=== PATIENT | male | born 1950 | race Caucasian/White ===

== ENCOUNTER 2016-09-09 12:40 | Emergency (ER) | payer MEDICARE, BC ==
[2016-09-09 13:31] VITALS: BP 118/81
[2016-09-09] MEDS ORDERED: Ampicillin/Sulbactam Na 1.5 GM in Sodium Chloride 0.9% 50 ML IV ONE (14:10)
--- NOTE | 2016-09-09 14:44 | EDM.PDOC ---
[id number]: RASH ON RIGHT FOOT KEVIN PATIENT Time Seen by Provider: 09/09/16 13:45 Source of Information: Reports: Patient History Limitations: Reports: No Limitations - History of Present Illness INITIAL COMMENTS - FREE TEXT/NARRATIVE: 65-year-old diabetic that had a recent procedure for a foot ulcer by podiatry, is in a walking boot but has developed a warm erythematous rash which is tender over the anterior and lateral aspects of the lower leg on the right side. He had some mild chills but no measured fever. No nausea or vomiting. Onset: Gradual (Over the last 12-24 hours) Location: Reports: Lower Extremity, Right Severity: Mild Associated Symptoms: Denies: Nausea/Vomiting, Shortness of Breath Left Leg Pain Score (Numeric/FACES): 3 - Related Data Allergies Allergy/AdvReac Type Severity Reaction Status Date / Time metformin HCl Allergy Other Verified 11/24/15 07:45 [From Glucophage] niacin Allergy Other Verified 11/24/15 07:45 atorvastatin calcium AdvReac Muscle Verified 11/24/15 07:45 [From Lipitor] Aches Home Meds: Home Meds Allopurinol [Zyloprim] 300 mg PO BEDTIME 03/17/14 [History] Aspirin [Sarah Chewable Aspirin] 81 mg PO Q48H 03/17/14 [History] Citalopram Hydrobromide [Celexa] 40 mg PO BEDTIME 03/17/14 [History] Cyanocobalamin (Vitamin B12) [Vitamin B12] 100 mcg PO DAILY 03/17/14 [History] Ferrous Sulfate [Iron] 325 mg PO DAILY 03/17/14 [History] Glimepiride [Amaryl] 2 mg PO BID 03/17/14 [History] Losartan [Cozaar] 25 mg PO DAILY 03/17/14 [History] Magnesium Oxide [Magnesium] 400 mg PO DAILY 03/17/14 [History] Metoprolol Succinate [Toprol XL] 100 mg PO DAILY 03/17/14 [History] Multivitamin [Multi-Vitamin Daily] 1 tab PO DAILY 03/17/14 [History] Nitroglycerin [Nitrostat] 0.4 mg SL ASDIRECTED 03/17/14 [History] Vitamin B Complex [B Complex] 1 tab PO DAILY 03/17/14 [History] Insulin Detemir [Levemir] 24 units SQ DAILY 06/24/14 [History] Insulin Detemir [Levemir] 26 units SQ DAILY 06/24/14 [History] Spironolactone [Aldactone] 25 mg PO DAILY 06/24/14 [History] Torsemide [Demadex] 25 mg PO DAILY 06/24/14 [History] Clindamycin HCl 300 mg PO Q6H #40 capsule 02/08/15 [Rx] Past Medical History HEENT History: Reports: Allergic Rhinitis, Impaired Vision Cardiovascular History: Reports: CAD, Heart Failure, High Cholesterol, Hypertension, [place], Pacemaker Respiratory History: Reports: Sleep Apnea Gastrointestinal History: Reports: Colon Polyp, Hiatal Hernia Musculoskeletal History: Reports: Amputation, Fracture, Gout, Other (See Below) Other Musculoskeletal History: back pain/injury gout Neurological History: Reports: Neuropathy, Diabetic Psychiatric History: Reports: Anxiety Endocrine/Metabolic History: Reports: Diabetes, Type II, Obesity/BMI 30+ Hematologic History: Reports: B12 Deficiency Dermatologic History: Reports: Other (See Below) Other Dermatologic History: rash on left leg, since resolved - Infectious Disease History Infectious Disease History: Reports: Chicken Pox - Past Surgical History Head Surgeries/Procedures: Reports: None Cardiovascular Surgical History: Reports: Coronary Artery Bypass, Pacer GI Surgical History: Reports: Bariatric Procedure, Colonoscopy, Hernia Repair/ Other, Polypectomy Neurological Surgical History: Reports: Spinal Fusion Musculoskeletal Surgical History: Reports: Amputation, Arthroscopic Procedure, Shoulder Surgery Dermatological Surgical History: Reports: None Social & Family History - Family History Family Medical History: Noncontributory HEENT: Reports: None Cardiac: Reports: Hypertension, [place] Respiratory: Reports: None GI: Reports: None : Reports: None OBGYN: Reports: None Musculoskeletal: Reports: None Neurological: Reports: CVA Psychiatric: Reports: None Endocrine/Metabolic: Reports: None Hematologic: Reports: None Immunologic: Reports: None Dermatologic: Reports: None Oncologic: Reports: None - Tobacco Use Smoking Status *Q: Never Smoker Years of Tobacco use: 0 Used Tobacco, but Quit: No Second Hand Smoke Exposure: No - Caffeine Use Caffeine Use: Reports: Soda - Alcohol Use Days Per Week of Alcohol Use: 0 - Recreational Drug Use Recreational Drug Use: No ED ROS GENERAL - Review of Systems Review Of Systems: See Below Constitutional: Reports: Chills (Brief, temporary) Respiratory: Denies: Shortness of Breath, Hemoptysis GI/Abdominal: Denies: Abdominal Pain, Nausea, Vomiting Psychiatric: Reports: No Symptoms Hematologic/Lymphatic: Reports: Other (Glucose levels are slightly elevated over the past few days) ED EXAM, SKIN/RASH Exam: See Below Exam Limited By: No Limitations General Appearance: Alert, No Apparent Distress Respiratory/Chest: No Respiratory Distress, Lungs Clear Cardiovascular: Regular Rate, Rhythm Extremities: Other (Patient has a well demarcated erythematous macular rash which is warm to the touch and tender over the anterior aspect of the lower leg extending laterally and medially but not circumferential. It is not contiguous with the foot and there is no pedal edema) Course - Vital Signs Last Recorded V/S: Last Vital Signs Temp 97.8 F 09/09/16 13:49 Pulse 96 09/09/16 13:49 Resp 16 09/09/16 13:49 BP 118/81 09/09/16 13:49 Pulse Ox 96 09/09/16 13:49 - Orders/Labs/Meds Meds: Medications Discontinued Medications Generic Name Dose Route Start Last Admin Trade Name Terrence PRN Reason Stop Dose Admin Ampicillin Sodium/Sulbactam 50 mls @ 100 mls/hr 09/09/16 14:10 09/09/16 14:31 Sodium 1.5 gm/ Sodium Chloride IV 09/09/16 14:39 100 mls/hr ONETIME ONE Administration - Re-Assessments/Exams Free Text/Narrative Re-Assessment/Exam: 09/09/16 14:42 Patient will be given 1.5 g of IV Unasyn, and will be placed on Augmentin twice daily for the next 7 days. He does have a recheck appointment with podiatry in 3 days, he can return sooner if worsening or concerns. Departure - Departure Time of Disposition: 15:17 Disposition: Home, Self-Care 01 Condition: Good Clinical Impression: Cellulitis of leg Qualifiers: Laterality: right Qualified Code(s): L03.115 - Cellulitis of right lower limb - Discharge Information Instructions: Cellulitis, Adult, [id number] Referrals: Neftali Evans MD [Primary Care Provider] - Forms: ED Department Discharge Care Plan Goals: Take antibiotic twice daily with food for at least 7 days starting this evening. Recheck Saturday as scheduled, or return sooner if you feel you are worsening despite treatment.
== END 2016-09-09 15:18 | disposition home or self-care (01) ==
LOC: JP.ED 12:40
DX: L03.115 Cellulitis of right lower limb (principal); I25.10 Atherosclerotic heart disease of native coronary artery without angina pectoris; I11.0 Hypertensive heart disease with heart failure; I50.9 Heart failure, unspecified; E78.00 Pure hypercholesterolemia, unspecified; I25.2 Old myocardial infarction; E11.40 Type 2 diabetes mellitus with diabetic neuropathy, unspecified; E66.9 Obesity, unspecified; Z98.890 Other specified postprocedural states; Z88.8 Allergy status to other drugs, medicaments and biological substances; Z79.899 Other long term (current) drug therapy; Z79.4 Long term (current) use of insulin; Z95.1 Presence of aortocoronary bypass graft; Z68.39 Body mass index [BMI] 39.0-39.9, adult
CPT/HCPCS: 96365; 99283; J0287; J7050

== ENCOUNTER 2016-12-05 06:41 | Day surgery (SDC) | payer MEDICARE, BC ==
[2016-12-05] MEDS ORDERED: Lactated Ringers 1,000 ML IV SCH (07:30)
[2016-12-05] MEDS ORDERED: Propofol 200 MG/20 ML SDV ONE (07:53)
[2016-12-05] MEDS ORDERED: fentaNYL 100 MCG/2 ML SDV ONE (07:53)
[2016-12-05] MEDS ORDERED: Midazolam 1 MG/ML 2 ML SDV ONE (07:54)
--- NOTE | 2016-12-05 10:11 | OR ---
DATE OF PROCEDURE: 12/05/2016 PREOPERATIVE DIAGNOSIS: History of precancerous polyps. POSTOPERATIVE DIAGNOSES: 1. Small colon polyp 30 cm from the anal verge. 2. History of precancerous polyps. PROCEDURE PERFORMED: Colonoscopy to the cecum with biopsy resection of small colon polyp 30 cm from the anal verge. SURGEON: Jimmy Lugo MD. ANESTHESIA: IV anesthesia with monitored anesthesia care. INDICATION: This 65-year-old white male is referred for a colonoscopy because of a history of precancerous colon polyps. He says his last colonoscopic exam was done about three years ago. I counseled him for the procedure including risks and alternatives, and he gave his informed consent to proceed. DESCRIPTION OF PROCEDURE: The patient was placed in the left lateral decubitus position. IV anesthesia was administered by the Anesthesia Service. Time-out was held. A rectal exam was performed, which was unremarkable. The flexible video Olympus colonoscope was introduced through his anus, up his rectum, and out his colon all the way to the cecum. En route, at 30 cm from anal verge, we saw a small polyp which was removed with a few bites of a biopsy forceps. Once the cecum was reached, the scope was slowly withdrawn, examining the mucosa throughout. No additional mucosal abnormalities were noted. The scope was retroflexed in the rectum with the distal rectum appearing unremarkable. The scope was straightened and removed. He tolerated the procedure well. Jimmy Lugo MD /[id number] MTDD
[2016-12-05 11:20] VITALS: BP 119/67
== END 2016-12-05 11:48 | disposition home or self-care (01) ==
LOC: JP.SDS 06:41
PROVIDERS: ATTEND Surgery
DX: Z12.11 Encounter for screening for malignant neoplasm of colon (principal); K63.5 Polyp of colon; I25.10 Atherosclerotic heart disease of native coronary artery without angina pectoris; F32.9 Major depressive disorder, single episode, unspecified; E11.9 Type 2 diabetes mellitus without complications; G47.33 Obstructive sleep apnea (adult) (pediatric); I10 Essential (primary) hypertension; Z86.010 Personal history of colon polyps; Z88.8 Allergy status to other drugs, medicaments and biological substances; Z95.810 Presence of automatic (implantable) cardiac defibrillator
CPT/HCPCS: 45380; 82962; 88305; J1642; J2250; J2704; J3010; J7120

== ENCOUNTER 2016-12-15 00:55 | Inpatient (IN) | payer MEDICARE, BC ==
[2016-12-15] MEDS ORDERED: Aspirin 81 MG Tab.Chew PO ONE (01:13)
[2016-12-15] MEDS ORDERED: Sodium Chloride 0.9% 10 ML Syringe FLUSH PRN ×2 (01:13→07:24)
[2016-12-15] MEDS ORDERED: Lactated Ringers 1,000 ML IV SCH (01:15)
--- NOTE | 2016-12-15 01:20 | EDM.PDOC ---
ED HPI GENERAL MEDICAL PROBLEM - General Chief Complaint: Chest Pain Stated Complaint: CHEST PAIN Time Seen by Provider: 12/15/16 01:10 Source of Information: Reports: Patient, RN Notes Reviewed History Limitations: Reports: No Limitations - History of Present Illness INITIAL COMMENTS - FREE TEXT/NARRATIVE: 66-year-old gentleman presents emergency department today complaint of abdominal pain that radiates up into his chest and abdominal in the right side he has no nausea or vomiting diaphoresis he does complain of shortness of breath extensive history of coronary artery disease right side Pain Score (Numeric/FACES): 3 - Related Data Allergies Allergy/AdvReac Type Severity Reaction Status Date / Time metformin HCl Allergy Other Verified 12/15/16 01:46 [From Glucophage] niacin Allergy Other Verified 12/15/16 01:46 atorvastatin calcium AdvReac Muscle Verified 12/15/16 01:46 [From Lipitor] Aches Home Meds: Home Meds Aspirin [Sarah Chewable Aspirin] 81 mg PO Q48H 03/17/14 [History] Citalopram Hydrobromide [Celexa] 40 mg PO BEDTIME 03/17/14 [History] Cyanocobalamin (Vitamin B12) [Vitamin B12] 100 mcg PO DAILY 03/17/14 [History] Ferrous Sulfate [Iron] 325 mg PO DAILY 03/17/14 [History] Glimepiride [Amaryl] 2 mg PO BID 03/17/14 [History] Magnesium Oxide [Magnesium] 400 mg PO DAILY 03/17/14 [History] Metoprolol Succinate [Toprol XL] 100 mg PO DAILY 03/17/14 [History] Multivitamin [Multi-Vitamin Daily] 1 tab PO DAILY 03/17/14 [History] Nitroglycerin [Nitrostat] 0.4 mg SL ASDIRECTED 03/17/14 [History] Vitamin B Complex [B Complex] 1 tab PO DAILY 03/17/14 [History] Insulin Detemir [Levemir] 26 units SQ DAILY 06/24/14 [History] Insulin Detemir [Levemir] 28 units SQ BEDTIME 06/24/14 [History] Torsemide [Demadex] 25 mg PO DAILY 06/24/14 [History] Past Medical History HEENT History: Reports: Allergic Rhinitis, Impaired Vision Cardiovascular History: Reports: Automatic Implantable Cardioverter Defibrillators, CAD, Heart Failure, High Cholesterol, Hypertension, [place], Pacemaker Respiratory History: Reports: Sleep Apnea Gastrointestinal History: Reports: Colon Polyp, Hiatal Hernia Musculoskeletal History: Reports: Amputation, Fracture, Gout, Other (See Below) Other Musculoskeletal History: back pain/injury gout Neurological History: Reports: Neuropathy, Diabetic Psychiatric History: Reports: Anxiety Endocrine/Metabolic History: Reports: Diabetes, Type II, Obesity/BMI 30+ Hematologic History: Reports: B12 Deficiency Dermatologic History: Reports: Other (See Below) Other Dermatologic History: rash on left leg, since resolved - Infectious Disease History Infectious Disease History: Reports: Measles, Mumps - Past Surgical History HEENT Surgical History: Reports: None Cardiovascular Surgical History: Reports: Coronary Artery Bypass, Pacer Respiratory Surgical History: Reports: None GI Surgical History: Reports: Bariatric Procedure, Colonoscopy, Hernia Repair/ Other, Polypectomy Neurological Surgical History: Reports: Spinal Fusion Musculoskeletal Surgical History: Reports: Amputation, Arthroscopic Procedure, Shoulder Surgery Dermatological Surgical History: Reports: None Social & Family History - Family History Family Medical History: Noncontributory HEENT: Reports: None Cardiac: Reports: Hypertension, [place] Respiratory: Reports: None GI: Reports: None : Reports: None OBGYN: Reports: None Musculoskeletal: Reports: None Neurological: Reports: CVA Psychiatric: Reports: None Endocrine/Metabolic: Reports: None Hematologic: Reports: None Immunologic: Reports: None Dermatologic: Reports: None Oncologic: Reports: None - Tobacco Use Smoking Status *Q: Never Smoker Years of Tobacco use: 0 Used Tobacco, but Quit: No Second Hand Smoke Exposure: No - Caffeine Use Caffeine Use: Reports: Soda - Alcohol Use Days Per Week of Alcohol Use: 0 - Recreational Drug Use Recreational Drug Use: No ED ROS GENERAL - Review of Systems Review Of Systems: See Below Constitutional: Reports: No Symptoms HEENT: Reports: No Symptoms Respiratory: Reports: Shortness of Breath. Denies: Wheezing, Cough, Sputum Cardiovascular: Reports: Chest Pain, Dyspnea on Exertion GI/Abdominal: Reports: No Symptoms : Reports: No Symptoms Musculoskeletal: Reports: No Symptoms Skin: Reports: No Symptoms Neurological: Reports: No Symptoms Psychiatric: Reports: No Symptoms ED EXAM, GENERAL - Physical Exam Exam: See Below Free Text/Narrative:: General: Male, not in any distress, alert and oriented x3 HEENT: head is atraumatic normocephalic, eyes pupils equal round reactive to light, sclera clear no conjunctivitis appreciated. Ears tympanic membranes clear and cerda landmarks and light reflex are present bilaterally canals are clear. Nose no septal deviation, nares are clear, no blood present. Mouth mucosa is moist and pink no erythema or exudate noted in soft palate, tongue is midline uvula is midline, dentition is intact. Neck: Supple no thyromegaly no tracheal deviation. Nodes: Cervical nodes subclavicular nodes nontender no palpable lymphadenopathy noted. Lungs: clear to auscultation bilaterally with symmetrical respirations, no adventitious noise appreciated. Difficult for him to take a deep breath CV: Regular rate and rhythm S1 and S2 appreciated no murmurs rubs or gallops noted. Abdomen: Soft, nontender, no palpable masses or organomegaly appreciated, no distention no guarding bowel sounds are present, . Neuro: Cranial nerves II through XII grossly intact Skin: Warm and dry, intact Extremities: No lower extremity edema appreciated, Course - Vital Signs Last Recorded V/S: Last Vital Signs Temp 99.3 F 12/15/16 03:00 Pulse 67 12/15/16 04:00 Resp 22 H 12/15/16 04:00 BP 137/74 12/15/16 04:00 Pulse Ox 96 12/15/16 04:00 - Orders/Labs/Meds Orders: Active Orders 24 hr Category Date Time Status Cardiac Monitoring [RC] .As Directed Care 12/15/16 01:13 Active EKG Documentation Completion [RC] ASDIRECTED Care 12/15/16 01:16 Active Peripheral IV Care [RC] . DIRECTED Care 12/15/16 01:16 Active Vital Signs [RC] Q1H Care 12/15/16 01:13 Active Chest 1V Frontal [CR] Stat Exams 12/15/16 01:15 Taken Chest wo Cont [CT] Stat Exams 12/15/16 04:06 Taken VL Duplex Lwr Ext Veins Comp [US] Stat Exams 12/15/16 02:42 Taken CULTURE BLOOD [BC] Urgent Lab 12/15/16 01:20 Received CULTURE BLOOD [BC] Urgent Lab 12/15/16 01:25 Received Lactated Ringers [Ringers, Lactated] 1,000 ml Med 12/15/16 01:15 Active IV ASDIRECTED Morphine Med 12/15/16 01:17 Active 2 mg IVPUSH Q1H PRN Sodium Chloride 0.9% [Saline Flush] Med 12/15/16 01:13 Active 10 ml FLUSH ASDIRECTED PRN Blood Culture x2 Reflex Set [OM.PC] Urgent Oth 12/15/16 01:13 Ordered Peripheral IV Insertion Adult [OM.PC] Stat Oth 12/15/16 01:13 Ordered EKG 12 Lead [EK] Stat Ther 12/15/16 01:15 Ordered Medication Orders Lactated Ringer's (Ringers, Lactated) 1,000 mls @ 500 mls/hr IV ASDIRECTED CHALO Last Admin: 12/15/16 01:29 Dose: 500 mls/hr Morphine Sulfate (Morphine) 2 mg IVPUSH Q1H PRN PRN Reason: Pain Last Admin: 12/15/16 04:17 Dose: 2 mg Admin: 12/15/16 01:30 Dose: 2 mg Sodium Chloride (Saline Flush) 10 ml FLUSH ASDIRECTED PRN PRN Reason: Keep Vein Open Last Admin: 12/15/16 01:30 Dose: 10 ml Labs: Laboratory Tests 12/15/16 12/15/16 12/15/16 Range/Units 01:25 01:25 01:25 WBC 12.7 H (4.5-11.0) K/uL RBC 3.77 L (4.30-5.90) M/uL Hgb 12.3 (12.0-15.0) g/dL Hct 35.8 L (40.0-54.0) % MCV 95 (80-98) fL MCH 33 H (27-31) pg MCHC 34 (32-36) % Plt Count 164 (150-400) K/uL Neut % (Auto) 76 H (36-66) % Lymph % (Auto) 12 L (24-44) % Bailey % (Auto) 11 H (2-6) % Eos % (Auto) 1 L (2-4) % Baso % (Auto) 0 (0-1) % PT 10.9 (9.5-12.0) sec INR 1.02 (0.80-1.20) APTT 28.0 (27.0-36.0) sec D-Dimer, Quantitative 2080 H (0.0-400.0) ng/mL Sodium (140-148) mmol/L Potassium (3.6-5.2) mmol/L Chloride (100-108) mmol/L Carbon Dioxide (21-32) mmol/L Anion Gap (5.0-14.0) mmol/L BUN (7-18) mg/dL Creatinine (0.8-1.3) mg/dL Est Cr Clr Drug Dosing mL/min Estimated GFR (MDRD) (>60) Glucose (74-106) mg/dL Lactic Acid (0.4-2.0) mmol/L Calcium (8.5-10.1) mg/dL Total Bilirubin (0.2-1.0) mg/dL AST (15-37) U/L ALT (12-78) U/L Alkaline Phosphatase (46-116) U/L CK-MB (CK-2) (0-3.6) mg/mL Troponin I (0.000-0.056) ng/mL C-Reactive Protein (0.0-0.3) mg/dL NT-Pro-B Natriuret Pep (5-125) pg/mL Total Protein (6.4-8.2) g/dL Albumin (3.4-5.0) g/dL Globulin (2.3-3.5) g/dL Albumin/Globulin Ratio (1.2-2.2) Lipase (73-393) U/L Urine Color Urine Appearance Urine pH (4.5-8.0) Ur Specific Maxwell (1.008-1.030) Urine Protein (NEGATIVE) mg/dL Urine Glucose (UA) (NEGATIVE) mg/dL Urine Ketones (NEGATIVE) mg/dL Urine Occult Blood (NEGATIVE) Urine Nitrite (NEGAITVE) Urine Bilirubin (NEGATIVE) Urine Urobilinogen (NORMAL) mg/dL Ur Leukocyte Esterase (NEGATIVE) Urine RBC (0-5) Urine WBC (0-5) Ur Epithelial Cells Amorphous Sediment Urine Bacteria Urine Mucus 12/15/16 12/15/16 12/15/16 Range/Units 01:25 01:25 01:25 WBC (4.5-11.0) K/uL RBC (4.30-5.90) M/uL Hgb (12.0-15.0) g/dL Hct (40.0-54.0) % MCV (80-98) fL MCH (27-31) pg MCHC (32-36) % Plt Count (150-400) K/uL Neut % (Auto) (36-66) % Lymph % (Auto) (24-44) % Bailey % (Auto) (2-6) % Eos % (Auto) (2-4) % Baso % (Auto) (0-1) % PT (9.5-12.0) sec INR (0.80-1.20) APTT (27.0-36.0) sec D-Dimer, Quantitative (0.0-400.0) ng/mL Sodium 137 L (140-148) mmol/L Potassium 4.6 (3.6-5.2) mmol/L Chloride 104 (100-108) mmol/L Carbon Dioxide 22 (21-32) mmol/L Anion Gap 15.6 H (5.0-14.0) mmol/L BUN 62 H D (7-18) mg/dL Creatinine 2.9 H (0.8-1.3) mg/dL Est Cr Clr Drug Dosing 24.38 mL/min Estimated GFR (MDRD) 22 L (>60) Glucose 81 (74-106) mg/dL Lactic Acid 1.1 (0.4-2.0) mmol/L Calcium 9.1 (8.5-10.1) mg/dL Total Bilirubin 0.5 (0.2-1.0) mg/dL AST 15 (15-37) U/L ALT 17 (12-78) U/L Alkaline Phosphatase 102 (46-116) U/L CK-MB (CK-2) 2.5 (0-3.6) mg/mL Troponin I < 0.017 (0.000-0.056) ng/mL C-Reactive Protein 5.35 H (0.0-0.3) mg/dL NT-Pro-B Natriuret Pep 922 H (5-125) pg/mL Total Protein 8.0 (6.4-8.2) g/dL Albumin 3.6 (3.4-5.0) g/dL Globulin 4.4 H (2.3-3.5) g/dL Albumin/Globulin Ratio 0.8 L (1.2-2.2) Lipase 183 (73-393) U/L Urine Color Urine Appearance Urine pH (4.5-8.0) Ur Specific Maxwell (1.008-1.030) Urine Protein (NEGATIVE) mg/dL Urine Glucose (UA) (NEGATIVE) mg/dL Urine Ketones (NEGATIVE) mg/dL Urine Occult Blood (NEGATIVE) Urine Nitrite (NEGAITVE) Urine Bilirubin (NEGATIVE) Urine Urobilinogen (NORMAL) mg/dL Ur Leukocyte Esterase (NEGATIVE) Urine RBC (0-5) Urine WBC (0-5) Ur Epithelial Cells Amorphous Sediment Urine Bacteria Urine Mucus 12/15/16 Range/Units 04:30 WBC (4.5-11.0) K/uL RBC (4.30-5.90) M/uL Hgb (12.0-15.0) g/dL Hct (40.0-54.0) % MCV (80-98) fL MCH (27-31) pg MCHC (32-36) % Plt Count (150-400) K/uL Neut % (Auto) (36-66) % Lymph % (Auto) (24-44) % Bailey % (Auto) (2-6) % Eos % (Auto) (2-4) % Baso % (Auto) (0-1) % PT (9.5-12.0) sec INR (0.80-1.20) APTT (27.0-36.0) sec D-Dimer, Quantitative (0.0-400.0) ng/mL Sodium (140-148) mmol/L Potassium (3.6-5.2) mmol/L Chloride (100-108) mmol/L Carbon Dioxide (21-32) mmol/L Anion Gap (5.0-14.0) mmol/L BUN (7-18) mg/dL Creatinine (0.8-1.3) mg/dL Est Cr Clr Drug Dosing mL/min Estimated GFR (MDRD) (>60) Glucose (74-106) mg/dL Lactic Acid (0.4-2.0) mmol/L Calcium (8.5-10.1) mg/dL Total Bilirubin (0.2-1.0) mg/dL AST (15-37) U/L ALT (12-78) U/L Alkaline Phosphatase (46-116) U/L CK-MB (CK-2) (0-3.6) mg/mL Troponin I (0.000-0.056) ng/mL C-Reactive Protein (0.0-0.3) mg/dL NT-Pro-B Natriuret Pep (5-125) pg/mL Total Protein (6.4-8.2) g/dL Albumin (3.4-5.0) g/dL Globulin (2.3-3.5) g/dL Albumin/Globulin Ratio (1.2-2.2) Lipase (73-393) U/L Urine Color Yellow Urine Appearance Clear Urine pH 5.0 (4.5-8.0) Ur Specific Maxwell 1.015 (1.008-1.030) Urine Protein Negative (NEGATIVE) mg/dL Urine Glucose (UA) Normal (NEGATIVE) mg/dL Urine Ketones Negative (NEGATIVE) mg/dL Urine Occult Blood Negative (NEGATIVE) Urine Nitrite Negative (NEGAITVE) Urine Bilirubin Negative (NEGATIVE) Urine Urobilinogen Normal (NORMAL) mg/dL Ur Leukocyte Esterase Negative (NEGATIVE) Urine RBC 0-5 (0-5) Urine WBC 0-5 (0-5) Ur Epithelial Cells Rare Amorphous Sediment Not seen Urine Bacteria Few Urine Mucus Not seen Meds: Medications Generic Name Dose Route Start Last Admin Trade Name Freq PRN Reason Stop Dose Admin Lactated Ringer's 1,000 mls @ 500 mls/hr 12/15/16 01:15 12/15/16 01:29 Ringers, Lactated IV 500 mls/hr ASDIRECTED CHALO Administration Morphine Sulfate 2 mg 12/15/16 01:17 12/15/16 04:17 Morphine IVPUSH 2 mg Q1H PRN Administration Pain Sodium Chloride 10 ml 12/15/16 01:13 12/15/16 01:30 Saline Flush FLUSH 10 ml ASDIRECTED PRN Administration Keep Vein Open Discontinued Medications Generic Name Dose Route Start Last Admin Trade Name Freq PRN Reason Stop Dose Admin Aspirin 324 mg 12/15/16 01:13 12/15/16 01:25 Aspirin PO 12/15/16 01:14 324 mg ONETIME ONE Administration Departure - Departure Time of Disposition: 05:35 Disposition: Admitted As Inpatient 64 Condition: Fair Clinical Impression: Dyspnea Qualifiers: Dyspnea type: shortness of breath Qualified Code(s): R06.02 - Shortness of breath; R06.00 - Dyspnea, unspecified; R06.01 - Orthopnea Referrals: Javi Kirkpatrick MD [Primary Care Provider] - Forms: ED Department Discharge - My Orders Last 24 Hours: My Active Orders 12/15/16 01:13 Cardiac Monitoring [RC] .As Directed Vital Signs [RC] Q1H Sodium Chloride 0.9% [Saline Flush] 10 ml FLUSH ASDIRECTED PRN Blood Culture x2 Reflex Set [OM.PC] Urgent Peripheral IV Insertion Adult [OM.PC] Stat 12/15/16 01:15 Chest 1V Frontal [CR] Stat Lactated Ringers [Ringers, Lactated] 1,000 ml IV ASDIRECTED EKG 12 Lead [EK] Stat 12/15/16 01:16 EKG Documentation Completion [RC] ASDIRECTED Peripheral IV Care [RC] . DIRECTED 12/15/16 01:17 Morphine 2 mg IVPUSH Q1H PRN 12/15/16 01:20 CULTURE BLOOD [BC] Urgent 12/15/16 01:25 CULTURE BLOOD [BC] Urgent 12/15/16 02:42 VL Duplex Lwr Ext Veins Comp [US] Stat 12/15/16 04:06 Chest wo Cont [CT] Stat - Assessment/Plan Last 24 Hours: My Active Orders 12/15/16 01:13 Cardiac Monitoring [RC] .As Directed Vital Signs [RC] Q1H Sodium Chloride 0.9% [Saline Flush] 10 ml FLUSH ASDIRECTED PRN Blood Culture x2 Reflex Set [OM.PC] Urgent Peripheral IV Insertion Adult [OM.PC] Stat 12/15/16 01:15 Chest 1V Frontal [CR] Stat Lactated Ringers [Ringers, Lactated] 1,000 ml IV ASDIRECTED EKG 12 Lead [EK] Stat 12/15/16 01:16 EKG Documentation Completion [RC] ASDIRECTED Peripheral IV Care [RC] . DIRECTED 12/15/16 01:17 Morphine 2 mg IVPUSH Q1H PRN 12/15/16 01:20 CULTURE BLOOD [BC] Urgent 12/15/16 01:25 CULTURE BLOOD [BC] Urgent 12/15/16 02:42 VL Duplex Lwr Ext Veins Comp [US] Stat 12/15/16 04:06 Chest wo Cont [CT] Stat Plan: Assessment Acuity = acute Site and laterality = shortness of breath complicated patient with known history coronary artery disease, chronic renal failure, sleep apnea and diabetes mellitus type 2 Etiology = unclear etiology Manifestations = pain with a deep breath Location of injury = Home Lab values = WBC elevated at 12.7 consistent leukocytosis, d-dimer elevated 2080 unclear etiology creatinine elevated at 2.9 consistent chronic renal failure stage G for CRP elevated at 5.35, BNP elevated 922 consistent with fluid overload type pattern EKG demonstrates paced rhythm, CT scan of the chest and chest x-ray revealed no acute intrathoracic process Plan Discuss case with hospitalist on-call they agreed to come and evaluate the patient ED for admission Patient was in agreement with the plan all questions were answered, This note was dictated using [employer] voice recognition software please call with any questions.
[2016-12-15] MEDS: Morphine 2 MG/ML Syringe IVPUSH PRN ×2 (01:30→04:17)
[2016-12-15] MEDS ORDERED: HYDROmorphone 0.5 MG/0.5 ML Syringe IVPUSH ONE (06:41)
--- NOTE | 2016-12-15 07:02 | PCM.HP ---
H&P History of Present Illness - General Date of Service: 12/15/16 Admit Problem/Dx: Admission Diagnosis/Problem Admission Diagnosis/Problem Pulmonary embolism Source of Information: Patient, Provider, RN Notes Reviewed History Limitations: Reports: No Limitations - History of Present Illness Initial Comments - Free Text/Narative: This patient is a 66-year-old gentleman was admitted through the emergency department with severe pleuritic chest pain of the right chest likely secondary to pulmonary emboli. He first noted onset of the pleuritic pain during the day yesterday became progressively worse during the day and when he tried to go bed at night pain became significantly worse and made him feel short of breath. Because of this he presented to the emergency department for further evaluation. Oxygen saturation has been adequate with supplemental oxygen, he is had a mild elevation in white blood cell count and mild temperature elevation. Chest x-ray showed no obvious infiltrates, renal function is significantly impaired and did not allow CT angiogram of the chest. CT scan without contrast the chest showed no evidence of infiltrate, pulmonary edema, or pericarditis. He has had recent difficulty with his feet, a total was removed from the right foot rocks only 3 weeks ago. Left foot is currently in a Cam Walker because of a diabetic foot ulcer on the plantar surface of the foot. Venous Doppler studies were obtained of both lower extremities and showed no evidence of DVT at the present time. He's never had a history of deep vein thrombosis or pulmonary emboli and there is no family history of clotting abnormalities. right side Pain Score (Numeric/FACES): 3 - Related Data Allergies/Adverse Reactions: Allergies Allergy/AdvReac Type Severity Reaction Status Date / Time metformin HCl Allergy Other Verified 12/15/16 01:46 [From Glucophage] niacin Allergy Other Verified 12/15/16 01:46 atorvastatin calcium AdvReac Muscle Verified 12/15/16 01:46 [From Lipitor] Aches Home Medications: Home Meds Aspirin [Sarah Chewable Aspirin] 81 mg PO Q48H 03/17/14 [History] Citalopram Hydrobromide [Celexa] 40 mg PO BEDTIME 03/17/14 [History] Cyanocobalamin (Vitamin B12) [Vitamin B12] 100 mcg PO DAILY 03/17/14 [History] Ferrous Sulfate [Iron] 325 mg PO DAILY 03/17/14 [History] Glimepiride [Amaryl] 2 mg PO BID 03/17/14 [History] Magnesium Oxide [Magnesium] 400 mg PO DAILY 03/17/14 [History] Metoprolol Succinate [Toprol XL] 100 mg PO DAILY 03/17/14 [History] Multivitamin [Multi-Vitamin Daily] 1 tab PO DAILY 03/17/14 [History] Nitroglycerin [Nitrostat] 0.4 mg SL ASDIRECTED 03/17/14 [History] Vitamin B Complex [B Complex] 1 tab PO DAILY 03/17/14 [History] Insulin Detemir [Levemir] 26 units SQ DAILY 06/24/14 [History] Insulin Detemir [Levemir] 28 units SQ BEDTIME 06/24/14 [History] Torsemide [Demadex] 25 mg PO DAILY 06/24/14 [History] Past Medical History HEENT History: Reports: Allergic Rhinitis, Impaired Vision Cardiovascular History: Reports: Automatic Implantable Cardioverter Defibrillators, CAD, Heart Failure, High Cholesterol, Hypertension, CT, Pacemaker Respiratory History: Reports: Sleep Apnea Other Respiratory History: Cpap at bedtime Gastrointestinal History: Reports: Colon Polyp, Hiatal Hernia Musculoskeletal History: Reports: Amputation, Fracture, Gout, Other (See Below) Other Musculoskeletal History: back pain/injury gout Neurological History: Reports: Neuropathy, Diabetic Psychiatric History: Reports: Anxiety Endocrine/Metabolic History: Reports: Diabetes, Type II, Obesity/BMI 30+ Hematologic History: Reports: B12 Deficiency Dermatologic History: Reports: Other (See Below) Other Dermatologic History: rash on left leg, since resolved - Infectious Disease History Infectious Disease History: Reports: Measles, Mumps - Past Surgical History HEENT Surgical History: Reports: None Cardiovascular Surgical History: Reports: Coronary Artery Bypass, Pacer Respiratory Surgical History: Reports: None GI Surgical History: Reports: Bariatric Procedure, Colonoscopy, Hernia Repair/ Other, Polypectomy Neurological Surgical History: Reports: Spinal Fusion Musculoskeletal Surgical History: Reports: Amputation, Arthroscopic Procedure, Shoulder Surgery Dermatological Surgical History: Reports: None Social & Family History - Family History Family Medical History: Noncontributory HEENT: Reports: None Cardiac: Reports: Hypertension, CT Respiratory: Reports: None GI: Reports: None : Reports: None OBGYN: Reports: None Musculoskeletal: Reports: None Neurological: Reports: CVA Psychiatric: Reports: None Endocrine/Metabolic: Reports: None Hematologic: Reports: None Immunologic: Reports: None Dermatologic: Reports: None Oncologic: Reports: None - Tobacco Use Smoking Status *Q: Never Smoker Years of Tobacco use: 0 Used Tobacco, but Quit: No Second Hand Smoke Exposure: No - Caffeine Use Caffeine Use: Reports: Soda - Alcohol Use Days Per Week of Alcohol Use: 0 - Recreational Drug Use Recreational Drug Use: No H&P Review of Systems - Review of Systems: Review Of Systems: See Below General: Denies: Fever, Chills, Weakness HEENT: Reports: No Symptoms Pulmonary: Reports: Shortness of Breath, Pleuritic Chest Pain. Denies: Wheezing , Cough, Sputum, Hemoptysis Cardiovascular: Reports: Dyspnea on Exertion. Denies: Chest Pain, Palpitations , Orthopnea, PND, Edema, Lightheadedness Gastrointestinal: Reports: No Symptoms Genitourinary: Reports: No Symptoms Musculoskeletal: Reports: No Symptoms Skin: Reports: No Symptoms Psychiatric: Reports: No Symptoms Neurological: Reports: No Symptoms Hematologic/Lymphatic: Reports: No Symptoms Immunologic: Reports: No Symptoms Exam - Exam Exam: See Below - Vital Signs Vital Signs: Last Vital Signs Temp 99.3 F 12/15/16 05:00 Pulse 81 12/15/16 05:00 Resp 17 12/15/16 05:00 BP 127/80 12/15/16 05:00 Pulse Ox 92 L 12/15/16 05:00 Weight: 274 lb - Exam Quality Assessment: Supplemental Oxygen, DVT Prophylaxis General: Alert, Oriented, Cooperative, Moderate Distress HEENT: Conjunctiva Clear, Hearing Intact, Mucosa Moist & [place], Normal Nasal Septum, Posterior Pharynx Clear, Pupils Equal Neck: Supple, Trachea Midline, +2 Carotid Pulse wo Bruit Lungs: Clear to Auscultation, Normal Respiratory Effort Cardiovascular: Regular Rate, Regular Rhythm, Normal S1, Normal S2. No: Systolic Murmur, Diastolic Murmur GI/Abdominal Exam: Normal Bowel Sounds, Soft, Non-Tender, No Organomegaly, No Distention Back Exam: Normal Inspection, Full Range of Motion Extremities: No Pedal Edema (Left foot currently in a Cam Walker), Other Skin: Warm, Dry, Intact Neurological: Cranial Nerves Intact, Strength Equal Bilateral, Normal Speech, Normal Tone. No: Focal Deficit Neuro Extensive - Mental Status: Alert, Oriented x3, Normal Mood/Affect, Normal Cognition, Memory Intact - Patient Data Lab Results Last 24 hrs: Laboratory Results - last 24 hr 12/15/16 12/15/16 12/15/16 Range/Units 01:25 01:25 01:25 WBC 12.7 H (4.5-11.0) K/uL RBC 3.77 L (4.30-5.90) M/uL Hgb 12.3 (12.0-15.0) g/dL Hct 35.8 L (40.0-54.0) % MCV 95 (80-98) fL MCH 33 H (27-31) pg MCHC 34 (32-36) % Plt Count 164 (150-400) K/uL Neut % (Auto) 76 H (36-66) % Lymph % (Auto) 12 L (24-44) % Spencer % (Auto) 11 H (2-6) % Eos % (Auto) 1 L (2-4) % Baso % (Auto) 0 (0-1) % PT 10.9 (9.5-12.0) sec INR 1.02 (0.80-1.20) APTT 28.0 (27.0-36.0) sec D-Dimer, Quantitative 2080 H (0.0-400.0) ng/mL Sodium (140-148) mmol/L Potassium (3.6-5.2) mmol/L Chloride (100-108) mmol/L Carbon Dioxide (21-32) mmol/L Anion Gap (5.0-14.0) mmol/L BUN (7-18) mg/dL Creatinine (0.8-1.3) mg/dL Est Cr Clr Drug Dosing mL/min Estimated GFR (MDRD) (>60) Glucose (74-106) mg/dL Lactic Acid (0.4-2.0) mmol/L Calcium (8.5-10.1) mg/dL Total Bilirubin (0.2-1.0) mg/dL AST (15-37) U/L ALT (12-78) U/L Alkaline Phosphatase (46-116) U/L CK-MB (CK-2) (0-3.6) mg/mL Troponin I (0.000-0.056) ng/mL C-Reactive Protein (0.0-0.3) mg/dL NT-Pro-B Natriuret Pep (5-125) pg/mL Total Protein (6.4-8.2) g/dL Albumin (3.4-5.0) g/dL Globulin (2.3-3.5) g/dL Albumin/Globulin Ratio (1.2-2.2) Lipase (73-393) U/L Urine Color Urine Appearance Urine pH (4.5-8.0) Ur Specific [place] (1.008-1.030) Urine Protein (NEGATIVE) mg/dL Urine Glucose (UA) (NEGATIVE) mg/dL Urine Ketones (NEGATIVE) mg/dL Urine Occult Blood (NEGATIVE) Urine Nitrite (NEGAITVE) Urine Bilirubin (NEGATIVE) Urine Urobilinogen (NORMAL) mg/dL Ur Leukocyte Esterase (NEGATIVE) Urine RBC (0-5) Urine WBC (0-5) Ur Epithelial Cells Amorphous Sediment Urine Bacteria Urine Mucus 12/15/16 12/15/16 12/15/16 Range/Units 01:25 01:25 01:25 WBC (4.5-11.0) K/uL RBC (4.30-5.90) M/uL Hgb (12.0-15.0) g/dL Hct (40.0-54.0) % MCV (80-98) fL MCH (27-31) pg MCHC (32-36) % Plt Count (150-400) K/uL Neut % (Auto) (36-66) % Lymph % (Auto) (24-44) % Spencer % (Auto) (2-6) % Eos % (Auto) (2-4) % Baso % (Auto) (0-1) % PT (9.5-12.0) sec INR (0.80-1.20) APTT (27.0-36.0) sec D-Dimer, Quantitative (0.0-400.0) ng/mL Sodium 137 L (140-148) mmol/L Potassium 4.6 (3.6-5.2) mmol/L Chloride 104 (100-108) mmol/L Carbon Dioxide 22 (21-32) mmol/L Anion Gap 15.6 H (5.0-14.0) mmol/L BUN 62 H D (7-18) mg/dL Creatinine 2.9 H (0.8-1.3) mg/dL Est Cr Clr Drug Dosing 24.38 mL/min Estimated GFR (MDRD) 22 L (>60) Glucose 81 (74-106) mg/dL Lactic Acid 1.1 (0.4-2.0) mmol/L Calcium 9.1 (8.5-10.1) mg/dL Total Bilirubin 0.5 (0.2-1.0) mg/dL AST 15 (15-37) U/L ALT 17 (12-78) U/L Alkaline Phosphatase 102 (46-116) U/L CK-MB (CK-2) 2.5 (0-3.6) mg/mL Troponin I < 0.017 (0.000-0.056) ng/mL C-Reactive Protein 5.35 H (0.0-0.3) mg/dL NT-Pro-B Natriuret Pep 922 H (5-125) pg/mL Total Protein 8.0 (6.4-8.2) g/dL Albumin 3.6 (3.4-5.0) g/dL Globulin 4.4 H (2.3-3.5) g/dL Albumin/Globulin Ratio 0.8 L (1.2-2.2) Lipase 183 (73-393) U/L Urine Color Urine Appearance Urine pH (4.5-8.0) Ur Specific [place] (1.008-1.030) Urine Protein (NEGATIVE) mg/dL Urine Glucose (UA) (NEGATIVE) mg/dL Urine Ketones (NEGATIVE) mg/dL Urine Occult Blood (NEGATIVE) Urine Nitrite (NEGAITVE) Urine Bilirubin (NEGATIVE) Urine Urobilinogen (NORMAL) mg/dL Ur Leukocyte Esterase (NEGATIVE) Urine RBC (0-5) Urine WBC (0-5) Ur Epithelial Cells Amorphous Sediment Urine Bacteria Urine Mucus 12/15/16 Range/Units 04:30 WBC (4.5-11.0) K/uL RBC (4.30-5.90) M/uL Hgb (12.0-15.0) g/dL Hct (40.0-54.0) % MCV (80-98) fL MCH (27-31) pg MCHC (32-36) % Plt Count (150-400) K/uL Neut % (Auto) (36-66) % Lymph % (Auto) (24-44) % Spencer % (Auto) (2-6) % Eos % (Auto) (2-4) % Baso % (Auto) (0-1) % PT (9.5-12.0) sec INR (0.80-1.20) APTT (27.0-36.0) sec D-Dimer, Quantitative (0.0-400.0) ng/mL Sodium (140-148) mmol/L Potassium (3.6-5.2) mmol/L Chloride (100-108) mmol/L Carbon Dioxide (21-32) mmol/L Anion Gap (5.0-14.0) mmol/L BUN (7-18) mg/dL Creatinine (0.8-1.3) mg/dL Est Cr Clr Drug Dosing mL/min Estimated GFR (MDRD) (>60) Glucose (74-106) mg/dL Lactic Acid (0.4-2.0) mmol/L Calcium (8.5-10.1) mg/dL Total Bilirubin (0.2-1.0) mg/dL AST (15-37) U/L ALT (12-78) U/L Alkaline Phosphatase (46-116) U/L CK-MB (CK-2) (0-3.6) mg/mL Troponin I (0.000-0.056) ng/mL C-Reactive Protein (0.0-0.3) mg/dL NT-Pro-B Natriuret Pep (5-125) pg/mL Total Protein (6.4-8.2) g/dL Albumin (3.4-5.0) g/dL Globulin (2.3-3.5) g/dL Albumin/Globulin Ratio (1.2-2.2) Lipase (73-393) U/L Urine Color Yellow Urine Appearance Clear Urine pH 5.0 (4.5-8.0) Ur Specific [place] 1.015 (1.008-1.030) Urine Protein Negative (NEGATIVE) mg/dL Urine Glucose (UA) Normal (NEGATIVE) mg/dL Urine Ketones Negative (NEGATIVE) mg/dL Urine Occult Blood Negative (NEGATIVE) Urine Nitrite Negative (NEGAITVE) Urine Bilirubin Negative (NEGATIVE) Urine Urobilinogen Normal (NORMAL) mg/dL Ur Leukocyte Esterase Negative (NEGATIVE) Urine RBC 0-5 (0-5) Urine WBC 0-5 (0-5) Ur Epithelial Cells Rare Amorphous Sediment Not seen Urine Bacteria Few Urine Mucus Not seen Result Diagrams: 12/15/16 01:25 12/15/16 01:25 *Q Meaningful Use (ADM) - VTE *Q VTE Criteria *Q: - VTE Risk Assess *Q Each Risk Factor Represents 1 Point: Obesity ( BMI > 25 kg/m2) Total Score 1 Point Risk Factors: 1 Each Risk Factor Represents 2 Points: Age 60 - 74 Years Total Score 2 Point Risk Factors: 2 Each Risk Factor Represents 3 Points: None Total Score 3 Point Risk Factors: 0 Each Risk Factor Represents 5 Points: None Total Score 5 Point Risk Factors: 0 Venous Thromboembolism Risk Factor Score *Q: 3 - Stroke *Q Stroke Criteria *Q: - AMI *Q AMI Criteria *Q: Problem List Initiated/Reviewed/Updated: Yes Orders Last 24hrs: Active Orders 24 hr Category Date Time Status Patient Status Manage Transfer [TRANSFER] Routine ADT 12/15/16 06:42 Ordered Cardiac Monitoring [RC] .As Directed Care 12/15/16 01:13 Active EKG Documentation Completion [RC] ASDIRECTED Care 12/15/16 01:16 Active Peripheral IV Care [RC] . DIRECTED Care 12/15/16 01:16 Active Vital Signs [RC] Q1H Care 12/15/16 01:13 Active Chest 1V Frontal [CR] Stat Exams 12/15/16 01:15 Taken Chest wo Cont [CT] Stat Exams 12/15/16 04:06 Taken VL Duplex Lwr Ext Veins Comp [US] Stat Exams 12/15/16 02:42 Taken CULTURE BLOOD [BC] Urgent Lab 12/15/16 01:20 Received CULTURE BLOOD [BC] Urgent Lab 12/15/16 01:25 Received Lactated Ringers [Ringers, Lactated] 1,000 ml Med 12/15/16 01:15 Active IV ASDIRECTED Morphine Med 12/15/16 01:17 Active 2 mg IVPUSH Q1H PRN Sodium Chloride 0.9% [Saline Flush] Med 12/15/16 01:13 Active 10 ml FLUSH ASDIRECTED PRN Blood Culture x2 Reflex Set [OM.PC] Urgent Oth 12/15/16 01:13 Ordered Peripheral IV Insertion Adult [OM.PC] Stat Oth 12/15/16 01:13 Ordered Resuscitation Status Routine Resus Stat 12/15/16 06:45 Ordered EKG 12 Lead [EK] Stat Ther 12/15/16 01:15 Ordered Medication Orders Lactated Ringer's (Ringers, Lactated) 1,000 mls @ 500 mls/hr IV ASDIRECTED CHALO Last Admin: 12/15/16 01:29 Dose: 500 mls/hr Morphine Sulfate (Morphine) 2 mg IVPUSH Q1H PRN PRN Reason: Pain Last Admin: 12/15/16 04:17 Dose: 2 mg Admin: 12/15/16 01:30 Dose: 2 mg Sodium Chloride (Saline Flush) 10 ml FLUSH ASDIRECTED PRN PRN Reason: Keep Vein Open Last Admin: 12/15/16 01:30 Dose: 10 ml Assessment/Plan Comment:: ASSESSMENT AND PLAN PLEURITIC CHEST PAIN-present for the past 24 hours and associated with shortness of breath. Evaluation negative for underlying pneumonia and congestive heart failure, CT shows no evidence of pericarditis. Unable to perform definitive testing for pulmonary embolism because of renal insufficiency. Venous Doppler studies both lower extremities negative for DVT. Most likely cause remains pulmonary embolism given current symptoms. -Lovenox 120 mg subcutaneous every 12 hours -Initiate oral anticoagulation with warfarin 7.5 mg by mouth today -VQ scan to further evaluate for pulmonary emboli when available on December 17 -Dilaudid via [employer] for pain control TYPE 2 DIABETES [id number] -4 times a day glucometers -Continue Amaryl and long-acting insulin -Moderate dose sliding scale NovoLog CHRONIC KIDNEY DISEASE STAGE IV -IV fluids for hydration -Closely monitor urine output and renal function during hospital stay DIABETIC FOOT ULCER LEFT FOOT -Continue current management CORONARY ARTERY DISEASE-currently asymptomatic -Continue outpatient medical regimen MAINTENANCE ISSUES -DVT prophylaxis; Lovenox for probable PE should provide adequate DVT prophylaxis -GI prophylaxis; not indicated -Horan catheter; not indicated -Nutrition; consistent carb diet -Nicotine dependence; not required CODE STATUS-FULL CODE ADMISSION STATUS-patient will be admitted to inpatient status, expect at least a 2 night hospital stay for evaluation and management of problems as outlined above. At the time of this admission I do not reasonably expected evaluation and management of this problem will require more than a 96 hour hospital stay. DISPOSITION-anticipate discharge to home after the hospital stay. PRIMARY CARE PROVIDER-Dr. Mitchell
[2016-12-15] MEDS ORDERED: HYDROmorphone/Normal Saline 15 MG/30 ML PCA IV PRN (07:24)
[2016-12-15] MEDS ORDERED: Enoxaparin 120 MG/0.8 ML Syringe SUBCUT SCH (07:24)
[2016-12-15] MEDS ORDERED: Docusate Sodium 100 MG Cap PO PRN (07:24)
[2016-12-15] MEDS ORDERED: Nitroglycerin 0.4 MG Tab.SL SL PRN (07:24)
[2016-12-15] MEDS ORDERED: Magnesium Hydroxide 400 MG/5 ML Susp 30 ML Cup PO PRN (07:24)
[2016-12-15] MEDS ORDERED: Glucose Gel 15 GM in 37.5 GM Tube PO PRN (07:24)
[2016-12-15] MEDS ORDERED: Acetaminophen 325 MG Tab PO PRN (07:24)
[2016-12-15] MEDS ORDERED: Albuterol 0.083% 2.5 MG/3 ML Neb Soln NEB PRN (07:24)
[2016-12-15] MEDS ORDERED: Polyethylene Glycol 3350 Powder 17 GM Packet PO PRN (07:24)
[2016-12-15] MEDS ORDERED: Naloxone 0.4 MG/ML SDV IVPUSH PRN (07:24)
[2016-12-15] MEDS ORDERED: 50% Dextrose in Water 50 ML Syringe IV PRN (07:24)
[2016-12-15] MEDS ORDERED: Ondansetron 4 MG/2 ML SDV IV PRN (07:24)
[2016-12-15] MEDS: Sodium Chloride 0.9% 1,000 ML IV SCH ×2 (08:21→20:02)
[2016-12-15] MEDS ORDERED: Warfarin 2.5 MG Tab PO ONE (09:00)
[2016-12-15] MEDS: Insulin Aspart 100 Units/ML 3 ML Pen SUBCUT SCH ×4 (09:20→20:21)
[2016-12-15] MEDS: Glimepiride 2 MG Tab PO SCH ×2 (09:30→20:23)
[2016-12-15] MEDS: Torsemide 20 MG Tab PO SCH (09:30)
[2016-12-15] MEDS: Ferrous Sulfate 325 MG Tab PO SCH (09:30)
[2016-12-15] MEDS: Magnesium Oxide 400 MG Tab PO SCH (09:31)
[2016-12-15] MEDS: Metoprolol Succinate 50 MG Tab.ER PO SCH (09:31)
[2016-12-15] MEDS: Enoxaparin 120 MG/0.8 ML Syringe SUBCUT SCH (09:31)
[2016-12-15] MEDS: Insulin Detemir 100 Units/ML 3 ML Pen SUBCUT SCH ×2 (09:36→20:20)
[2016-12-15] MEDS: Citalopram 20 MG Tab PO SCH (20:23)
[2016-12-16] MEDS: Insulin Aspart 100 Units/ML 3 ML Pen SUBCUT SCH ×4 (08:23→21:29)
[2016-12-16] MEDS: Glimepiride 2 MG Tab PO SCH ×2 (08:25→21:30)
[2016-12-16] MEDS: Torsemide 20 MG Tab PO SCH (08:26)
[2016-12-16] MEDS: Ferrous Sulfate 325 MG Tab PO SCH (08:26)
[2016-12-16] MEDS: Enoxaparin 120 MG/0.8 ML Syringe SUBCUT SCH (08:29)
[2016-12-16] MEDS: Magnesium Oxide 400 MG Tab PO SCH (08:30)
[2016-12-16] MEDS: Insulin Detemir 100 Units/ML 3 ML Pen SUBCUT SCH ×2 (08:32→21:31)
[2016-12-16] MEDS: Metoprolol Succinate 50 MG Tab.ER PO SCH (08:33)
[2016-12-16] MEDS: Sodium Chloride 0.9% 1,000 ML IV SCH (08:44)
[2016-12-16] MEDS ORDERED: Warfarin 2.5 MG Tab PO ONE (09:00)
[2016-12-16] MEDS ORDERED: Acetaminophen/oxyCODONE 325-10 MG Tab PO PRN (09:44)
--- NOTE | 2016-12-16 09:48 | PCM.PN ---
- General Info Date of Service: 12/16/16 Subjective Update: Mr. Marquez has been stable since admission yesterday, pleuritic pain has significantly improved but not totally resolved. Continues to require supplemental oxygen but has noted subjectively less shortness of breath. Vital signs have been stable and he has remained afebrile. Functional Status: Reports: Pain Controlled, Tolerating Diet, Ambulating - Review of Systems General: Denies: Fever, Weakness, Chills Pulmonary: Reports: Shortness of Breath, Pleuritic Chest Pain. Denies: Cough, Sputum, Hemoptysis, Wheezing Cardiovascular: Reports: Dyspnea on Exertion, Edema. Denies: Chest Pain, Palpitations, Orthopnea, PND Gastrointestinal: Reports: No Symptoms - Patient Data Vitals - Most Recent: Last Vital Signs Temp 97.5 F 12/16/16 07:15 Pulse 71 12/16/16 08:33 Resp 20 12/16/16 07:15 BP 123/61 12/16/16 08:33 Pulse Ox 96 12/16/16 07:15 Weight - Most Recent: 275 lb 9.6 oz I&O - Last 24 Hours: Intake & Output 12/15/16 12/16/16 12/16/16 23:59 06:59 14:59 Intake Total 1540 Output Total Balance 1540 Lab Results Last 24 Hours: Laboratory Results - last 24 hr 12/16/16 12/16/16 12/16/16 Range/Units 05:57 05:58 05:58 WBC 10.4 (4.5-11.0) K/uL RBC 3.38 L (4.30-5.90) M/uL Hgb 10.9 L (12.0-15.0) g/dL Hct 32.8 L (40.0-54.0) % MCV 97 (80-98) fL MCH 32 H (27-31) pg MCHC 33 (32-36) % Plt Count 153 (150-400) K/uL Neut % (Auto) 75 H (36-66) % Lymph % (Auto) 11 L (24-44) % [place] % (Auto) 12 H (2-6) % Eos % (Auto) 1 L (2-4) % Baso % (Auto) 0 (0-1) % PT 12.0 (9.5-12.0) sec INR 1.12 (0.80-1.20) Sodium 138 L (140-148) mmol/L Potassium 4.7 (3.6-5.2) mmol/L Chloride 105 (100-108) mmol/L Carbon Dioxide 20 L (21-32) mmol/L Anion Gap 17.7 H (5.0-14.0) mmol/L BUN 60 H (7-18) mg/dL Creatinine 2.8 H (0.8-1.3) mg/dL Est Cr Clr Drug Dosing 25.25 mL/min Estimated GFR (MDRD) 23 L (>60) Glucose 102 (74-106) mg/dL Calcium 8.6 (8.5-10.1) mg/dL Med Orders - Current: Current Medications Acetaminophen (Tylenol) 650 mg PO Q4H PRN PRN Reason: Pain (Mild 1-3)/fever Last Admin: 12/16/16 05:02 Dose: 650 mg Albuterol (Proventil Neb Soln) 2.5 mg NEB Q4H PRN PRN Reason: Shortness Of Breath/wheezing Aspirin (Aspirin) 81 mg PO Q48H [facility] Citalopram Hydrobromide (Celexa) 40 mg PO BEDTIME [facility] Last Admin: 12/15/16 20:23 Dose: 40 mg Dextrose (Glutose 15) 15 gm PO ONETIME PRN PRN Reason: Hypoglycemia Dextrose/Water (Dextrose 50% In Water) 50 ml IV ONETIME PRN PRN Reason: Hypoglycemia Docusate Sodium (Colace) 100 mg PO BID PRN PRN Reason: Constipation Enoxaparin Sodium (Lovenox) 120 mg SUBCUT DAILY [facility] Last Admin: 12/16/16 08:29 Dose: 120 mg Ferrous Sulfate (Ferrous Sulfate) 325 mg PO DAILY [facility] Last Admin: 12/16/16 08:26 Dose: 325 mg Glimepiride (Amaryl) 2 mg PO BID [facility] Last Admin: 12/16/16 08:25 Dose: 2 mg Insulin Aspart (Novolog) 0 unit SUBCUT QIDACANDBED [facility] PRN Reason: Protocol Last Admin: 12/16/16 08:23 Dose: Not Given Insulin Detemir (Levemir) 28 unit SUBCUT BEDTIME [facility] Last Admin: 12/15/16 20:20 Dose: 28 units Insulin Detemir (Levemir) 26 unit SUBCUT DAILY [facility] Last Admin: 12/16/16 08:32 Dose: 26 units Magnesium Hydroxide (Milk Of Magnesia) 30 ml PO Q12H PRN PRN Reason: Constipation Magnesium Oxide (Magnesium Oxide) 400 mg PO DAILY [facility] Last Admin: 12/16/16 08:30 Dose: 400 mg Metoprolol Succinate (Toprol Xl) 100 mg PO DAILY [facility] Last Admin: 12/16/16 08:33 Dose: 100 mg Nitroglycerin (Nitrostat) 0.4 mg SL ASDIRECTED PRN PRN Reason: Chest Pain Ondansetron HCl (Zofran) 4 mg IV Q4H PRN PRN Reason: Nausea/Vomiting Polyethylene Glycol (Miralax) 17 gm PO DAILY PRN PRN Reason: Constipation Sodium Chloride (Saline Flush) 10 ml FLUSH ASDIRECTED PRN PRN Reason: Keep Vein Open Torsemide (Demadex) 20 mg PO DAILY [facility] Last Admin: 12/16/16 08:26 Dose: 20 mg Discontinued Medications Aspirin (Aspirin) 324 mg PO ONETIME ONE Stop: 12/15/16 01:14 Last Admin: 12/15/16 01:25 Dose: 324 mg Hydromorphone HCl (Dilaudid) 0.5 mg IVPUSH ONETIME ONE Stop: 12/15/16 06:42 Last Admin: 12/15/16 06:52 Dose: 0.5 mg Hydromorphone HCl (Dilaudid Joy Operator 15 Mg In Ns 30 Ml) 0 mg IV ASDIRECTED PRN; Protocol PRN Reason: Pain Lactated Ringer's (Ringers, Lactated) 1,000 mls @ 500 mls/hr IV ASDIRECTED [facility] Last Admin: 12/15/16 01:29 Dose: 500 mls/hr Sodium Chloride (Normal Saline) 1,000 mls @ 75 mls/hr IV ASDIRECTED [facility] Last Admin: 12/16/16 08:44 Dose: 75 mls/hr Morphine Sulfate (Morphine) 2 mg IVPUSH Q1H PRN PRN Reason: Pain Last Admin: 12/15/16 04:17 Dose: 2 mg Naloxone HCl (Narcan) 0.4 mg IVPUSH Q2M PRN PRN Reason: Respiratory Distress Sodium Chloride (Saline Flush) 10 ml FLUSH ASDIRECTED PRN PRN Reason: Keep Vein Open Last Admin: 12/15/16 01:30 Dose: 10 ml Warfarin Sodium (Coumadin) 7.5 mg PO ONETIME ONE Stop: 12/15/16 09:01 Last Admin: 12/15/16 09:30 Dose: 7.5 mg Warfarin Sodium (Coumadin) 7.5 mg PO ONETIME ONE Stop: 12/16/16 09:01 Last Admin: 12/16/16 08:54 Dose: 7.5 mg - Exam Quality Assessment: Supplemental Oxygen, DVT Prophylaxis General: Alert, Oriented, Cooperative, Mild Distress Lungs: Clear to Auscultation, Normal Respiratory Effort Cardiovascular: Regular Rate, Regular Rhythm, No Murmurs GI/Abdominal Exam: Normal Bowel Sounds, Soft, Non-Tender, No Organomegaly, No Distention Extremities: Non-Tender, Pedal Edema Skin: Warm, Dry, Intact - Problem List Review Problem List Initiated/Reviewed/Updated: Yes - My Orders Last 24 Hours: My Active Orders 12/16/16 09:43 Convert IV to Saline Lock [OM.PC] Routine 12/16/16 09:44 Acetaminophen/oxyCODONE [Percocet 325-10 MG] 1 - 2 tab PO Q4H PRN 12/16/16 11:30 GLUCOSE POC LAB TO COLLECT [POC] QIDACANDBED 12/16/16 16:30 GLUCOSE POC LAB TO COLLECT [POC] QIDACANDBED 12/16/16 21:00 GLUCOSE POC LAB TO COLLECT [POC] QIDACANDBED 12/17/16 05:00 BASIC METABOLIC PANEL,BMP [CHEM] Timed 12/17/16 05:11 INR,PT,PROTHROMBIN TIME [COAG] AM 12/17/16 07:30 GLUCOSE POC LAB TO COLLECT [POC] QIDACANDBED 12/17/16 08:00 Lung Vent Perfusion [NM] Urgent 12/17/16 11:30 GLUCOSE POC LAB TO COLLECT [POC] QIDACANDBED 12/17/16 16:30 GLUCOSE POC LAB TO COLLECT [POC] QIDACANDBED 12/17/16 21:00 GLUCOSE POC LAB TO COLLECT [POC] QIDACANDBED 12/18/16 07:30 GLUCOSE POC LAB TO COLLECT [POC] QIDACANDBED 12/18/16 11:30 GLUCOSE POC LAB TO COLLECT [POC] QIDACANDBED 12/18/16 16:30 GLUCOSE POC LAB TO COLLECT [POC] QIDACANDBED 12/18/16 21:00 GLUCOSE POC LAB TO COLLECT [POC] QIDACANDBED 12/19/16 07:30 GLUCOSE POC LAB TO COLLECT [POC] QIDACANDBED 12/19/16 11:30 GLUCOSE POC LAB TO COLLECT [POC] QIDACANDBED 12/19/16 16:30 GLUCOSE POC LAB TO COLLECT [POC] QIDACANDBED 12/19/16 21:00 GLUCOSE POC LAB TO COLLECT [POC] QIDACANDBED 12/20/16 07:30 GLUCOSE POC LAB TO COLLECT [POC] QIDACANDBED 12/20/16 11:30 GLUCOSE POC LAB TO COLLECT [POC] QIDACANDBED 12/20/16 16:30 GLUCOSE POC LAB TO COLLECT [POC] QIDACANDBED 12/20/16 21:00 GLUCOSE POC LAB TO COLLECT [POC] QIDACANDBED 12/21/16 07:30 GLUCOSE POC LAB TO COLLECT [POC] QIDACANDBED 12/21/16 11:30 GLUCOSE POC LAB TO COLLECT [POC] QIDACANDBED 12/21/16 16:30 GLUCOSE POC LAB TO COLLECT [POC] QIDACANDBED 12/21/16 21:00 GLUCOSE POC LAB TO COLLECT [POC] QIDACANDBED 12/22/16 07:30 GLUCOSE POC LAB TO COLLECT [POC] QIDACANDBED 12/22/16 11:30 GLUCOSE POC LAB TO COLLECT [POC] QIDACANDBED 12/22/16 16:30 GLUCOSE POC LAB TO COLLECT [POC] QIDACANDBED 12/22/16 21:00 GLUCOSE POC LAB TO COLLECT [POC] QIDACANDBED 12/23/16 07:30 GLUCOSE POC LAB TO COLLECT [POC] QIDACANDBED 12/23/16 11:30 GLUCOSE POC LAB TO COLLECT [POC] QIDACANDBED 12/23/16 16:30 GLUCOSE POC LAB TO COLLECT [POC] QIDACANDBED 12/23/16 21:00 GLUCOSE POC LAB TO COLLECT [POC] QIDACANDBED 12/24/16 07:30 GLUCOSE POC LAB TO COLLECT [POC] QIDACANDBED 12/24/16 11:30 GLUCOSE POC LAB TO COLLECT [POC] QIDACANDBED 12/24/16 16:30 GLUCOSE POC LAB TO COLLECT [POC] QIDACANDBED 12/24/16 21:00 GLUCOSE POC LAB TO COLLECT [POC] QIDACANDBED 12/25/16 07:30 GLUCOSE POC LAB TO COLLECT [POC] QIDACANDBED 12/25/16 11:30 GLUCOSE POC LAB TO COLLECT [POC] QIDACANDBED 12/25/16 16:30 GLUCOSE POC LAB TO COLLECT [POC] QIDACANDBED 12/25/16 21:00 GLUCOSE POC LAB TO COLLECT [POC] QIDACANDBED 12/26/16 07:30 GLUCOSE POC LAB TO COLLECT [POC] QIDACANDBED 12/26/16 11:30 GLUCOSE POC LAB TO COLLECT [POC] QIDACANDBED 12/26/16 16:30 GLUCOSE POC LAB TO COLLECT [POC] QIDACANDBED 12/26/16 21:00 GLUCOSE POC LAB TO COLLECT [POC] QIDACANDBED 12/27/16 07:30 GLUCOSE POC LAB TO COLLECT [POC] QIDACANDBED 12/27/16 11:30 GLUCOSE POC LAB TO COLLECT [POC] QIDACANDBED 12/27/16 16:30 GLUCOSE POC LAB TO COLLECT [POC] QIDACANDBED 12/27/16 21:00 GLUCOSE POC LAB TO COLLECT [POC] QIDACANDBED 12/28/16 07:30 GLUCOSE POC LAB TO COLLECT [POC] QIDACANDBED 12/28/16 11:30 GLUCOSE POC LAB TO COLLECT [POC] QIDACANDBED 12/28/16 16:30 GLUCOSE POC LAB TO COLLECT [POC] QIDACANDBED 12/28/16 21:00 GLUCOSE POC LAB TO COLLECT [POC] QIDACANDBED 12/29/16 07:30 GLUCOSE POC LAB TO COLLECT [POC] QIDACANDBED 12/29/16 11:30 GLUCOSE POC LAB TO COLLECT [POC] QIDACANDBED 12/29/16 16:30 GLUCOSE POC LAB TO COLLECT [POC] QIDACANDBED 12/29/16 21:00 GLUCOSE POC LAB TO COLLECT [POC] QIDACANDBED 12/30/16 07:30 GLUCOSE POC LAB TO COLLECT [POC] QIDACANDBED 12/30/16 11:30 GLUCOSE POC LAB TO COLLECT [POC] QIDACANDBED 12/30/16 16:30 GLUCOSE POC LAB TO COLLECT [POC] QIDACANDBED 12/30/16 21:00 GLUCOSE POC LAB TO COLLECT [POC] QIDACANDBED 12/31/16 07:30 GLUCOSE POC LAB TO COLLECT [POC] QIDACANDBED 12/31/16 11:30 GLUCOSE POC LAB TO COLLECT [POC] QIDACANDBED 12/31/16 16:30 GLUCOSE POC LAB TO COLLECT [POC] QIDACANDBED 12/31/16 21:00 GLUCOSE POC LAB TO COLLECT [POC] QIDACANDBED 01/01/17 07:30 GLUCOSE POC LAB TO COLLECT [POC] QIDACANDBED 01/01/17 11:30 GLUCOSE POC LAB TO COLLECT [POC] QIDACANDBED 01/01/17 16:30 GLUCOSE POC LAB TO COLLECT [POC] QIDACANDBED 01/01/17 21:00 GLUCOSE POC LAB TO COLLECT [POC] QIDACANDBED 01/02/17 07:30 GLUCOSE POC LAB TO COLLECT [POC] QIDACANDBED 01/02/17 11:30 GLUCOSE POC LAB TO COLLECT [POC] QIDACANDBED 01/02/17 16:30 GLUCOSE POC LAB TO COLLECT [POC] QIDACANDBED 01/02/17 21:00 GLUCOSE POC LAB TO COLLECT [POC] QIDACANDBED 01/03/17 07:30 GLUCOSE POC LAB TO COLLECT [POC] QIDACANDBED 01/03/17 11:30 GLUCOSE POC LAB TO COLLECT [POC] QIDACANDBED 01/03/17 16:30 GLUCOSE POC LAB TO COLLECT [POC] QIDACANDBED 01/03/17 21:00 GLUCOSE POC LAB TO COLLECT [POC] QIDACANDBED 01/04/17 07:30 GLUCOSE POC LAB TO COLLECT [POC] QIDACANDBED 01/04/17 11:30 GLUCOSE POC LAB TO COLLECT [POC] QIDACANDBED 01/04/17 16:30 GLUCOSE POC LAB TO COLLECT [POC] QIDACANDBED 01/04/17 21:00 GLUCOSE POC LAB TO COLLECT [POC] QIDACANDBED 01/05/17 07:30 GLUCOSE POC LAB TO COLLECT [POC] QIDACANDBED 01/05/17 11:30 GLUCOSE POC LAB TO COLLECT [POC] QIDACANDBED 01/05/17 16:30 GLUCOSE POC LAB TO COLLECT [POC] QIDACANDBED 01/05/17 21:00 GLUCOSE POC LAB TO COLLECT [POC] QIDACANDBED 01/06/17 07:30 GLUCOSE POC LAB TO COLLECT [POC] QIDACANDBED 01/06/17 11:30 GLUCOSE POC LAB TO COLLECT [POC] QIDACANDBED 01/06/17 16:30 GLUCOSE POC LAB TO COLLECT [POC] QIDACANDBED 01/06/17 21:00 GLUCOSE POC LAB TO COLLECT [POC] QIDACANDBED 01/07/17 07:30 GLUCOSE POC LAB TO COLLECT [POC] QIDACANDBED 01/07/17 11:30 GLUCOSE POC LAB TO COLLECT [POC] QIDACANDBED 01/07/17 16:30 GLUCOSE POC LAB TO COLLECT [POC] QIDACANDBED 01/07/17 21:00 GLUCOSE POC LAB TO COLLECT [POC] QIDACANDBED 01/08/17 07:30 GLUCOSE POC LAB TO COLLECT [POC] QIDACANDBED 01/08/17 11:30 GLUCOSE POC LAB TO COLLECT [POC] QIDACANDBED 01/08/17 16:30 GLUCOSE POC LAB TO COLLECT [POC] QIDACANDBED - Plan Plan:: ASSESSMENT AND PLAN PLEURITIC CHEST PAIN-improved since admission with much less pleuritic pain and shortness of breath -Lovenox 120 mg subcutaneous every 12 hours -Warfarin 7.5 mg by mouth today -INR in a.m. -VQ scan to further evaluate for pulmonary emboli when available on December 17 -Oxycodone with Tylenol as needed for pain TYPE 2 DIABETES [id number] -4 times a day glucometers -Continue Amaryl and long-acting insulin -Moderate dose sliding scale NovoLog CHRONIC KIDNEY DISEASE STAGE IV-renal function has remained stable since admission -saline lock IV -Closely monitor urine output and renal function during hospital stay DIABETIC FOOT ULCER LEFT FOOT -Continue current management CORONARY ARTERY DISEASE-currently asymptomatic -Continue outpatient medical regimen MAINTENANCE ISSUES -DVT prophylaxis; Lovenox for probable PE should provide adequate DVT prophylaxis -GI prophylaxis; not indicated -Horan catheter; not indicated -Nutrition; consistent carb diet -Nicotine dependence; not required CODE STATUS-FULL CODE ADMISSION STATUS-patient will be admitted to inpatient status, expect at least a 2 night hospital stay for evaluation and management of problems as outlined above. At the time of this admission I do not reasonably expected evaluation and management of this problem will require more than a 96 hour hospital stay. DISPOSITION-anticipate discharge to home after the hospital stay. PRIMARY CARE PROVIDER-Dr. Mitchell
[2016-12-16] MEDS: Citalopram 20 MG Tab PO SCH (21:29)
[2016-12-17] MEDS: Insulin Aspart 100 Units/ML 3 ML Pen SUBCUT SCH ×2 (07:55→11:43)
[2016-12-17] MEDS: Glimepiride 2 MG Tab PO SCH (08:03)
[2016-12-17] MEDS: Metoprolol Succinate 50 MG Tab.ER PO SCH (08:04)
[2016-12-17] MEDS: Magnesium Oxide 400 MG Tab PO SCH (08:04)
[2016-12-17] MEDS: Torsemide 20 MG Tab PO SCH (08:04)
[2016-12-17] MEDS: Ferrous Sulfate 325 MG Tab PO SCH (08:04)
[2016-12-17] MEDS: Insulin Detemir 100 Units/ML 3 ML Pen SUBCUT SCH (08:05)
[2016-12-17] MEDS: Enoxaparin 120 MG/0.8 ML Syringe SUBCUT SCH (08:05)
[2016-12-17] MEDS ORDERED: Warfarin 2.5 MG Tab PO ONE (08:07)
--- NOTE | 2016-12-17 08:24 | CR ---
Chest 1V Frontal INDICATION: Chest Pain FINDINGS: Comparison 11/14/2016. Left PICC line has been removed. Sternotomy with fractured upper ster notomy wires. Right-sided AICD in place. Stable cardiac enlargement. Old healed left clavicular fract ure. Chest otherwise unremarkable.
--- NOTE | 2016-12-17 08:51 | US ---
VL Duplex Lwr Ext Veins Comp INDICATION: sob, elevated d-dimer FINDINGS: Ultrasound examination of bilateral lower extremities using Doppler and compressive techniq ue demonstrates that the common femoral, femoral, and popliteal veins are patent, and negative for th rombus. The calf veins were segmentally visualized and are negative where seen. IMPRESSION: Bilateral lower extremities negative for deep venous thrombosis.
[2016-12-17] MEDS ORDERED: Aspirin 81 MG Tab.Chew PO SCH (09:00)
[2016-12-17] MEDS ORDERED: Enoxaparin 60 MG/0.6 ML Syringe SUBCUT ONE (09:30)
--- NOTE | 2016-12-17 10:02 | PCM.PN ---
- General Info Date of Service: 12/17/16 Subjective Update: Mr. Xavier has done well since yesterday, shortness of breath and chest pain have essentially resolved. VQ scan is pending for further evaluation today. INR remains subtherapeutic, will transition to once daily Lovenox dosing. Possible discharge later today depending on results of VQ scan and how he does with ambulation. Dr. Roblero we'll see him in the hospital today concerning his chronic diabetic foot ulcer on the left foot. Functional Status: Reports: Tolerating Diet, Urinating - Review of Systems General: Denies: Fever, Chills Pulmonary: Denies: Shortness of Breath, Pleuritic Chest Pain, Cough, Sputum, Hemoptysis, Wheezing Cardiovascular: Denies: Chest Pain, Palpitations, Dyspnea on Exertion, Orthopnea , PND, Edema, Lightheadedness Gastrointestinal: Reports: No Symptoms - Patient Data Vitals - Most Recent: Last Vital Signs Temp 95.5 F 12/17/16 07:00 Pulse 53 L 12/17/16 08:04 Resp 18 12/17/16 07:00 BP 116/81 12/17/16 08:04 Pulse Ox 94 L 12/17/16 07:00 Weight - Most Recent: 275 lb I&O - Last 24 Hours: Intake & Output 12/16/16 12/17/16 12/17/16 22:59 06:59 14:59 Intake Total 960 1055 Output Total 1925 650 Balance -965 405 Lab Results Last 24 Hours: Laboratory Results - last 24 hr 12/17/16 12/17/16 Range/Units 05:45 05:45 PT 14.4 H (9.5-12.0) sec INR 1.33 H (0.80-1.20) Sodium 139 L (140-148) mmol/L Potassium 4.1 (3.6-5.2) mmol/L Chloride 107 (100-108) mmol/L Carbon Dioxide 20 L (21-32) mmol/L Anion Gap 16.1 H (5.0-14.0) mmol/L BUN 59 H (7-18) mg/dL Creatinine 2.5 H (0.8-1.3) mg/dL Est Cr Clr Drug Dosing 28.28 mL/min Estimated GFR (MDRD) 26 L (>60) Glucose 64 L (74-106) mg/dL Calcium 8.7 (8.5-10.1) mg/dL Med Orders - Current: Current Medications Acetaminophen (Tylenol) 650 mg PO Q4H PRN PRN Reason: Pain (Mild 1-3)/fever Last Admin: 12/16/16 05:02 Dose: 650 mg Albuterol (Proventil Neb Soln) 2.5 mg NEB Q4H PRN PRN Reason: Shortness Of Breath/wheezing Aspirin (Aspirin) 81 mg PO Q48H [facility] Last Admin: 12/17/16 08:04 Dose: 81 mg Citalopram Hydrobromide (Celexa) 40 mg PO BEDTIME [facility] Last Admin: 12/16/16 21:29 Dose: 40 mg Dextrose (Glutose 15) 15 gm PO ONETIME PRN PRN Reason: Hypoglycemia Dextrose/Water (Dextrose 50% In Water) 50 ml IV ONETIME PRN PRN Reason: Hypoglycemia Docusate Sodium (Colace) 100 mg PO BID PRN PRN Reason: Constipation Last Admin: 12/16/16 21:33 Dose: 100 mg Ferrous Sulfate (Ferrous Sulfate) 325 mg PO DAILY [facility] Last Admin: 12/17/16 08:04 Dose: 325 mg Glimepiride (Amaryl) 2 mg PO BID [facility] Last Admin: 12/17/16 08:03 Dose: 2 mg Insulin Aspart (Novolog) 0 unit SUBCUT QIDACANDBED [facility] PRN Reason: Protocol Last Admin: 12/17/16 07:55 Dose: Not Given Insulin Detemir (Levemir) 28 unit SUBCUT BEDTIME [facility] Last Admin: 12/16/16 21:31 Dose: 28 units Insulin Detemir (Levemir) 26 unit SUBCUT DAILY [facility] Last Admin: 12/17/16 08:05 Dose: 26 units Magnesium Hydroxide (Milk Of Magnesia) 30 ml PO Q12H PRN PRN Reason: Constipation Magnesium Oxide (Magnesium Oxide) 400 mg PO DAILY [facility] Last Admin: 12/17/16 08:04 Dose: 400 mg Metoprolol Succinate (Toprol Xl) 100 mg PO DAILY [facility] Last Admin: 12/17/16 08:04 Dose: 100 mg Nitroglycerin (Nitrostat) 0.4 mg SL ASDIRECTED PRN PRN Reason: Chest Pain Ondansetron HCl (Zofran) 4 mg IV Q4H PRN PRN Reason: Nausea/Vomiting Oxycodone/Acetaminophen (Percocet 325-10 Mg) 1 - 2 tab PO Q4H PRN PRN Reason: Pain Last Admin: 12/16/16 20:15 Dose: 1 tab Polyethylene Glycol (Miralax) 17 gm PO DAILY PRN PRN Reason: Constipation Last Admin: 12/17/16 08:01 Dose: 17 gm Sodium Chloride (Saline Flush) 10 ml FLUSH ASDIRECTED PRN PRN Reason: Keep Vein Open Torsemide (Demadex) 20 mg PO DAILY [facility] Last Admin: 12/17/16 08:04 Dose: 20 mg Warfarin Sodium (Coumadin) 10 mg PO ONETIME ONE Stop: 12/17/16 13:01 Discontinued Medications Aspirin (Aspirin) 324 mg PO ONETIME ONE Stop: 12/15/16 01:14 Last Admin: 12/15/16 01:25 Dose: 324 mg Enoxaparin Sodium (Lovenox) 120 mg SUBCUT DAILY [facility] Last Admin: 12/17/16 08:05 Dose: 120 mg Enoxaparin Sodium (Lovenox) 60 mg SUBCUT ONETIME ONE Stop: 12/17/16 09:31 Hydromorphone HCl (Dilaudid) 0.5 mg IVPUSH ONETIME ONE Stop: 12/15/16 06:42 Last Admin: 12/15/16 06:52 Dose: 0.5 mg Hydromorphone HCl (Dilaudid [employer] 15 Mg In Ns 30 Ml) 0 mg IV ASDIRECTED PRN; Protocol PRN Reason: Pain Last Admin: 12/15/16 08:15 Dose: 15 mg Lactated Ringer's (Ringers, Lactated) 1,000 mls @ 500 mls/hr IV ASDIRECTED [facility] Last Admin: 12/15/16 01:29 Dose: 500 mls/hr Sodium Chloride (Normal Saline) 1,000 mls @ 75 mls/hr IV ASDIRECTED [facility] Last Admin: 12/16/16 08:44 Dose: 75 mls/hr Morphine Sulfate (Morphine) 2 mg IVPUSH Q1H PRN PRN Reason: Pain Last Admin: 12/15/16 04:17 Dose: 2 mg Naloxone HCl (Narcan) 0.4 mg IVPUSH Q2M PRN PRN Reason: Respiratory Distress Sodium Chloride (Saline Flush) 10 ml FLUSH ASDIRECTED PRN PRN Reason: Keep Vein Open Last Admin: 12/15/16 01:30 Dose: 10 ml Warfarin Sodium (Coumadin) 7.5 mg PO ONETIME ONE Stop: 12/15/16 09:01 Last Admin: 12/15/16 09:30 Dose: 7.5 mg Warfarin Sodium (Coumadin) 7.5 mg PO ONETIME ONE Stop: 12/16/16 09:01 Last Admin: 12/16/16 08:54 Dose: 7.5 mg - Exam General: Alert, Oriented, Cooperative, No Acute Distress Lungs: Clear to Auscultation, Normal Respiratory Effort Cardiovascular: Regular Rate, Regular Rhythm, No Murmurs GI/Abdominal Exam: Normal Bowel Sounds, Soft, Non-Tender, No Organomegaly, No Distention Extremities: No Pedal Edema Skin: Warm, Dry - Problem List Review Problem List Initiated/Reviewed/Updated: Yes - My Orders Last 24 Hours: My Active Orders 12/16/16 09:43 Convert IV to Saline Lock [OM.PC] Routine 12/16/16 09:44 Acetaminophen/oxyCODONE [Percocet 325-10 MG] 1 - 2 tab PO Q4H PRN 12/17/16 08:00 Lung Vent Perfusion [NM] Urgent 12/17/16 11:30 GLUCOSE POC LAB TO COLLECT [POC] QIDACANDBED 12/17/16 13:00 Warfarin [Coumadin] 10 mg PO ONETIME ONE 12/17/16 16:30 GLUCOSE POC LAB TO COLLECT [POC] QIDACANDBED 12/17/16 21:00 GLUCOSE POC LAB TO COLLECT [POC] QIDACANDBED 12/18/16 05:00 BASIC METABOLIC PANEL,BMP [CHEM] Timed 12/18/16 05:11 INR,PT,PROTHROMBIN TIME [COAG] AM 12/18/16 07:30 GLUCOSE POC LAB TO COLLECT [POC] QIDACANDBED 12/18/16 11:30 GLUCOSE POC LAB TO COLLECT [POC] QIDACANDBED 12/18/16 16:30 GLUCOSE POC LAB TO COLLECT [POC] QIDACANDBED 12/18/16 21:00 GLUCOSE POC LAB TO COLLECT [POC] QIDACANDBED 12/19/16 07:30 GLUCOSE POC LAB TO COLLECT [POC] QIDACANDBED 12/19/16 11:30 GLUCOSE POC LAB TO COLLECT [POC] QIDACANDBED 12/19/16 16:30 GLUCOSE POC LAB TO COLLECT [POC] QIDACANDBED 12/19/16 21:00 GLUCOSE POC LAB TO COLLECT [POC] QIDACANDBED 12/20/16 07:30 GLUCOSE POC LAB TO COLLECT [POC] QIDACANDBED 12/20/16 11:30 GLUCOSE POC LAB TO COLLECT [POC] QIDACANDBED 12/20/16 16:30 GLUCOSE POC LAB TO COLLECT [POC] QIDACANDBED 12/20/16 21:00 GLUCOSE POC LAB TO COLLECT [POC] QIDACANDBED 12/21/16 07:30 GLUCOSE POC LAB TO COLLECT [POC] QIDACANDBED 12/21/16 11:30 GLUCOSE POC LAB TO COLLECT [POC] QIDACANDBED 12/21/16 16:30 GLUCOSE POC LAB TO COLLECT [POC] QIDACANDBED 12/21/16 21:00 GLUCOSE POC LAB TO COLLECT [POC] QIDACANDBED 12/22/16 07:30 GLUCOSE POC LAB TO COLLECT [POC] QIDACANDBED 12/22/16 11:30 GLUCOSE POC LAB TO COLLECT [POC] QIDACANDBED 12/22/16 16:30 GLUCOSE POC LAB TO COLLECT [POC] QIDACANDBED 12/22/16 21:00 GLUCOSE POC LAB TO COLLECT [POC] QIDACANDBED 12/23/16 07:30 GLUCOSE POC LAB TO COLLECT [POC] QIDACANDBED 12/23/16 11:30 GLUCOSE POC LAB TO COLLECT [POC] QIDACANDBED 12/23/16 16:30 GLUCOSE POC LAB TO COLLECT [POC] QIDACANDBED 12/23/16 21:00 GLUCOSE POC LAB TO COLLECT [POC] QIDACANDBED 12/24/16 07:30 GLUCOSE POC LAB TO COLLECT [POC] QIDACANDBED 12/24/16 11:30 GLUCOSE POC LAB TO COLLECT [POC] QIDACANDBED 12/24/16 16:30 GLUCOSE POC LAB TO COLLECT [POC] QIDACANDBED 12/24/16 21:00 GLUCOSE POC LAB TO COLLECT [POC] QIDACANDBED 12/25/16 07:30 GLUCOSE POC LAB TO COLLECT [POC] QIDACANDBED 12/25/16 11:30 GLUCOSE POC LAB TO COLLECT [POC] QIDACANDBED 12/25/16 16:30 GLUCOSE POC LAB TO COLLECT [POC] QIDACANDBED 12/25/16 21:00 GLUCOSE POC LAB TO COLLECT [POC] QIDACANDBED 12/26/16 07:30 GLUCOSE POC LAB TO COLLECT [POC] QIDACANDBED 12/26/16 11:30 GLUCOSE POC LAB TO COLLECT [POC] QIDACANDBED 12/26/16 16:30 GLUCOSE POC LAB TO COLLECT [POC] QIDACANDBED 12/26/16 21:00 GLUCOSE POC LAB TO COLLECT [POC] QIDACANDBED 12/27/16 07:30 GLUCOSE POC LAB TO COLLECT [POC] QIDACANDBED 12/27/16 11:30 GLUCOSE POC LAB TO COLLECT [POC] QIDACANDBED 12/27/16 16:30 GLUCOSE POC LAB TO COLLECT [POC] QIDACANDBED 12/27/16 21:00 GLUCOSE POC LAB TO COLLECT [POC] QIDACANDBED 12/28/16 07:30 GLUCOSE POC LAB TO COLLECT [POC] QIDACANDBED 12/28/16 11:30 GLUCOSE POC LAB TO COLLECT [POC] QIDACANDBED 12/28/16 16:30 GLUCOSE POC LAB TO COLLECT [POC] QIDACANDBED 12/28/16 21:00 GLUCOSE POC LAB TO COLLECT [POC] QIDACANDBED 12/29/16 07:30 GLUCOSE POC LAB TO COLLECT [POC] QIDACANDBED 12/29/16 11:30 GLUCOSE POC LAB TO COLLECT [POC] QIDACANDBED 12/29/16 16:30 GLUCOSE POC LAB TO COLLECT [POC] QIDACANDBED 12/29/16 21:00 GLUCOSE POC LAB TO COLLECT [POC] QIDACANDBED 12/30/16 07:30 GLUCOSE POC LAB TO COLLECT [POC] QIDACANDBED 12/30/16 11:30 GLUCOSE POC LAB TO COLLECT [POC] QIDACANDBED 12/30/16 16:30 GLUCOSE POC LAB TO COLLECT [POC] QIDACANDBED 12/30/16 21:00 GLUCOSE POC LAB TO COLLECT [POC] QIDACANDBED 12/31/16 07:30 GLUCOSE POC LAB TO COLLECT [POC] QIDACANDBED 12/31/16 11:30 GLUCOSE POC LAB TO COLLECT [POC] QIDACANDBED 12/31/16 16:30 GLUCOSE POC LAB TO COLLECT [POC] QIDACANDBED 12/31/16 21:00 GLUCOSE POC LAB TO COLLECT [POC] QIDACANDBED 01/01/17 07:30 GLUCOSE POC LAB TO COLLECT [POC] QIDACANDBED 01/01/17 11:30 GLUCOSE POC LAB TO COLLECT [POC] QIDACANDBED 01/01/17 16:30 GLUCOSE POC LAB TO COLLECT [POC] QIDACANDBED 01/01/17 21:00 GLUCOSE POC LAB TO COLLECT [POC] QIDACANDBED 01/02/17 07:30 GLUCOSE POC LAB TO COLLECT [POC] QIDACANDBED 01/02/17 11:30 GLUCOSE POC LAB TO COLLECT [POC] QIDACANDBED 01/02/17 16:30 GLUCOSE POC LAB TO COLLECT [POC] QIDACANDBED 01/02/17 21:00 GLUCOSE POC LAB TO COLLECT [POC] QIDACANDBED 01/03/17 07:30 GLUCOSE POC LAB TO COLLECT [POC] QIDACANDBED 01/03/17 11:30 GLUCOSE POC LAB TO COLLECT [POC] QIDACANDBED 01/03/17 16:30 GLUCOSE POC LAB TO COLLECT [POC] QIDACANDBED 01/03/17 21:00 GLUCOSE POC LAB TO COLLECT [POC] QIDACANDBED 01/04/17 07:30 GLUCOSE POC LAB TO COLLECT [POC] QIDACANDBED 01/04/17 11:30 GLUCOSE POC LAB TO COLLECT [POC] QIDACANDBED 01/04/17 16:30 GLUCOSE POC LAB TO COLLECT [POC] QIDACANDBED 01/04/17 21:00 GLUCOSE POC LAB TO COLLECT [POC] QIDACANDBED 01/05/17 07:30 GLUCOSE POC LAB TO COLLECT [POC] QIDACANDBED 01/05/17 11:30 GLUCOSE POC LAB TO COLLECT [POC] QIDACANDBED 01/05/17 16:30 GLUCOSE POC LAB TO COLLECT [POC] QIDACANDBED 01/05/17 21:00 GLUCOSE POC LAB TO COLLECT [POC] QIDACANDBED 01/06/17 07:30 GLUCOSE POC LAB TO COLLECT [POC] QIDACANDBED 01/06/17 11:30 GLUCOSE POC LAB TO COLLECT [POC] QIDACANDBED 01/06/17 16:30 GLUCOSE POC LAB TO COLLECT [POC] QIDACANDBED 01/06/17 21:00 GLUCOSE POC LAB TO COLLECT [POC] QIDACANDBED 01/07/17 07:30 GLUCOSE POC LAB TO COLLECT [POC] QIDACANDBED 01/07/17 11:30 GLUCOSE POC LAB TO COLLECT [POC] QIDACANDBED 01/07/17 16:30 GLUCOSE POC LAB TO COLLECT [POC] QIDACANDBED 01/07/17 21:00 GLUCOSE POC LAB TO COLLECT [POC] QIDACANDBED 01/08/17 07:30 GLUCOSE POC LAB TO COLLECT [POC] QIDACANDBED 01/08/17 11:30 GLUCOSE POC LAB TO COLLECT [POC] QIDACANDBED 01/08/17 16:30 GLUCOSE POC LAB TO COLLECT [POC] QIDACANDBED - Plan Plan:: ASSESSMENT AND PLAN PLEURITIC CHEST-likely secondary to pulmonary embolism. Pleuritic pain and shortness of breath have resolved since admission -Lovenox 180 mg subcutaneous daily -Warfarin 7.5 mg by mouth today -INR in a.m. -VQ scan to further evaluate for pulmonary emboli today -Oxycodone with Tylenol as needed for pain TYPE 2 DIABETES [id number] -4 times a day glucometers -Continue Amaryl and long-acting insulin -Moderate dose sliding scale NovoLog CHRONIC KIDNEY DISEASE STAGE IV-renal function has improved over the past 24 hours -saline lock IV -Closely monitor urine output and renal function during hospital stay DIABETIC FOOT ULCER LEFT FOOT -Continue current management CORONARY ARTERY DISEASE-currently asymptomatic -Continue outpatient medical regimen MAINTENANCE ISSUES -DVT prophylaxis; Lovenox for probable PE should provide adequate DVT prophylaxis -GI prophylaxis; not indicated -Horan catheter; not indicated -Nutrition; consistent carb diet -Nicotine dependence; not required CODE STATUS-FULL CODE ADMISSION STATUS-patient will be admitted to inpatient status, expect at least a 2 night hospital stay for evaluation and management of problems as outlined above. At the time of this admission I do not reasonably expected evaluation and management of this problem will require more than a 96 hour hospital stay. DISPOSITION-anticipate discharge to home after the hospital stay. PRIMARY CARE PROVIDER-Dr. Mitchell
--- NOTE | 2016-12-17 11:16 | NM ---
Lung Vent Perfusion INDICATION: Dyspnea, pleuritic chest pain TECHNIQUE: Nuclear medicine VQ scan was performed utilizing 1 mCi of technetium 99m DTPA via ventilat ion, and 5.31 mCi of technetium 99m MAA injected IV. COMPARISON: CT chest 12/15/2016. FINDINGS: Ventilation studies demonstrate no evidence for radiotracer defect. Perfusion images demons trate no evidence for radiotracer defect. IMPRESSION: Normal VQ scan.
[2016-12-17 11:23] VITALS: BP 129/57
[2016-12-17] MEDS ORDERED: Warfarin 5 MG Tab PO ONE (13:00)
--- NOTE | 2016-12-17 13:38 | PN ---
DATE OF SERVICE: 12/17/2016 SUBJECTIVE: The patient is a 66-year-old male, seen at bedside. The patient was admitted for chest pain a couple of days ago. Podiatry was consulted by Dr. Gutierrez to remove his total contact cast and examine his diabetic foot wounds. The patient denies having any other problems at this time and relates he is feeling better. OBJECTIVE: GENERAL: The patient was alert and oriented x3, and in no acute distress. VITAL SIGNS: Per EMR. DERMATOLOGIC: Examination revealed ulceration on the plantar aspect of left 1st metatarsal head after removal of the total contact cast, measured 12 mm x 13 mm. Ulceration on the plantar aspect of the right 1st metatarsal head measured 4 mm x 6 mm, had 2 mm of depth. The ulcerations of 1st metatarsal on the left foot had no depth, neither of them probed to bone. There was no purulence, no malodor, and no signs of infection bilaterally. ASSESSMENT: 1. Diabetes mellitus. 2. Diabetic polyneuropathy. 3. Diabetic foot ulcers x2. PLAN: The patient was examined and evaluated. The patient's ulcerations x2, were debrided with a 15 blade down into the subcutaneous layer, down to healthy bleeding tissue and then dressed with Xeroform, 4x4s, Kerlix, and Coban. The patient is to return to clinic for a followup tomorrow unless he is still in-house, in which case, he will have to be seen the following week. The patient was agreeable to this. The patient was told to remain nonweightbearing and to ambulate in his offloading boots if he is not seen by us until next week. We plan to continue using the total contact cast on the left foot as it has made significant improvement since last week. Fabián Roblero DPM /[id number]
--- NOTE | 2016-12-17 15:52 | PCM.DCSUM1 ---
Discharge Summary - Hospital Course Brief History: Mr. Xavier is a 66-year-old gentleman who was admitted through the emergency department for further evaluation and management of severe pleuritic pain of the right chest. - Discharge Data Discharge Date: 12/17/16 Discharge Disposition: Home, Self-Care 01 Condition: Fair - Discharge Diagnosis/Problem(s) (1) Chest pain, pleuritic SNOMED Code(s): 2464361 ICD Code: R07.81 - PLEURODYNIA Status: Acute Current Visit: Yes (2) Type 2 diabetes mellitus SNOMED Code(s): 51692944 ICD Code: E11.9 - TYPE 2 DIABETES MELLITUS WITHOUT COMPLICATIONS Status: Acute Current Visit: Yes (3) Type 2 diabetes mellitus SNOMED Code(s): 34084893 ICD Code: E11.9 - TYPE 2 DIABETES MELLITUS WITHOUT COMPLICATIONS Status: Chronic Current Visit: No (4) BRENDA (obstructive sleep apnea) SNOMED Code(s): 75425663 ICD Code: G47.33 - OBSTRUCTIVE SLEEP APNEA (ADULT) (PEDIATRIC) Status: Chronic Current Visit: No - Patient Summary/Data Hospital Course: Mr. Xavier is a 66-year-old gentleman who developed symptoms of progressive pleuritic chest pain of the right chest over a period of 24 hours prior to evaluation in the emergency department. Pain was very intense and cause symptoms of shortness of breath. CT scan was obtained and showed no evidence of pneumonia or other inflammation involving the right chest wall. Contrast was unable to be used because of his significant kidney dysfunction. He's received a recent course of IV vancomycin for management of a diabetic foot ulcer and his creatinine worsened during that period of time. Laboratory studies were unremarkable and vital signs were found to be stable at the time of admission. He did require supplemental oxygen because of intermittent hypoxia. On admission he was given IV fluids for hydration and started on anticoagulation for presumed pulmonary embolism. Venous Doppler studies of lower extremities have been obtained and showed no evidence of deep vein thrombosis. He was felt to be at risk for DVT and PE because of recent difficulties with his lower extremities. 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 Over the past week the left foot has been in a cast and he's been using a Cam Walker. Lovenox and warfarin were continued until the results of his VQ scan became available on the day of discharge. The VQ scan was normal showing no evidence of significant perfusion abnormality. Anticoagulation will be discontinued with no evidence of underlying DVT or pulmonary embolism. Specific etiology of his pleuritic pain is unknown. Activity will be as tolerated and he will resume his usual diabetic and renal diet. Follow-up appointments are already arranged with Dr. Mitchell and Dr. Roblero for tomorrow. He will return immediately to the emergency department if he notes any symptoms of shortness of breath or pleuritic pain. - Patient Instructions Diet: Diabetic Diet, Renal Diet Activity: As Tolerated Other/Special Instructions: Patient already has follow-up appointment scheduled with Dr. Roblero and Dr. Mitchell for tomorrow December 18. - Discharge Plan Home Medications: Home Meds Aspirin [Sarah Chewable Aspirin] 81 mg PO Q48H 03/17/14 [History] Citalopram Hydrobromide [Celexa] 40 mg PO BEDTIME 03/17/14 [History] Cyanocobalamin (Vitamin B12) [Vitamin B12] 100 mcg PO DAILY 03/17/14 [History] Ferrous Sulfate [Iron] 325 mg PO DAILY 03/17/14 [History] Glimepiride [Amaryl] 2 mg PO BID 03/17/14 [History] Magnesium Oxide [Magnesium] 400 mg PO DAILY 03/17/14 [History] Metoprolol Succinate [Toprol XL] 100 mg PO DAILY 03/17/14 [History] Multivitamin [Multi-Vitamin Daily] 1 tab PO DAILY 03/17/14 [History] Nitroglycerin [Nitrostat] 0.4 mg SL ASDIRECTED 03/17/14 [History] Vitamin B Complex [B Complex] 1 tab PO DAILY 03/17/14 [History] Insulin Detemir [Levemir] 26 units SQ DAILY 06/24/14 [History] Insulin Detemir [Levemir] 28 units SQ BEDTIME 06/24/14 [History] Torsemide [Demadex] 20 mg PO DAILY 06/24/14 [History] Referrals: Javi Kirkpatrick MD [Primary Care Provider] - - Patient Data Vitals - Most Recent: Last Vital Signs Temp 96.6 F 12/17/16 11:00 Pulse 62 12/17/16 11:00 Resp 18 12/17/16 11:00 BP 129/57 L 12/17/16 11:00 Pulse Ox 94 L 12/17/16 11:00 Weight - Most Recent: 275 lb 0.003 oz I&O - Last 24 hours: Intake & Output 12/17/16 12/17/16 12/17/16 06:59 14:59 22:59 Intake Total 1055 660 Output Total 650 1100 Balance 405 -440 Lab Results - Last 24 hrs: Laboratory Results - last 24 hr 12/17/16 12/17/16 Range/Units 05:45 05:45 PT 14.4 H (9.5-12.0) sec INR 1.33 H (0.80-1.20) Sodium 139 L (140-148) mmol/L Potassium 4.1 (3.6-5.2) mmol/L Chloride 107 (100-108) mmol/L Carbon Dioxide 20 L (21-32) mmol/L Anion Gap 16.1 H (5.0-14.0) mmol/L BUN 59 H (7-18) mg/dL Creatinine 2.5 H (0.8-1.3) mg/dL Est Cr Clr Drug Dosing 28.28 mL/min Estimated GFR (MDRD) 26 L (>60) Glucose 64 L (74-106) mg/dL Calcium 8.7 (8.5-10.1) mg/dL Med Orders - Current: Current Medications Acetaminophen (Tylenol) 650 mg PO Q4H PRN PRN Reason: Pain (Mild 1-3)/fever Last Admin: 12/16/16 05:02 Dose: 650 mg Albuterol (Proventil Neb Soln) 2.5 mg NEB Q4H PRN PRN Reason: Shortness Of Breath/wheezing Aspirin (Aspirin) 81 mg PO Q48H [facility]O Last Admin: 12/17/16 08:04 Dose: 81 mg Citalopram Hydrobromide (Celexa) 40 mg PO BEDTIME [facility] Last Admin: 12/16/16 21:29 Dose: 40 mg Dextrose (Glutose 15) 15 gm PO ONETIME PRN PRN Reason: Hypoglycemia Dextrose/Water (Dextrose 50% In Water) 50 ml IV ONETIME PRN PRN Reason: Hypoglycemia Docusate Sodium (Colace) 100 mg PO BID PRN PRN Reason: Constipation Last Admin: 12/16/16 21:33 Dose: 100 mg Enoxaparin Sodium 100 mg/ (Enoxaparin Sodium 80 mg) 180 mg SUBCUT DAILY [facility] Ferrous Sulfate (Ferrous Sulfate) 325 mg PO DAILY [facility] Last Admin: 12/17/16 08:04 Dose: 325 mg Glimepiride (Amaryl) 2 mg PO BID [facility] Last Admin: 12/17/16 08:03 Dose: 2 mg Insulin Aspart (Novolog) 0 unit SUBCUT QIDACANDBED [facility] PRN Reason: Protocol Last Admin: 12/17/16 11:43 Dose: Not Given Insulin Detemir (Levemir) 28 unit SUBCUT BEDTIME [facility] Last Admin: 12/16/16 21:31 Dose: 28 units Insulin Detemir (Levemir) 26 unit SUBCUT DAILY [facility] Last Admin: 12/17/16 08:05 Dose: 26 units Magnesium Hydroxide (Milk Of Magnesia) 30 ml PO Q12H PRN PRN Reason: Constipation Magnesium Oxide (Magnesium Oxide) 400 mg PO DAILY [facility] Last Admin: 12/17/16 08:04 Dose: 400 mg Metoprolol Succinate (Toprol Xl) 100 mg PO DAILY [facility] Last Admin: 12/17/16 08:04 Dose: 100 mg Nitroglycerin (Nitrostat) 0.4 mg SL ASDIRECTED PRN PRN Reason: Chest Pain Ondansetron HCl (Zofran) 4 mg IV Q4H PRN PRN Reason: Nausea/Vomiting Oxycodone/Acetaminophen (Percocet 325-10 Mg) 1 - 2 tab PO Q4H PRN PRN Reason: Pain Last Admin: 12/16/16 20:15 Dose: 1 tab Polyethylene Glycol (Miralax) 17 gm PO DAILY PRN PRN Reason: Constipation Last Admin: 12/17/16 08:01 Dose: 17 gm Sodium Chloride (Saline Flush) 10 ml FLUSH ASDIRECTED PRN PRN Reason: Keep Vein Open Torsemide (Demadex) 20 mg PO DAILY [facility] Last Admin: 12/17/16 08:04 Dose: 20 mg Discontinued Medications Aspirin (Aspirin) 324 mg PO ONETIME ONE Stop: 12/15/16 01:14 Last Admin: 12/15/16 01:25 Dose: 324 mg Enoxaparin Sodium (Lovenox) 120 mg SUBCUT DAILY [facility] Last Admin: 12/17/16 08:05 Dose: 120 mg Enoxaparin Sodium (Lovenox) 60 mg SUBCUT ONETIME ONE Stop: 12/17/16 09:31 Last Admin: 12/17/16 10:31 Dose: 60 mg Hydromorphone HCl (Dilaudid) 0.5 mg IVPUSH ONETIME ONE Stop: 12/15/16 06:42 Last Admin: 12/15/16 06:52 Dose: 0.5 mg Hydromorphone HCl (Dilaudid [employer]imization Analyst 15 Mg In Ns 30 Ml) 0 mg IV ASDIRECTED PRN; Protocol PRN Reason: Pain Last Admin: 12/15/16 08:15 Dose: 15 mg Lactated Ringer's (Ringers, Lactated) 1,000 mls @ 500 mls/hr IV ASDIRECTED [facility] Last Admin: 12/15/16 01:29 Dose: 500 mls/hr Sodium Chloride (Normal Saline) 1,000 mls @ 75 mls/hr IV ASDIRECTED [facility] Last Admin: 12/16/16 08:44 Dose: 75 mls/hr Morphine Sulfate (Morphine) 2 mg IVPUSH Q1H PRN PRN Reason: Pain Last Admin: 12/15/16 04:17 Dose: 2 mg Naloxone HCl (Narcan) 0.4 mg IVPUSH Q2M PRN PRN Reason: Respiratory Distress Sodium Chloride (Saline Flush) 10 ml FLUSH ASDIRECTED PRN PRN Reason: Keep Vein Open Last Admin: 12/15/16 01:30 Dose: 10 ml Warfarin Sodium (Coumadin) 7.5 mg PO ONETIME ONE Stop: 12/15/16 09:01 Last Admin: 12/15/16 09:30 Dose: 7.5 mg Warfarin Sodium (Coumadin) 7.5 mg PO ONETIME ONE Stop: 12/16/16 09:01 Last Admin: 12/16/16 08:54 Dose: 7.5 mg Warfarin Sodium (Coumadin) 10 mg PO ONETIME ONE Stop: 12/17/16 13:01 Last Admin: 12/17/16 13:34 Dose: 10 mg *Q Meaningful Use (DIS) - VTE *Q VTE Criteria *Q: VTE Pharmacological Contraindications *Q: High INR Value - Stroke *Q Stroke Criteria *Q: - AMI *Q AMI Criteria *Q:
[2016-12-18] MEDS ORDERED: Enoxaparin 120 MG/0.8 ML Syringe SUBCUT SCH (09:00)
== END 2016-12-17 16:20 | disposition home or self-care (01) | DRG 204 ==
LOC: JP.ED 00:55 → JP.ICU 06:42 → JP.MS 20:41
PROVIDERS: ADMIT Hospitalist; ATTEND Hospitalist
PROC: 0HDNXZZ Extraction of Left Foot Skin, External Approach (ICD-10-PCS; principal; 2016-12-15)
DX: R07.81 Pleurodynia (principal); N18.4 Chronic kidney disease, stage 4 (severe); R06.02 Shortness of breath; I12.9 Hypertensive chronic kidney disease with stage 1 through stage 4 chronic kidney disease, or unspecified chronic kidney disease; I25.10 Atherosclerotic heart disease of native coronary artery without angina pectoris; E11.42 Type 2 diabetes mellitus with diabetic polyneuropathy; E11.621 Type 2 diabetes mellitus with foot ulcer; E11.22 Type 2 diabetes mellitus with diabetic chronic kidney disease; L97.521 Non-pressure chronic ulcer of other part of left foot limited to breakdown of skin; Z79.4 Long term (current) use of insulin; Z79.82 Long term (current) use of aspirin; Z88.8 Allergy status to other drugs, medicaments and biological substances; Z98.84 Bariatric surgery status; F41.9 Anxiety disorder, unspecified; G47.33 Obstructive sleep apnea (adult) (pediatric); I25.2 Old myocardial infarction; Z95.0 Presence of cardiac pacemaker; H54.7 Unspecified visual loss; Z95.1 Presence of aortocoronary bypass graft; Z98.1 Arthrodesis status
CPT/HCPCS: 36415; 71010 ×2; 71250; 80053; 81001; 82553; 83605; 83690; 83880; 84484; 85025; 85379; 85610; 85730; 86140; 87040 ×2; 93005; 93970 ×2; 96361; 96374; 96376; 99285; A9270; J2270 ×2; J7050; J7120; 78582; 78582-26; 80048; 82962; 93010; 94762; 99284; A9539; A9540; J1170; J1650; J7040

== ENCOUNTER 2017-01-28 10:58 | Inpatient (IN) | payer MEDICARE, BC ==
--- NOTE | 2017-01-28 12:40 | CR ---
Chest 2V HISTORY: fever,short of breath COMPARISON: 12/15/2016 FINDINGS: Lungs appear clear and normally aerated. Cardiomediastinal silhouette is within normal limits and sta ble. Old median sternotomy changes are redemonstrated. Transvenous pacemaker/AICD and lead wires are stable. No vascular redistribution or pleural fluid can be seen. Bony structures and soft tissues are stable. IMPRESSION: No acute chest abnormality or significant interval change is identified.
[2017-01-28] MEDS ORDERED: Sodium Chloride 0.9% 1,000 ML IV SCH (13:00)
--- NOTE | 2017-01-28 13:13 | EDM.PDOC ---
ED HPI GENERAL MEDICAL PROBLEM - General Chief Complaint: General Stated Complaint: FEVER;COUGH Time Seen by Provider: 01/28/17 11:30 Source of Information: Reports: Patient, Family History Limitations: Reports: No Limitations - History of Present Illness INITIAL COMMENTS - FREE TEXT/NARRATIVE: 58-year-old male diabetic who is being treated for chronic foot ulcerations has been feeling more ill over the past 4-6 days, increasing pain in his legs, ill and weak, intermittent shortness of breath and fevers. He really hasn't noticed change in his foot wounds, however he has redness extending up the anterior aspect of the left foot. He has generalized aches and pains, feels awful. Decreased appetite. Is very nauseous but not vomiting, coughing with just slight white sputum production. He did receive an influenza vaccination earlier this year. Onset: Gradual (Over the past several days) Severity: Moderate Associated Symptoms: Reports: Cough, Fever/Chills, Loss of Appetite, Malaise, Shortness of Breath, Weakness Bilateral Feet Pain Score (Numeric/FACES): 3 Headache Pain Score (Numeric/FACES): 4 - Related Data Allergies Allergy/AdvReac Type Severity Reaction Status Date / Time metformin HCl Allergy Other Verified 01/28/17 11:39 [From Glucophage] niacin Allergy Other Verified 01/28/17 11:39 atorvastatin calcium AdvReac Muscle Verified 01/28/17 11:39 [From Lipitor] Aches Home Meds: Home Meds Aspirin [Sarah Chewable Aspirin] 81 mg PO Q48H 03/17/14 [History] Citalopram Hydrobromide [Celexa] 40 mg PO BEDTIME 03/17/14 [History] Cyanocobalamin (Vitamin B12) [Vitamin B12] 100 mcg PO DAILY 03/17/14 [History] Ferrous Sulfate [Iron] 325 mg PO DAILY 03/17/14 [History] Glimepiride [Amaryl] 2 mg PO BID 03/17/14 [History] Magnesium Oxide [Magnesium] 400 mg PO DAILY 03/17/14 [History] Metoprolol Succinate [Toprol XL] 100 mg PO DAILY 03/17/14 [History] Multivitamin [Multi-Vitamin Daily] 1 tab PO DAILY 03/17/14 [History] Nitroglycerin [Nitrostat] 0.4 mg SL ASDIRECTED 03/17/14 [History] Vitamin B Complex [B Complex] 1 tab PO DAILY 03/17/14 [History] Torsemide [Demadex] 20 mg PO DAILY 06/24/14 [History] Allopurinol [Zyloprim] 1 tab PO DAILY 01/28/17 [History] Fluticasone Propionate [Flonase] 2 spray NS DAILY 01/28/17 [History] Insulin NPH Human Isophane [Novolin N] 26 units SUBCUT ASDIRECTED 01/28/17 [ History] Insulin NPH Human Isophane [Novolin N] 28 units SUBCUT ASDIRECTED 01/28/17 [ History] Barrington-3/DHA/Epa/Fish Oil [Barrington-3 Fish Oil Softgel] 1 tab PO DAILY 01/28/17 [ History] Omeprazole 1 tab PO DAILY 01/28/17 [History] Pravastatin [Pravachol] 1 tab PO DAILY 01/28/17 [History] Spironolactone [Aldactone] 1 tab PO DAILY 01/28/17 [History] diphenhydrAMINE [Benadryl] 1 tab PO BEDTIME 01/28/17 [History] Past Medical History HEENT History: Reports: Allergic Rhinitis, Impaired Vision Cardiovascular History: Reports: Automatic Implantable Cardioverter Defibrillators, CAD, Heart Failure, High Cholesterol, Hypertension, [place], Pacemaker Respiratory History: Reports: Sleep Apnea Other Respiratory History: Cpap at bedtime Gastrointestinal History: Reports: Colon Polyp, Hiatal Hernia Musculoskeletal History: Reports: Amputation, Fracture, Gout, Other (See Below) Other Musculoskeletal History: back pain/injury gout Neurological History: Reports: Neuropathy, Diabetic Psychiatric History: Reports: Anxiety Endocrine/Metabolic History: Reports: Diabetes, Type II, Obesity/BMI 30+ Hematologic History: Reports: B12 Deficiency Dermatologic History: Reports: Other (See Below) Other Dermatologic History: diabetic ulcers on feet. - Infectious Disease History Infectious Disease History: Reports: Measles, Mumps - Past Surgical History Cardiovascular Surgical History: Reports: Coronary Artery Bypass, Pacer GI Surgical History: Reports: Bariatric Procedure, Colonoscopy, Hernia Repair/ Other, Polypectomy Neurological Surgical History: Reports: Spinal Fusion Musculoskeletal Surgical History: Reports: Amputation, Arthroscopic Procedure, Knee Replacement, Shoulder Surgery Social & Family History - Family History Family Medical History: Noncontributory HEENT: Reports: None Cardiac: Reports: Hypertension, [place] Respiratory: Reports: None GI: Reports: None : Reports: None OBGYN: Reports: None Musculoskeletal: Reports: None Neurological: Reports: CVA Psychiatric: Reports: None Endocrine/Metabolic: Reports: None Hematologic: Reports: None Immunologic: Reports: None Dermatologic: Reports: None Oncologic: Reports: None - Tobacco Use Smoking Status *Q: Never Smoker Years of Tobacco use: 0 Used Tobacco, but Quit: No Second Hand Smoke Exposure: No - Caffeine Use Caffeine Use: Reports: Soda - Alcohol Use Days Per Week of Alcohol Use: 0 - Recreational Drug Use Recreational Drug Use: No ED ROS GENERAL - Review of Systems Review Of Systems: See Below Constitutional: Reports: Fever, Chills, Malaise, Weakness Respiratory: Reports: Shortness of Breath, Cough Cardiovascular: Denies: Chest Pain GI/Abdominal: Reports: Nausea. Denies: Abdominal Pain, Diarrhea, Vomiting : Reports: No Symptoms Skin: Reports: Erythema (Erythema noticed on the left top of his foot extending up the lower left leg) Neurological: Reports: Other (Shooting pains like neuropathy into both feet) Psychiatric: Reports: No Symptoms ED EXAM, GENERAL - Physical Exam Exam: See Below Exam Limited By: No Limitations General Appearance: Alert, Mild Distress (Patient is very uncomfortable despite being stable) Eye Exam: Bilateral Eye: EOMI (No jaundice) Head: Atraumatic Neck: Supple, Non-Tender Respiratory/Chest: No Respiratory Distress, Lungs Clear Cardiovascular: Regular Rate, Rhythm. No: Tachycardia, Extra Beats GI/Abdominal: Soft, Non-Tender Extremities: Other (Wrappings were applied to both feet over chronic wounds, there is lymphangitic erythema on the top of the left foot extending up the lower anterior leg) Neurological: Alert, Oriented Psychiatric: Normal Affect, Normal Mood Course - Vital Signs Last Recorded V/S: Last Vital Signs Temp 99.8 F 01/30/17 16:14 Pulse 71 01/30/17 16:14 Resp 16 01/30/17 16:14 BP 113/63 01/30/17 16:14 Pulse Ox 98 01/30/17 16:14 - Orders/Labs/Meds Orders: Medication Orders Acetaminophen (Tylenol) 650 mg PO Q4H PRN PRN Reason: Pain (Mild 1-3)/fever Last Admin: 01/29/17 18:00 Dose: 650 mg Admin: 01/29/17 09:51 Dose: 650 mg Admin: 01/29/17 03:26 Dose: 650 mg Admin: 01/28/17 16:24 Dose: 650 mg Allopurinol (Zyloprim) 300 mg PO DAILY [facility] Last Admin: 01/30/17 09:06 Dose: 300 mg Admin: 01/29/17 09:40 Dose: 300 mg Aspirin (Aspirin) 81 mg PO Q48H [facility] Last Admin: 01/29/17 09:40 Dose: 81 mg Citalopram Hydrobromide (Celexa) 40 mg PO BEDTIME [facility] Last Admin: 01/29/17 20:30 Dose: 40 mg Admin: 01/28/17 21:22 Dose: 40 mg Cyanocobalamin (Vitamin B12) 500 mcg PO DAILY [facility] Last Admin: 01/30/17 09:05 Dose: 500 mcg Admin: 01/29/17 09:40 Dose: 500 mcg Enoxaparin Sodium (Lovenox) 40 mg SUBCUT DAILY [facility] Last Admin: 01/30/17 09:04 Dose: 40 mg Admin: 01/29/17 09:40 Dose: 40 mg Fluticasone Propionate (Flonase) 0 gm WENDY DAILY [facility] Last Admin: 01/30/17 09:04 Dose: Not Given Admin: 01/29/17 17:51 Dose: Not Given Gabapentin (Neurontin) 300 mg PO BEDTIME [facility] Last Admin: 01/29/17 20:29 Dose: 300 mg Admin: 01/28/17 21:22 Dose: 300 mg Ceftriaxone Sodium 2 gm/ (Sodium Chloride) 50 mls @ 100 mls/hr IV Q24H [facility] Last Admin: 01/30/17 17:17 Dose: 100 mls/hr Ibuprofen (Motrin) 600 mg PO Q8H PRN PRN Reason: Pain/Fever Last Admin: 01/29/17 18:36 Dose: 600 mg Insulin Aspart (Novolog) 0 unit SUBCUT QIDACANDBED [facility] PRN Reason: Protocol Last Admin: 01/30/17 17:21 Dose: Not Given Admin: 01/30/17 11:34 Dose: Not Given Admin: 01/30/17 09:03 Dose: 1 units Admin: 01/29/17 21:46 Dose: 1 units Admin: 01/29/17 17:55 Dose: Not Given Admin: 01/29/17 17:50 Dose: Not Given Admin: 01/29/17 17:50 Dose: Not Given Admin: 01/28/17 21:23 Dose: 1 units Admin: 01/28/17 16:52 Dose: 2 units Insulin Human NPH (Novolin N) 26 unit SUBCUT DAILY [facility] Last Admin: 01/30/17 09:15 Dose: 26 units Admin: 01/29/17 09:53 Dose: 26 units Insulin Human NPH (Novolin N) 28 unit SUBCUT BEDTIME [facility] Last Admin: 01/29/17 21:45 Dose: 28 units Admin: 01/28/17 21:29 Dose: 28 units Magnesium Oxide (Magnesium Oxide) 400 mg PO DAILY [facility] Last Admin: 01/30/17 09:04 Dose: 400 mg Admin: 01/29/17 09:40 Dose: 400 mg Metoprolol Succinate (Toprol Xl) 100 mg PO DAILY [facility] Last Admin: 01/30/17 09:05 Dose: 100 mg Admin: 01/29/17 09:40 Dose: 100 mg Ondansetron HCl (Zofran Odt) 4 mg PO Q6H PRN PRN Reason: Nausea able to take PO Ondansetron HCl (Zofran) 4 mg IV Q6H PRN PRN Reason: Nausea/Vomiting Oxycodone HCl (Oxycodone) 5 mg PO Q4H PRN PRN Reason: Pain (moderate 4-6) Pantoprazole Sodium (Protonix) 40 mg PO ACBREAKFAST [facility] Last Admin: 01/30/17 09:03 Dose: 40 mg Admin: 01/29/17 07:30 Dose: 40 mg Polyethylene Glycol (Miralax) 17 gm PO DAILY PRN PRN Reason: Constipation Pravastatin Sodium (Pravachol) 10 mg PO BEDTIME [facility] Last Admin: 01/29/17 20:29 Dose: 10 mg Admin: 01/28/17 21:22 Dose: 10 mg Senna/Docusate Sodium (Senna Plus) 1 tab PO BID PRN PRN Reason: Constipation Spironolactone (Aldactone) 25 mg PO DAILY [facility] Last Admin: 01/30/17 09:04 Dose: 25 mg Admin: 01/29/17 09:40 Dose: 25 mg Labs: Laboratory Tests 01/28/17 01/28/17 01/28/17 Range/Units 12:11 12:11 12:11 WBC 13.0 H (4.5-11.0) K/uL RBC 4.02 L (4.30-5.90) M/uL Hgb 12.5 (12.0-15.0) g/dL Hct 36.0 L (40.0-54.0) % MCV 90 (80-98) fL MCH 31 (27-31) pg MCHC 35 (32-36) % Plt Count 186 (150-400) K/uL Neut % (Auto) 80 H (36-66) % Lymph % (Auto) 11 L (24-44) % Andrew % (Auto) 9 H (2-6) % Eos % (Auto) 0 L (2-4) % Baso % (Auto) 0 (0-1) % Sodium 129 L (140-148) mmol/L Potassium 4.8 (3.6-5.2) mmol/L Chloride 95 L (100-108) mmol/L Carbon Dioxide 18 L (21-32) mmol/L Anion Gap 20.8 H (5.0-14.0) mmol/L BUN 33 H (7-18) mg/dL Creatinine 1.6 H (0.8-1.3) mg/dL Est Cr Clr Drug Dosing 44.19 mL/min Estimated GFR (MDRD) 43 L (>60) Glucose 197 H (74-106) mg/dL Lactic Acid 2.1 H (0.4-2.0) mmol/L Calcium 9.8 (8.5-10.1) mg/dL Total Bilirubin 1.0 D (0.2-1.0) mg/dL AST 19 (15-37) U/L ALT 22 (12-78) U/L Alkaline Phosphatase 112 (46-116) U/L Total Protein 8.4 H (6.4-8.2) g/dL Albumin 3.2 L (3.4-5.0) g/dL Globulin 5.2 H (2.3-3.5) g/dL Albumin/Globulin Ratio 0.6 L (1.2-2.2) Meds: Medications Generic Name Dose Route Start Last Admin Trade Name Freq PRN Reason Stop Dose Admin Acetaminophen 650 mg 01/28/17 15:52 01/29/17 18:00 Tylenol PO 650 mg Q4H PRN Administration Pain (Mild 1-3)/fever Allopurinol 300 mg 01/29/17 09:00 01/30/17 09:06 Zyloprim PO 300 mg DAILY [facility] Administration Aspirin 81 mg 01/29/17 09:00 01/29/17 09:40 Aspirin PO 81 mg Q48H [facility] Administration Citalopram Hydrobromide 40 mg 01/28/17 21:00 01/29/17 20:30 Celexa PO 40 mg BEDTIME [facility] Administration Cyanocobalamin 500 mcg 01/29/17 09:00 01/30/17 09:05 Vitamin B12 PO 500 mcg DAILY [facility] Administration Enoxaparin Sodium 40 mg 01/29/17 09:00 01/30/17 09:04 Lovenox SUBCUT 40 mg DAILY [facility] Administration Fluticasone Propionate 0 gm 01/29/17 09:00 01/30/17 09:04 Flonase WENDY Not Given DAILY [facility] Gabapentin 300 mg 01/28/17 21:00 01/29/17 20:29 Neurontin PO 300 mg BEDTIME [facility] Administration Ceftriaxone Sodium 2 gm/ 50 mls @ 100 mls/hr 01/30/17 17:00 01/30/17 17:17 Sodium Chloride IV 100 mls/hr Q24H [facility] Administration Ibuprofen 600 mg 01/29/17 15:50 01/29/17 18:36 Motrin PO 600 mg Q8H PRN Administration Pain/Fever Insulin Aspart 0 unit 01/28/17 17:00 01/30/17 17:21 Novolog SUBCUT Not Given QIDACANDBED [facility] Protocol Insulin Human NPH 26 unit 01/29/17 09:00 01/30/17 09:15 Novolin N SUBCUT 26 units DAILY [facility] Administration Insulin Human NPH 28 unit 01/28/17 21:00 01/29/17 21:45 Novolin N SUBCUT 28 units BEDTIME [facility] Administration Magnesium Oxide 400 mg 01/29/17 09:00 01/30/17 09:04 Magnesium Oxide PO 400 mg DAILY [facility] Administration Metoprolol Succinate 100 mg 01/29/17 09:00 01/30/17 09:05 Toprol Xl PO 100 mg DAILY [facility] Administration Ondansetron HCl 4 mg 01/28/17 15:52 Zofran Odt PO Q6H PRN Nausea able to take PO Ondansetron HCl 4 mg 01/28/17 15:52 Zofran IV Q6H PRN Nausea/Vomiting Oxycodone HCl 5 mg 01/28/17 15:52 Oxycodone PO Q4H PRN Pain (moderate 4-6) Pantoprazole Sodium 40 mg 01/29/17 07:30 01/30/17 09:03 Protonix PO 40 mg ACBREAKFAST [facility] Administration Polyethylene Glycol 17 gm 01/28/17 15:52 Miralax PO DAILY PRN Constipation Pravastatin Sodium 10 mg 01/28/17 21:00 01/29/17 20:29 Pravachol PO 10 mg BEDTIME [facility] Administration Senna/Docusate Sodium 1 tab 01/28/17 15:52 Senna Plus PO BID PRN Constipation Spironolactone 25 mg 01/29/17 09:00 01/30/17 09:04 Aldactone PO 25 mg DAILY [facility] Administration Discontinued Medications Generic Name Dose Route Start Last Admin Trade Name Freq PRN Reason Stop Dose Admin Sodium Chloride 1,000 mls @ 500 mls/hr 01/28/17 13:00 01/28/17 13:36 Normal Saline IV 500 mls/hr ASDIRECTED [facility] Administration Linezolid 600 mg/ Premix 300 mls @ 300 mls/hr 01/28/17 15:30 01/28/17 15:24 IV 01/28/17 16:29 300 mls/hr ONETIME ONE Administration Sodium Chloride 1,000 mls @ 125 mls/hr 01/28/17 15:52 01/30/17 09:54 Normal Saline IV 125 mls/hr ASDIRECTED [facility] Administration Linezolid 600 mg/ Premix 300 mls @ 300 mls/hr 01/29/17 03:00 01/30/17 02:47 IV 300 mls/hr Q12H [facility] Administration Piperacillin/Tazobactam/ 50 mls @ 100 mls/hr 01/28/17 16:30 01/30/17 11:07 Dextrose 3.375 gm/ Premix IV 100 mls/hr Q6H [facility] Administration Sodium Chloride 1,000 mls @ 50 mls/hr 01/29/17 16:36 01/30/17 02:47 Normal Saline IV 50 mls/hr ASDIRECTED [facility] Administration - Re-Assessments/Exams Free Text/Narrative Re-Assessment/Exam: 01/28/17 13:37 Two-view chest x-ray was obtained that shows no infiltrates. Lactic acid was mildly elevated and white count was 13,000, blood cultures were obtained and 1 L normal saline bolus was given to the patient. I discussed his condition with Dr. Flores of the hospitalist service to consider seeing him for admission. 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
[2017-01-28] MEDS ORDERED: Linezolid 600 MG in Premix Bag 1 BAG IV ONE ×2 (14:30→15:30)
--- NOTE | 2017-01-28 14:51 | PCM.HP ---
H&P History of Present Illness - General Date of Service: 01/28/17 Admit Problem/Dx: Admission Diagnosis/Problem Admission Diagnosis/Problem Cellulitis of foot Source of Information: Patient, Family, Provider History Limitations: Reports: No Limitations - History of Present Illness Initial Comments - Free Text/Narative: Marco A presented to the emergency room this morning with fever and left foot redness and swelling. He reports some mild to moderate intermittent shooting pains in his left foot over the past week. He has been using juug-sec-[id number] medications without much relief. No obvious trigger to make them worse. He has not felt well over the last few days with decreased appetite and decreased energy. He hasn't noticed any redness or swelling of the foot until this morning. He has had only minimal drainage from the left foot over the past few weeks. He has not noticed any foul odors. His daughter who has been assisting with the dressing changes reports no concerning findings until the foot and lower leg were noted to be red this morning. He reports subjective fevers and chills but did not measure any temperatures at home over the past 2-3 days. He reports his morning blood sugars have been well controlled. No complaints of diarrhea or change in urinary habits. No complaints of shortness of breath at rest but he does get short of breath with exertion over the past few days. Workup in the emergency room revealed leukocytosis and mildly elevated lactic acid but normal blood pressure and heart rate. There is concern for cellulitis of the left foot and he will be admitted for IV antibiotics. A culture of the wound drainage was obtained in the emergency room. Bilateral Feet Pain Score (Numeric/FACES): 3 Headache Pain Score (Numeric/FACES): 4 - Related Data Allergies/Adverse Reactions: Allergies Allergy/AdvReac Type Severity Reaction Status Date / Time metformin HCl Allergy Other Verified 01/28/17 11:39 [From Glucophage] niacin Allergy Other Verified 01/28/17 11:39 atorvastatin calcium AdvReac Muscle Verified 01/28/17 11:39 [From Lipitor] Aches Home Medications: Home Meds Aspirin [Sarah Chewable Aspirin] 81 mg PO Q48H 03/17/14 [History] Citalopram Hydrobromide [Celexa] 40 mg PO BEDTIME 03/17/14 [History] Cyanocobalamin (Vitamin B12) [Vitamin B12] 100 mcg PO DAILY 03/17/14 [History] Ferrous Sulfate [Iron] 325 mg PO DAILY 03/17/14 [History] Glimepiride [Amaryl] 2 mg PO BID 03/17/14 [History] Magnesium Oxide [Magnesium] 400 mg PO DAILY 03/17/14 [History] Metoprolol Succinate [Toprol XL] 100 mg PO DAILY 03/17/14 [History] Multivitamin [Multi-Vitamin Daily] 1 tab PO DAILY 03/17/14 [History] Nitroglycerin [Nitrostat] 0.4 mg SL ASDIRECTED 03/17/14 [History] Vitamin B Complex [B Complex] 1 tab PO DAILY 03/17/14 [History] Torsemide [Demadex] 20 mg PO DAILY 06/24/14 [History] Allopurinol [Zyloprim] 1 tab PO DAILY 01/28/17 [History] Fluticasone Propionate [Flonase] 2 spray NS DAILY 01/28/17 [History] Insulin NPH Human Isophane [Novolin N] 26 units SUBCUT ASDIRECTED 01/28/17 [ History] Insulin NPH Human Isophane [Novolin N] 28 units SUBCUT ASDIRECTED 01/28/17 [ History] [place]-3/DHA/Epa/Fish Oil [[place]-3 Fish Oil Softgel] 1 tab PO DAILY 01/28/17 [ History] Omeprazole 1 tab PO DAILY 01/28/17 [History] Pravastatin [Pravachol] 1 tab PO DAILY 01/28/17 [History] Spironolactone [Aldactone] 1 tab PO DAILY 01/28/17 [History] diphenhydrAMINE [Benadryl] 1 tab PO BEDTIME 01/28/17 [History] Past Medical History HEENT History: Reports: Allergic Rhinitis, Impaired Vision Cardiovascular History: Reports: Automatic Implantable Cardioverter Defibrillators, CAD, Heart Failure, High Cholesterol, Hypertension, [place], Pacemaker Respiratory History: Reports: Sleep Apnea Other Respiratory History: Cpap at bedtime Gastrointestinal History: Reports: Colon Polyp, Hiatal Hernia Musculoskeletal History: Reports: Amputation, Fracture, Gout, Other (See Below) Other Musculoskeletal History: back pain/injury gout Neurological History: Reports: Neuropathy, Diabetic Psychiatric History: Reports: Anxiety Endocrine/Metabolic History: Reports: Diabetes, Type II, Obesity/BMI 30+ Hematologic History: Reports: B12 Deficiency Dermatologic History: Reports: Other (See Below) Other Dermatologic History: diabetic ulcers on feet. - Infectious Disease History Infectious Disease History: Reports: Measles, Mumps - Past Surgical History Cardiovascular Surgical History: Reports: Coronary Artery Bypass, Pacer GI Surgical History: Reports: Bariatric Procedure, Colonoscopy, Hernia Repair/ Other, Polypectomy Neurological Surgical History: Reports: Spinal Fusion Musculoskeletal Surgical History: Reports: Amputation, Arthroscopic Procedure, Knee Replacement, Shoulder Surgery Social & Family History - Family History Family Medical History: Noncontributory HEENT: Reports: None Cardiac: Reports: Hypertension, [place] Respiratory: Reports: None GI: Reports: None : Reports: None OBGYN: Reports: None Musculoskeletal: Reports: None Neurological: Reports: CVA Psychiatric: Reports: None Endocrine/Metabolic: Reports: None Hematologic: Reports: None Immunologic: Reports: None Dermatologic: Reports: None Oncologic: Reports: None - Tobacco Use Smoking Status *Q: Never Smoker Years of Tobacco use: 0 Used Tobacco, but Quit: No Second Hand Smoke Exposure: No - Caffeine Use Caffeine Use: Reports: Soda - Alcohol Use Days Per Week of Alcohol Use: 0 - Recreational Drug Use Recreational Drug Use: No H&P Review of Systems - Review of Systems: Review Of Systems: See Below Free Text/Narrative: A complete 12 point review of systems was obtained. Pertinent positives and negatives are noted in the history of present illness. All other systems were reviewed and were negative except as noted. Exam - Exam Exam: See Below - Vital Signs Vital Signs: Last Vital Signs Temp 38.2 C H 01/28/17 11:35 Pulse 89 01/28/17 11:35 Resp 18 01/28/17 11:35 BP 125/59 L 01/28/17 11:35 Pulse Ox 97 01/28/17 11:35 Weight: 119.748 kg - Exam Quality Assessment: No: Supplemental Oxygen General: Alert, Oriented, Cooperative. No: Mild Distress HEENT: Conjunctiva Clear, Mucosa Moist & [place]. No: Scleral Icterus Neck: Supple, Trachea Midline. No: Lymphadenopathy Lungs: Clear to Auscultation, Normal Respiratory Effort Cardiovascular: Regular Rate, Regular Rhythm. No: Systolic Murmur GI/Abdominal Exam: Normal Bowel Sounds, Soft, Non-Tender, No Distention Back Exam: Normal Inspection, Full Range of Motion Extremities: No Pedal Edema, Increased Warmth, Other (Left foot: There is a previously debrided ulcerative area over the base of the great toe on the plantar surface. There is very mild purulent drainage from the medial portion of this ulcer with some pressure over that to express the drainage. The left great toe is red and warm and swollen and this extends onto the top of the foot and up the anterior lower leg to about the mid ramirez area. Right foot: There is a very small 2 mm area of ulceration that was initially covered but this was removed. There is no redness, warmth or swelling and no drainage from this chronic wound.) Peripheral Pulses: 2+: Dorsalis Pedis (L), Dorsalis Pedis (R) Skin: Warm, Dry Neuro Extensive - Mental Status: Alert, Oriented x3, Nl Response to Commands Neuro Extensive - Motor, Sensory, Reflexes: CN II-XII Intact. No: Dysarthria, Abnormal Motor, Tremor Psychiatric: Alert, Normal Affect - Patient Data Lab Results Last 24 hrs: Laboratory Results - last 24 hr 01/28/17 01/28/17 01/28/17 Range/Units 12:11 12:11 12:11 WBC 13.0 H (4.5-11.0) K/uL RBC 4.02 L (4.30-5.90) M/uL Hgb 12.5 (12.0-15.0) g/dL Hct 36.0 L (40.0-54.0) % MCV 90 (80-98) fL MCH 31 (27-31) pg MCHC 35 (32-36) % Plt Count 186 (150-400) K/uL Neut % (Auto) 80 H (36-66) % Lymph % (Auto) 11 L (24-44) % Barton % (Auto) 9 H (2-6) % Eos % (Auto) 0 L (2-4) % Baso % (Auto) 0 (0-1) % Sodium 129 L (140-148) mmol/L Potassium 4.8 (3.6-5.2) mmol/L Chloride 95 L (100-108) mmol/L Carbon Dioxide 18 L (21-32) mmol/L Anion Gap 20.8 H (5.0-14.0) mmol/L BUN 33 H (7-18) mg/dL Creatinine 1.6 H (0.8-1.3) mg/dL Est Cr Clr Drug Dosing 44.19 mL/min Estimated GFR (MDRD) 43 L (>60) Glucose 197 H (74-106) mg/dL Lactic Acid 2.1 H (0.4-2.0) mmol/L Calcium 9.8 (8.5-10.1) mg/dL Total Bilirubin 1.0 D (0.2-1.0) mg/dL AST 19 (15-37) U/L ALT 22 (12-78) U/L Alkaline Phosphatase 112 (46-116) U/L Total Protein 8.4 H (6.4-8.2) g/dL Albumin 3.2 L (3.4-5.0) g/dL Globulin 5.2 H (2.3-3.5) g/dL Albumin/Globulin Ratio 0.6 L (1.2-2.2) Result Diagrams: 01/28/17 12:11 01/28/17 12:11 Imaging Impressions Last 24 hrs: Foot x-ray - images personally reviewed -I don't appreciate any evidence for osteomyelitis based on this imaging. He is missing a portion of his fifth toe on the left foot. *Q Meaningful Use (ADM) - VTE *Q VTE Criteria *Q: - VTE Risk Assess *Q Each Risk Factor Represents 1 Point: Obesity ( BMI > 25 kg/m2) Total Score 1 Point Risk Factors: 1 Each Risk Factor Represents 2 Points: Age 60 - 74 Years Total Score 2 Point Risk Factors: 2 Each Risk Factor Represents 3 Points: None Total Score 3 Point Risk Factors: 0 Each Risk Factor Represents 5 Points: None Total Score 5 Point Risk Factors: 0 Venous Thromboembolism Risk Factor Score *Q: 3 - Stroke *Q Stroke Criteria *Q: - AMI *Q AMI Criteria *Q: - Problem List (1) Cellulitis of leg SNOMED Code(s): 696008488 ICD Code: L03.119 - CELLULITIS OF UNSPECIFIED PART OF LIMB Status: Acute Current Visit: No Qualifiers: Laterality: right Qualified Code(s): L03.115 - Cellulitis of right lower limb (2) Type 2 diabetes mellitus SNOMED Code(s): 84453211 ICD Code: E11.9 - TYPE 2 DIABETES MELLITUS WITHOUT COMPLICATIONS Status: Acute Current Visit: No Qualifiers: Diabetes mellitus complication status: with neurologic complications Diabetes mellitus complication detail: with polyneuropathy Diabetes mellitus assistant terminal manager insulin use: with assistant terminal manager use Qualified Code(s): E11.42 - Type 2 diabetes mellitus with diabetic polyneuropathy; Z79.4 - residential (current) use of insulin; Z79.4 - residential (current) use of insulin; Z79.4 - assistant terminal manager ( current) use of insulin; Z79.4 - residential (current) use of insulin (3) CAD (coronary artery disease) SNOMED Code(s): 61427289 ICD Code: I25.10 - ATHSCL HEART DISEASE OF [place] CORONARY ARTERY W/O ANG PCTRS Status: Chronic Current Visit: No Qualifiers: Coronary Disease-Associated Artery/Lesion type: [place] artery [place] vs. transplanted heart: [place] heart Associated angina: without angina Qualified Code(s): I25.10 - Atherosclerotic heart disease of [place] coronary artery without angina pectoris (4) CKD (chronic kidney disease), stage III SNOMED Code(s): 882733473 ICD Code: N18.3 - CHRONIC KIDNEY DISEASE, STAGE 3 (MODERATE) Status: Chronic Current Visit: Yes Problem List Initiated/Reviewed/Updated: Yes Orders Last 24hrs: Active Orders 24 hr Category Date Time Status Patient Status Manage Transfer [TRANSFER] Routine ADT 01/28/17 14:31 Ordered Foot Comp Min 3V Lt [CR] Stat Exams 01/28/17 14:28 Ordered CULTURE BLOOD [BC] Urgent Lab 01/28/17 13:54 Received CULTURE BLOOD [BC] Urgent Lab 01/28/17 14:00 Received CULTURE WOUND + SMEAR [RM] Stat Lab 01/28/17 14:39 Received Linezolid [Zyvox] 600 mg Med 01/28/17 15:30 Active Premix Bag 1 bag IV ONETIME Sodium Chloride 0.9% [Normal Saline] 1,000 ml Med 01/28/17 13:00 Active IV ASDIRECTED Blood Culture x2 Reflex Set [OM.PC] Urgent Oth 01/28/17 13:38 Ordered Resuscitation Status Routine Resus Stat 01/28/17 14:36 Ordered Medication Orders Sodium Chloride (Normal Saline) 1,000 mls @ 500 mls/hr IV ASDIRECTED CHALO Last Admin: 01/28/17 13:36 Dose: 500 mls/hr Linezolid 600 mg/ Premix 300 mls @ 300 mls/hr IV ONETIME ONE Stop: 01/28/17 16:29 Assessment/Plan Comment:: ASSESSMENT AND PLAN - Cellulitis of the left foot - source of infection likely the ulcerated area on the bottom of the foot. Mild purulent drainage noted today and this has been cultured. X-rays did not show obvious evidence for osteomyelitis. We are unable to obtain an MRI because of his AICD. He has been on antibiotics as recently as one month ago. No evidence for sepsis at this time with stable vital signs. Given his chronic comorbidities and recent antibiotics I think he deserves IV antibiotics while the cultures are pending. He reports difficulty with declining kidney function the last time he received vancomycin. -Linezolid every 12 hours -Pip/Tazo every 6 hours -Follow-up culture results -Daily dressing changes -Consult to Dr. Roblero Insulin-dependent diabetes mellitus - Patient reports good sugar control over the past 4-6 weeks. -Continue long-acting insulin -Sliding-scale insulin -Hold oral medications until kidney function improves Coronary artery disease - History of. He does have an AICD in place. No active symptoms to suggest worsening of his coronary artery disease. -Continue medical management Stage III chronic kidney disease - Creatinine slightly worse than baseline but does not meet criteria for acute kidney injury. -Gentle fluids overnight and repeat labs in the morning Maintenance issues - - DVT prophylaxis - enoxaparin - GI prophylaxis - PPI - Nutrition - consistent carbohydrate diet - Horan catheter - not indicated CODE STATUS - full code Admission justification - This patient will be admitted for inpatient services and is medically appropriate meeting medical necessity for inpatient admission as outlined in my documentation. I reasonably expect the patient will require inpatient services that span a period time over 2 midnights. I reasonably expect this patient to be discharged or transferred within 96 hours [facility] Disposition - anticipate discharge home after the hospital stay Primary care physician - Dr Casimiro Flores M.D.
[2017-01-28] MEDS ORDERED: Ondansetron 4 MG/2 ML SDV IV PRN (15:52)
[2017-01-28] MEDS ORDERED: Polyethylene Glycol 3350 Powder 17 GM Packet PO PRN (15:52)
[2017-01-28] MEDS ORDERED: Ondansetron 4 MG Tab.DIS PO PRN (15:52)
[2017-01-28] MEDS ORDERED: oxyCODONE 5 MG Tab PO PRN (15:52)
[2017-01-28] MEDS: Acetaminophen 325 MG Tab PO PRN (16:24)
[2017-01-28] MEDS: Sodium Chloride 0.9% 1,000 ML IV SCH (16:26)
[2017-01-28] MEDS: Insulin Aspart 100 Units/ML 3 ML Pen SUBCUT SCH ×2 (16:52→21:23)
[2017-01-28] MEDS: Piperacillin/Tazobactam/Dext 3.375 GM in Premix Bag 1 BAG IV SCH ×2 (17:05→22:57)
--- NOTE | 2017-01-28 17:39 | PN ---
DATE OF SERVICE: 01/28/2017 SUBJECTIVE: The patient is a 66-year-old male, who presents to the emergency department today with a chief complaint that he feels "crummy" and denies having any other problems in his feet. He has previous previously been treated by us for diabetic foot ulcers of first metatarsal heads bilaterally. Denies having any other problems with his feet at this time. He relates he still has sores there he relates his right foot has continued to improve but the left one still continues to have some drainage and there is some redness on the left foot. PAST MEDICAL HISTORY: Significant for diabetes mellitus. REVIEW OF SYSTEMS: ENDOCRINE: The patient relates history of diabetes mellitus NEUROLOGICAL: The patient relates numbness and tingling in his feet. FAMILY HISTORY: Noncontributory. SOCIAL HISTORY: Patient denies tobacco and alcohol use. OBJECTIVE: GENERAL: The patient is alert, oriented x3, in no acute distress. VITAL SIGNS: Per electronic medical record. VASCULAR: Revealed pedal pulses are palpable. DP and PT bilaterally. DERMATOLOGICAL: Revealed ulceration on the plantar aspect of the right first metatarsal head measuring approximately 1 mm to 2 mm x 45 mm depth. No purulence or malodor. No signs of infection. Mild perimarginal erythema ulceration on plantar aspect of the left fist metatarsal head approximately 10 mm in diameter. It does not probe to bone and there was some perimarginal erythema around it, some clear drainage. LABORATORY DATA: White blood cell count is above 13. Swabbed culture taken from the left foot was positive for gram-positive streptococci. Radiographic examination plain films of the left foot are pending. ASSESSMENT: 1. Diabetes mellitus. 2. Diabetic polyneuropathy. 3. Diabetic foot ulcers, plantar aspect of foot bilaterally. 4. Cellulitis, left foot. PLAN: The patient was examined and evaluated. The patient was admitted by hospitalist and the patient was placed on IV Zosyn and linezolid. Podiatry to follow the patient. Both feet were dressed with Xeroform, 4x4s, Kerlix, and Coban. Podiatry to follow. Also requested MRI for tomorrow of the left foot to make sure, there are no signs of osteomyelitis. Fabián Roblero DPM /[id number]
[2017-01-28] MEDS ORDERED: Non-Formulary Medication 1 Each (Citalopram Hydrobromide [Celexa] 40 MG) PO SCH (21:00)
[2017-01-28] MEDS: Citalopram 20 MG Tab PO SCH (21:22)
[2017-01-28] MEDS: Pravastatin 20 MG Tab PO SCH (21:22)
[2017-01-28] MEDS: Gabapentin 300 MG Cap PO SCH (21:22)
[2017-01-28] MEDS: Insulin Isophane NPH, Human 100 Units/ML 10 ML Vial SUBCUT SCH (21:29)
[2017-01-29] MEDS: Sodium Chloride 0.9% 1,000 ML IV SCH (01:33)
[2017-01-29] MEDS: Linezolid 600 MG in Premix Bag 1 BAG IV SCH ×3 (03:17→17:52)
[2017-01-29] MEDS: Acetaminophen 325 MG Tab PO PRN ×3 (03:26→18:00)
[2017-01-29] MEDS: Piperacillin/Tazobactam/Dext 3.375 GM in Premix Bag 1 BAG IV SCH ×5 (04:25→21:44)
[2017-01-29] MEDS: Pantoprazole 40 MG Tab.CR PO SCH ×2 (07:30→17:51)
--- NOTE | 2017-01-29 08:31 | CR ---
Foot Comp Min 3V Lt HISTORY: left foot infection, assess for osteomyelitis FINDINGS: There is been amputation of the first and second toes. Old osteotomy changes with resection of the head of the fifth metatarsal are noted. Metallic foreign body overlies the distal third metat arsal which may represent an old K wire. Recommend clinical correlation. No acute fracture or dislocation is identified. I see no periosteal reaction or bony resorption sugge sting active osteomyelitis. IMPRESSION: No definite plain film evidence for osteomyelitis. Old postoperative changes as above.
--- NOTE | 2017-01-29 08:55 | CT ---
Foot wo Cont Lt HISTORY: foot ulcer, r/o osteomyelitis Axial spiral CT scan of the left foot was obtained along with sagittal, coronal, and 3-D reconstructi ons. Comparison is made with earlier plain radiographs. FINDINGS: Soft tissue ulcer is noted at the plantar aspect of the foot adjacent to the head of the fi rst metatarsal. Tiny air bubble is noted adjacent to the medial sesamoid bone. There are questionable early erosive changes of the cortex of the medial sesamoid bone. I cannot exclude osteomyelitis invo lving the medial sesamoid. No periosteal reaction is identified. No other signs of osteomyelitis else where. There is soft tissue swelling and edema plantar and medial aspect of the foot distally suggesting teresa lulitis. Old amputation changes of the great toe are seen to the level of the base of the proximal ph alanx. There is also old amputation of the entire second toe. Old osteotomy changes are noted distal fifth metatarsal. Portion of an old K wire is seen in the distal third metatarsal. No fracture or dis location is seen. IMPRESSION: 1. Old amputation changes percent second toes. Old osteotomy distal fifth metatarsal. Old K wire fixa tion distal third metatarsal. 2. Probable cellulitis changes distal left foot medially with ulceration plantar aspect of the foot a djacent to the head of the first metatarsal. I cannot exclude early osteomyelitis medial sesamoid bon e. Total DLP 203 mGycm
[2017-01-29] MEDS ORDERED: Non-Formulary Medication 1 Each (Cyanocobalamin (Vitamin B12) [Vitamin B12] 100 MCG) PO SCH (09:00)
[2017-01-29] MEDS ORDERED: PRAVASTATIN PO SCH (09:00)
[2017-01-29] MEDS ORDERED: Non-Formulary Medication 1 Each (Magnesium Oxide [Magnesium] 400 MG) PO SCH (09:00)
[2017-01-29] MEDS: Metoprolol Succinate 50 MG Tab.ER PO SCH ×2 (09:40→17:51)
[2017-01-29] MEDS: Enoxaparin 40 MG/0.4 ML Syringe SUBCUT SCH ×2 (09:40→17:51)
[2017-01-29] MEDS: Spironolactone 25 MG Tab PO SCH ×2 (09:40→17:51)
[2017-01-29] MEDS: Cyanocobalamin (Vitamin B12) 1,000 MCG Tab PO SCH ×2 (09:40→17:52)
[2017-01-29] MEDS: Aspirin 81 MG Tab.Chew PO SCH ×2 (09:40→17:51)
[2017-01-29] MEDS: Magnesium Oxide 400 MG Tab PO SCH ×2 (09:40→17:51)
[2017-01-29] MEDS: Allopurinol 300 MG Tab PO SCH ×2 (09:40→17:52)
[2017-01-29] MEDS: Insulin Isophane NPH, Human 100 Units/ML 10 ML Vial SUBCUT SCH ×3 (09:53→21:45)
[2017-01-29] MEDS ORDERED: Sodium Chloride 0.9% 1,000 ML IV SCH (16:36)
[2017-01-29] MEDS: Insulin Aspart 100 Units/ML 3 ML Pen SUBCUT SCH ×3 (17:50→21:46)
[2017-01-29] MEDS: Fluticasone Propionate Nasal Spray 16 GM Bottle NAS SCH (17:51)
[2017-01-29] MEDS: Ibuprofen 600 MG Tab PO PRN (18:36)
[2017-01-29] MEDS: Gabapentin 300 MG Cap PO SCH (20:29)
[2017-01-29] MEDS: Pravastatin 20 MG Tab PO SCH (20:29)
[2017-01-29] MEDS: Citalopram 20 MG Tab PO SCH (20:30)
[2017-01-30] MEDS: Linezolid 600 MG in Premix Bag 1 BAG IV SCH (02:47)
[2017-01-30] MEDS: Piperacillin/Tazobactam/Dext 3.375 GM in Premix Bag 1 BAG IV SCH ×2 (04:21→11:07)
--- NOTE | 2017-01-30 08:31 | PN ---
DATE OF SERVICE: 01/29/2017 SUBJECTIVE: No acute events overnight, though he did have a fever to 103, again this morning. Relatively asymptomatic and vitals are stable at the time of the fever. He reports significant improvement in the foot pain, as well as the neuropathic type pains in the left foot. Redness and swelling have improved in the left foot. Blood sugars have been well controlled. No complaints of abdominal pain or shortness of breath. The wound culture is growing gram-positive cocci, probably a strep species. OBJECTIVE: VITAL SIGNS: Blood pressure 114/54, pulse 73, temp 99.9, respirations are 18, O2 saturations 96% on room air. GENERAL: He is resting comfortably. He is not in any acute distress. CARDIOVASCULAR: Regular rate and rhythm. RESPIRATORY: Lungs clear with no wheezing. ABDOMEN: Soft, nondistended. EXTREMITIES: Warm, well perfused. Left foot with no purulence from the left foot ulcer, which is approximately 1 cm in diameter. Redness and swelling involving the medial left foot and top of the left foot have improved but not quite resolved. There is still some warmth on the top of the foot. SKIN: No other rashes are visible. LABORATORY DATA: Creatinine is down to 1.44, potassium is 4.3. CT scan of the left foot: Possible early osteomyelitis involving the left sesamoid bone. ASSESSMENT AND PLAN: 1. Left foot cellulitis, plus or minus early osteomyelitis. Bone scan recommended for further evaluation. Dr. Roblero is following along as well. Culture pending, but looks to be a strep species. Currently covered with broad-spectrum antibiotics. Pain well controlled. Current antibiotics will be continued, and we will follow up cultures and make adjustments from there. 2. Insulin-dependent diabetes mellitus. Sugars well controlled at this time, and usual medications will be continued. 3. Coronary artery disease. No active symptoms and clinically stable at this time. 4. Maintenance issues. Plan to continue current deep venous thrombosis and stress ulcer prophylaxis. 5. Disposition. Anticipate discharge home after the hospital stay. He may end up needing a PICC line and long-term antibiotics if there is evidence for osteomyelitis. Keon Flores MD /[id number]
--- NOTE | 2017-01-30 08:41 | PN ---
DATE OF SERVICE: 01/29/2017 SUBJECTIVE: The patient is a 66-year-old male, seen at bedside for followup on the ulcerations on bilateral feet. The patient relates he is feeling very cold. Denies having any other problems at this time. OBJECTIVE: GENERAL: The patient is alert, oriented x3, and in no acute distress. VITAL SIGNS: Temperature 103.5 degrees Fahrenheit, pulse 70, respirations 18, blood pressure 115/58, O2 sats 96% on room air. DERMATOLOGICAL: Examination of the right foot revealed that the ulceration on the plantar aspect of the right 1st metatarsal head measured 2 mm x 4 mm, but there is no purulence, no malodor, and no signs of infection. In the left foot, sub first metatarsal head ulceration measured 8 mm x 9 mm and had 1 mm of depth. It has a granular base, but there was perimarginal erythema. IMAGING: On radiographic examination, CT scan showed possible osteomyelitis of the sesamoid on the left foot. Triple phase bone scan result is pending. ASSESSMENT: 1. Diabetes mellitus. 2. Diabetic polyneuropathy. 3. Diabetic foot ulcers bilateral feet sub first metatarsal head. PLAN: The patient was examined and evaluated. Awaiting bone scan results for tomorrow. If there are obvious signs of osteomyelitis on bone scan, plan on possibly transferring patient to [place] for transmetatarsal amputation of the left foot. However, if there are no signs of osteomyelitis, possibly transfer the patient to [place] for further evaluation and consultation with Infectious Disease. The patient was agreeable to this and will discuss further with patient. The feet were dressed with Xeroform, 4x4s, and Coban. Podiatry to follow. Medical management per hospitalist. Continue IV Zosyn and linezolid. Fabián Roblero DPM /[id number]
[2017-01-30] MEDS: Pantoprazole 40 MG Tab.CR PO SCH (09:03)
[2017-01-30] MEDS: Insulin Aspart 100 Units/ML 3 ML Pen SUBCUT SCH ×4 (09:03→21:18)
[2017-01-30] MEDS: Magnesium Oxide 400 MG Tab PO SCH (09:04)
[2017-01-30] MEDS: Spironolactone 25 MG Tab PO SCH (09:04)
[2017-01-30] MEDS: Fluticasone Propionate Nasal Spray 16 GM Bottle NAS SCH (09:04)
[2017-01-30] MEDS: Enoxaparin 40 MG/0.4 ML Syringe SUBCUT SCH (09:04)
[2017-01-30] MEDS: Cyanocobalamin (Vitamin B12) 1,000 MCG Tab PO SCH (09:05)
[2017-01-30] MEDS: Metoprolol Succinate 50 MG Tab.ER PO SCH (09:05)
[2017-01-30] MEDS: Allopurinol 300 MG Tab PO SCH (09:06)
[2017-01-30] MEDS: Insulin Isophane NPH, Human 100 Units/ML 10 ML Vial SUBCUT SCH ×2 (09:15→21:26)
[2017-01-30] MEDS: Sodium Chloride 0.9% 1,000 ML IV SCH (09:54)
--- NOTE | 2017-01-30 12:52 | NM ---
Bone Scan 3 Phase HISTORY: Left foot ulcer, cellulitis, r/o osteomyelitis Blood flow, blood pool, and delayed bone images over both feet and ankles was obtained following intr avenous administration of 26.0 mCi of technetium 99m MDP. COMPARISON: Plain radiographs 01/28/2017, CT left foot 01/29/2017. FINDINGS: Blood flow images demonstrate mild asymmetrically increased blood flow to the left foot, pa rticularly about the first MTP joint. Blood pool images also show mildly increased activity about the medial aspect of the left foot in the region of the first MTP joint. Delayed bone images demonstrate only mild increased uptake about the first MCP joint which is is likely either degenerative or relat ed to the patient's old amputation changes. I see no increased bony radiotracer uptake about the left foot consistent with active osteomyelitis. I do not see increased uptake at the sesamoid bones adjac ent to the first MTP joint. Increased bony radiotracer uptake is seen about the first MTP joint right foot at the base of the pro ximal phalanx and head of the first metatarsal. This could be degenerative, postoperative, or posttra umatic. Increased bony radiotracer uptake is also seen at the base of fifth metatarsal right foot. IMPRESSION: 1. Mildly increased uptake on blood flow and blood pool images in the first MT P joint suggests cellu litis. No definite evidence for osteomyelitis left foot. Slightly increased uptake about the first MT P joint is favored to be either degenerative or secondary to the patient's old amputation changes. 2. Right foot demonstrates increased uptake about the first MTP joint primarily on the delayed bone i mages. There is also mildly increased uptake in the region of the base of the right fifth metatarsal. Findings could be degenerative, postoperative, posttraumatic. No definite evidence for osteomyelitis .
--- NOTE | 2017-01-30 13:41 | PCM.PN ---
- General Info Date of Service: 01/30/17 Functional Status: Reports: Pain Controlled, Tolerating Diet - Review of Systems General: Reports: Fever Musculoskeletal: Denies: Foot Pain Systems Review Comment:: No acute events overnight though he did have a high fever yesterday afternoon/ evening. Feeling better today and his temperatures have been normal for more than 12 hours. Foot pain has essentially resolved. Redness on the left foot and lower leg has resolved. Wound culture growing beta strep, not group a or B. Bone scan today did not show evidence for osteomyelitis. Blood sugar control has been good. - Patient Data Vitals - Most Recent: Last Vital Signs Temp 36.9 C 01/30/17 10:54 Pulse 56 L 01/30/17 10:54 Resp 18 01/30/17 10:54 BP 113/57 L 01/30/17 10:54 Pulse Ox 99 01/30/17 10:54 Weight - Most Recent: 120.656 kg I&O - Last 24 Hours: Intake & Output 01/29/17 01/30/17 01/30/17 22:59 06:59 14:59 Intake Total 2602 1223 480 Balance 2602 1223 480 Lab Results Last 24 Hours: Laboratory Results - last 24 hr 01/29/17 01/30/17 01/30/17 Range/Units 04:31 05:40 05:40 WBC 4.6 (4.5-11.0) K/uL RBC 3.51 L (4.30-5.90) M/uL Hgb 10.5 L (12.0-15.0) g/dL Hct 32.0 L (40.0-54.0) % MCV 91 (80-98) fL MCH 30 (27-31) pg MCHC 33 (32-36) % Plt Count 119 L (150-400) K/uL Sodium 132 L 137 L (140-148) mmol/L Potassium 4.3 3.9 (3.6-5.2) mmol/L Chloride 100 103 (100-108) mmol/L Carbon Dioxide 21 23 (21-32) mmol/L Anion Gap 11.1 14.9 H (5.0-14.0) mmol/L BUN 24 H 21 H (7-18) mg/dL Creatinine 1.4 H 1.6 H (0.8-1.3) mg/dL Est Cr Clr Drug Dosing 50.50 44.19 mL/min Estimated GFR (MDRD) 50 L 43 L (>60) Glucose 172 H 157 H (74-106) mg/dL Calcium 8.8 8.6 (8.5-10.1) mg/dL Erick Results Last 24 Hours: Microbiology 01/28/17 14:39 Gram Stain - Final Foot, Left Wound Culture - Preliminary Beta Strep Not Group A Or B 01/29/17 04:38 Aerobic Blood Culture - Preliminary Blood - Venous - Lab Draw NO GROWTH AFTER 1 DAY Anaerobic Blood Culture - Preliminary NO GROWTH AFTER 1 DAY Med Orders - Current: Current Medications Acetaminophen (Tylenol) 650 mg PO Q4H PRN PRN Reason: Pain (Mild 1-3)/fever Last Admin: 01/29/17 18:00 Dose: 650 mg Allopurinol (Zyloprim) 300 mg PO DAILY [facility] Last Admin: 01/30/17 09:06 Dose: 300 mg Aspirin (Aspirin) 81 mg PO Q48H [facility] Last Admin: 01/29/17 09:40 Dose: 81 mg Citalopram Hydrobromide (Celexa) 40 mg PO BEDTIME [facility] Last Admin: 01/29/17 20:30 Dose: 40 mg Cyanocobalamin (Vitamin B12) 500 mcg PO DAILY [facility] Last Admin: 01/30/17 09:05 Dose: 500 mcg Enoxaparin Sodium (Lovenox) 40 mg SUBCUT DAILY [facility] Last Admin: 01/30/17 09:04 Dose: 40 mg Fluticasone Propionate (Flonase) 0 gm WENDY DAILY [facility] Last Admin: 01/30/17 09:04 Dose: Not Given Gabapentin (Neurontin) 300 mg PO BEDTIME [facility] Last Admin: 01/29/17 20:29 Dose: 300 mg Ceftriaxone Sodium 2 gm/ (Sodium Chloride) 50 mls @ 100 mls/hr IV Q24H [facility] Ibuprofen (Motrin) 600 mg PO Q8H PRN PRN Reason: Pain/Fever Last Admin: 01/29/17 18:36 Dose: 600 mg Insulin Aspart (Novolog) 0 unit SUBCUT QIDACANDBED [facility] PRN Reason: Protocol Last Admin: 01/30/17 11:34 Dose: Not Given Insulin Human NPH (Novolin N) 26 unit SUBCUT DAILY [facility] Last Admin: 01/30/17 09:15 Dose: 26 units Insulin Human NPH (Novolin N) 28 unit SUBCUT BEDTIME [facility] Last Admin: 01/29/17 21:45 Dose: 28 units Magnesium Oxide (Magnesium Oxide) 400 mg PO DAILY [facility] Last Admin: 01/30/17 09:04 Dose: 400 mg Metoprolol Succinate (Toprol Xl) 100 mg PO DAILY [facility] Last Admin: 01/30/17 09:05 Dose: 100 mg Ondansetron HCl (Zofran Odt) 4 mg PO Q6H PRN PRN Reason: Nausea able to take PO Ondansetron HCl (Zofran) 4 mg IV Q6H PRN PRN Reason: Nausea/Vomiting Oxycodone HCl (Oxycodone) 5 mg PO Q4H PRN PRN Reason: Pain (moderate 4-6) Pantoprazole Sodium (Protonix) 40 mg PO ACBREAKFAST [facility] Last Admin: 01/30/17 09:03 Dose: 40 mg Polyethylene Glycol (Miralax) 17 gm PO DAILY PRN PRN Reason: Constipation Pravastatin Sodium (Pravachol) 10 mg PO BEDTIME [facility] Last Admin: 01/29/17 20:29 Dose: 10 mg Senna/Docusate Sodium (Senna Plus) 1 tab PO BID PRN PRN Reason: Constipation Spironolactone (Aldactone) 25 mg PO DAILY [facility] Last Admin: 01/30/17 09:04 Dose: 25 mg Discontinued Medications Sodium Chloride (Normal Saline) 1,000 mls @ 500 mls/hr IV ASDIRECTED [facility] Last Admin: 01/28/17 13:36 Dose: 500 mls/hr Linezolid 600 mg/ Premix 300 mls @ 300 mls/hr IV ONETIME ONE Stop: 01/28/17 16:29 Last Admin: 01/28/17 15:24 Dose: 300 mls/hr Sodium Chloride (Normal Saline) 1,000 mls @ 125 mls/hr IV ASDIRECTED [facility] Last Admin: 01/30/17 09:54 Dose: 125 mls/hr Linezolid 600 mg/ Premix 300 mls @ 300 mls/hr IV Q12H [facility] Last Admin: 01/30/17 02:47 Dose: 300 mls/hr Piperacillin/Tazobactam/ (Dextrose 3.375 gm/ Premix) 50 mls @ 100 mls/hr IV Q6H [facility] Last Admin: 01/30/17 11:07 Dose: 100 mls/hr Sodium Chloride (Normal Saline) 1,000 mls @ 50 mls/hr IV ASDIRECTED [facility] Last Admin: 01/30/17 02:47 Dose: 50 mls/hr - Exam Quality Assessment: No: Supplemental Oxygen General: Alert, Oriented, Cooperative, No Acute Distress Neck: Supple Lungs: Normal Respiratory Effort GI/Abdominal Exam: No Distention Extremities: No Pedal Edema, Other (Left foot with very mild warmth on the top of the foot. No erythema. dressings dry and intact. ) - Problem List & Annotations (1) Cellulitis of leg SNOMED Code(s): 396949451 Code(s): L03.119 - CELLULITIS OF UNSPECIFIED PART OF LIMB Status: Acute Current Visit: No Qualifiers: Laterality: right Qualified Code(s): L03.115 - Cellulitis of right lower limb (2) Type 2 diabetes mellitus SNOMED Code(s): 87652803 Code(s): E11.9 - TYPE 2 DIABETES MELLITUS WITHOUT COMPLICATIONS Status: Acute Current Visit: No Qualifiers: Diabetes mellitus complication status: with neurologic complications Diabetes mellitus complication detail: with polyneuropathy Diabetes mellitus mcfp insulin use: with mcfp use Qualified Code(s): E11.42 - Type 2 diabetes mellitus with diabetic polyneuropathy; Z79.4 - group home (current) use of insulin; Z79.4 - terminologist (current) use of insulin; Z79.4 - group home ( current) use of insulin; Z79.4 - group home (current) use of insulin (3) CAD (coronary artery disease) SNOMED Code(s): 49973274 Code(s): I25.10 - ATHSCL HEART DISEASE OF [place] CORONARY ARTERY W/O ANG PCTRS Status: Chronic Current Visit: No Qualifiers: Coronary Disease-Associated Artery/Lesion type: [place] artery [place] vs. transplanted heart: [place] heart Associated angina: without angina Qualified Code(s): I25.10 - Atherosclerotic heart disease of [place] coronary artery without angina pectoris (4) CKD (chronic kidney disease), stage III SNOMED Code(s): 581569212 Code(s): N18.3 - CHRONIC KIDNEY DISEASE, STAGE 3 (MODERATE) Status: Chronic Current Visit: Yes - Problem List Review Problem List Initiated/Reviewed/Updated: Yes - My Orders Last 24 Hours: My Active Orders 01/29/17 15:50 Ibuprofen [Motrin] 600 mg PO Q8H PRN 01/30/17 13:39 Central Venous Line Insertion [OM.PC] Routine Convert IV to Saline Lock [OM.PC] Routine 01/30/17 13:40 Central Line Assessment [RC] QSHIFT 01/30/17 16:30 GLUCOSE POC LAB TO COLLECT [POC] QIDACANDBED 01/30/17 17:00 cefTRIAXone [Rocephin] 2 gm Sodium Chloride 0.9% [Normal Saline] 50 ml IV Q24H 01/30/17 21:00 GLUCOSE POC LAB TO COLLECT [POC] QIDACANDBED 01/31/17 05:00 BASIC METABOLIC PANEL,BMP [CHEM] Timed CBC W/O DIFF,HEMOGRAM [HEME] Timed (1) 01/31/17 07:30 GLUCOSE POC LAB TO COLLECT [POC] QIDACANDBED 01/31/17 11:30 GLUCOSE POC LAB TO COLLECT [POC] QIDACANDBED 01/31/17 16:30 GLUCOSE POC LAB TO COLLECT [POC] QIDACANDBED 01/31/17 21:00 GLUCOSE POC LAB TO COLLECT [POC] QIDACANDBED 02/01/17 07:30 GLUCOSE POC LAB TO COLLECT [POC] QIDACANDBED 02/01/17 11:30 GLUCOSE POC LAB TO COLLECT [POC] QIDACANDBED 02/01/17 16:30 GLUCOSE POC LAB TO COLLECT [POC] QIDACANDBED 02/01/17 21:00 GLUCOSE POC LAB TO COLLECT [POC] QIDACANDBED 02/02/17 07:30 GLUCOSE POC LAB TO COLLECT [POC] QIDACANDBED 02/02/17 11:30 GLUCOSE POC LAB TO COLLECT [POC] QIDACANDBED 02/02/17 16:30 GLUCOSE POC LAB TO COLLECT [POC] QIDACANDBED 02/02/17 21:00 GLUCOSE POC LAB TO COLLECT [POC] QIDACANDBED 02/03/17 07:30 GLUCOSE POC LAB TO COLLECT [POC] QIDACANDBED - Plan Plan:: ASSESSMENT AND PLAN - Cellulitis of the left foot - no evidence for osteomyelitis on bone scan today but was suggestive of cellulitis, similar to CT scan and clinical examination. Wound culture is growing beta strep, not a or B. Clinically doing better and fever seems to finally have broke. Planning to treat with prolonged course of IV antibiotics after PICC line placement. -Change antibiotics to ceftriaxone, plan for at least 2 weeks of antibiotics -Follow-up final culture results -Daily dressing changes -PICC line placement Insulin-dependent diabetes mellitus - sugars have been well-controlled during the hospital stay. -Continue long-acting insulin -Sliding-scale insulin -Hold oral medications until kidney function improves Coronary artery disease - stable with no active symptoms. -Continue medical management Stage III chronic kidney disease - Creatinine slightly worse than baseline but stable. -Saline lock IV and repeat labs in the morning Maintenance issues - - DVT prophylaxis - enoxaparin - GI prophylaxis - PPI - Nutrition - consistent carbohydrate diet Disposition - anticipate discharge home after the hospital stay. Patient will need outpatient antibiotic administration for at least a couple of weeks. Keon Flores M.D.
[2017-01-30] MEDS ORDERED: cefTRIAXone 2 GM in Sodium Chloride 0.9% 50 ML IV SCH (17:00)
[2017-01-30] MEDS: Citalopram 20 MG Tab PO SCH (21:18)
[2017-01-30] MEDS: Gabapentin 300 MG Cap PO SCH (21:19)
[2017-01-30] MEDS: Pravastatin 20 MG Tab PO SCH (21:20)
[2017-01-30] MEDS: Acetaminophen 325 MG Tab PO PRN (22:16)
--- NOTE | 2017-01-31 00:10 | PCM.SN ---
- Free Text/Narrative Note: call from [address] [place] [address]; Mr. Xavier continue with fever 101.6 f. this evening. given tylenol without relief. a; febrile p: restart Zoysn 3.375 mg IV every 6 hours, give a dose of Motrin 600mg po. now continue with present plan of care.
[2017-01-31] MEDS: Ibuprofen 600 MG Tab PO PRN (00:11)
[2017-01-31] MEDS: Piperacillin/Tazobactam 3.375 GM in Sodium Chloride 0.9% 50 ML IV SCH ×2 (00:55→06:30)
[2017-01-31] MEDS: Insulin Aspart 100 Units/ML 3 ML Pen SUBCUT SCH ×4 (07:32→21:29)
[2017-01-31] MEDS ORDERED: Potassium Chloride 20 MEQ Tab.ER PO ONE (09:00)
[2017-01-31] MEDS: Enoxaparin 40 MG/0.4 ML Syringe SUBCUT SCH (09:08)
[2017-01-31] MEDS: Aspirin 81 MG Tab.Chew PO SCH (09:09)
[2017-01-31] MEDS: Ciprofloxacin 500 MG Tab PO SCH ×2 (09:09→21:31)
[2017-01-31] MEDS: Pantoprazole 40 MG Tab.CR PO SCH (09:09)
[2017-01-31] MEDS: Spironolactone 25 MG Tab PO SCH (09:09)
[2017-01-31] MEDS: Fluticasone Propionate Nasal Spray 16 GM Bottle NAS SCH (09:10)
[2017-01-31] MEDS: Allopurinol 300 MG Tab PO SCH (09:10)
[2017-01-31] MEDS: Cyanocobalamin (Vitamin B12) 1,000 MCG Tab PO SCH (09:10)
[2017-01-31] MEDS: Magnesium Oxide 400 MG Tab PO SCH (09:10)
[2017-01-31] MEDS: Insulin Isophane NPH, Human 100 Units/ML 10 ML Vial SUBCUT SCH ×2 (09:24→21:40)
[2017-01-31] MEDS: Metoprolol Succinate 50 MG Tab.ER PO SCH (10:08)
[2017-01-31] MEDS: Lactobacillus Rhamnosus GG (Probiotic) Cap PO SCH ×2 (11:08→21:31)
[2017-01-31] MEDS ORDERED: Piperacillin/Tazobactam/Dext 3.375 GM in Premix Bag 1 BAG IV SCH (12:00)
--- NOTE | 2017-01-31 12:02 | PCM.PN ---
- General Info Date of Service: 01/31/17 Functional Status: Reports: Pain Controlled, Tolerating Diet - Review of Systems General: Reports: Fever Systems Review Comment:: patient did have one fever last night though it was not as high as the night before and there were no symptoms. He feels well this morning with no complaints of foot pain. Appetite has been stable. Vital signs have been stable. No complaints of shortness of breath or abdominal pain. Wound culture growing non-A/non-B group strep as well as Acinetobacter. - Patient Data Vitals - Most Recent: Last Vital Signs Temp 35.8 C 01/31/17 11:00 Pulse 62 01/31/17 11:00 Resp 16 01/31/17 11:00 BP 97/64 01/31/17 11:00 Pulse Ox 99 01/31/17 11:00 Weight - Most Recent: 120.656 kg I&O - Last 24 Hours: Intake & Output 01/30/17 01/31/17 01/31/17 22:59 06:59 14:59 Intake Total 1890 100 980 Balance 1890 100 980 Lab Results Last 24 Hours: Laboratory Results - last 24 hr 01/31/17 01/31/17 Range/Units 05:55 05:55 WBC 5.5 (4.5-11.0) K/uL RBC 3.39 L (4.30-5.90) M/uL Hgb 10.3 L (12.0-15.0) g/dL Hct 30.6 L (40.0-54.0) % MCV 90 (80-98) fL MCH 30 (27-31) pg MCHC 34 (32-36) % Plt Count 140 L (150-400) K/uL Sodium 137 L (140-148) mmol/L Potassium 3.5 L (3.6-5.2) mmol/L Chloride 105 (100-108) mmol/L Carbon Dioxide 22 (21-32) mmol/L Anion Gap 13.5 (5.0-14.0) mmol/L BUN 20 H (7-18) mg/dL Creatinine 1.4 H (0.8-1.3) mg/dL Est Cr Clr Drug Dosing 50.33 mL/min Estimated GFR (MDRD) 50 L (>60) Glucose 87 (74-106) mg/dL Calcium 8.3 L (8.5-10.1) mg/dL Erick Results Last 24 Hours: Microbiology 01/28/17 14:39 Gram Stain - Final Foot, Left Wound Culture - Final Beta Strep Not Group A Or B Acinetobacter Baumannii 01/29/17 04:38 Aerobic Blood Culture - Preliminary Blood - Venous - Lab Draw NO GROWTH AFTER 2 DAYS Anaerobic Blood Culture - Preliminary NO GROWTH AFTER 2 DAYS Med Orders - Current: Current Medications Acetaminophen (Tylenol) 650 mg PO Q4H PRN PRN Reason: Pain (Mild 1-3)/fever Last Admin: 01/30/17 22:16 Dose: 650 mg Allopurinol (Zyloprim) 300 mg PO DAILY [facility] Last Admin: 01/31/17 09:10 Dose: 300 mg Aspirin (Aspirin) 81 mg PO Q48H [facility] Last Admin: 01/31/17 09:09 Dose: 81 mg Ciprofloxacin (Ciprofloxacin Hcl) 500 mg PO BID [facility] Last Admin: 01/31/17 09:09 Dose: 500 mg Citalopram Hydrobromide (Celexa) 40 mg PO BEDTIME [facility] Last Admin: 01/30/17 21:18 Dose: 40 mg Cyanocobalamin (Vitamin B12) 500 mcg PO DAILY [facility] Last Admin: 01/31/17 09:10 Dose: 500 mcg Enoxaparin Sodium (Lovenox) 40 mg SUBCUT DAILY [facility] Last Admin: 01/31/17 09:08 Dose: 40 mg Fluticasone Propionate (Flonase) 0 gm WENDY DAILY [facility] Last Admin: 01/31/17 09:10 Dose: Not Given Gabapentin (Neurontin) 300 mg PO BEDTIME [facility] Last Admin: 01/30/17 21:19 Dose: 300 mg Ceftriaxone Sodium 2 gm/ (Sodium Chloride) 50 mls @ 100 mls/hr IV Q24H [facility] Last Admin: 01/30/17 17:17 Dose: 100 mls/hr Ibuprofen (Motrin) 600 mg PO Q8H PRN PRN Reason: Pain/Fever Last Admin: 01/31/17 00:11 Dose: 600 mg Insulin Aspart (Novolog) 0 unit SUBCUT QIDACANDBED [facility] PRN Reason: Protocol Last Admin: 01/31/17 11:35 Dose: 1 units Insulin Human NPH (Novolin N) 26 unit SUBCUT DAILY [facility] Last Admin: 01/31/17 09:24 Dose: 26 units Insulin Human NPH (Novolin N) 28 unit SUBCUT BEDTIME [facility] Last Admin: 01/30/17 21:26 Dose: 28 units Lactobacillus Rhamnosus (Culturelle) 1 cap PO BID [facility] Last Admin: 01/31/17 11:08 Dose: 1 cap Magnesium Oxide (Magnesium Oxide) 400 mg PO DAILY [facility] Last Admin: 01/31/17 09:10 Dose: 400 mg Metoprolol Succinate (Toprol Xl) 100 mg PO DAILY [facility] Last Admin: 01/31/17 10:08 Dose: 100 mg Ondansetron HCl (Zofran Odt) 4 mg PO Q6H PRN PRN Reason: Nausea able to take PO Ondansetron HCl (Zofran) 4 mg IV Q6H PRN PRN Reason: Nausea/Vomiting Oxycodone HCl (Oxycodone) 5 mg PO Q4H PRN PRN Reason: Pain (moderate 4-6) Pantoprazole Sodium (Protonix) 40 mg PO ACBREAKFAST [facility] Last Admin: 01/31/17 09:09 Dose: 40 mg Polyethylene Glycol (Miralax) 17 gm PO DAILY PRN PRN Reason: Constipation Pravastatin Sodium (Pravachol) 10 mg PO BEDTIME [facility] Last Admin: 01/30/17 21:20 Dose: 10 mg Senna/Docusate Sodium (Senna Plus) 1 tab PO BID PRN PRN Reason: Constipation Spironolactone (Aldactone) 25 mg PO DAILY [facility] Last Admin: 01/31/17 09:09 Dose: 25 mg Discontinued Medications Sodium Chloride (Normal Saline) 1,000 mls @ 500 mls/hr IV ASDIRECTED [facility] Last Admin: 01/28/17 13:36 Dose: 500 mls/hr Linezolid 600 mg/ Premix 300 mls @ 300 mls/hr IV ONETIME ONE Stop: 01/28/17 16:29 Last Admin: 01/28/17 15:24 Dose: 300 mls/hr Sodium Chloride (Normal Saline) 1,000 mls @ 125 mls/hr IV ASDIRECTED [facility] Last Admin: 01/30/17 09:54 Dose: 125 mls/hr Linezolid 600 mg/ Premix 300 mls @ 300 mls/hr IV Q12H [facility] Last Admin: 01/30/17 02:47 Dose: 300 mls/hr Piperacillin/Tazobactam/ (Dextrose 3.375 gm/ Premix) 50 mls @ 100 mls/hr IV Q6H [facility] Last Admin: 01/30/17 11:07 Dose: 100 mls/hr Sodium Chloride (Normal Saline) 1,000 mls @ 50 mls/hr IV ASDIRECTED [facility] Last Admin: 01/30/17 02:47 Dose: 50 mls/hr Piperacillin Sod/Tazobactam (Sod 3.375 gm/ Sodium Chloride) 50 mls @ 100 mls/ hr IV Q6H [facility] Last Admin: 01/31/17 06:30 Dose: 100 mls/hr Piperacillin/Tazobactam/ (Dextrose 3.375 gm/ Premix) 50 mls @ 100 mls/hr IV Q6H [facility] Potassium Chloride (Klor-Con M20) 40 meq PO ONETIME ONE Stop: 01/31/17 09:01 Last Admin: 01/31/17 09:08 Dose: 40 meq - Exam Quality Assessment: No: Supplemental Oxygen General: Alert, Oriented, Cooperative, No Acute Distress Lungs: Normal Respiratory Effort GI/Abdominal Exam: No Distention Extremities: No Pedal Edema, Other (Left foot dressing with mild drainage over the base of the 1st metatarsal but otherwise intact. No erythema of foot or ankle ) Skin: Warm, Dry Psy/Mental Status: Alert, Normal Affect - Problem List & Annotations (1) Cellulitis of leg SNOMED Code(s): 372452243 Code(s): L03.119 - CELLULITIS OF UNSPECIFIED PART OF LIMB Status: Acute Current Visit: Yes Qualifiers: Laterality: left Qualified Code(s): L03.116 - Cellulitis of left lower limb Annotation/Comment:: secondary to strep and Acinetobacter (2) Type 2 diabetes mellitus SNOMED Code(s): 92973130 Code(s): E11.9 - TYPE 2 DIABETES MELLITUS WITHOUT COMPLICATIONS Status: Acute Current Visit: Yes Qualifiers: Diabetes mellitus complication status: with neurologic complications Diabetes mellitus complication detail: with polyneuropathy Diabetes mellitus long-term insulin use: with long-term use Qualified Code(s): E11.42 - Type 2 diabetes mellitus with diabetic polyneuropathy; Z79.4 - bed bug exterminator (current) use of insulin; Z79.4 - intermediate (current) use of insulin; Z79.4 - bed bug exterminator ( current) use of insulin; Z79.4 - bed bug exterminator (current) use of insulin (3) CAD (coronary artery disease) SNOMED Code(s): 33885547 Code(s): I25.10 - ATHSCL HEART DISEASE OF [place] CORONARY ARTERY W/O ANG PCTRS Status: Chronic Current Visit: No Qualifiers: Coronary Disease-Associated Artery/Lesion type: [place] artery [place] vs. transplanted heart: [place] heart Associated angina: without angina Qualified Code(s): I25.10 - Atherosclerotic heart disease of [place] coronary artery without angina pectoris (4) CKD (chronic kidney disease), stage III SNOMED Code(s): 153347545 Code(s): N18.3 - CHRONIC KIDNEY DISEASE, STAGE 3 (MODERATE) Status: Chronic Current Visit: Yes - Problem List Review Problem List Initiated/Reviewed/Updated: Yes - My Orders Last 24 Hours: My Active Orders 01/30/17 13:39 Convert IV to Saline Lock [OM.PC] Routine 01/30/17 13:40 Central Line Assessment [RC] QSHIFT 01/30/17 17:00 cefTRIAXone [Rocephin] 2 gm Sodium Chloride 0.9% [Normal Saline] 50 ml IV Q24H 01/30/17 18:40 Central Line PICC Insertion [Central Venous Line Insertion] [OM.PC] Routine 01/30/17 18:43 Central Line Assessment [RC] QSHIFT 01/31/17 09:00 Ciprofloxacin [Ciprofloxacin HCl] 500 mg PO BID Lactobacillus Rhamnosus GG [Culturelle] 1 cap PO BID 01/31/17 16:30 GLUCOSE POC LAB TO COLLECT [POC] QIDACANDBED 01/31/17 21:00 GLUCOSE POC LAB TO COLLECT [POC] QIDACANDBED 02/01/17 05:00 BASIC METABOLIC PANEL,BMP [CHEM] Timed CBC W/O DIFF,HEMOGRAM [HEME] Timed (1) 02/01/17 07:30 GLUCOSE POC LAB TO COLLECT [POC] QIDACANDBED 02/01/17 11:30 GLUCOSE POC LAB TO COLLECT [POC] QIDACANDBED 02/01/17 16:30 GLUCOSE POC LAB TO COLLECT [POC] QIDACANDBED 02/01/17 21:00 GLUCOSE POC LAB TO COLLECT [POC] QIDACANDBED 02/02/17 07:30 GLUCOSE POC LAB TO COLLECT [POC] QIDACANDBED 02/02/17 11:30 GLUCOSE POC LAB TO COLLECT [POC] QIDACANDBED 02/02/17 16:30 GLUCOSE POC LAB TO COLLECT [POC] QIDACANDBED 02/02/17 21:00 GLUCOSE POC LAB TO COLLECT [POC] QIDACANDBED 02/03/17 07:30 GLUCOSE POC LAB TO COLLECT [POC] QIDACANDBED - Plan Plan:: ASSESSMENT AND PLAN - Cellulitis of the left foot - no evidence for osteomyelitis on bone scan today but was suggestive of cellulitis culture growing non-A/non-B strep and Acinetobacter. Unfortunately the Acinetobacter is resistant to ceftriaxone and a second antibiotic will be needed. Clinically doing well. Planning to treat with a prolonged course of IV antibiotics to help maximize the chance that this wound will heal and osteomyelitis will not develop. -Change antibiotics to ceftriaxone, plan for at least 2 weeks of antibiotics -start ciprofloxacin to cover Acinetobacter -Daily dressing changes -plan for outpatient antibiotics for 2 weeks, possibly longer -Podiatry follow-up next week Insulin-dependent diabetes mellitus - sugars have been well-controlled during the hospital stay. -Continue long-acting insulin -Sliding-scale insulin -Hold oral medications until kidney function improves, hopefully tomorrow Coronary artery disease - stable with no active symptoms. -Continue medical management Stage III chronic kidney disease - Creatinine nearly back to baseline. -Saline lock IV and repeat labs in the morning Maintenance issues - - DVT prophylaxis - enoxaparin - GI prophylaxis - PPI - Nutrition - consistent carbohydrate diet Disposition - anticipate discharge home after the hospital stay, likely tomorrow morning if stable overnight. He has a PICC line and will need outpatient antibiotics once daily. Keon Flores M.D.
[2017-01-31] MEDS: cefTRIAXone 2 GM in Sodium Chloride 0.9% 50 ML IV SCH (12:58)
[2017-01-31] MEDS: Acetaminophen 325 MG Tab PO PRN (19:57)
[2017-01-31] MEDS ORDERED: Zolpidem 5 MG Tab PO PRN (21:16)
--- NOTE | 2017-01-31 21:20 | PCM.SN ---
- Free Text/Narrative Note: consult from [address] [place] [address] at 21:15 Mr. Xavier requesting sleep aide. no other concerns a; sleep disruption p; order Melatonin 9 mg po at hs prn insomnia, Ambien 5 mg po at hs prn insomnia.
[2017-01-31] MEDS: Citalopram 20 MG Tab PO SCH (21:31)
[2017-01-31] MEDS: Gabapentin 300 MG Cap PO SCH (21:32)
[2017-01-31] MEDS: Pravastatin 20 MG Tab PO SCH (21:32)
[2017-01-31] MEDS: Melatonin 3 MG Tab PO SCH (22:37)
[2017-02-01] MEDS: Insulin Aspart 100 Units/ML 3 ML Pen SUBCUT SCH ×4 (08:00→22:40)
[2017-02-01] MEDS: Pantoprazole 40 MG Tab.CR PO SCH (08:02)
[2017-02-01] MEDS: Insulin Isophane NPH, Human 100 Units/ML 10 ML Vial SUBCUT SCH ×2 (08:42→22:39)
[2017-02-01] MEDS: cefTRIAXone 2 GM in Sodium Chloride 0.9% 50 ML IV SCH (09:10)
[2017-02-01] MEDS: Fluticasone Propionate Nasal Spray 16 GM Bottle NAS SCH (09:24)
[2017-02-01] MEDS: Metoprolol Succinate 50 MG Tab.ER PO SCH (09:26)
[2017-02-01] MEDS: Allopurinol 300 MG Tab PO SCH (09:27)
[2017-02-01] MEDS: Spironolactone 25 MG Tab PO SCH (09:27)
[2017-02-01] MEDS: Ciprofloxacin 500 MG Tab PO SCH ×2 (09:27→20:01)
[2017-02-01] MEDS: Enoxaparin 40 MG/0.4 ML Syringe SUBCUT SCH (09:28)
[2017-02-01] MEDS: Lactobacillus Rhamnosus GG (Probiotic) Cap PO SCH ×2 (09:28→20:00)
[2017-02-01] MEDS: Magnesium Oxide 400 MG Tab PO SCH (09:28)
[2017-02-01] MEDS: Cyanocobalamin (Vitamin B12) 1,000 MCG Tab PO SCH (09:28)
--- NOTE | 2017-02-01 16:32 | PCM.PN ---
- General Info Date of Service: 02/01/17 Functional Status: Reports: Pain Controlled, Tolerating Diet - Review of Systems General: Reports: Fever Musculoskeletal: Denies: Foot Pain Systems Review Comment:: Patient did have a fever to 102 last night but otherwise had a peaceful night. No foot pain is noted today. Redness and swelling have resolved. No fevers overnight or this morning. Appetite good. Energy good. Tolerating current antibiotics. No new positive culture results. - Patient Data Vitals - Most Recent: Last Vital Signs Temp 36.1 C 02/01/17 15:00 Pulse 64 02/01/17 15:00 Resp 18 02/01/17 15:00 BP 120/56 L 02/01/17 15:00 Pulse Ox 99 02/01/17 15:00 Weight - Most Recent: 120.656 kg I&O - Last 24 Hours: Intake & Output 02/01/17 02/01/17 02/01/17 06:59 14:59 22:59 Intake Total 300 1500 Balance 300 1500 Lab Results Last 24 Hours: Laboratory Results - last 24 hr 02/01/17 02/01/17 Range/Units 06:04 06:04 WBC 5.4 (4.5-11.0) K/uL RBC 3.50 L (4.30-5.90) M/uL Hgb 10.9 L (12.0-15.0) g/dL Hct 31.2 L (40.0-54.0) % MCV 89 (80-98) fL MCH 31 (27-31) pg MCHC 35 (32-36) % Plt Count 130 L (150-400) K/uL Sodium 140 (140-148) mmol/L Potassium 4.5 (3.6-5.2) mmol/L Chloride 108 (100-108) mmol/L Carbon Dioxide 20 L (21-32) mmol/L Anion Gap 16.5 H (5.0-14.0) mmol/L BUN 21 H (7-18) mg/dL Creatinine 1.3 (0.8-1.3) mg/dL Est Cr Clr Drug Dosing 54.20 mL/min Estimated GFR (MDRD) 55 L (>60) Glucose 100 (74-106) mg/dL Calcium 8.7 (8.5-10.1) mg/dL Erick Results Last 24 Hours: Microbiology 01/29/17 04:38 Aerobic Blood Culture - Preliminary Blood - Venous - Lab Draw NO GROWTH AFTER 3 DAYS Anaerobic Blood Culture - Preliminary NO GROWTH AFTER 3 DAYS Med Orders - Current: Current Medications Acetaminophen (Tylenol) 650 mg PO Q4H PRN PRN Reason: Pain (Mild 1-3)/fever Last Admin: 01/31/17 19:57 Dose: 650 mg Allopurinol (Zyloprim) 300 mg PO DAILY [facility] Last Admin: 02/01/17 09:27 Dose: 300 mg Aspirin (Aspirin) 81 mg PO Q48H [facility] Last Admin: 01/31/17 09:09 Dose: 81 mg Ciprofloxacin (Ciprofloxacin Hcl) 500 mg PO BID [facility] Last Admin: 02/01/17 09:27 Dose: 500 mg Citalopram Hydrobromide (Celexa) 40 mg PO BEDTIME [facility] Last Admin: 01/31/17 21:31 Dose: 40 mg Cyanocobalamin (Vitamin B12) 500 mcg PO DAILY [facility] Last Admin: 02/01/17 09:28 Dose: 500 mcg Enoxaparin Sodium (Lovenox) 40 mg SUBCUT DAILY [facility] Last Admin: 02/01/17 09:28 Dose: 40 mg Fluticasone Propionate (Flonase) 0 gm WENDY DAILY [facility] Last Admin: 02/01/17 09:24 Dose: 2 spray Gabapentin (Neurontin) 300 mg PO BEDTIME [facility] Last Admin: 01/31/17 21:32 Dose: 300 mg Ceftriaxone Sodium 2 gm/ (Sodium Chloride) 50 mls @ 100 mls/hr IV DAILY [facility] Last Admin: 02/01/17 09:10 Dose: 100 mls/hr Ibuprofen (Motrin) 600 mg PO Q8H PRN PRN Reason: Pain/Fever Last Admin: 01/31/17 00:11 Dose: 600 mg Insulin Aspart (Novolog) 0 unit SUBCUT QIDACANDBED [facility] PRN Reason: Protocol Last Admin: 02/01/17 11:53 Dose: 1 units Insulin Human NPH (Novolin N) 26 unit SUBCUT DAILY [facility] Last Admin: 02/01/17 08:42 Dose: 26 units Insulin Human NPH (Novolin N) 28 unit SUBCUT BEDTIME [facility] Last Admin: 01/31/17 21:40 Dose: 28 units Lactobacillus Rhamnosus (Culturelle) 1 cap PO BID [facility] Last Admin: 02/01/17 09:28 Dose: 1 cap Magnesium Oxide (Magnesium Oxide) 400 mg PO DAILY [facility] Last Admin: 02/01/17 09:28 Dose: 400 mg Melatonin (Melatonin) 9 mg PO BEDTIME [facility] Last Admin: 01/31/17 22:37 Dose: 9 mg Metoprolol Succinate (Toprol Xl) 100 mg PO DAILY [facility] Last Admin: 02/01/17 09:26 Dose: 100 mg Ondansetron HCl (Zofran Odt) 4 mg PO Q6H PRN PRN Reason: Nausea able to take PO Ondansetron HCl (Zofran) 4 mg IV Q6H PRN PRN Reason: Nausea/Vomiting Oxycodone HCl (Oxycodone) 5 mg PO Q4H PRN PRN Reason: Pain (moderate 4-6) Last Admin: 01/31/17 19:55 Dose: 5 mg Pantoprazole Sodium (Protonix) 40 mg PO ACBREAKFAST [facility] Last Admin: 02/01/17 08:02 Dose: 40 mg Polyethylene Glycol (Miralax) 17 gm PO DAILY PRN PRN Reason: Constipation Pravastatin Sodium (Pravachol) 10 mg PO BEDTIME [facility] Last Admin: 01/31/17 21:32 Dose: 10 mg Senna/Docusate Sodium (Senna Plus) 1 tab PO BID PRN PRN Reason: Constipation Spironolactone (Aldactone) 25 mg PO DAILY [facility] Last Admin: 02/01/17 09:27 Dose: 25 mg Zolpidem Tartrate (Ambien) 5 mg PO BEDTIME PRN PRN Reason: insomonia Discontinued Medications Sodium Chloride (Normal Saline) 1,000 mls @ 500 mls/hr IV ASDIRECTED [facility] Last Admin: 01/28/17 13:36 Dose: 500 mls/hr Linezolid 600 mg/ Premix 300 mls @ 300 mls/hr IV ONETIME ONE Stop: 01/28/17 16:29 Last Admin: 01/28/17 15:24 Dose: 300 mls/hr Sodium Chloride (Normal Saline) 1,000 mls @ 125 mls/hr IV ASDIRECTED [facility] Last Admin: 01/30/17 09:54 Dose: 125 mls/hr Linezolid 600 mg/ Premix 300 mls @ 300 mls/hr IV Q12H [facility] Last Admin: 01/30/17 02:47 Dose: 300 mls/hr Piperacillin/Tazobactam/ (Dextrose 3.375 gm/ Premix) 50 mls @ 100 mls/hr IV Q6H [facility] Last Admin: 01/30/17 11:07 Dose: 100 mls/hr Sodium Chloride (Normal Saline) 1,000 mls @ 50 mls/hr IV ASDIRECTED [facility] Last Admin: 01/30/17 02:47 Dose: 50 mls/hr Ceftriaxone Sodium 2 gm/ (Sodium Chloride) 50 mls @ 100 mls/hr IV Q24H [facility] Last Admin: 01/30/17 17:17 Dose: 100 mls/hr Piperacillin Sod/Tazobactam (Sod 3.375 gm/ Sodium Chloride) 50 mls @ 100 mls/ hr IV Q6H [facility] Last Admin: 01/31/17 06:30 Dose: 100 mls/hr Piperacillin/Tazobactam/ (Dextrose 3.375 gm/ Premix) 50 mls @ 100 mls/hr IV Q6H [facility] Potassium Chloride (Klor-Con M20) 40 meq PO ONETIME ONE Stop: 01/31/17 09:01 Last Admin: 01/31/17 09:08 Dose: 40 meq - Exam Quality Assessment: No: Supplemental Oxygen General: Alert, Oriented, Cooperative, No Acute Distress Neck: Supple Lungs: Normal Respiratory Effort GI/Abdominal Exam: Soft, No Distention Extremities: No Pedal Edema, Other (Left foot wrapped with dry intact dressings and only a small quantity of dried drainage on the bottom of the left foot near the base of the great toe). No: Increased Warmth - Problem List & Annotations (1) Cellulitis of leg SNOMED Code(s): 340742257 Code(s): L03.119 - CELLULITIS OF UNSPECIFIED PART OF LIMB Status: Acute Current Visit: Yes Qualifiers: Laterality: left Qualified Code(s): L03.116 - Cellulitis of left lower limb Annotation/Comment:: secondary to strep and Acinetobacter (2) Type 2 diabetes mellitus SNOMED Code(s): 71420813 Code(s): E11.9 - TYPE 2 DIABETES MELLITUS WITHOUT COMPLICATIONS Status: Acute Current Visit: Yes Qualifiers: Diabetes mellitus complication status: with neurologic complications Diabetes mellitus complication detail: with polyneuropathy Diabetes mellitus mcc insulin use: with mcc use Qualified Code(s): E11.42 - Type 2 diabetes mellitus with diabetic polyneuropathy; Z79.4 - adjunct faculty for medical terminology (current) use of insulin; Z79.4 - adjunct faculty for medical terminology (current) use of insulin; Z79.4 - [facility] ( current) use of insulin; Z79.4 - [facility] (current) use of insulin (3) CAD (coronary artery disease) SNOMED Code(s): 20402499 Code(s): I25.10 - ATHSCL HEART DISEASE OF [place] CORONARY ARTERY W/O ANG PCTRS Status: Chronic Current Visit: No Qualifiers: Coronary Disease-Associated Artery/Lesion type: [place] artery [place] vs. transplanted heart: [place] heart Associated angina: without angina Qualified Code(s): I25.10 - Atherosclerotic heart disease of [place] coronary artery without angina pectoris (4) CKD (chronic kidney disease), stage III SNOMED Code(s): 299616798 Code(s): N18.3 - CHRONIC KIDNEY DISEASE, STAGE 3 (MODERATE) Status: Chronic Current Visit: Yes - Problem List Review Problem List Initiated/Reviewed/Updated: Yes - My Orders Last 24 Hours: My Active Orders 02/01/17 21:00 GLUCOSE POC LAB TO COLLECT [POC] QIDACANDBED 02/02/17 07:30 GLUCOSE POC LAB TO COLLECT [POC] QIDACANDBED 02/02/17 11:30 GLUCOSE POC LAB TO COLLECT [POC] QIDACANDBED 02/02/17 16:30 GLUCOSE POC LAB TO COLLECT [POC] QIDACANDBED 02/02/17 21:00 GLUCOSE POC LAB TO COLLECT [POC] QIDACANDBED 02/03/17 07:30 GLUCOSE POC LAB TO COLLECT [POC] QIDACANDBED - Plan Plan:: ASSESSMENT AND PLAN - Cellulitis of the left foot - no evidence for osteomyelitis on bone scan today but was suggestive of cellulitis culture growing non-A/non-B strep and Acinetobacter. Clinically doing well but still had a fever yesterday evening. -Continue ceftriaxone, plan for at least 2 weeks of antibiotics -Continue ciprofloxacin to cover Acinetobacter -Daily dressing changes -plan for outpatient antibiotics for 2 weeks, possibly longer -Podiatry follow-up next week Insulin-dependent diabetes mellitus - sugars have been well-controlled during the hospital stay. -Continue long-acting insulin -Sliding-scale insulin -Hold oral medications until kidney function improves, hopefully tomorrow prior to discharge Coronary artery disease - stable with no active symptoms. -Continue medical management Stage III chronic kidney disease - Creatinine nearly back to baseline. -Saline lock IV and repeat labs in the morning Maintenance issues - - DVT prophylaxis - enoxaparin - GI prophylaxis - PPI - Nutrition - consistent carbohydrate diet Disposition - anticipate discharge home after the hospital stay, likely tomorrow morning if stable overnight. the plan was for discharge to home today but he had a fever last night so he will need to remain hospitalized for one more night to ensure that he has a fever free period. Keon Flores M.D.
[2017-02-01] MEDS: Citalopram 20 MG Tab PO SCH (20:00)
[2017-02-01] MEDS: Pravastatin 20 MG Tab PO SCH (20:00)
[2017-02-01] MEDS: Gabapentin 300 MG Cap PO SCH (20:01)
[2017-02-01] MEDS: Melatonin 3 MG Tab PO SCH (22:41)
[2017-02-02] MEDS ORDERED: Sodium Chloride 0.9% 10 ML Syringe FLUSH PRN (05:28)
[2017-02-02] MEDS: Insulin Aspart 100 Units/ML 3 ML Pen SUBCUT SCH ×2 (08:14→12:04)
[2017-02-02] MEDS: Aspirin 81 MG Tab.Chew PO SCH (08:15)
[2017-02-02] MEDS: Pantoprazole 40 MG Tab.CR PO SCH (08:15)
[2017-02-02] MEDS: Spironolactone 25 MG Tab PO SCH (08:15)
[2017-02-02] MEDS: Ciprofloxacin 500 MG Tab PO SCH (08:15)
[2017-02-02] MEDS: Metoprolol Succinate 50 MG Tab.ER PO SCH (08:16)
[2017-02-02] MEDS: Magnesium Oxide 400 MG Tab PO SCH (08:16)
[2017-02-02] MEDS: Lactobacillus Rhamnosus GG (Probiotic) Cap PO SCH (08:16)
[2017-02-02] MEDS: Fluticasone Propionate Nasal Spray 16 GM Bottle NAS SCH (08:16)
[2017-02-02] MEDS: Enoxaparin 40 MG/0.4 ML Syringe SUBCUT SCH (08:16)
[2017-02-02] MEDS: Cyanocobalamin (Vitamin B12) 1,000 MCG Tab PO SCH (08:19)
[2017-02-02] MEDS: Allopurinol 300 MG Tab PO SCH (08:20)
[2017-02-02] MEDS: cefTRIAXone 2 GM in Sodium Chloride 0.9% 50 ML IV SCH (08:26)
[2017-02-02] MEDS: Insulin Isophane NPH, Human 100 Units/ML 10 ML Vial SUBCUT SCH (08:27)
[2017-02-02 10:34] VITALS: BP 144/70
[2017-02-02] MEDS ORDERED: cefTRIAXone 2 GM in Sodium Chloride 0.9% 50 ML IV SCH (11:00)
--- NOTE | 2017-02-02 11:15 | PCM.DCSUM1 ---
Discharge Summary - Hospital Course Brief History: 66-year-old male with history of insulin-dependent diabetes mellitus as well as bilateral diabetic foot ulcers who presented with redness, swelling and pain in the left foot. He was admitted for management of cellulitis involving his left foot. - Discharge Data Discharge Date: 02/02/17 Discharge Disposition: Home, Self-Care 01 Condition: Good - Discharge Diagnosis/Problem(s) (1) Cellulitis of leg SNOMED Code(s): 979616935 ICD Code: L03.119 - CELLULITIS OF UNSPECIFIED PART OF LIMB Status: Acute Problem Details: secondary to strep and Acinetobacter Qualifiers: Laterality: left Qualified Code(s): L03.116 - Cellulitis of left lower limb (2) Type 2 diabetes mellitus SNOMED Code(s): 33590773 ICD Code: E11.9 - TYPE 2 DIABETES MELLITUS WITHOUT COMPLICATIONS Status: Acute Qualifiers: Diabetes mellitus complication status: with neurologic complications Diabetes mellitus complication detail: with polyneuropathy Diabetes mellitus mcfp insulin use: with mcfp use Qualified Code(s): E11.42 - Type 2 diabetes mellitus with diabetic polyneuropathy; Z79.4 - exterminator helper (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 transplanted heart: [place] heart Associated angina: without angina Qualified Code(s): I25.10 - Atherosclerotic heart disease of [place] coronary artery without angina pectoris (4) CKD (chronic kidney disease), stage III SNOMED Code(s): 450909192 ICD Code: N18.3 - CHRONIC KIDNEY DISEASE, STAGE 3 (MODERATE) Status: Chronic - Patient Summary/Data Consults: Consultations 01/28/17 15:52 Consult to Physician [CONS] Routine Consulting Provider: Fabián Roblero Courtesy Call Completed to Consulting Physician: Yes Reason for Consult: left foot infection Person Notified: ALFIE Date Notified: 01/28/17 Hospital Course: Дмитрий presented to the emergency room with fever as well as left foot redness and swelling. Workup in the emergency room was suggestive of left foot cellulitis and he was started on empiric antibiotics and admitted to the hospital. Blood cultures were obtained at the time of admission. A culture of purulent drainage from the left foot wound was also obtained in the emergency room. Dr. Roblero was consulted at the time of admission and he made some recommendations regarding wound care but there was no obvious need to take him to the operating room at that time. We performed an extensive workup looking for osteomyelitis including x-ray, CT scan as well as a three-phase bone scan. An MRI would've been preferred but because of his AICD we were unable to perform this. All 3 test did not show any evidence for osteomyelitis. Over the next 48 hours he did have several fever spikes some as high as 103. He felt well in between episodes of fever but became very lethargic at the time of the fever spikes. His diabetes was well-controlled over the first few days. Once his culture results returned growing a non-A/non-B group strep as well as Acinetobacter his antibiotics were adjusted. We transitioned him to ceftriaxone to cover the strep and ciprofloxacin to cover the Acinetobacter. After the transition he did have a couple of additional fever spikes though they were not as large as they had been previously. Eventually he has become afebrile. Clinically he looks much better over the last couple of days. The redness and swelling of his left foot has resolved. He is receiving daily dressing changes. Given his diabetes and previous difficulties with a similar infection in this foot we have elected to treat with a longer course of IV antibiotics. He will be on ceftriaxone for 13 more days after hospital discharge. He will also be on ciprofloxacin to cover both of the bacteria from the culture. He will have podiatry follow-up in the next few days. He will be receiving daily dressing changes with his antibiotics. If his foot looks better and is doing better at the end of 2 weeks antibiotics likely can be discontinued. If he continues to have difficulty than the antibiotics may need to be extended. We did place a midline catheter to administer these antibiotics. He is safe for outpatient management at this time and will be discharged home. He will be coming back to the outpatient unit for daily antibiotics as well as his oral antibiotics which he will take at home. - Patient Instructions Diet: Diabetic Diet Activity: As Tolerated Showering/Bathing: May Shower, No Tub Bathing/Swimming Notify Provider of: Fever, Increased Pain, Swelling and Redness, Drainage, Nausea and/or Vomiting Other/Special Instructions: 1. You were in the hospital for management of cellulitis involving your left foot around the area of ulceration on the bottom of the foot. We grew out 2 different bacteria from the culture and I recommend 13 days of antibiotic therapy after hospital discharge. You will be taking ciprofloxacin 500 mg twice daily by mouth. Your next dose will be due tonight. You will also be receiving ceftriaxone 2 g every 24 hours. I recommend that you receive this medication about the same time each day. Our plan at the time of discharge is for around 9 AM. During the weekdays you will be at the [facility] of the hospital and on the weekends you will receive your antibiotic in the emergency room. 2. Because you will be on antibiotics for the next 2 weeks I would recommend that you take a probiotic capsule twice daily for the next month. 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 3. I have provided a prescription for gabapentin (Neurontin) 300 mg. This medication helps with the nerve pain in your feet. You should take this medication at bedtime. 4. Please continue your other medications as previously prescribed. 5. Seek medical attention if he develops fever greater than 101, have severe pain in your foot or if the redness and swelling of the left foot returns. - Discharge Plan Prescriptions/Med Rec: Ciprofloxacin [Ciprofloxacin HCl] 500 mg PO BID #26 tablet Gabapentin [Neurontin] 300 mg PO BEDTIME #30 cap Home Medications: Home Meds Aspirin [Sarah Chewable Aspirin] 81 mg PO Q48H 03/17/14 [History] Citalopram Hydrobromide [Celexa] 40 mg PO BEDTIME 03/17/14 [History] Cyanocobalamin (Vitamin B12) [Vitamin B12] 100 mcg PO DAILY 03/17/14 [History] Ferrous Sulfate [Iron] 325 mg PO DAILY 03/17/14 [History] Glimepiride [Amaryl] 2 mg PO BID 03/17/14 [History] Magnesium Oxide [Magnesium] 400 mg PO DAILY 03/17/14 [History] Metoprolol Succinate [Toprol XL] 100 mg PO DAILY 03/17/14 [History] Multivitamin [Multi-Vitamin Daily] 1 tab PO DAILY 03/17/14 [History] Nitroglycerin [Nitrostat] 0.4 mg SL ASDIRECTED 03/17/14 [History] Vitamin B Complex [B Complex] 1 tab PO DAILY 03/17/14 [History] Torsemide [Demadex] 20 mg PO DAILY 06/24/14 [History] Allopurinol [Zyloprim] 1 tab PO DAILY 01/28/17 [History] Fluticasone Propionate [Flonase] 2 spray NS DAILY 01/28/17 [History] Insulin NPH Human Isophane [Novolin N] 26 units SUBCUT ASDIRECTED 01/28/17 [ History] Insulin NPH Human Isophane [Novolin N] 28 units SUBCUT ASDIRECTED 01/28/17 [ History] [place]-3/DHA/Epa/Fish Oil [[place]-3 Fish Oil Softgel] 1 tab PO DAILY 01/28/17 [ History] Omeprazole 1 tab PO DAILY 01/28/17 [History] Pravastatin [Pravachol] 1 tab PO DAILY 01/28/17 [History] Spironolactone [Aldactone] 1 tab PO DAILY 01/28/17 [History] diphenhydrAMINE [Benadryl] 1 tab PO BEDTIME 01/28/17 [History] Ciprofloxacin [Ciprofloxacin HCl] 500 mg PO BID #26 tablet 02/02/17 [Rx] Gabapentin [Neurontin] 300 mg PO BEDTIME #30 cap 02/02/17 [Rx] Patient Handouts: Diabetes and Foot Care, Cellulitis, Adult, PICC Home Guide, Ciprofloxacin tablets Referrals: Javi Kirkpatrick MD [Primary Care Provider] - (f/u as needed after the hospital stay) Fabián Roblero DPM [Physician] - (f/u next available for diabetic foot ulcer with cellulitis) - Discharge Summary/Plan Comment DC Time >30 min.: Yes (45 - complex discharge, setting up IV antibiotics as an outpatient) - Patient Data Vitals - Most Recent: Last Vital Signs Temp 36.6 C 02/02/17 10:00 Pulse 59 L 02/02/17 10:00 Resp 16 02/02/17 10:00 BP 144/70 H 02/02/17 10:00 Pulse Ox 98 02/02/17 10:00 Weight - Most Recent: 120.656 kg I&O - Last 24 hours: Intake & Output 02/01/17 02/02/17 02/02/17 22:59 06:59 14:59 Intake Total 677 689 9947 Balance 201 803 6612 BUTCH Results - Last 24 hrs: Microbiology 01/29/17 04:38 Aerobic Blood Culture - Preliminary Blood - Venous - Lab Draw NO GROWTH AFTER 4 DAYS Anaerobic Blood Culture - Preliminary NO GROWTH AFTER 4 DAYS Med Orders - Current: Current Medications Acetaminophen (Tylenol) 650 mg PO Q4H PRN PRN Reason: Pain (Mild 1-3)/fever Last Admin: 01/31/17 19:57 Dose: 650 mg Allopurinol (Zyloprim) 300 mg PO DAILY [facility] Last Admin: 02/02/17 08:20 Dose: 300 mg Aspirin (Aspirin) 81 mg PO Q48H [facility] Last Admin: 02/02/17 08:15 Dose: 81 mg Ciprofloxacin (Ciprofloxacin Hcl) 500 mg PO BID [facility] Last Admin: 02/02/17 08:15 Dose: 500 mg Citalopram Hydrobromide (Celexa) 40 mg PO BEDTIME [facility] Last Admin: 02/01/17 20:00 Dose: 40 mg Cyanocobalamin (Vitamin B12) 500 mcg PO DAILY [facility] Last Admin: 02/02/17 08:19 Dose: 500 mcg Enoxaparin Sodium (Lovenox) 40 mg SUBCUT DAILY [facility] Last Admin: 02/02/17 08:16 Dose: 40 mg Fluticasone Propionate (Flonase) 0 gm WENDY DAILY [facility] Last Admin: 02/02/17 08:16 Dose: 2 spray Gabapentin (Neurontin) 300 mg PO BEDTIME [facility] Last Admin: 02/01/17 20:01 Dose: 300 mg Ibuprofen (Motrin) 600 mg PO Q8H PRN PRN Reason: Pain/Fever Last Admin: 01/31/17 00:11 Dose: 600 mg Insulin Aspart (Novolog) 0 unit SUBCUT QIDACANDBED [facility] PRN Reason: Protocol Last Admin: 02/02/17 08:14 Dose: Not Given Insulin Human NPH (Novolin N) 26 unit SUBCUT DAILY [facility] Last Admin: 02/02/17 08:27 Dose: 26 units Insulin Human NPH (Novolin N) 28 unit SUBCUT BEDTIME [facility] Last Admin: 02/01/17 22:39 Dose: 28 units Lactobacillus Rhamnosus (Culturelle) 1 cap PO BID [facility] Last Admin: 02/02/17 08:16 Dose: 1 cap Magnesium Oxide (Magnesium Oxide) 400 mg PO DAILY [facility] Last Admin: 02/02/17 08:16 Dose: 400 mg Melatonin (Melatonin) 9 mg PO BEDTIME [facility] Last Admin: 02/01/17 22:41 Dose: 9 mg Metoprolol Succinate (Toprol Xl) 100 mg PO DAILY [facility] Last Admin: 02/02/17 08:16 Dose: 100 mg Ondansetron HCl (Zofran Odt) 4 mg PO Q6H PRN PRN Reason: Nausea able to take PO Ondansetron HCl (Zofran) 4 mg IV Q6H PRN PRN Reason: Nausea/Vomiting Oxycodone HCl (Oxycodone) 5 mg PO Q4H PRN PRN Reason: Pain (moderate 4-6) Last Admin: 01/31/17 19:55 Dose: 5 mg Pantoprazole Sodium (Protonix) 40 mg PO ACBREAKFAST [facility] Last Admin: 02/02/17 08:15 Dose: 40 mg Polyethylene Glycol (Miralax) 17 gm PO DAILY PRN PRN Reason: Constipation Pravastatin Sodium (Pravachol) 10 mg PO BEDTIME [facility] Last Admin: 02/01/17 20:00 Dose: 10 mg Senna/Docusate Sodium (Senna Plus) 1 tab PO BID PRN PRN Reason: Constipation Sodium Chloride (Saline Flush) 10 ml FLUSH Q12H PRN PRN Reason: Keep Vein Open Spironolactone (Aldactone) 25 mg PO DAILY [facility] Last Admin: 02/02/17 08:15 Dose: 25 mg Zolpidem Tartrate (Ambien) 5 mg PO BEDTIME PRN PRN Reason: insomonia Discontinued Medications Sodium Chloride (Normal Saline) 1,000 mls @ 500 mls/hr IV ASDIRECTED [facility] Last Admin: 01/28/17 13:36 Dose: 500 mls/hr Linezolid 600 mg/ Premix 300 mls @ 300 mls/hr IV ONETIME ONE Stop: 01/28/17 16:29 Last Admin: 01/28/17 15:24 Dose: 300 mls/hr Sodium Chloride (Normal Saline) 1,000 mls @ 125 mls/hr IV ASDIRECTED [facility] Last Admin: 01/30/17 09:54 Dose: 125 mls/hr Linezolid 600 mg/ Premix 300 mls @ 300 mls/hr IV Q12H [facility] Last Admin: 01/30/17 02:47 Dose: 300 mls/hr Piperacillin/Tazobactam/ (Dextrose 3.375 gm/ Premix) 50 mls @ 100 mls/hr IV Q6H [facility] Last Admin: 01/30/17 11:07 Dose: 100 mls/hr Sodium Chloride (Normal Saline) 1,000 mls @ 50 mls/hr IV ASDIRECTED [facility] Last Admin: 01/30/17 02:47 Dose: 50 mls/hr Ceftriaxone Sodium 2 gm/ (Sodium Chloride) 50 mls @ 100 mls/hr IV Q24H [facility] Last Admin: 01/30/17 17:17 Dose: 100 mls/hr Piperacillin Sod/Tazobactam (Sod 3.375 gm/ Sodium Chloride) 50 mls @ 100 mls/ hr IV Q6H [facility] Last Admin: 01/31/17 06:30 Dose: 100 mls/hr Piperacillin/Tazobactam/ (Dextrose 3.375 gm/ Premix) 50 mls @ 100 mls/hr IV Q6H [facility] Ceftriaxone Sodium 2 gm/ (Sodium Chloride) 50 mls @ 100 mls/hr IV DAILY [facility] Last Admin: 02/02/17 08:26 Dose: 100 mls/hr Potassium Chloride (Klor-Con M20) 40 meq PO ONETIME ONE Stop: 01/31/17 09:01 Last Admin: 01/31/17 09:08 Dose: 40 meq - Exam Quality Assessment: Denies: Supplemental Oxygen General: Reports: Alert, Oriented, Cooperative, No Acute Distress Lungs: Reports: Normal Respiratory Effort GI/Abdominal Exam: No Distention Extremities: No Pedal Edema, Other (no redness or swelling of left foot ) *Q Meaningful Use (DIS) - VTE *Q VTE Criteria *Q: - Stroke *Q Stroke Criteria *Q: - AMI *Q AMI Criteria *Q:
== END 2017-02-02 12:15 | disposition home or self-care (01) | DRG 603 ==
LOC: JP.ED 10:58 → JP.MS 14:31
PROVIDERS: ADMIT Internal Medicine; ATTEND Internal Medicine
DX: L03.116 Cellulitis of left lower limb (principal); I13.0 Hypertensive heart and chronic kidney disease with heart failure and stage 1 through stage 4 chronic kidney disease, or unspecified chronic kidney disease; B95.4 Other streptococcus as the cause of diseases classified elsewhere; E11.42 Type 2 diabetes mellitus with diabetic polyneuropathy; E11.621 Type 2 diabetes mellitus with foot ulcer; Z86.73 Personal history of transient ischemic attack (TIA), and cerebral infarction without residual deficits; I25.10 Atherosclerotic heart disease of native coronary artery without angina pectoris; I12.9 Hypertensive chronic kidney disease with stage 1 through stage 4 chronic kidney disease, or unspecified chronic kidney disease; N18.3 Chronic kidney disease, stage 3 (moderate); I50.9 Heart failure, unspecified; R50.9 Fever, unspecified; E78.00 Pure hypercholesterolemia, unspecified; Z79.4 Long term (current) use of insulin; Z79.899 Other long term (current) drug therapy; Z88.8 Allergy status to other drugs, medicaments and biological substances; Z95.810 Presence of automatic (implantable) cardiac defibrillator
CPT/HCPCS: 36415; 71020 ×2; 80053; 83605; 85025; 87040 ×2; 96360; 99285; J7040; 73630-26-LT; 73630-LT; 73700-26-LT; 73700-LT; 78315; 78315-26; 80048; 82962; 85027; 85651; 86140; 87070; 87077; 87186; 87205; 99284; A9270-GY; A9561; C1751; J0696; J1650; J2020; J2543; J7050

== ENCOUNTER 2017-03-28 07:34 | Day surgery (SDC) | payer MEDICARE, BC ==
[~2017-03-28 07:34] MED LIST: Bupivacaine 0.5% 50 ML MDV ONE
[2017-03-28] MEDS ORDERED: Midazolam 1 MG/ML 2 ML SDV ONE (08:20)
[2017-03-28] MEDS ORDERED: fentaNYL 100 MCG/2 ML SDV ONE (08:20)
[2017-03-28] MEDS ORDERED: Propofol 200 MG/20 ML SDV ONE (08:20)
[2017-03-28] MEDS ORDERED: Sodium Chloride 0.9% 1,000 ML IV SCH (08:30)
[2017-03-28] MEDS ORDERED: Bupivacaine 0.5% 50 ML MDV ONE (08:48)
[2017-03-28] MEDS ORDERED: Lidocaine 2% 20 ML MDV ONE (08:48)
[2017-03-28] MEDS ORDERED: metroNIDAZOLE/Normal Saline 500 MG in Premix Bag 1 BAG IV ONE (09:00)
[2017-03-28] MEDS ORDERED: ceFAZolin 2 GM in Premix Bag 1 BAG IV ONE (09:00)
[2017-03-28] MEDS ORDERED: Docusate Sodium 100 MG Cap PO PRN (09:47)
[2017-03-28] MEDS ORDERED: Benzocaine/Cetylpyridinium/Menthol Lozenge MUCMEM PRN (09:47)
[2017-03-28] MEDS ORDERED: hydrOXYzine HCl 100 MG/2 ML SDV IM PRN (09:47)
[2017-03-28] MEDS ORDERED: Promethazine 25 MG/ML SDV IM PRN (09:47)
[2017-03-28] MEDS ORDERED: diphenhydrAMINE 50 MG/ML SDV IVPUSH PRN (09:47)
[2017-03-28] MEDS ORDERED: Acetaminophen/HYDROcodone 325-10 MG Tab PO PRN ×2 (09:47→12:04)
[2017-03-28] MEDS ORDERED: Polyethylene Glycol 3350 Powder 17 GM Packet PO PRN (09:47)
[2017-03-28] MEDS ORDERED: Zolpidem 5 MG Tab PO PRN (09:47)
[2017-03-28] MEDS ORDERED: Bisacodyl 5 MG Tab PO PRN (09:47)
[2017-03-28] MEDS ORDERED: Ondansetron 4 MG/2 ML SDV IVPUSH PRN (09:47)
[2017-03-28] MEDS ORDERED: Acetaminophen 325 MG Tab PO PRN (09:47)
[2017-03-28] MEDS ORDERED: Bacitracin Oint 1 GM U/D Packet ONE (10:15)
[2017-03-28] MEDS ORDERED: Morphine 2 MG/ML Syringe IV PRN (12:07)
[2017-03-28] MEDS ORDERED: Ertapenem 1 GM in Sodium Chloride 0.9% 100 ML IV SCH (13:00)
[2017-03-28 13:30] VITALS: BP 112/65
--- NOTE | 2017-03-28 13:30 | CR ---
Chest 1V Frontal HISTORY: picc placement COMPARISON: 01/28/2017 FINDINGS: Portable chest, 1213 hours. Lungs appear clear and normally aerated. Heart size is within normal limits for the AP technique and stable. No vascular redistribution or pleural fluid can be seen. Old median sternotomy changes are noted. Right-sided pacemaker and lead wires are stable. PICC line i s not identified. Bony structures and soft tissues are unremarkable. IMPRESSION: PICC line is not identified. Old median sternotomy changes. Stable asymmetric and lead wires. No othe r acute chest abnormality identified.
--- NOTE | 2017-03-28 14:58 | OR ---
DATE OF PROCEDURE: 03/28/2017 PROCEDURE PERFORMED: 1. Amputation of left great toe, transmetatarsal. 2. Debridement, plantar aspect of foot (60416), please see size listed below. PREOPERATIVE DIAGNOSIS: Osteomyelitis. POSTOPERATIVE DIAGNOSIS: Osteomyelitis. ANESTHETIC: Local/MAC. RISKS: Risks, benefits, alternatives, limitations including, but not limited to infection, bleeding, and requirement for reoperation along with cardiovascular risks were explained to the patient who wished to proceed. PROCEDURE IN DETAIL: The patient was placed in supine position. The left foot was prepped and draped. The patient had previous phalangeal amputations. The metatarsal was then identified via the linear incision which was made approximately 3 cm in size. This was then carried down with electrocautery to the metatarsal itself. Once this was readily identified, a 15 blade in combination with electrocautery was used to circumnavigate the metatarsal head. This was then able to be mobilized and excised. No abnormal bleeding was noted from the bone. A rongeur along with a file was used to file a smooth taper bone. This was then thoroughly irrigated, inspected for bleeding, which none was noted. The tissue was then reapproximated with 3-0 Vicryl and 4-0 Prolene. The 4-0 Prolene was used in a combination of single interrupted and running stitches. One piece of one-quarter- inch iodoform gauze was then used to place within the wound. A 2nd piece was placed within the surgical incision site. Debridement was also performed of the plantar wound and this was full thickness and approximately 8 mm in diameter with a depth of 9 mm. This was performed using a combination of 15 blade and curette, and iodoform packing was used up to this. Dressings were applied. The patient tolerated the procedure well. Guanako Laureano MD /[id number]
== END 2017-03-28 14:51 | disposition home or self-care (01) ==
LOC: JP.SDS 07:34
PROVIDERS: ATTEND Surgery
DX: M86.8X7 Other osteomyelitis, ankle and foot (principal); I25.10 Atherosclerotic heart disease of native coronary artery without angina pectoris; I50.9 Heart failure, unspecified; N18.9 Chronic kidney disease, unspecified; E11.22 Type 2 diabetes mellitus with diabetic chronic kidney disease; Z95.1 Presence of aortocoronary bypass graft
CPT/HCPCS: 11043; 28805; 71045; 82962; A9270; J0690; J1335; J2250; J2704; J3010; J7030; J7040

== ENCOUNTER 2017-03-29 07:14 | Day surgery (SDC) | payer MEDICARE, BC ==
[2017-03-29] MEDS ORDERED: Sodium Chloride 0.9% 1,000 ML IV SCH (08:00)
[2017-03-29] MEDS ORDERED: Lidocaine 1% with EPINEPHrine 1:100,000 50 ML MDV ONE (09:52)
[2017-03-29] MEDS ORDERED: Bupivacaine 0.5% 50 ML MDV ONE (09:52)
[2017-03-29 11:21] VITALS: BP 102/65
[2017-03-29] MEDS ORDERED: Ertapenem 1 GM in Sodium Chloride 0.9% 100 ML IV SCH (12:00)
--- NOTE | 2017-04-08 09:30 | OR ---
DATE OF PROCEDURE: 03/29/2017 PROCEDURE: Central line access, left subclavian vein. PREOPERATIVE DIAGNOSIS: Required for intravenous antibiotics and unable to place PICC line. POSTOPERATIVE DIAGNOSIS: Required for intravenous antibiotics and unable to place PICC line. COMPLICATIONS: None. BOATS RENTER: None. ANESTHESIA: Local. RISKS: Risks, benefits, alternatives, limitations including, but not limited to infection, bleeding, and pneumothorax were explained to the patient, they wished to proceed. PROCEDURE IN DETAIL: The patient was placed in supine position. The left chest was prepped and draped. A micropuncture kit was used to access the subclavian vein on the 1st pass. The micropuncture kit was then introduced, advanced under direct fluoroscopic guidance and noted to cross the midline. This was then exchanged for a 35,000 wire. This was also noted to be crossing the midline on fluoroscopy. Additional lidocaine with epinephrine was used. A single raheem was created in the skin and the area was dilated. This was then exchanged for a single-lumen catheter, which was advanced to the superior vena cava. This was then sewed into place and dressings were applied. The patient tolerated the procedure well. Guanako Laureano MD /[id number]
== END 2017-03-29 12:20 | disposition home or self-care (01) ==
LOC: JP.SDS 07:14
PROVIDERS: ATTEND Surgery
DX: Z45.2 Encounter for adjustment and management of vascular access device (principal); Z88.8 Allergy status to other drugs, medicaments and biological substances
CPT/HCPCS: 36556; C1894; J1335; J1642; J7030; J7040

== ENCOUNTER 2019-10-04 10:34 | Emergency (ER) | payer MEDICARE, BC ==
[2019-10-04] MEDS ORDERED: Ondansetron 4 MG Tab.DIS PO ONE (11:33)
--- NOTE | 2019-10-04 11:34 | EDM.PDOC ---
ED HPI GENERAL MEDICAL PROBLEM - General Chief Complaint: General Stated Complaint: SHORTNESS OF BREATH Time Seen by Provider: 10/04/19 10:55 Source of Information: Reports: Patient, Family, RN, RN Notes Reviewed History Limitations: Reports: No Limitations - History of Present Illness INITIAL COMMENTS - FREE TEXT/NARRATIVE: Pt with tick bite 3-4 days ago. It was blood engorged per pt. He has noted joint tenderness. Last night he started to feel off. He reports head ache, some shortness of breath, joint pain. He is also currently doctoring for his right foot post amputation. He continually has had problems with a sore opening on his foot due to no fat pad. He is supposed to have surgery again in near future (no date set but has pre-workup completed) to remedy the problem. Area the size of a pea is open now and weeping. He applies topical antibiotic ointment and tries to keep it covered. Pt does not leave home. He orders all of his groceries on line and has them delivered. Onset: Sudden Onset Date: 09/30/19 Duration: Getting Worse Location: Reports: Back (tick bite without rash, engorged tick removed), Lower Extremity, Right (wound on right foot), Generalized (joint pain, head ache, mild shortness of breath) Quality: Reports: Ache Severity: Moderate Improves with: Reports: None Worsens with: Reports: None Context: Reports: Other (tick bite, foot wound) Associated Symptoms: Reports: Headaches, Nausea/Vomiting, Shortness of Breath - Related Data Allergies Allergy/AdvReac Type Severity Reaction Status Date / Time metformin HCl Allergy Other Verified 10/04/19 10:45 [From Glucophage] niacin Allergy Other Verified 10/04/19 10:45 atorvastatin calcium AdvReac Muscle Verified 10/04/19 10:45 [From Lipitor] Aches Home Meds: Home Meds Aspirin [Sarah Chewable Aspirin] 81 mg PO Q48H 03/17/14 [History] Citalopram Hydrobromide [Celexa] 40 mg PO BEDTIME 03/17/14 [History] Cyanocobalamin (Vitamin B12) [Vitamin B12] 100 mcg PO DAILY 03/17/14 [History] Glimepiride [Amaryl] 2 mg PO BID 03/17/14 [History] Magnesium Oxide [Magnesium] 400 mg PO DAILY 03/17/14 [History] Metoprolol Succinate [Toprol XL] 100 mg PO DAILY 03/17/14 [History] Multivitamin [Multi-Vitamin Daily] 1 tab PO DAILY 03/17/14 [History] Nitroglycerin [Nitrostat] 0.4 mg SL ASDIRECTED 03/17/14 [History] Vitamin B Complex [B Complex] 1 tab PO DAILY 03/17/14 [History] Torsemide [Demadex] 20 mg PO DAILY 06/24/14 [History] Fluticasone Propionate [Flonase] 2 spray NS DAILY 01/28/17 [History] Insulin NPH Human Isophane [Novolin N] 26 units SUBCUT BID 01/28/17 [History] [place]-3/DHA/Epa/Fish Oil [[place]-3 Fish Oil Softgel] 1 tab PO DAILY 01/28/17 [History] Gabapentin [Neurontin] 300 mg PO BEDTIME #30 cap 02/02/17 [Rx] Melatonin 10 mg PO DAILY 03/28/17 [History] Doxycycline [Vibramycin] 100 mg PO BID 21 Days #42 cap 10/04/19 [Rx] Past Medical History HEENT History: Reports: Allergic Rhinitis, Impaired Vision Cardiovascular History: Reports: Automatic Implantable Cardioverter Defibrillators, CAD, Heart Failure, High Cholesterol, Hypertension, [place], Pacemaker Respiratory History: Reports: Sleep Apnea Other Respiratory History: Cpap at bedtime Gastrointestinal History: Reports: Colon Polyp, Gastritis, GERD, Hiatal Hernia Genitourinary History: Reports: Other (See Below) Other Genitourinary History: "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 - Infectious Disease History Infectious Disease History: Reports: Chicken Pox, Measles - Past Surgical History HEENT Surgical History: Reports: None Cardiovascular Surgical History: Reports: Coronary Artery Bypass, Pacer GI Surgical History: Reports: Bariatric Procedure, Colonoscopy, Hernia Repair/Other, Polypectomy Neurological Surgical History: Reports: Lumbar Spine, Spinal Fusion Musculoskeletal Surgical History: Reports: Amputation, Arthroscopic Procedure, Knee Replacement, Shoulder Surgery Oncologic Surgical History: Reports: None Dermatological Surgical History: Reports: Skin Graft Social & Family History - Family History Family Medical History: Noncontributory HEENT: Reports: None Cardiac: Reports: Hypertension, [place] Respiratory: Reports: None GI: Reports: None : Reports: None OBGYN: Reports: None Musculoskeletal: Reports: None Neurological: Reports: CVA Psychiatric: Reports: None Endocrine/Metabolic: Reports: None Hematologic: Reports: None Immunologic: Reports: None Dermatologic: Reports: None Oncologic: Reports: None - Tobacco Use Smoking Status *Q: Never Smoker - Caffeine Use Caffeine Use: Reports: Soda Other Caffeine Use: 3 cans per day - Recreational Drug Use Recreational Drug Use: No ED ROS GENERAL - Review of Systems Review Of Systems: See Below Constitutional: Reports: Weakness HEENT: Reports: No Symptoms Respiratory: Reports: Shortness of Breath (mild) Cardiovascular: Reports: No Symptoms Endocrine: Reports: No Symptoms (pt is diabetic) GI/Abdominal: Reports: No Symptoms : Reports: No Symptoms Musculoskeletal: Reports: Joint Pain Skin: Reports: Wound (bottom of right foot ), Change in Color (redness to lower shins - hx of cellulitis), Other (tick bite on shoulder) Neurological: Reports: Headache, Weakness Psychiatric: Reports: No Symptoms Hematologic/Lymphatic: Reports: No Symptoms Immunologic: Reports: No Symptoms ED EXAM, GENERAL - Physical Exam Exam: See Below Free Text/Narrative:: Pt is lying on cot and his [id number] is present. Appears uncomfortable but no distress noted. Sats 97 on room air. Exam Limited By: No Limitations General Appearance: Alert, WD/WN, No Apparent Distress Head: Atraumatic Neck: Normal Inspection, Supple, Non-Tender, Full Range of Motion Respiratory/Chest: No Respiratory Distress, Lungs Clear, Normal Breath Sounds Cardiovascular: Normal Peripheral Pulses, Regular Rate, Rhythm, No Edema, No Gallop, No JVD, No Murmur, No Rub GI/Abdominal: Normal Bowel Sounds, Soft, Non-Tender, No Organomegaly, No Distention Back Exam: Normal Inspection, Full Range of Motion Extremities: Normal Range of Motion, No Pedal Edema, Normal Capillary Refill, Redness (shins, wound on right foot approx 1cm round open with calloused edges, serous fluid draining, no odor) Neurological: Alert, Oriented, CN II-XII Intact, Normal Cognition, No Motor/Sensory Deficits Psychiatric: Normal Affect, Normal Mood Skin Exam: Warm, Dry, No Rash. No: Intact (as noted in extremity exam) Lymphatic: No Adenopathy Course - Vital Signs Text/Narrative:: Vital signs stable Last Recorded V/S: Last Vital Signs Temp 37.7 C 10/04/19 10:56 Pulse 96 10/04/19 11:31 Resp 10 L 10/04/19 11:31 BP 146/51 H 10/04/19 11:31 Pulse Ox 93 L 10/04/19 11:31 - Orders/Labs/Meds Orders: Active Orders 24 hr Category Date Time Status BABESIA MICROTI ANTIBODY PANEL Stat Lab 10/04/19 11:48 Received CULTURE WOUND + SMEAR [RM] Stat Lab 10/04/19 11:16 Results HUMAN GRANULOCYTIC MIKO-HGE Stat Lab 10/04/19 11:48 Received LYME, TOTAL AB TEST/REFLEX Stat Lab 10/04/19 11:48 Received Labs: Laboratory Tests 10/04/19 10/04/19 Range/Units 11:25 11:25 WBC 9.8 (4.5-11.0) K/uL RBC 4.31 (4.30-5.90) M/uL Hgb 13.7 (12.0-15.0) g/dL Hct 40.4 (40.0-54.0) % MCV 94 (80-98) fL MCH 32 H (27-31) pg MCHC 34 (32-36) % Plt Count 105 L (150-400) K/uL Neut % (Auto) 89 H (36-66) % Lymph % (Auto) 4 L (24-44) % [place] % (Auto) 7 H (2-6) % Eos % (Auto) 0 L (2-4) % Baso % (Auto) 0 (0-1) % Sodium 131 L (140-148) mmol/L Potassium 4.9 (3.6-5.2) mmol/L Chloride 99 L (100-108) mmol/L Carbon Dioxide 20 L (21-32) mmol/L Anion Gap 16.9 H (5.0-14.0) mmol/L BUN 29 H (7-18) mg/dL Creatinine 1.8 H (0.8-1.3) mg/dL Est Cr Clr Drug Dosing 39.43 mL/min Estimated GFR (MDRD) 37 L (>60) Glucose 212 H (74-106) mg/dL Calcium 9.2 (8.5-10.1) mg/dL Total Bilirubin 1.4 H (0.2-1.0) mg/dL AST 18 (15-37) U/L ALT 14 (12-78) U/L Alkaline Phosphatase 93 (46-116) U/L Total Protein 7.9 (6.4-8.2) g/dL Albumin 3.4 (3.4-5.0) g/dL Globulin 4.5 H (2.3-3.5) g/dL Albumin/Globulin Ratio 0.8 L (1.2-2.2) Platelet count low, consistent with potential tick infection. Pt has recent tick exposure. Elevated glucose - pt is diabetic Low sodium consistent with hyperglycemia Meds: Medications Discontinued Medications Generic Name Dose Route Start Last Admin Trade Name Terrence PRN Reason Stop Dose Admin Ondansetron HCl 4 mg 10/04/19 11:33 10/04/19 11:39 Zofran Odt PO 10/04/19 11:34 4 mg ONETIME ONE Administration Departure - Departure Time of Disposition: 12:52 Disposition: Home, Self-Care 01 Condition: Fair Clinical Impression: Tick bite - Discharge Information *PRESCRIPTION DRUG MONITORING PROGRAM REVIEWED*: Not Applicable *COPY OF PRESCRIPTION DRUG MONITORING REPORT IN PATIENT ARTURO: Not Applicable Prescriptions: Doxycycline [Vibramycin] 100 mg PO BID 21 Days #42 cap Instructions: Tick Bite Information, Adult, [id number] Referrals: PCP,None [Primary Care Provider] - Forms: ED Department Discharge Sepsis Event Note (ED) - Evaluation Sepsis Screening Result: No Definite Risk - Focused Exam Vital Signs: Vital Signs Temp Pulse Resp BP Pulse Ox 10/04/19 11:31 96 10 L 146/51 H 93 L 10/04/19 11:09 84 12 159/84 H 96 10/04/19 10:56 37.7 C 80 16 150/76 H 98 10/04/19 10:54 80 15 166/76 H 93 L 10/04/19 10:44 37.7 C 80 16 150/76 H 98 - My Orders Last 24 Hours: My Active Orders 10/04/19 11:16 CULTURE WOUND + SMEAR [RM] Stat 10/04/19 11:48 BABESIA MICROTI ANTIBODY PANEL Stat HUMAN GRANULOCYTIC MIKO-HGE Stat LYME, TOTAL AB TEST/REFLEX Stat - Assessment/Plan Last 24 Hours: My Active Orders 10/04/19 11:16 CULTURE WOUND + SMEAR [RM] Stat 10/04/19 11:48 BABESIA MICROTI ANTIBODY PANEL Stat HUMAN GRANULOCYTIC MIKO-HGE Stat LYME, TOTAL AB TEST/REFLEX Stat
[2019-10-04 11:35] VITALS: BP 146/51; PULSE 96
[2019-10-07 14:13] LABS: HGE IGG TITER Negative (Neg:<1:64); HGE IGM TITER Negative (Neg:<1:20)
[2019-10-07 16:13] LABS: BABESIA MICROTI IGG <1:10 (Neg:<1:10); BABESIA MICROTI IGM <1:10 (Neg:<1:10)
[2019-10-14 23:09] LABS: IGG P18 AB. Absent (.); IGG P23 AB. Absent (.); IGG P28 AB. Absent (.); IGG P30 AB. Absent (.); IGG P39 AB. Absent (.); IGG P41 AB. Absent (.); IGG P45 AB. Absent (.); IGG P58 AB. Absent (.); IGG P66 AB. Absent (.); IGG P93 AB. Absent (.); IGM P23 AB. Absent (.); IGM P39 AB. Absent (.); IGM P41 AB. Absent (.); LYME IGG WB INTERP. Negative (.); LYME IGG/IGM AB 1.45 ISR (0.00-0.90); LYME IGM WB INTERP. Negative (.)
== END 2019-10-04 12:52 | disposition home or self-care (01) ==
LOC: JP.ED 10:34
DX: S90.861A Insect bite (nonvenomous), right foot, initial encounter (principal); E66.9 Obesity, unspecified; I25.10 Atherosclerotic heart disease of native coronary artery without angina pectoris; I11.0 Hypertensive heart disease with heart failure; I50.9 Heart failure, unspecified; E11.40 Type 2 diabetes mellitus with diabetic neuropathy, unspecified; E78.00 Pure hypercholesterolemia, unspecified; I25.2 Old myocardial infarction; M10.9 Gout, unspecified; F41.9 Anxiety disorder, unspecified; Z68.38 Body mass index [BMI] 38.0-38.9, adult; Z88.8 Allergy status to other drugs, medicaments and biological substances; Z79.82 Long term (current) use of aspirin; Z79.899 Other long term (current) drug therapy; Z79.4 Long term (current) use of insulin; Z95.0 Presence of cardiac pacemaker; W57.XXXA Bitten or stung by nonvenomous insect and other nonvenomous arthropods, initial encounter
CPT/HCPCS: 36415; 80053; 85025; 86666; 86753; 87070; 87077; 87186; 87205; 99284; A9270; 86617-59; 86618; 99282

== ENCOUNTER 2019-10-26 09:56 | Inpatient (IN) | payer MEDICARE, BC ==
--- NOTE | 2019-10-26 10:51 | EDM.PDOC ---
ED HPI GENERAL MEDICAL PROBLEM - General Chief Complaint: Respiratory Problem Stated Complaint: SHORTNESS OF BREATH Time Seen by Provider: 10/26/19 10:30 Source of Information: Reports: Patient, Family History Limitations: Reports: No Limitations - History of Present Illness INITIAL COMMENTS - FREE TEXT/NARRATIVE: 68-year-old male short of breath for the past 7 days, decreased activity tolerance. No pain, no cough, no fever. Pacemaker is working normally. No sudden onset of symptoms. Denies increased peripheral edema or abdominal symptoms. Onset: Gradual Duration: Day(s): (7 days) Associated Symptoms: Reports: Malaise, Shortness of Breath (Especially with activity), Weakness. Denies: Confusion, Chest Pain, Cough, Fever/Chills Headache Pain Score (Numeric/FACES): 2 - Related Data Allergies Allergy/AdvReac Type Severity Reaction Status Date / Time metformin HCl Allergy Other Verified 10/26/19 10:14 [From Glucophage] niacin Allergy Other Verified 10/26/19 10:14 atorvastatin calcium AdvReac Muscle Verified 10/26/19 10:14 [From Lipitor] Aches Home Meds: Home Meds Aspirin [Sarah Chewable Aspirin] 81 mg PO Q48H 03/17/14 [History] Citalopram Hydrobromide [Celexa] 40 mg PO BEDTIME 03/17/14 [History] Cyanocobalamin (Vitamin B12) [Vitamin B12] 100 mcg PO DAILY 03/17/14 [History] Glimepiride [Amaryl] 2 mg PO BID 03/17/14 [History] Metoprolol Succinate [Toprol XL] 100 mg PO DAILY 03/17/14 [History] Multivitamin [Multi-Vitamin Daily] 1 tab PO DAILY 03/17/14 [History] Nitroglycerin [Nitrostat] 0.4 mg SL ASDIRECTED 03/17/14 [History] Vitamin B Complex [B Complex] 1 tab PO DAILY 03/17/14 [History] Torsemide [Demadex] 20 mg PO DAILY 06/24/14 [History] Fluticasone Propionate [Flonase] 2 spray NS DAILY 01/28/17 [History] Insulin NPH Human Isophane [Novolin N] 26 units SUBCUT BID 01/28/17 [History] [place]-3/DHA/Epa/Fish Oil [[place]-3 Fish Oil Softgel] 1 tab PO DAILY 01/28/17 [History] Gabapentin [Neurontin] 300 mg PO BEDTIME #30 cap 02/02/17 [Rx] Melatonin 10 mg PO DAILY 03/28/17 [History] Amoxicillin 500 mg PO ASDIRECTED 10/26/19 [History] Losartan [Cozaar] 25 mg PO DAILY 10/26/19 [History] Omeprazole 20 mg PO DAILY 10/26/19 [History] Pravastatin Sodium 10 mg PO BEDTIME 10/26/19 [History] Past Medical History HEENT History: Reports: Allergic Rhinitis, Impaired Vision Cardiovascular History: Reports: Automatic Implantable Cardioverter Defibrillators, CAD, Heart Failure, High Cholesterol, Hypertension, [place], Pacemaker Respiratory History: Reports: Sleep Apnea Other Respiratory History: Cpap at bedtime Gastrointestinal History: Reports: Colon Polyp, Gastritis, GERD, Hiatal Hernia Genitourinary History: Reports: Other (See Below) Other Genitourinary History: "kidney problems with gastroenterology nurse practitioner Vancomycin" Musculoskeletal History: Reports: Amputation, Fracture, Gout, Other (See Below) Other Musculoskeletal History: back pain/injury gout Neurological History: Reports: Neuropathy, Diabetic Psychiatric History: Reports: Anxiety Endocrine/Metabolic History: Reports: Diabetes, Type II, Obesity/BMI 30+ Hematologic History: Reports: B12 Deficiency Immunologic History: Reports: None Oncologic (Cancer) History: Reports: None Dermatologic History: Reports: Other (See Below) Other Dermatologic History: diabetic ulcers on feet. - Infectious Disease History Infectious Disease History: Reports: Chicken Pox, Measles - Past Surgical History HEENT Surgical History: Reports: None Cardiovascular Surgical History: Reports: Coronary Artery Bypass, Pacer GI Surgical History: Reports: Bariatric Procedure, Colonoscopy, Hernia Repair/Other, Polypectomy Neurological Surgical History: Reports: Lumbar Spine, Spinal Fusion Musculoskeletal Surgical History: Reports: Amputation, Arthroscopic Procedure, Knee Replacement, Shoulder Surgery Oncologic Surgical History: Reports: None Dermatological Surgical History: Reports: Skin Graft Social & Family History - Family History Family Medical History: Noncontributory HEENT: Reports: None Cardiac: Reports: Hypertension, [place] Respiratory: Reports: None GI: Reports: None : Reports: None OBGYN: Reports: None Musculoskeletal: Reports: None Neurological: Reports: CVA Psychiatric: Reports: None Endocrine/Metabolic: Reports: None Hematologic: Reports: None Immunologic: Reports: None Dermatologic: Reports: None Oncologic: Reports: None - Tobacco Use Smoking Status *Q: Never Smoker - Caffeine Use Caffeine Use: Reports: Soda Other Caffeine Use: 3 cans per day ED ROS GENERAL - Review of Systems Review Of Systems: See Below Constitutional: Denies: Fever, Chills HEENT: Denies: Vision Change Respiratory: Reports: Shortness of Breath. Denies: Cough Cardiovascular: Denies: Chest Pain, Palpitations GI/Abdominal: Denies: Abdominal Pain (Denies abdominal pain but his stomach has been "off" the last week "active") Skin: Reports: Pallor Neurological: Reports: Weakness. Denies: Dizziness, Difficulty Walking Psychiatric: Reports: No Symptoms ED EXAM, GENERAL - Physical Exam Exam: See Below Exam Limited By: No Limitations General Appearance: Alert, No Apparent Distress Head: Atraumatic Neck: Supple, Non-Tender Respiratory/Chest: Lungs Clear, Other (Slight decreased breath sounds in the extreme right base otherwise clear) Cardiovascular: Regular Rate, Rhythm (Distant heart sounds) GI/Abdominal: Normal Bowel Sounds, Soft, Non-Tender, Other (Moderately obese) Rectal (Males) Exam: Normal Exam Extremities: Other (Just a trace of lower extremity edema, he does have a walking boot on his left foot) Neurological: Alert, Oriented Psychiatric: Normal Affect, Normal Mood Skin Exam: Warm, Other (Appears somewhat pale, not diaphoretic) Course - Vital Signs Last Recorded V/S: Last Vital Signs Temp 96.5 F L 10/26/19 10:25 Pulse 60 10/26/19 13:44 Resp 14 10/26/19 13:44 BP 172/85 H 10/26/19 13:44 Pulse Ox 98 10/26/19 15:39 - Orders/Labs/Meds Orders: Medication Orders Acetaminophen (Tylenol) 650 mg PO Q4H PRN PRN Reason: Pain (Mild 1-3)/fever Aspirin (Aspirin) 81 mg PO Q48H [facility] Last Admin: 10/26/19 16:53 Dose: 81 mg Documented by: YOSI Citalopram Hydrobromide (Celexa) 40 mg PO BEDTIME [facility] Dextrose (Glutose 15) 15 gm PO ONETIME PRN PRN Reason: Hypoglycemia Dextrose/Water (Dextrose 50% In Water) 50 ml IV ONETIME PRN PRN Reason: Hypoglycemia Enoxaparin Sodium (Lovenox) 30 mg SUBCUT Q24H [facility] Last Admin: 10/26/19 16:53 Dose: 30 mg Documented by: YOSI Gabapentin (Neurontin) 300 mg PO BEDTIME [facility] Glimepiride (Amaryl) 2 mg PO BIDMEALS [facility] Last Admin: 10/26/19 16:53 Dose: 2 mg Documented by: YOSI Sodium Chloride (Normal Saline) 1,000 mls @ 100 mls/hr IV ASDIRECTED [facility] Last Admin: 10/26/19 17:30 Dose: 100 mls/hr Documented by: GUANAKITO Insulin Human Lispro (Humalog) 0 unit SUBCUT QIDACANDBED [facility]; Protocol Last Admin: 10/26/19 16:54 Dose: Not Given Documented by: YOSI Insulin Human NPH (Humulin N) 26 unit SUBCUT BID@0700,1730 [facility] Last Admin: 10/26/19 16:59 Dose: 26 unit Documented by: YOSI Cosigned by: ROSEMARIE Losartan Potassium (Cozaar) 25 mg PO DAILY [facility] Melatonin (Melatonin) 9 mg PO BEDTIME [facility] Metoprolol Succinate (Toprol Xl) 100 mg PO DAILY [facility] Ondansetron HCl (Zofran) 4 mg IV Q4H PRN PRN Reason: Nausea/Vomiting Pantoprazole Sodium (Protonix) 40 mg PO ACBREAKFAST [facility] Polyethylene Glycol (Miralax) 17 gm PO DAILY PRN PRN Reason: Constipation Pravastatin Sodium (Pravachol) 10 mg PO BEDTIME [facility] Sodium Chloride (Saline Flush) 10 ml FLUSH ASDIRECTED PRN PRN Reason: Keep Vein Open Labs: Laboratory Tests 10/26/19 10/26/19 10/26/19 Range/Units 11:01 11:01 11:01 WBC 4.9 (4.5-11.0) K/uL RBC 3.38 L (4.30-5.90) M/uL Hgb 10.6 L D (12.0-15.0) g/dL Hct 32.1 L (40.0-54.0) % MCV 95 (80-98) fL MCH 31 (27-31) pg MCHC 33 (32-36) % Plt Count 142 L (150-400) K/uL Neut % (Auto) 69 H (36-66) % Lymph % (Auto) 18 L (24-44) % [place] % (Auto) 9 H (2-6) % Eos % (Auto) 3 (2-4) % Baso % (Auto) 0 (0-1) % D-Dimer, Quantitative 1770 H (0.0-400.0) ng/mL Sodium 142 (140-148) mmol/L Potassium 5.7 H (3.6-5.2) mmol/L Chloride 112 H (100-108) mmol/L Carbon Dioxide 19 L (21-32) mmol/L Anion Gap 16.7 H (5.0-14.0) mmol/L BUN 51 H D (7-18) mg/dL Creatinine 1.8 H (0.8-1.3) mg/dL Est Cr Clr Drug Dosing 38.19 mL/min Estimated GFR (MDRD) 37 L (>60) Glucose 97 (74-106) mg/dL Calcium 8.9 (8.5-10.1) mg/dL Total Bilirubin 0.7 (0.2-1.0) mg/dL AST 22 (15-37) U/L ALT 10 L (12-78) U/L Alkaline Phosphatase 118 H (46-116) U/L Troponin I < 0.017 (0.000-0.056) ng/mL Total Protein 6.3 L (6.4-8.2) g/dL Albumin 2.5 L (3.4-5.0) g/dL Globulin 3.8 H (2.3-3.5) g/dL Albumin/Globulin Ratio 0.7 L (1.2-2.2) Meds: Medications Generic Name Dose Route Start Last Admin Trade Name Freq PRN Reason Stop Dose Admin Acetaminophen 650 mg 10/26/19 13:44 Tylenol PO Q4H PRN Pain (Mild 1-3)/fever Aspirin 81 mg 10/26/19 14:00 10/26/19 16:53 Aspirin PO 81 mg Q48H [facility] Administration Citalopram Hydrobromide 40 mg 10/26/19 21:00 Celexa PO BEDTIME [facility] Dextrose 15 gm 10/26/19 13:44 Glutose 15 PO ONETIME PRN Hypoglycemia Dextrose/Water 50 ml 10/26/19 13:44 Dextrose 50% In Water IV ONETIME PRN Hypoglycemia Enoxaparin Sodium 30 mg 10/26/19 14:00 10/26/19 16:53 Lovenox SUBCUT 30 mg Q24H [facility] Administration Gabapentin 300 mg 10/26/19 21:00 Neurontin PO BEDTIME [facility] Glimepiride 2 mg 10/26/19 17:00 10/26/19 16:53 Amaryl PO 2 mg BIDMEALS [facility] Administration Sodium Chloride 1,000 mls @ 100 mls/hr 10/26/19 13:44 10/26/19 17:30 Normal Saline IV 100 mls/hr ASDIRECTED [facility] Administration Insulin Human Lispro 0 unit 10/26/19 17:00 10/26/19 16:54 Humalog SUBCUT Not Given QIDACANDBED [facility] Protocol Insulin Human NPH 26 unit 10/26/19 17:30 10/26/19 16:59 Humulin N SUBCUT 26 unit BID@0700,1730 [facility] Administration Losartan Potassium 25 mg 10/27/19 09:00 Cozaar PO DAILY [facility] Melatonin 9 mg 10/26/19 21:00 Melatonin PO BEDTIME [facility] Metoprolol Succinate 100 mg 10/27/19 09:00 Toprol Xl PO DAILY [facility] Ondansetron HCl 4 mg 10/26/19 13:44 Zofran IV Q4H PRN Nausea/Vomiting Pantoprazole Sodium 40 mg 10/27/19 07:30 Protonix PO ACBREAKFAST [facility] Polyethylene Glycol 17 gm 10/26/19 13:44 Miralax PO DAILY PRN Constipation Pravastatin Sodium 10 mg 10/26/19 21:00 Pravachol PO BEDTIME [facility] Sodium Chloride 10 ml 10/26/19 13:44 Saline Flush FLUSH ASDIRECTED PRN Keep Vein Open Discontinued Medications Generic Name Dose Route Start Last Admin Trade Name Freq PRN Reason Stop Dose Admin Ondansetron HCl 4 mg 10/26/19 13:11 10/26/19 13:47 Zofran Odt PO 10/26/19 13:12 4 mg ONETIME ONE Administration Sodium Polystyrene Sulfonate 30 gm 10/26/19 14:00 10/26/19 16:52 Kayexalate PO 10/26/19 14:01 30 gm ONETIME ONE Administration - Re-Assessments/Exams Free Text/Narrative Re-Assessment/Exam: 10/26/19 10:55 2 view chest x-ray, CBC, CMP, troponin and d-dimer were obtained. 10/26/19 11:57 2 view chest x-ray shows stable cardiomegaly, no significant failure or effusions. Hemoglobin is 10.6 which is a significant drop from 3 weeks ago when he was 13 7. Because normal. Chemistry profile shows stable kidney disease, potassium is mildly elevated. D-dimer is 1770. A guaiac stool was obtained which is pending. Discussed this case with Dr. Gutierrez, he is going to see the patient to consider admission for further work-up for dyspnea and anemia. Departure - Departure Time of Disposition: 14:08 Disposition: Admitted As Inpatient 64 Clinical Impression: Shortness of breath on exertion, CKD (chronic kidney disease), stage III Anemia Qualifiers: Anemia type: unspecified type Qualified Code(s): D64.9 - Anemia, unspecified - Discharge Information Sepsis Event Note (ED) - Evaluation Sepsis Screening Result: No Definite Risk - Focused Exam Vital Signs: Vital Signs Temp Pulse Resp BP Pulse Ox 10/26/19 11:36 59 L 10 L 176/65 H 94 L 10/26/19 11:20 55 L 11 L 190/77 H 95 10/26/19 10:44 54 L 16 183/79 H 97 10/26/19 10:25 96.5 F L 60 18 192/82 H 97 10/26/19 10:12 96.5 F L 60 18 192/82 H 97
--- NOTE | 2019-10-26 11:29 | CR ---
CHEST: 2 view CLINICAL HISTORY:SOB COMPARISON:2018 FINDINGS: Heart is enlarged. Pulmonary vascular appears normal. Patient has a permanent cardiac pacer. There has been previous sternotomy. There is some patchy density in the retrocardiac region which is suspect for small or early pneumonic infiltrate. This is a change since prior study. THERE are no effusions IMPRESSION: Increased lung markings in the retrocardiac region suggests a small pneumonic infiltrate Cardiomegaly with no other evidence of cardiac decompensation Permanent cardiac pacer Previous sternotomy.
--- NOTE | 2019-10-26 12:15 | PCM.HP.2 ---
H&P History of Present Illness - General Date of Service: 10/26/19 Admit Problem/Dx: Admission Diagnosis/Problem Admission Diagnosis/Problem Dyspnea Source of Information: Patient, Family, Old Records, Provider, RN Notes Reviewed History Limitations: Reports: No Limitations - History of Present Illness Initial Comments - Free Text/Narative: Mr. Xavier is a 68-year-old gentleman who was admitted through the emergency department, with a one-month history of progressive shortness of breath and profound weakness. After initial evaluation in the emergency department speci fic etiology of his decline is not yet apparent. He has a known history of type 2 diabetes mellitus with underlying chronic kidney disease. He also has known congestive heart failure, sleep apnea, and moderate to severe aortic stenosis. There has been no evidence of significant underlying infection. CT scan of the chest without contrast shows small bilateral pleural effusions but no evidence o f infiltrate or pulmonary edema. Venous Doppler studies of both lower extremities showed no evidence of deep vein thrombosis. D-dimer was found to be elevated in the emergency department, CT angiogram of the chest cannot be obtained because of his significant kidney disease. He denies any symptoms of chest pain or pressure, but has experienced PND and orthopnea. There has been no significant increase in peripheral edema. He is able to walk only 10 to 15 feet becoming very short of breath to the point where he has to stop to rest. Headache Pain Score (Numeric/FACES): 2 - Related Data Allergies/Adverse Reactions: Allergies Allergy/AdvReac Type Severity Reaction Status Date / Time metformin HCl Allergy Other Verified 10/26/19 10:14 [From Glucophage] niacin Allergy Other Verified 10/26/19 10:14 atorvastatin calcium AdvReac Muscle Verified 10/26/19 10:14 [From Lipitor] Aches Home Medications: Home Meds Aspirin [Sarah Chewable Aspirin] 81 mg PO Q48H 03/17/14 [History] Citalopram Hydrobromide [Celexa] 40 mg PO BEDTIME 03/17/14 [History] Cyanocobalamin (Vitamin B12) [Vitamin B12] 100 mcg PO DAILY 03/17/14 [History] Glimepiride [Amaryl] 2 mg PO BID 03/17/14 [History] Metoprolol Succinate [Toprol XL] 100 mg PO DAILY 03/17/14 [History] Multivitamin [Multi-Vitamin Daily] 1 tab PO DAILY 03/17/14 [History] Nitroglycerin [Nitrostat] 0.4 mg SL ASDIRECTED 03/17/14 [History] Vitamin B Complex [B Complex] 1 tab PO DAILY 03/17/14 [History] Torsemide [Demadex] 20 mg PO DAILY 06/24/14 [History] Fluticasone Propionate [Flonase] 2 spray NS DAILY 01/28/17 [History] Insulin NPH Human Isophane [Novolin N] 26 units SUBCUT BID 01/28/17 [History] [place]-3/DHA/Epa/Fish Oil [[place]-3 Fish Oil Softgel] 1 tab PO DAILY 01/28/17 [History] Gabapentin [Neurontin] 300 mg PO BEDTIME #30 cap 02/02/17 [Rx] Melatonin 10 mg PO DAILY 03/28/17 [History] Amoxicillin 500 mg PO ASDIRECTED 10/26/19 [History] Losartan [Cozaar] 25 mg PO DAILY 10/26/19 [History] Omeprazole 20 mg PO DAILY 10/26/19 [History] Pravastatin Sodium 10 mg PO BEDTIME 10/26/19 [History] Past Medical History HEENT History: Reports: Allergic Rhinitis, Impaired Vision Cardiovascular History: Reports: Automatic Implantable Cardioverter Defibrillators, CAD, Heart Failure, High Cholesterol, Hypertension, ID, Pacemaker Respiratory History: Reports: Sleep Apnea Other Respiratory History: Cpap at bedtime Gastrointestinal History: Reports: Colon Polyp, Gastritis, GERD, Hiatal Hernia Genitourinary History: Reports: Other (See Below) Other Genitourinary History: "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 - Infectious Disease History Infectious Disease History: Reports: Chicken Pox, Measles - Past Surgical History HEENT Surgical History: Reports: None Cardiovascular Surgical History: Reports: Coronary Artery Bypass, Pacer GI Surgical History: Reports: Bariatric Procedure, Colonoscopy, Hernia Repair/Other, Polypectomy Neurological Surgical History: Reports: Lumbar Spine, Spinal Fusion Musculoskeletal Surgical History: Reports: Amputation, Arthroscopic Procedure, Knee Replacement, Shoulder Surgery Oncologic Surgical History: Reports: None Dermatological Surgical History: Reports: Skin Graft Social & Family History - Family History Family Medical History: Noncontributory HEENT: Reports: None Cardiac: Reports: Hypertension, ID Respiratory: Reports: None GI: Reports: None : Reports: None OBGYN: Reports: None Musculoskeletal: Reports: None Neurological: Reports: CVA Psychiatric: Reports: None Endocrine/Metabolic: Reports: None Hematologic: Reports: None Immunologic: Reports: None Dermatologic: Reports: None Oncologic: Reports: None - Tobacco Use Smoking Status *Q: Never Smoker - Caffeine Use Caffeine Use: Reports: Soda Other Caffeine Use: 3 cans per day H&P Review of Systems - Review of Systems: Review Of Systems: See Below General: Reports: Malaise, Weakness, Fatigue. Denies: Fever, Chills HEENT: Reports: No Symptoms Pulmonary: Reports: Shortness of Breath. Denies: Wheezing, Pleuritic Chest Pain, Cough, Sputum, Hemoptysis Cardiovascular: Reports: Dyspnea on Exertion, Orthopnea, PND. Denies: Chest Pain, Palpitations, Edema, Lightheadedness, Syncope Gastrointestinal: Reports: No Symptoms Genitourinary: Reports: No Symptoms Musculoskeletal: Reports: No Symptoms Skin: Reports: No Symptoms Psychiatric: Reports: No Symptoms Neurological: Reports: No Symptoms Hematologic/Lymphatic: Reports: No Symptoms Immunologic: Reports: No Symptoms Exam - Exam Exam: See Below - Vital Signs Vital Signs: Last Vital Signs Temp 96.5 F L 10/26/19 10:25 Pulse 59 L 10/26/19 11:36 Resp 10 L 10/26/19 11:36 BP 176/65 H 10/26/19 11:36 Pulse Ox 94 L 10/26/19 11:36 Weight: 265 lb - Exam Quality Assessment: DVT Prophylaxis General: Alert, Oriented, Cooperative, Mild Distress HEENT: Conjunctiva Clear, Hearing Intact, Mucosa Moist & [place], Normal Nasal Septum, Posterior Pharynx Clear, Pupils Equal Neck: Supple, Trachea Midline, +2 Carotid Pulse wo Bruit Lungs: Clear to Auscultation, Normal Respiratory Effort, Decreased Breath Sounds. No: Rales, Rhonchi, Rub, Wheezing Cardiovascular: Regular Rate, Regular Rhythm, Normal S1, Normal S2, Systolic Murmur. No: Diastolic Murmur GI/Abdominal Exam: Soft, Non-Tender, No Organomegaly, No Distention Extremities: Non-Tender, No Pedal Edema, Other (Dressing and cam walker left foot) Skin: Warm, Dry, Intact Neurological: Cranial Nerves Intact, Strength Equal Bilateral, Normal Speech, Normal Tone, Sensation Intact. No: Focal Deficit Neuro Extensive - Mental Status: Alert, Oriented x3, Normal Mood/Affect, Normal Cognition, Memory Intact - Patient Data Lab Results Last 24 hrs: Laboratory Results - last 24 hr 10/26/19 10/26/19 10/26/19 Range/Units 11:01 11:01 11:01 WBC 4.9 (4.5-11.0) K/uL RBC 3.38 L (4.30-5.90) M/uL Hgb 10.6 L D (12.0-15.0) g/dL Hct 32.1 L (40.0-54.0) % MCV 95 (80-98) fL MCH 31 (27-31) pg MCHC 33 (32-36) % Plt Count 142 L (150-400) K/uL Neut % (Auto) 69 H (36-66) % Lymph % (Auto) 18 L (24-44) % Mcdonough % (Auto) 9 H (2-6) % Eos % (Auto) 3 (2-4) % Baso % (Auto) 0 (0-1) % D-Dimer, Quantitative 1770 H (0.0-400.0) ng/mL Sodium 142 (140-148) mmol/L Potassium 5.7 H (3.6-5.2) mmol/L Chloride 112 H (100-108) mmol/L Carbon Dioxide 19 L (21-32) mmol/L Anion Gap 16.7 H (5.0-14.0) mmol/L BUN 51 H D (7-18) mg/dL Creatinine 1.8 H (0.8-1.3) mg/dL Est Cr Clr Drug Dosing 38.19 mL/min Estimated GFR (MDRD) 37 L (>60) Glucose 97 (74-106) mg/dL Calcium 8.9 (8.5-10.1) mg/dL Total Bilirubin 0.7 (0.2-1.0) mg/dL AST 22 (15-37) U/L ALT 10 L (12-78) U/L Alkaline Phosphatase 118 H (46-116) U/L Troponin I < 0.017 (0.000-0.056) ng/mL Total Protein 6.3 L (6.4-8.2) g/dL Albumin 2.5 L (3.4-5.0) g/dL Globulin 3.8 H (2.3-3.5) g/dL Albumin/Globulin Ratio 0.7 L (1.2-2.2) Result Diagrams: 10/26/19 11:01 10/26/19 11:01 Erick Results Last 24 hrs: Microbiology 10/26/19 11:48 Stool Occult Blood (ERICK) - Final Stool / Feces Sepsis Event Note - Evaluation Sepsis Screening Result: No Definite Risk - Focused Exam Vital Signs: Vital Signs Temp Pulse Resp BP Pulse Ox 10/26/19 11:36 59 L 10 L 176/65 H 94 L 10/26/19 11:20 55 L 11 L 190/77 H 95 10/26/19 10:44 54 L 16 183/79 H 97 10/26/19 10:25 96.5 F L 60 18 192/82 H 97 10/26/19 10:12 96.5 F L 60 18 192/82 H 97 *Q Meaningful Use (ADM) - VTE Risk Assess *Q Each Risk Factor Represents 1 Point: Obesity ( BMI > 25 kg/m2), Congestive heart failure (CHF) Total Score 1 Point Risk Factors: 2 Each Risk Factor Represents 2 Points: Age 60 - 74 Years Total Score 2 Point Risk Factors: 2 Each Risk Factor Represents 3 Points: None Total Score 3 Point Risk Factors: 0 Each Risk Factor Represents 5 Points: None Total Score 5 Point Risk Factors: 0 Venous Thromboembolism Risk Factor Score *Q: 4 Problem List Initiated/Reviewed/Updated: Yes Orders Last 24hrs: Active Orders 24 hr Category Date Time Status Patient Status Manage Transfer [TRANSFER] Routine ADT 10/26/19 12:04 Ordered Resuscitation Status Routine Resus Stat 10/26/19 12:07 Ordered Assessment/Plan Comment:: ASSESSMENT AND PLAN PROGRESSIVE DYSPNEA AND WEAKNESS-specific cause of his progressive symptoms not yet fully identified. Several possibilities exist including exacerbation of his CHF, pulmonary emboli, worsening of his aortic stenosis. No evidence of underlying pulmonary infection at the present time and CT scan did show small bilateral pleural effusions, no evidence of pulmonary edema. Most recent echocardiogram obtained 2 years ago showed decreased systolic function with estimated ejection fraction of 30 to 35%. Diastolic dysfunction could not be estimated at that time because of paced rhythm. He was also noted to have mod erate to severe aortic stenosis. He denies any recent symptoms of chest pain or pressure and his troponin level is within normal range. D-dimer was found to be elevated, we are unable to obtain CT angiogram of the chest because of his chronic kidney disease. Venous Doppler studies of both lower extremities showed no evidence of deep vein thrombosis. -Echocardiogram to reassess left ventricular systolic and diastolic function as well as aortic stenosis -Ventilation/perfusion scan to evaluate for pulmonary emboli CONGESTIVE HEART FAILURE-known systolic CHF, most recent echocardiogram showed ejection fraction of 30 to 35%. -Continue beta-fatoumata therapy and ARB -Echo as above MODERATE TO SEVERE AORTIC STENOSIS-based on most recent echocardiogram from 2 years ago -Echo as above CHRONIC KIDNEY DISEASE STAGE IIIb-creatinine appears to be at recent baseline with a GFR of 37 -Monitor urine output and renal function TYPE 2 DIABETES MELLITUS -Continue outpatient medical therapy -4 times daily glucometers -Moderate dose sliding scale Humalog DIABETIC FOOT ULCER LEFT FOOT -Continue current management HYPERKALEMIA-likely secondary to some intravascular volume depletion, recent oral intake has been poor -IV fluids until a.m. -Kayexalate 30 g p.o. now MAINTENANCE ISSUES -DVT prophylaxis; Lovenox 40 mg subcu daily -GI prophylaxis; not indicated -Horan catheter; not indicated -Nutrition; consistent carb diet -Nicotine dependence; not required CODE STATUS-DNR ADMISSION STATUS-patient will be admitted to inpatient status, expect at least a 2 night hospital stay for evaluation and management of problems as outlined above. At the time of this admission I do not reasonably expected evaluation and management of this problem will require more than a 96 hour hospital stay. DISPOSITION-anticipate discharge to home after the hospital stay. PRIMARY CARE PROVIDER-Dr. Jack - Mortality Measure Prognosis:: Good
[2019-10-26] MEDS ORDERED: Ondansetron 4 MG Tab.DIS PO ONE (13:11)
[2019-10-26] MEDS ORDERED: Acetaminophen 325 MG Tab PO PRN (13:44)
[2019-10-26] MEDS ORDERED: Sodium Chloride 0.9% 10 ML Syringe FLUSH PRN (13:44)
[2019-10-26] MEDS ORDERED: Ondansetron 4 MG/2 ML SDV IV PRN (13:44)
[2019-10-26] MEDS ORDERED: 50% Dextrose in Water 50 ML Syringe IV PRN (13:44)
[2019-10-26] MEDS ORDERED: Glucose Gel 15 GM in 37.5 GM Tube PO PRN (13:44)
[2019-10-26] MEDS ORDERED: Polyethylene Glycol 3350 Powder 17 GM Packet PO PRN (13:44)
[2019-10-26] MEDS ORDERED: Sodium Polystyrene Sulfonate 15 GM/60 ML Susp 60 ML Bot PO ONE (14:00)
--- NOTE | 2019-10-26 15:08 | CT ---
Chest wo Cont CLINICAL HISTORY: Increasing dyspnea TECHNIQUE: Transverse scans were obtained from the thoracic inlet to the lung bases without contrast. Auto dosage reduction in intervertebral reconstruction techniques were employed COMPARISONS: None available FINDINGS: There is no pulmonary mass or infiltrate. Patient has small bilateral pleural effusions, right greater than left. Mediastinum is free of mass or suspicious adenopathy. Heart is mildly enlarged. Patient has had previous aortic valve replacement. There appears to be coronary artery stents. Patient has a permanent cardiac pacer. There are atherosclerotic changes in the aorta. There has been previous Lucy procedure. IMPRESSION: Small bilateral pleural effusions, right greater than left Previous aortic valve replacement Previous coronary artery stent placement Mild cardiomegaly Lungs are free of infiltrates
--- NOTE | 2019-10-26 15:41 | US ---
VL Duplex Lwr Ext Veins Comp HISTORY: No Clinical Info FINDINGS: The deep veins of the lower extremities bilaterally demonstrate normal augmentation and compressibility. No evidence for deep venous thrombosis. IMPRESSION: Normal bilateral lower extremity venous Doppler ultrasound.
[2019-10-26] MEDS: Glimepiride 2 MG Tab PO SCH (16:53)
[2019-10-26] MEDS: Enoxaparin 30 MG/0.3 ML Syringe SUBCUT SCH (16:53)
[2019-10-26] MEDS: Aspirin 81 MG Tab.Chew PO SCH (16:53)
[2019-10-26] MEDS: Insulin Lispro 100 Unit/ML 3 ML KwikPen SUBCUT SCH ×2 (16:54→21:39)
[2019-10-26] MEDS: Insulin Isophane NPH, Human 100 Units/ML 3 ML Vial SUBCUT SCH (16:59)
[2019-10-26] MEDS: Sodium Chloride 0.9% 1,000 ML IV SCH (17:30)
[2019-10-26] MEDS ORDERED: Citalopram 20 MG Tab PO SCH (21:00)
[2019-10-26] MEDS: Gabapentin 300 MG Cap PO SCH (21:44)
[2019-10-26] MEDS: Pravastatin 20 MG Tab PO SCH (21:45)
[2019-10-26] MEDS: Melatonin 3 MG Tab PO SCH (21:47)
[2019-10-27] MEDS: Sodium Chloride 0.9% 1,000 ML IV SCH (03:17)
[2019-10-27] MEDS ORDERED: Pantoprazole 40 MG Tab.CR PO SCH (07:30)
[2019-10-27] MEDS: Glimepiride 2 MG Tab PO SCH ×2 (08:30→18:06)
[2019-10-27] MEDS: Metoprolol Succinate 50 MG Tab.ER PO SCH (08:36)
[2019-10-27] MEDS: Insulin Lispro 100 Unit/ML 3 ML KwikPen SUBCUT SCH ×4 (08:37→21:00)
[2019-10-27] MEDS ORDERED: Insulin Isophane NPH, Human 100 Units/ML 3 ML Vial SUBCUT ONE (08:45)
[2019-10-27] MEDS: Insulin Isophane NPH, Human 100 Units/ML 3 ML Vial SUBCUT SCH (08:48)
[2019-10-27] MEDS ORDERED: Losartan 25 MG Tab PO SCH (09:00)
[2019-10-27] MEDS: Citalopram 20 MG Tab PO SCH (09:56)
[2019-10-27] MEDS: Enoxaparin 30 MG/0.3 ML Syringe SUBCUT SCH (14:46)
--- NOTE | 2019-10-27 16:57 | PCM.PN ---
- General Info Date of Service: 10/27/19 Subjective Update: Mr. Xavier is been stable since admission and feels improved today with less shortness of breath. He was able to walk further today than he has over the last several days. Oxygen saturations remained within desired range following his walk. Blood pressure has been elevated. Abdominal pain improved but not resolved. Functional Status: Reports: Ambulating, Urinating - Review of Systems General: Reports: Weakness. Denies: Fever, Chills Pulmonary: Reports: Shortness of Breath. Denies: Pleuritic Chest Pain, Cough, Sputum, Hemoptysis, Wheezing Cardiovascular: Reports: Dyspnea on Exertion. Denies: Chest Pain, Palpitations, Orthopnea, PND, Edema, Lightheadedness Gastrointestinal: Reports: Abdominal Pain. Denies: Difficulty Swallowing, Nausea, Vomiting - Patient Data Vitals - Most Recent: Last Vital Signs Temp 97.8 F 10/27/19 15:08 Pulse 64 10/27/19 15:08 Resp 20 10/27/19 15:08 BP 198/86 H 10/27/19 15:08 Pulse Ox 97 10/27/19 15:08 Weight - Most Recent: 273 lb 9.604 oz I&O - Last 24 Hours: Intake & Output 10/27/19 10/27/19 10/27/19 06:59 14:59 22:59 Intake Total 1953 240 425 Balance 1953 240 425 Lab Results Last 24 Hours: Laboratory Results - last 24 hr 10/26/19 10/27/19 10/27/19 Range/Units 21:00 05:30 05:30 WBC 4.8 (4.5-11.0) K/uL RBC 3.32 L (4.30-5.90) M/uL Hgb 10.4 L (12.0-15.0) g/dL Hct 31.8 L (40.0-54.0) % MCV 96 (80-98) fL MCH 31 (27-31) pg MCHC 33 (32-36) % Plt Count 102 L (150-400) K/uL Neut % (Auto) 66 (36-66) % Lymph % (Auto) 21 L (24-44) % Clinton % (Auto) 12 H (2-6) % Eos % (Auto) 2 (2-4) % Baso % (Auto) 0 (0-1) % Sodium 144 (140-148) mmol/L Potassium 4.7 (3.6-5.2) mmol/L Chloride 113 H (100-108) mmol/L Carbon Dioxide 18 L (21-32) mmol/L Anion Gap 17.7 H (5.0-14.0) mmol/L BUN 51 H (7-18) mg/dL Creatinine 1.9 H (0.8-1.3) mg/dL Est Cr Clr Drug Dosing 36.18 mL/min Estimated GFR (MDRD) 35 L (>60) Glucose 44 L* (74-106) mg/dL POC Glucose 93 (74-106) MG/DL Calcium 8.3 L (8.5-10.1) mg/dL Magnesium 2.3 (1.8-2.4) mg/dL 10/27/19 10/27/19 10/27/19 Range/Units 06:35 07:23 07:49 WBC (4.5-11.0) K/uL RBC (4.30-5.90) M/uL Hgb (12.0-15.0) g/dL Hct (40.0-54.0) % MCV (80-98) fL MCH (27-31) pg MCHC (32-36) % Plt Count (150-400) K/uL Neut % (Auto) (36-66) % Lymph % (Auto) (24-44) % Clinton % (Auto) (2-6) % Eos % (Auto) (2-4) % Baso % (Auto) (0-1) % Sodium (140-148) mmol/L Potassium (3.6-5.2) mmol/L Chloride (100-108) mmol/L Carbon Dioxide (21-32) mmol/L Anion Gap (5.0-14.0) mmol/L BUN (7-18) mg/dL Creatinine (0.8-1.3) mg/dL Est Cr Clr Drug Dosing mL/min Estimated GFR (MDRD) (>60) Glucose (74-106) mg/dL POC Glucose 65 L 91 83 (74-106) MG/DL Calcium (8.5-10.1) mg/dL Magnesium (1.8-2.4) mg/dL 10/27/19 10/27/19 Range/Units 11:30 16:20 WBC (4.5-11.0) K/uL RBC (4.30-5.90) M/uL Hgb (12.0-15.0) g/dL Hct (40.0-54.0) % MCV (80-98) fL MCH (27-31) pg MCHC (32-36) % Plt Count (150-400) K/uL Neut % (Auto) (36-66) % Lymph % (Auto) (24-44) % Clinton % (Auto) (2-6) % Eos % (Auto) (2-4) % Baso % (Auto) (0-1) % Sodium (140-148) mmol/L Potassium (3.6-5.2) mmol/L Chloride (100-108) mmol/L Carbon Dioxide (21-32) mmol/L Anion Gap (5.0-14.0) mmol/L BUN (7-18) mg/dL Creatinine (0.8-1.3) mg/dL Est Cr Clr Drug Dosing mL/min Estimated GFR (MDRD) (>60) Glucose (74-106) mg/dL POC Glucose 80 102 (74-106) MG/DL Calcium (8.5-10.1) mg/dL Magnesium (1.8-2.4) mg/dL Erick Results Last 24 Hours: Microbiology 10/26/19 11:48 Stool Occult Blood (ERICK) - Final Stool / Feces Med Orders - Current: Current Medications Acetaminophen (Tylenol) 650 mg PO Q4H PRN PRN Reason: Pain (Mild 1-3)/fever Last Admin: 10/26/19 22:07 Dose: 650 mg Documented by: Aspirin (Aspirin) 81 mg PO Q48H [facility] Last Admin: 10/26/19 16:53 Dose: 81 mg Documented by: Citalopram Hydrobromide (Celexa) 40 mg PO DAILY [facility] Last Admin: 10/27/19 09:56 Dose: 40 mg Documented by: Dextrose (Glutose 15) 15 gm PO ONETIME PRN PRN Reason: Hypoglycemia Dextrose/Water (Dextrose 50% In Water) 50 ml IV ONETIME PRN PRN Reason: Hypoglycemia Enoxaparin Sodium (Lovenox) 30 mg SUBCUT Q24H [facility] Last Admin: 10/27/19 14:46 Dose: 30 mg Documented by: Gabapentin (Neurontin) 300 mg PO BEDTIME [facility] Last Admin: 10/26/19 21:44 Dose: 300 mg Documented by: Glimepiride (Amaryl) 2 mg PO BIDMEALS [facility] Last Admin: 10/27/19 08:30 Dose: 2 mg Documented by: Hydralazine HCl (Apresoline) 10 mg PO TID [facility] Insulin Human Lispro (Humalog) 0 unit SUBCUT QIDACANDBED [facility]; Protocol Last Admin: 10/27/19 14:37 Dose: Not Given Documented by: Insulin Human NPH (Humulin N) 26 unit SUBCUT BID@0700,1730 [facility] Last Admin: 10/27/19 08:48 Dose: Not Given Documented by: Losartan Potassium (Cozaar) 50 mg PO DAILY [facility] Losartan Potassium (Cozaar) 25 mg PO ONETIME ONE Stop: 10/27/19 17:01 Melatonin (Melatonin) 9 mg PO BEDTIME [facility] Last Admin: 10/26/19 21:47 Dose: 9 mg Documented by: Metoprolol Succinate (Toprol Xl) 100 mg PO DAILY [facility] Last Admin: 10/27/19 08:36 Dose: 100 mg Documented by: Ondansetron HCl (Zofran) 4 mg IV Q4H PRN PRN Reason: Nausea/Vomiting Pantoprazole Sodium (Protonix) 40 mg PO BIDAC [facility] Polyethylene Glycol (Miralax) 17 gm PO DAILY PRN PRN Reason: Constipation Pravastatin Sodium (Pravachol) 10 mg PO BEDTIME [facility] Last Admin: 10/26/19 21:45 Dose: 10 mg Documented by: Sodium Chloride (Saline Flush) 10 ml FLUSH ASDIRECTED PRN PRN Reason: Keep Vein Open Discontinued Medications Citalopram Hydrobromide (Celexa) 40 mg PO BEDTIME [facility] Last Admin: 10/26/19 21:47 Dose: Not Given Documented by: Sodium Chloride (Normal Saline) 1,000 mls @ 100 mls/hr IV ASDIRECTED [facility] Last Admin: 10/27/19 03:17 Dose: 100 mls/hr Documented by: Insulin Human NPH (Humulin N) 18 unit SUBCUT ONETIME ONE Stop: 10/27/19 08:46 Last Admin: 10/27/19 08:42 Dose: 18 unit Documented by: Losartan Potassium (Cozaar) 25 mg PO DAILY [facility] Last Admin: 10/27/19 08:35 Dose: 25 mg Documented by: Ondansetron HCl (Zofran Odt) 4 mg PO ONETIME ONE Stop: 10/26/19 13:12 Last Admin: 10/26/19 13:47 Dose: 4 mg Documented by: Pantoprazole Sodium (Protonix) 40 mg PO ACBREAKFAST [facility] Last Admin: 10/27/19 08:34 Dose: 40 mg Documented by: Sodium Polystyrene Sulfonate (Kayexalate) 30 gm PO ONETIME ONE Stop: 10/26/19 14:01 Last Admin: 10/26/19 16:52 Dose: 30 gm Documented by: - Exam Quality Assessment: DVT Prophylaxis General: Alert, Oriented, Cooperative, Mild Distress Lungs: Clear to Auscultation, Normal Respiratory Effort, Decreased Breath Sounds. No: Rales, Rhonchi, Stridor, Wheezing Cardiovascular: Regular Rate, Regular Rhythm, No Murmurs GI/Abdominal Exam: Soft, No Organomegaly, Tender. No: Distended, Guarding, Rigid, Rebound Extremities: Non-Tender, No Pedal Edema Sepsis Event Note - Evaluation Sepsis Screening Result: No Definite Risk - Focused Exam Vital Signs: Vital Signs Temp Pulse Pulse Resp BP BP Pulse Ox 10/27/19 15:08 97.8 F 64 20 198/86 H 97 10/27/19 13:17 96 10/27/19 10:40 95.1 F L 68 18 186/76 H 95 10/27/19 08:36 81 214/113 H 10/27/19 08:35 214/113 H 10/27/19 08:16 95.0 F L 81 16 214/113 H 92 L - Problem List Review Problem List Initiated/Reviewed/Updated: Yes - My Orders Last 24 Hours: My Active Orders 10/26/19 16:38 Resuscitation Status Routine 10/26/19 17:00 Glimepiride [Amaryl] 2 mg PO BIDMEALS Insulin Lispro [HumaLOG] See Protocol SUBCUT QIDACANDBED 10/26/19 17:30 Insulin NPH Human Isophane [HumuLIN N] 26 unit SUBCUT BID@0700,1730 10/26/19 21:00 Gabapentin [Neurontin] 300 mg PO BEDTIME Melatonin 9 mg PO BEDTIME Pravastatin [Pravachol] 10 mg PO BEDTIME 10/27/19 08:00 Echo Comp wo Cont [US] Routine 10/27/19 09:00 Citalopram [Celexa] 40 mg PO DAILY Metoprolol Succinate [Toprol XL] 100 mg PO DAILY 10/27/19 09:36 Convert IV to Saline Lock [OM.PC] Routine 10/27/19 16:45 Losartan [Cozaar] 25 mg PO ONETIME ONE 10/27/19 21:00 GLUCOSE POC LAB TO COLLECT JPM [POC] QIDACANDBED Pantoprazole [ProTONIX] 40 mg PO BID hydrALAZINE [Apresoline] 10 mg PO TID 10/28/19 07:30 GLUCOSE POC LAB TO COLLECT JPM [POC] QIDACANDBED 10/28/19 09:00 Losartan [Cozaar] 50 mg PO DAILY 10/28/19 11:30 GLUCOSE POC LAB TO COLLECT JPM [POC] QIDACANDBED 10/28/19 16:30 GLUCOSE POC LAB TO COLLECT JPM [POC] QIDACANDBED 10/28/19 21:00 GLUCOSE POC LAB TO COLLECT JPM [POC] QIDACANDBED 10/29/19 07:30 GLUCOSE POC LAB TO COLLECT JPM [POC] QIDACANDBED 10/29/19 08:00 Lung Vent Perfusion [NM] Stat 10/29/19 11:30 GLUCOSE POC LAB TO COLLECT JPM [POC] QIDACANDBED 10/29/19 16:30 GLUCOSE POC LAB TO COLLECT JPM [POC] QIDACANDBED 10/29/19 21:00 GLUCOSE POC LAB TO COLLECT JPM [POC] QIDACANDBED 10/30/19 07:30 GLUCOSE POC LAB TO COLLECT JPM [POC] QIDACANDBED 10/30/19 11:30 GLUCOSE POC LAB TO COLLECT JPM [POC] QIDACANDBED 10/30/19 16:30 GLUCOSE POC LAB TO COLLECT JPM [POC] QIDACANDBED 10/30/19 21:00 GLUCOSE POC LAB TO COLLECT JPM [POC] QIDACANDBED 10/31/19 07:30 GLUCOSE POC LAB TO COLLECT JPM [POC] QIDACANDBED 10/31/19 11:30 GLUCOSE POC LAB TO COLLECT JPM [POC] QIDACANDBED - Plan Plan:: ASSESSMENT AND PLAN PROGRESSIVE DYSPNEA AND WEAKNESS-echocardiogram is pending. He feels improved today and is able to walk further than he has for some time with adequate oxygenation. He has received IV fluids but no aggressive interventions. -Echo report pending CONGESTIVE HEART FAILURE-known systolic CHF, most recent echocardiogram showed ejection fraction of 30 to 35%. -Continue beta-fatoumata therapy and ARB -Echo as above HYPERTENSION-blood pressure has been significantly elevated since admission -Continue current beta-fatoumata therapy -Increase losartan to 50 mg daily -Hydralazine 10 mg 3 times daily EPIGASTRIC ABDOMINAL PAIN-improved from admission -Continue Protonix 40 mg p.o. twice daily -Consider EGD when cardiac status has stabilized STATUS POST AORTIC VALVE REPLACEMENT CHRONIC KIDNEY DISEASE STAGE IIIb-creatinine appears to be at recent baseline with a GFR of 37 -Monitor urine output and renal function TYPE 2 DIABETES MELLITUS -Continue outpatient medical therapy -4 times daily glucometers -Moderate dose sliding scale Humalog DIABETIC FOOT ULCER LEFT FOOT-status post surgery few weeks ago, appears to be healing -Continue current management HYPERKALEMIA-resolved -Reassess potassium level in a.m. MAINTENANCE ISSUES -DVT prophylaxis; Lovenox 40 mg subcu daily -GI prophylaxis; Protonix as above -Horan catheter; not indicated -Nutrition; consistent carb diet -Nicotine dependence; not required CODE STATUS-DNR ADMISSION STATUS-patient will be admitted to inpatient status, expect at least a 2 night hospital stay for evaluation and management of problems as outlined above. At the time of this admission I do not reasonably expected evaluation and management of this problem will require more than a 96 hour hospital stay. DISPOSITION-anticipate discharge to home after the hospital stay. PRIMARY CARE PROVIDER-Dr. Jack
[2019-10-27] MEDS ORDERED: Losartan 25 MG Tab PO ONE (17:00)
[2019-10-27] MEDS ORDERED: Losartan 50 MG Tab PO ONE (17:00)
[2019-10-27] MEDS ORDERED: Insulin Isophane NPH, Human 100 Units/ML 3 ML Vial SQ ONE (17:52)
[2019-10-27] MEDS: Pantoprazole 40 MG Tab.CR PO SCH (18:03)
[2019-10-27] MEDS: Melatonin 3 MG Tab PO SCH (21:04)
[2019-10-27] MEDS: Gabapentin 300 MG Cap PO SCH (21:04)
[2019-10-27] MEDS: Pravastatin 20 MG Tab PO SCH (21:04)
[2019-10-27] MEDS: hydrALAZINE 10 MG Tab PO SCH (21:04)
[2019-10-28] MEDS: Insulin Isophane NPH, Human 100 Units/ML 3 ML Vial SUBCUT SCH ×2 (08:08→17:12)
[2019-10-28] MEDS: Insulin Lispro 100 Unit/ML 3 ML KwikPen SUBCUT SCH ×4 (08:08→21:19)
[2019-10-28] MEDS: Citalopram 20 MG Tab PO SCH (08:10)
[2019-10-28] MEDS: hydrALAZINE 10 MG Tab PO SCH ×3 (08:10→21:17)
[2019-10-28] MEDS: Pantoprazole 40 MG Tab.CR PO SCH ×2 (08:10→17:12)
[2019-10-28] MEDS: Metoprolol Succinate 50 MG Tab.ER PO SCH (08:11)
[2019-10-28] MEDS: Losartan 50 MG Tab PO SCH (08:11)
[2019-10-28] MEDS ORDERED: Losartan 25 MG Tab PO SCH (09:00)
[2019-10-28] MEDS: Glimepiride 2 MG Tab PO SCH (11:53)
[2019-10-28] MEDS: Enoxaparin 30 MG/0.3 ML Syringe SUBCUT SCH (13:49)
[2019-10-28] MEDS: Aspirin 81 MG Tab.Chew PO SCH (13:49)
--- NOTE | 2019-10-28 14:26 | PCM.PN ---
- General Info Date of Service: 10/28/19 Subjective Update: Mr. Xavier is experienced further improvement over the last 24 hours, with less shortness of breath. Abdominal pain has essentially resolved. Appetite and overall strength improved. Functional Status: Reports: Tolerating Diet, Ambulating, Urinating - Review of Systems General: Reports: Weakness, Fatigue. Denies: Fever, Chills Pulmonary: Reports: Shortness of Breath. Denies: Pleuritic Chest Pain, Cough, Sputum, Hemoptysis, Wheezing Cardiovascular: Reports: Dyspnea on Exertion. Denies: Chest Pain, Palpitations, Orthopnea, PND, Edema, Lightheadedness Gastrointestinal: Reports: No Symptoms - Patient Data Vitals - Most Recent: Last Vital Signs Temp 96.5 F L 10/28/19 13:47 Pulse 60 10/28/19 13:47 Resp 18 10/28/19 13:47 BP 175/71 H 10/28/19 13:49 Pulse Ox 100 10/28/19 13:47 Weight - Most Recent: 279 lb 6.4 oz I&O - Last 24 Hours: Intake & Output 10/27/19 10/28/19 10/28/19 22:59 06:59 14:59 Intake Total 425 Balance 425 Lab Results Last 24 Hours: Laboratory Results - last 24 hr 10/27/19 10/27/19 10/28/19 Range/Units 16:20 21:00 07:44 POC Glucose 102 71 L 31 L* (74-106) MG/DL 10/28/19 10/28/19 10/28/19 Range/Units 08:28 09:00 11:30 POC Glucose 66 L 91 154 H (74-106) MG/DL Med Orders - Current: Current Medications Acetaminophen (Tylenol) 650 mg PO Q4H PRN PRN Reason: Pain (Mild 1-3)/fever Last Admin: 10/26/19 22:07 Dose: 650 mg Documented by: Aspirin (Aspirin) 81 mg PO Q48H [facility] Last Admin: 10/28/19 13:49 Dose: 81 mg Documented by: Citalopram Hydrobromide (Celexa) 40 mg PO DAILY [facility] Last Admin: 10/28/19 08:10 Dose: 40 mg Documented by: Dextrose (Glutose 15) 15 gm PO ONETIME PRN PRN Reason: Hypoglycemia Dextrose/Water (Dextrose 50% In Water) 50 ml IV ONETIME PRN PRN Reason: Hypoglycemia Enoxaparin Sodium (Lovenox) 30 mg SUBCUT Q24H [facility] Last Admin: 10/28/19 13:49 Dose: 30 mg Documented by: Gabapentin (Neurontin) 300 mg PO BEDTIME [facility] Last Admin: 10/27/19 21:04 Dose: 300 mg Documented by: Hydralazine HCl (Apresoline) 10 mg PO TID [facility] Last Admin: 10/28/19 13:49 Dose: 10 mg Documented by: Insulin Human Lispro (Humalog) 0 unit SUBCUT QIDACANDBED [facility]; Protocol Last Admin: 10/28/19 11:58 Dose: 1 unit Documented by: Insulin Human NPH (Humulin N) 12 unit SUBCUT BID@0700,1730 [facility] Losartan Potassium (Cozaar) 50 mg PO DAILY [facility] Last Admin: 10/28/19 08:11 Dose: 50 mg Documented by: Melatonin (Melatonin) 9 mg PO BEDTIME [facility] Last Admin: 10/27/19 21:04 Dose: 9 mg Documented by: Metoprolol Succinate (Toprol Xl) 100 mg PO DAILY [facility] Last Admin: 10/28/19 08:11 Dose: 100 mg Documented by: Ondansetron HCl (Zofran) 4 mg IV Q4H PRN PRN Reason: Nausea/Vomiting Pantoprazole Sodium (Protonix) 40 mg PO BIDAC [facility] Last Admin: 10/28/19 08:10 Dose: 40 mg Documented by: Polyethylene Glycol (Miralax) 17 gm PO DAILY PRN PRN Reason: Constipation Pravastatin Sodium (Pravachol) 10 mg PO BEDTIME [facility] Last Admin: 10/27/19 21:04 Dose: 10 mg Documented by: Sodium Chloride (Saline Flush) 10 ml FLUSH ASDIRECTED PRN PRN Reason: Keep Vein Open Discontinued Medications Citalopram Hydrobromide (Celexa) 40 mg PO BEDTIME [facility] Last Admin: 10/26/19 21:47 Dose: Not Given Documented by: Glimepiride (Amaryl) 2 mg PO BIDMEALS [facility] Last Admin: 10/28/19 11:53 Dose: Not Given Documented by: Sodium Chloride (Normal Saline) 1,000 mls @ 100 mls/hr IV ASDIRECTED [facility] Last Admin: 10/27/19 03:17 Dose: 100 mls/hr Documented by: Insulin Human Lispro (Humalog) 0 unit SUBCUT QIDACANDBED [facility]; Protocol Last Admin: 10/28/19 08:08 Dose: Not Given Documented by: Insulin Human NPH (Humulin N) 26 unit SUBCUT BID@0700,1730 [facility] Last Admin: 10/28/19 08:08 Dose: Not Given Documented by: Insulin Human NPH (Humulin N) 18 unit SUBCUT ONETIME ONE Stop: 10/27/19 08:46 Last Admin: 10/27/19 08:42 Dose: 18 unit Documented by: Insulin Human NPH (Humulin N) 18 unit SQ ONETIME ONE Stop: 10/27/19 17:53 Last Admin: 10/27/19 18:10 Dose: 18 unit Documented by: Losartan Potassium (Cozaar) 25 mg PO DAILY [facility] Last Admin: 10/27/19 08:35 Dose: 25 mg Documented by: Losartan Potassium (Cozaar) 50 mg PO DAILY [facility] Losartan Potassium (Cozaar) 25 mg PO ONETIME ONE Stop: 10/27/19 17:01 Losartan Potassium (Cozaar) 25 mg PO ONETIME ONE Stop: 10/27/19 17:01 Last Admin: 10/27/19 18:08 Dose: 25 mg Documented by: Ondansetron HCl (Zofran Odt) 4 mg PO ONETIME ONE Stop: 10/26/19 13:12 Last Admin: 10/26/19 13:47 Dose: 4 mg Documented by: Pantoprazole Sodium (Protonix) 40 mg PO ACBREAKFAST [facility] Last Admin: 10/27/19 08:34 Dose: 40 mg Documented by: Sodium Polystyrene Sulfonate (Kayexalate) 30 gm PO ONETIME ONE Stop: 10/26/19 14:01 Last Admin: 10/26/19 16:52 Dose: 30 gm Documented by: - Exam Quality Assessment: DVT Prophylaxis General: Alert, Oriented, Cooperative, No Acute Distress Lungs: Clear to Auscultation, Normal Respiratory Effort, Decreased Breath Sounds Cardiovascular: Regular Rate, Regular Rhythm, No Murmurs GI/Abdominal Exam: Soft, Non-Tender, No Organomegaly, No Distention Extremities: Non-Tender, No Pedal Edema Sepsis Event Note - Evaluation Sepsis Screening Result: No Definite Risk - Focused Exam Vital Signs: Vital Signs Temp Pulse Pulse Resp BP BP Pulse Ox 10/28/19 13:49 175/71 H 10/28/19 13:47 96.5 F L 60 18 175/71 H 100 10/28/19 13:01 97 10/28/19 11:15 152/96 H 10/28/19 11:00 95.1 F L 62 16 150/126 H 98 10/28/19 08:11 62 184/83 H 10/28/19 08:10 184/83 H 10/28/19 07:36 94.8 F L 62 16 183/84 H 98 10/28/19 06:24 181/81 H 10/28/19 04:00 96.8 F L 62 16 184/89 H 96 - Problem List Review Problem List Initiated/Reviewed/Updated: Yes - My Orders Last 24 Hours: My Active Orders 10/27/19 17:00 Pantoprazole [ProTONIX] 40 mg PO BIDAC 10/27/19 21:00 hydrALAZINE [Apresoline] 10 mg PO TID 10/28/19 09:00 Losartan [Cozaar] 50 mg PO DAILY 10/28/19 11:00 Insulin Lispro [HumaLOG] See Protocol SUBCUT QIDACANDBED 10/28/19 13:27 GLUCOSE POC LAB TO COLLECT JPM [POC] DBED 10/28/19 17:30 Insulin NPH Human Isophane [HumuLIN N] 12 unit SUBCUT BID@0700,1730 10/28/19 21:00 GLUCOSE POC LAB TO COLLECT JPM [POC] QIDACANDBED 10/29/19 05:11 HGB [HEMOGLOBIN] [HEME] AM 10/29/19 07:30 GLUCOSE POC LAB TO COLLECT JPM [POC] QIDACANDBED 10/29/19 08:00 Lung Vent Perfusion [NM] Stat 10/29/19 11:30 GLUCOSE POC LAB TO COLLECT JPM [POC] QIDACANDBED 10/29/19 16:30 GLUCOSE POC LAB TO COLLECT JPM [POC] QIDACANDBED 10/29/19 21:00 GLUCOSE POC LAB TO COLLECT JPM [POC] QIDACANDBED 10/30/19 07:30 GLUCOSE POC LAB TO COLLECT JPM [POC] QIDACANDBED 09/18/20 11:30 GLUCOSE POC LAB TO COLLECT JPM [POC] QIDACANDBED 10/30/19 16:30 GLUCOSE POC LAB TO COLLECT JPM [POC] QIDACANDBED 10/30/19 21:00 GLUCOSE POC LAB TO COLLECT JPM [POC] QIDACANDBED 10/31/19 07:30 GLUCOSE POC LAB TO COLLECT JPM [POC] QIDACANDBED 10/31/19 11:30 GLUCOSE POC LAB TO COLLECT JPM [POC] QIDACANDBED - Plan Plan:: ASSESSMENT AND PLAN PROGRESSIVE DYSPNEA AND WEAKNESS-further improvement in shortness of breath and weakness. Cardiogram showed ejection fraction of 45 to 50%, moderate MR and TR, left atrial enlargement, bioprosthetic aortic valve. CONGESTIVE HEART FAILURE-recent echo obtained yesterday shows improvement left ventricular function although still low at 45 to 50% ejection fraction -Continue beta-fatoumata therapy and ARB HYPERTENSION-blood pressure improved over the last 24 hours -Continue current beta-fatoumata therapy - losartan 50 mg daily -Hydralazine 10 mg 3 times daily EPIGASTRIC ABDOMINAL PAIN-essentially resolved -Continue Protonix 40 mg p.o. twice daily STATUS POST AORTIC VALVE REPLACEMENT CHRONIC KIDNEY DISEASE STAGE IIIb-creatinine appears to be at recent baseline with a GFR of 37 -Monitor urine output and renal function TYPE 2 DIABETES MELLITUS -Continue outpatient medical therapy -4 times daily glucometers -Moderate dose sliding scale Humalog DIABETIC FOOT ULCER LEFT FOOT-status post surgery few weeks ago, appears to be healing -Continue current management HYPERKALEMIA-resolved MAINTENANCE ISSUES -DVT prophylaxis; Lovenox 40 mg subcu daily -GI prophylaxis; Protonix as above -Horan catheter; not indicated -Nutrition; consistent carb diet -Nicotine dependence; not required CODE STATUS-DNR ADMISSION STATUS-patient will be admitted to inpatient status, expect at least a 2 night hospital stay for evaluation and management of problems as outlined above. At the time of this admission I do not reasonably expected evaluation and management of this problem will require more than a 96 hour hospital stay. DISPOSITION-anticipate discharge to home after the hospital stay. PRIMARY CARE PROVIDER-Dr. Jack
[2019-10-28] MEDS: Pravastatin 20 MG Tab PO SCH (21:18)
[2019-10-28] MEDS: Melatonin 3 MG Tab PO SCH (21:18)
[2019-10-28] MEDS: Gabapentin 300 MG Cap PO SCH (21:18)
[2019-10-29] MEDS: Insulin Lispro 100 Unit/ML 3 ML KwikPen SUBCUT SCH ×4 (08:04→21:28)
[2019-10-29] MEDS: Pantoprazole 40 MG Tab.CR PO SCH ×2 (08:15→16:25)
[2019-10-29] MEDS: Insulin Isophane NPH, Human 100 Units/ML 3 ML Vial SUBCUT SCH (08:15)
[2019-10-29] MEDS: hydrALAZINE 10 MG Tab PO SCH ×3 (08:16→20:20)
[2019-10-29] MEDS: Citalopram 20 MG Tab PO SCH (08:16)
[2019-10-29] MEDS: Losartan 50 MG Tab PO SCH (08:16)
[2019-10-29] MEDS: Metoprolol Succinate 50 MG Tab.ER PO SCH (08:17)
[2019-10-29] MEDS ORDERED: Insulin Isophane NPH, Human 100 Units/ML 3 ML Vial SUBCUT SCH (09:00)
--- NOTE | 2019-10-29 11:38 | NM ---
Lung Vent Perfusion CLINICAL HISTORY: Increased dyspnea, elevated d-dimer. COMPARISON: Noncontrast CT 10/26/2019 TECHNIQUE: Sequential posterior camera images were obtained over the lungs after the inhalation of 1.0 millicuries technetium DTPA aerosol Eight views of the lungs were obtained following the intravenous administration of 5.5 millicuries of technetium-99m macroaggregated albumin. FINDINGS: There is some heterogeneity in the ventilation study. No significant photopenic defects are identified. Perfusion study showed no segmental or lobar perfusion defects. IMPRESSION: Dilation perfusion lung scan is felt to represent a low probability of pulmonary embolus
[2019-10-29] MEDS: Enoxaparin 30 MG/0.3 ML Syringe SUBCUT SCH (13:52)
--- NOTE | 2019-10-29 15:09 | PCM.PN ---
- General Info Date of Service: 10/29/19 Subjective Update: Mr. Xavier been stable over the last 24 hours, he denies significant shortness of breath or weakness that he had experienced on admission. Unfortunately his hemoglobin has dropped further to 9.6 today, he has had no overt evidence of active bleeding and has been hemodynamically stable. Epigastric pain has improved significantly from admission and appetite is improved as well. Functional Status: Reports: Tolerating Diet - Review of Systems General: Reports: No Symptoms Pulmonary: Reports: No Symptoms Cardiovascular: Reports: No Symptoms Gastrointestinal: Reports: No Symptoms - Patient Data Vitals - Most Recent: Last Vital Signs Temp 97.1 F 10/29/19 14:42 Pulse 62 10/29/19 14:42 Resp 18 10/29/19 14:42 BP 164/73 H 10/29/19 14:42 Pulse Ox 99 10/29/19 14:42 Weight - Most Recent: 282 lb 12.8 oz I&O - Last 24 Hours: Intake & Output 10/29/19 10/29/19 10/29/19 06:59 14:59 22:59 Intake Total 2300 Balance 2300 Lab Results Last 24 Hours: Laboratory Results - last 24 hr 10/28/19 10/28/19 10/29/19 Range/Units 13:27 21:00 04:00 Hgb 9.6 L (12.0-15.0) g/dL POC Glucose 138 H 185 H (74-106) MG/DL 10/29/19 10/29/19 10/29/19 Range/Units 07:40 07:47 09:25 Hgb (12.0-15.0) g/dL POC Glucose 64 L 44 L* 105 (74-106) MG/DL 10/29/19 Range/Units 11:30 Hgb (12.0-15.0) g/dL POC Glucose 99 (74-106) MG/DL Med Orders - Current: Current Medications Acetaminophen (Tylenol) 650 mg PO Q4H PRN PRN Reason: Pain (Mild 1-3)/fever Last Admin: 10/26/19 22:07 Dose: 650 mg Documented by: Aspirin (Aspirin) 81 mg PO Q48H [facility] Last Admin: 10/28/19 13:49 Dose: 81 mg Documented by: Citalopram Hydrobromide (Celexa) 40 mg PO DAILY [facility] Last Admin: 10/29/19 08:16 Dose: 40 mg Documented by: Dextrose (Glutose 15) 15 gm PO ONETIME PRN PRN Reason: Hypoglycemia Dextrose/Water (Dextrose 50% In Water) 50 ml IV ONETIME PRN PRN Reason: Hypoglycemia Enoxaparin Sodium (Lovenox) 30 mg SUBCUT Q24H [facility] Last Admin: 10/29/19 13:52 Dose: 30 mg Documented by: Gabapentin (Neurontin) 300 mg PO BEDTIME [facility] Last Admin: 10/28/19 21:18 Dose: 300 mg Documented by: Hydralazine HCl (Apresoline) 10 mg PO TID [facility] Last Admin: 10/29/19 13:52 Dose: 10 mg Documented by: Insulin Human Lispro (Humalog) 0 unit SUBCUT QIDACANDBED [facility]; Protocol Last Admin: 10/29/19 12:15 Dose: Not Given Documented by: Insulin Human NPH (Humulin N) 18 unit SUBCUT DAILY [facility] Last Admin: 10/29/19 09:39 Dose: 18 unit Documented by: Losartan Potassium (Cozaar) 50 mg PO DAILY [facility] Last Admin: 10/29/19 08:16 Dose: 50 mg Documented by: Melatonin (Melatonin) 9 mg PO BEDTIME [facility] Last Admin: 10/28/19 21:18 Dose: 9 mg Documented by: Metoprolol Succinate (Toprol Xl) 100 mg PO DAILY [facility] Last Admin: 10/29/19 08:17 Dose: 100 mg Documented by: Ondansetron HCl (Zofran) 4 mg IV Q4H PRN PRN Reason: Nausea/Vomiting Pantoprazole Sodium (Protonix) 40 mg PO BIDAC [facility] Last Admin: 10/29/19 08:15 Dose: 40 mg Documented by: Polyethylene Glycol (Miralax) 17 gm PO DAILY PRN PRN Reason: Constipation Pravastatin Sodium (Pravachol) 10 mg PO BEDTIME [facility] Last Admin: 10/28/19 21:18 Dose: 10 mg Documented by: Sodium Chloride (Saline Flush) 10 ml FLUSH ASDIRECTED PRN PRN Reason: Keep Vein Open Discontinued Medications Citalopram Hydrobromide (Celexa) 40 mg PO BEDTIME [facility] Last Admin: 10/26/19 21:47 Dose: Not Given Documented by: Glimepiride (Amaryl) 2 mg PO BIDMEALS [facility] Last Admin: 10/28/19 11:53 Dose: Not Given Documented by: Sodium Chloride (Normal Saline) 1,000 mls @ 100 mls/hr IV ASDIRECTED [facility] Last Admin: 10/27/19 03:17 Dose: 100 mls/hr Documented by: Insulin Human Lispro (Humalog) 0 unit SUBCUT QIDACANDBED [facility]; Protocol Last Admin: 10/28/19 08:08 Dose: Not Given Documented by: Insulin Human NPH (Humulin N) 26 unit SUBCUT BID@0700,1730 [facility] Last Admin: 10/28/19 08:08 Dose: Not Given Documented by: Insulin Human NPH (Humulin N) 18 unit SUBCUT ONETIME ONE Stop: 10/27/19 08:46 Last Admin: 10/27/19 08:42 Dose: 18 unit Documented by: Insulin Human NPH (Humulin N) 18 unit SQ ONETIME ONE Stop: 10/27/19 17:53 Last Admin: 10/27/19 18:10 Dose: 18 unit Documented by: Insulin Human NPH (Humulin N) 12 unit SUBCUT BID@0700,1730 [facility] Last Admin: 10/29/19 08:15 Dose: Not Given Documented by: Losartan Potassium (Cozaar) 25 mg PO DAILY [facility] Last Admin: 10/27/19 08:35 Dose: 25 mg Documented by: Losartan Potassium (Cozaar) 50 mg PO DAILY [facility] Losartan Potassium (Cozaar) 25 mg PO ONETIME ONE Stop: 10/27/19 17:01 Losartan Potassium (Cozaar) 25 mg PO ONETIME ONE Stop: 10/27/19 17:01 Last Admin: 10/27/19 18:08 Dose: 25 mg Documented by: Ondansetron HCl (Zofran Odt) 4 mg PO ONETIME ONE Stop: 10/26/19 13:12 Last Admin: 10/26/19 13:47 Dose: 4 mg Documented by: Pantoprazole Sodium (Protonix) 40 mg PO ACBREAKFAST [facility] Last Admin: 10/27/19 08:34 Dose: 40 mg Documented by: Sodium Polystyrene Sulfonate (Kayexalate) 30 gm PO ONETIME ONE Stop: 10/26/19 14:01 Last Admin: 10/26/19 16:52 Dose: 30 gm Documented by: - Exam General: Alert, Oriented, Cooperative, No Acute Distress Lungs: Clear to Auscultation, Normal Respiratory Effort, Decreased Breath Sounds. No: Rales, Rhonchi, Wheezing Cardiovascular: Regular Rate, Regular Rhythm, No Murmurs GI/Abdominal Exam: Soft, Non-Tender, No Organomegaly, No Distention Extremities: Non-Tender, No Pedal Edema Sepsis Event Note - Evaluation Sepsis Screening Result: No Definite Risk - Focused Exam Vital Signs: Vital Signs Temp Pulse Pulse Resp BP BP Pulse Ox 10/29/19 14:42 97.1 F 62 18 164/73 H 99 10/29/19 13:52 156/64 H 10/29/19 13:03 98 10/29/19 10:36 96 F L 53 L 18 165/67 H 98 10/29/19 08:17 62 162/100 H 10/29/19 08:16 162/100 H 10/29/19 07:28 162/100 H 10/29/19 07:27 98 10/29/19 07:24 96.5 F L 62 16 181/75 H 96 - Problem List Review Problem List Initiated/Reviewed/Updated: Yes - My Orders Last 24 Hours: My Active Orders 10/29/19 09:00 Insulin NPH Human Isophane [HumuLIN N] 18 unit SUBCUT DAILY 10/29/19 14:15 Consult to Physician [CONS] Routine 10/29/19 14:16 Notify Provider Consults [RC] ASDIRECTED 10/29/19 16:30 GLUCOSE POC LAB TO COLLECT JPM [POC] QIDACANDBED 10/29/19 21:00 GLUCOSE POC LAB TO COLLECT JPM [POC] QIDACANDBED 10/30/19 05:11 HGB [HEMOGLOBIN] [HEME] AM 10/30/19 07:30 GLUCOSE POC LAB TO COLLECT JPM [POC] QIDACANDBED 10/30/19 Breakfast Nothing per Oral After Midnight Diet [DIET] 10/30/19 11:30 GLUCOSE POC LAB TO COLLECT JPM [POC] QIDACANDBED 10/30/19 16:30 GLUCOSE POC LAB TO COLLECT JPM [POC] QIDACANDBED 10/30/19 21:00 GLUCOSE POC LAB TO COLLECT JPM [POC] QIDACANDBED 10/31/19 07:30 GLUCOSE POC LAB TO COLLECT JPM [POC] QIDACANDBED 10/31/19 11:30 GLUCOSE POC LAB TO COLLECT JPM [POC] QIDACANDBED - Plan Plan:: ASSESSMENT AND PLAN PROGRESSIVE DYSPNEA AND WEAKNESS-breath and weakness have essentially resolved, back to baseline CONGESTIVE HEART FAILURE-recent echo obtained yesterday shows improvement left ventricular function although still low at 45 to 50% ejection fraction -Continue beta-fatoumata therapy and ARB HYPERTENSION-blood pressure improved over the last 24 hours -Continue current beta-fatoumata therapy - losartan 50 mg daily -Hydralazine 10 mg 3 times daily EPIGASTRIC ABDOMINAL PAIN-essentially resolved -Continue Protonix 40 mg p.o. twice daily ANEMIA-hemoglobin has dropped further since admission, no evidence of active bleeding. Associated with epigastric abdominal pain. -Consult Dr. Carter for EGD in a.m. STATUS POST AORTIC VALVE REPLACEMENT CHRONIC KIDNEY DISEASE STAGE IIIb-creatinine appears to be at recent baseline with a GFR of 37 -Monitor urine output and renal function TYPE 2 DIABETES MELLITUS -Continue outpatient medical therapy -4 times daily glucometers -Moderate dose sliding scale Humalog DIABETIC FOOT ULCER LEFT FOOT-status post surgery few weeks ago, appears to be healing -Continue current management HYPERKALEMIA-resolved MAINTENANCE ISSUES -DVT prophylaxis; Lovenox 40 mg subcu daily -GI prophylaxis; Protonix as above -Horan catheter; not indicated -Nutrition; consistent carb diet -Nicotine dependence; not required CODE STATUS-DNR ADMISSION STATUS-patient will be admitted to inpatient status, expect at least a 2 night hospital stay for evaluation and management of problems as outlined above. At the time of this admission I do not reasonably expected evaluation and management of this problem will require more than a 96 hour hospital stay. DISPOSITION-anticipate discharge to home after the hospital stay. PRIMARY CARE PROVIDER-Dr. Jack
[2019-10-29] MEDS: Melatonin 3 MG Tab PO SCH (20:20)
[2019-10-29] MEDS: Pravastatin 20 MG Tab PO SCH (20:20)
[2019-10-29] MEDS: Gabapentin 300 MG Cap PO SCH (20:20)
[2019-10-30] MEDS ORDERED: Dextrose 5%-Lactated Ringers 1,000 ML IV SCH (06:00)
[2019-10-30] MEDS: Insulin Lispro 100 Unit/ML 3 ML KwikPen SUBCUT SCH ×4 (06:06→20:43)
[2019-10-30] MEDS ORDERED: Midazolam 1 MG/ML 2 ML SDV ONE (07:33)
[2019-10-30] MEDS ORDERED: fentaNYL 100 MCG/2 ML SDV ONE (07:33)
[2019-10-30] MEDS ORDERED: Propofol 200 MG/20 ML SDV ONE (07:33)
[2019-10-30] MEDS ORDERED: Glycopyrrolate 0.2 MG/ML 2 ML SDV IVPUSH ONE (07:39)
[2019-10-30] MEDS: Pantoprazole 40 MG Tab.CR PO SCH ×2 (09:33→15:48)
[2019-10-30] MEDS: hydrALAZINE 10 MG Tab PO SCH ×3 (09:34→20:24)
[2019-10-30] MEDS: Losartan 50 MG Tab PO SCH (09:34)
[2019-10-30] MEDS: Metoprolol Succinate 50 MG Tab.ER PO SCH (09:34)
[2019-10-30] MEDS: Citalopram 20 MG Tab PO SCH (09:34)
[2019-10-30] MEDS ORDERED: Bisacodyl 5 MG Tab PO ONE ×2 (12:16→20:00)
--- NOTE | 2019-10-30 12:21 | PCM.PN ---
- General Info Date of Service: 10/30/19 Subjective Update: Mr. Xavier experience some increased shortness of breath last night, that seems to have resolved. Continues to experience hypoglycemia despite significant decrease in insulin and holding Amaryl. Performed today by Dr. Carter showed no significant abnormalities. Hemoglobin continues to slowly decrease and will plan for colonoscopy tomorrow for further evaluation. Functional Status: Reports: Tolerating Diet, Ambulating, Urinating - Review of Systems General: Reports: No Symptoms Pulmonary: Reports: Shortness of Breath. Denies: Pleuritic Chest Pain, Cough, Sputum, Hemoptysis, Wheezing Cardiovascular: Reports: Dyspnea on Exertion. Denies: Chest Pain, Palpitations, Orthopnea, PND, Edema Gastrointestinal: Reports: No Symptoms - Patient Data Vitals - Most Recent: Last Vital Signs Temp 97.2 F 10/30/19 08:40 Pulse 52 L 10/30/19 09:34 Resp 16 10/30/19 08:45 BP 164/69 H 10/30/19 09:34 Pulse Ox 97 10/30/19 08:45 Weight - Most Recent: 285 lb 12.8 oz I&O - Last 24 Hours: Intake & Output 10/29/19 10/30/19 10/30/19 22:59 06:59 14:59 Intake Total 720 500 Balance 720 500 Lab Results Last 24 Hours: Laboratory Results - last 24 hr 10/29/19 10/29/19 10/30/19 Range/Units 16:30 21:00 04:25 Hgb 9.1 L (12.0-15.0) g/dL POC Glucose 114 H 114 H (74-106) MG/DL 10/30/19 10/30/19 10/30/19 Range/Units 05:41 07:30 11:30 Hgb (12.0-15.0) g/dL POC Glucose 63 L 101 103 (74-106) MG/DL Med Orders - Current: Current Medications Acetaminophen (Tylenol) 650 mg PO Q4H PRN PRN Reason: Pain (Mild 1-3)/fever Last Admin: 10/26/19 22:07 Dose: 650 mg Documented by: Aspirin (Aspirin) 81 mg PO Q48H [facility] Last Admin: 10/28/19 13:49 Dose: 81 mg Documented by: Bisacodyl (Dulcolax) 10 mg PO ONETIME ONE Stop: 10/30/19 12:17 Bisacodyl (Dulcolax) 10 mg PO ONETIME ONE Stop: 10/30/19 20:01 Citalopram Hydrobromide (Celexa) 40 mg PO DAILY [facility] Last Admin: 10/30/19 09:34 Dose: 40 mg Documented by: Dextrose (Glutose 15) 15 gm PO ONETIME PRN PRN Reason: Hypoglycemia Dextrose/Water (Dextrose 50% In Water) 50 ml IV ONETIME PRN PRN Reason: Hypoglycemia Gabapentin (Neurontin) 300 mg PO BEDTIME [facility] Last Admin: 10/29/19 20:20 Dose: 300 mg Documented by: Hydralazine HCl (Apresoline) 10 mg PO TID [facility] Last Admin: 10/30/19 09:34 Dose: 10 mg Documented by: Dextrose/Lactated Ringer's (Dextrose 5%-Lactated Ringers) 1,000 mls @ 100 mls/hr IV ASDIRECTED [facility] Insulin Human Lispro (Humalog) 0 unit SUBCUT QIDACANDBED [facility]; Protocol Last Admin: 10/30/19 12:10 Dose: Not Given Documented by: Losartan Potassium (Cozaar) 50 mg PO DAILY [facility] Last Admin: 10/30/19 09:34 Dose: 50 mg Documented by: Melatonin (Melatonin) 9 mg PO BEDTIME [facility] Last Admin: 10/29/19 20:20 Dose: 9 mg Documented by: Metoprolol Succinate (Toprol Xl) 100 mg PO DAILY [facility] Last Admin: 10/30/19 09:34 Dose: 100 mg Documented by: Ondansetron HCl (Zofran) 4 mg IV Q4H PRN PRN Reason: Nausea/Vomiting Pantoprazole Sodium (Protonix) 40 mg PO BIDAC [facility] Last Admin: 10/30/19 09:33 Dose: 40 mg Documented by: Polyethylene Glycol (Miralax) 17 gm PO DAILY PRN PRN Reason: Constipation Polyethylene Glycol (Miralax) 238 gm PO ONETIME ONE Stop: 10/30/19 17:01 Pravastatin Sodium (Pravachol) 10 mg PO BEDTIME [facility] Last Admin: 10/29/19 20:20 Dose: 10 mg Documented by: Sodium Chloride (Saline Flush) 10 ml FLUSH ASDIRECTED PRN PRN Reason: Keep Vein Open Discontinued Medications Citalopram Hydrobromide (Celexa) 40 mg PO BEDTIME [facility] Last Admin: 10/26/19 21:47 Dose: Not Given Documented by: Enoxaparin Sodium (Lovenox) 30 mg SUBCUT Q24H [facility] Last Admin: 10/29/19 13:52 Dose: 30 mg Documented by: Fentanyl (Sublimaze) Confirm Administered Dose 100 mcg .ROUTE .STK-MED ONE Stop: 10/30/19 07:34 Glimepiride (Amaryl) 2 mg PO BIDMEALS [facility] Last Admin: 10/28/19 11:53 Dose: Not Given Documented by: Glycopyrrolate (Glycopyrrolate) 0.4 mg IVPUSH ONETIME ONE Stop: 10/30/19 07:40 Last Admin: 10/30/19 07:56 Dose: 0.4 mg Documented by: Sodium Chloride (Normal Saline) 1,000 mls @ 100 mls/hr IV ASDIRECTED [facility] Last Admin: 10/27/19 03:17 Dose: 100 mls/hr Documented by: Dextrose/Lactated Ringer's (Dextrose 5%-Lactated Ringers) 1,000 mls @ 125 mls/hr IV ASDIRECTED [facility] Last Admin: 10/30/19 09:38 Dose: 125 mls/hr Documented by: Insulin Human Lispro (Humalog) 0 unit SUBCUT QIDACANDBED [facility]; Protocol Last Admin: 10/28/19 08:08 Dose: Not Given Documented by: Insulin Human NPH (Humulin N) 26 unit SUBCUT BID@0700,1730 [facility] Last Admin: 10/28/19 08:08 Dose: Not Given Documented by: Insulin Human NPH (Humulin N) 18 unit SUBCUT ONETIME ONE Stop: 10/27/19 08:46 Last Admin: 10/27/19 08:42 Dose: 18 unit Documented by: Insulin Human NPH (Humulin N) 18 unit SQ ONETIME ONE Stop: 10/27/19 17:53 Last Admin: 10/27/19 18:10 Dose: 18 unit Documented by: Insulin Human NPH (Humulin N) 12 unit SUBCUT BID@0700,1730 [facility] Last Admin: 10/29/19 08:15 Dose: Not Given Documented by: Insulin Human NPH (Humulin N) 18 unit SUBCUT DAILY [facility] Last Admin: 10/29/19 09:39 Dose: 18 unit Documented by: Losartan Potassium (Cozaar) 25 mg PO DAILY [facility] Last Admin: 10/27/19 08:35 Dose: 25 mg Documented by: Losartan Potassium (Cozaar) 50 mg PO DAILY [facility] Losartan Potassium (Cozaar) 25 mg PO ONETIME ONE Stop: 10/27/19 17:01 Losartan Potassium (Cozaar) 25 mg PO ONETIME ONE Stop: 10/27/19 17:01 Last Admin: 10/27/19 18:08 Dose: 25 mg Documented by: Midazolam HCl (Versed 1 Mg/Ml) Confirm Administered Dose 2 mg .ROUTE .STK-MED ONE Stop: 10/30/19 07:34 Ondansetron HCl (Zofran Odt) 4 mg PO ONETIME ONE Stop: 10/26/19 13:12 Last Admin: 10/26/19 13:47 Dose: 4 mg Documented by: Pantoprazole Sodium (Protonix) 40 mg PO ACBREAKFAST [facility] Last Admin: 10/27/19 08:34 Dose: 40 mg Documented by: Propofol (Diprivan 20 Ml) Confirm Administered Dose 200 mg .ROUTE .STK-MED ONE Stop: 10/30/19 07:34 Sodium Polystyrene Sulfonate (Kayexalate) 30 gm PO ONETIME ONE Stop: 10/26/19 14:01 Last Admin: 10/26/19 16:52 Dose: 30 gm Documented by: - Exam Quality Assessment: DVT Prophylaxis General: Alert, Oriented, Cooperative, Mild Distress Lungs: Clear to Auscultation, Normal Respiratory Effort Cardiovascular: Regular Rate, Regular Rhythm, No Murmurs GI/Abdominal Exam: Soft, Non-Tender, No Organomegaly, No Distention Extremities: Non-Tender, No Pedal Edema Sepsis Event Note - Evaluation Sepsis Screening Result: No Definite Risk - Focused Exam Vital Signs: Vital Signs Temp Pulse Pulse Resp BP BP Pulse Ox 10/30/19 09:34 52 L 164/69 H 10/30/19 08:45 67 16 149/83 H 97 10/30/19 08:40 97.2 F 72 14 150/83 H 97 10/30/19 08:35 55 L 14 120/75 96 10/30/19 08:30 62 18 139/72 97 10/30/19 08:25 97.7 F 64 18 144/81 H 97 10/30/19 07:51 99 10/30/19 07:19 95.3 F L 54 L 20 179/69 H 99 10/30/19 01:00 98 - Problem List Review Problem List Initiated/Reviewed/Updated: Yes - My Orders Last 24 Hours: My Active Orders 10/29/19 14:15 Consult to Physician [CONS] Routine 10/29/19 14:16 Notify Provider Consults [RC] ASDIRECTED 10/29/19 15:07 Antiembolic Devices [RC] .Routine Sequential Compression Device [OM.PC] Routine 10/30/19 Lunch Clear Liquid Diet [DIET] 10/30/19 12:12 Convert IV to Saline Lock [OM.PC] Routine 10/30/19 12:16 Verify Patient Consent Obtain [RC] ASDIRECTED bisacodyL [Dulcolax] 10 mg PO ONETIME ONE Schedule Procedure [COMM] Routine 10/30/19 16:30 GLUCOSE POC LAB TO COLLECT JPM [POC] QIDACANDBED 10/30/19 17:00 polyethylene glycoL 3350 [MiraLAX] 238 gm PO ONETIME ONE 10/30/19 20:00 bisacodyL [Dulcolax] 10 mg PO ONETIME ONE 10/30/19 21:00 GLUCOSE POC LAB TO COLLECT JPM [POC] QIDACANDBED 10/31/19 00:01 Dextrose 5%-Lactated Ringers @ 100 MLS/HR(1,000ml) Dextrose 5%-Lactated Ringers 1,000 ml IV ASDIRECTED 10/31/19 07:30 GLUCOSE POC LAB TO COLLECT JPM [POC] QIDACANDBED 10/31/19 Breakfast NPO After Midnight [Nothing per Oral After Midnight Diet] [DIET] 10/31/19 11:30 GLUCOSE POC LAB TO COLLECT JPM [POC] QIDACANDBED - Plan Plan:: ASSESSMENT AND PLAN PROGRESSIVE DYSPNEA AND WEAKNESS-is noted some increase in shortness of breath over the last 24 hours CONGESTIVE HEART FAILURE-recent echo shows improvement left ventricular function although still low at 45 to 50% ejection fraction -Continue beta-fatoumata therapy and ARB HYPERTENSION-blood pressure improved over the last 24 hours -Continue current beta-fatoumata therapy - losartan 50 mg daily -Hydralazine 10 mg 3 times daily EPIGASTRIC ABDOMINAL PAIN-essentially resolved, GD obtained today was unremarkable ANEMIA-hemoglobin has dropped further since admission, no evidence of active bleeding. Associated with epigastric abdominal pain. -Colonoscopy prep -Colonoscopy in a.m. STATUS POST AORTIC VALVE REPLACEMENT CHRONIC KIDNEY DISEASE STAGE IIIb-creatinine appears to be at recent baseline with a GFR of 37 -Monitor urine output and renal function TYPE 2 DIABETES MELLITUS-continues to experience significant hypoglycemia despite decreased dose of insulin and discontinuation of Amaryl -Continue to hold Amaryl -Hold NPH insulin -4 times daily glucometers -Moderate dose sliding scale Humalog DIABETIC FOOT ULCER LEFT FOOT-status post surgery few weeks ago, appears to be healing -Continue current management HYPERKALEMIA-resolved MAINTENANCE ISSUES -DVT prophylaxis; Lovenox 40 mg subcu daily -GI prophylaxis; Protonix as above -Horan catheter; not indicated -Nutrition; consistent carb diet -Nicotine dependence; not required CODE STATUS-DNR ADMISSION STATUS-patient will be admitted to inpatient status, expect at least a 2 night hospital stay for evaluation and management of problems as outlined above. At the time of this admission I do not reasonably expected evaluation and management of this problem will require more than a 96 hour hospital stay. DISPOSITION-anticipate discharge to home after the hospital stay. PRIMARY CARE PROVIDER-Dr. Jack
--- NOTE | 2019-10-30 14:05 | PCM.CONS ---
H&P History of Present Illness - General Date of Service: 10/30/19 Admit Problem/Dx: Admission Diagnosis/Problem Admission Diagnosis/Problem Surgery Department was asked to consult patient to help evaluate why patient's hemoglobin is decreasing. He is scheduled for an Upper Endoscopy today. Source of Information: Patient History Limitations: Reports: No Limitations - History of Present Illness Initial Comments - Free Text/Narative: Admitted to the hospital for shortness of breath and found to have a low hemoglobin and it keeps decreasing. Improves with: Reports: None Worsens with: Reports: None Associated Symptoms: Reports: No Other Symptoms Headache Pain Score (Numeric/FACES): 2 - Related Data Allergies/Adverse Reactions: Allergies Allergy/AdvReac Type Severity Reaction Status Date / Time metformin HCl Allergy Other Verified 10/26/19 10:14 [From Glucophage] niacin Allergy Other Verified 10/26/19 10:14 atorvastatin calcium AdvReac Muscle Verified 10/26/19 10:14 [From Lipitor] Aches Home Medications: Home Meds Aspirin [Sarah Chewable Aspirin] 81 mg PO Q48H 03/17/14 [History] Citalopram Hydrobromide [Celexa] 40 mg PO BEDTIME 03/17/14 [History] Cyanocobalamin (Vitamin B12) [Vitamin B12] 100 mcg PO DAILY 03/17/14 [History] Glimepiride [Amaryl] 2 mg PO BID 03/17/14 [History] Metoprolol Succinate [Toprol XL] 100 mg PO DAILY 03/17/14 [History] Multivitamin [Multi-Vitamin Daily] 1 tab PO DAILY 03/17/14 [History] Nitroglycerin [Nitrostat] 0.4 mg SL ASDIRECTED 03/17/14 [History] Vitamin B Complex [B Complex] 1 tab PO DAILY 03/17/14 [History] Torsemide [Demadex] 20 mg PO DAILY 06/24/14 [History] Fluticasone Propionate [Flonase] 2 spray NS DAILY 01/28/17 [History] Insulin NPH Human Isophane [Novolin N] 26 units SUBCUT BID 01/28/17 [History] Belmont-3/DHA/Epa/Fish Oil [Belmont-3 Fish Oil Softgel] 1 tab PO DAILY 01/28/17 [History] Gabapentin [Neurontin] 300 mg PO BEDTIME #30 cap 02/02/17 [Rx] Melatonin 10 mg PO DAILY 03/28/17 [History] Amoxicillin 500 mg PO ASDIRECTED 10/26/19 [History] Losartan [Cozaar] 25 mg PO DAILY 10/26/19 [History] Omeprazole 20 mg PO DAILY 10/26/19 [History] Pravastatin Sodium 10 mg PO BEDTIME 10/26/19 [History] Past Medical History HEENT History: Reports: Allergic Rhinitis, Impaired Vision Cardiovascular History: Reports: Automatic Implantable Cardioverter Def ibrillators, CAD, Heart Failure, High Cholesterol, Hypertension, [place], Pacemaker Respiratory History: Reports: Sleep Apnea Other Respiratory History: Cpap at bedtime Gastrointestinal History: Reports: Colon Polyp, Gastritis, GERD, Hiatal Hernia Genitourinary History: Reports: Other (See Below) Other Genitourinary History: "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 - Infectious Disease History Infectious Disease History: Reports: Chicken Pox, Measles - Past Surgical History HEENT Surgical History: Reports: None Cardiovascular Surgical History: Reports: Coronary Artery Bypass, Pacer GI Surgical History: Reports: Bariatric Procedure, Colonoscopy, Hernia Repair/Other, Polypectomy Neurological Surgical History: Reports: Lumbar Spine, Spinal Fusion Musculoskeletal Surgical History: Reports: Amputation, Arthroscopic Procedure, Knee Replacement, Shoulder Surgery Oncologic Surgical History: Reports: None Dermatological Surgical History: Reports: Skin Graft Social & Family History - Family History Family Medical History: Noncontributory HEENT: Reports: None Cardiac: Reports: Hypertension, [place] Respiratory: Reports: None GI: Reports: None : Reports: None OBGYN: Reports: None Musculoskeletal: Reports: None Neurological: Reports: CVA Psychiatric: Reports: None Endocrine/Metabolic: Reports: None Hematologic: Reports: None Immunologic: Reports: None Dermatologic: Reports: None Oncologic: Reports: None - Tobacco Use Smoking Status *Q: Never Smoker Second Hand Smoke Exposure: No - Caffeine Use Caffeine Use: Reports: Soda Other Caffeine Use: 3 cans per day Caffeine Use Comment: diet coke 3/day - Recreational Drug Use Recreational Drug Use: No H&P Review of Systems - Review of Systems: Review Of Systems: See Below General: Reports: Weakness, Fatigue HEENT: Reports: No Symptoms Pulmonary: Reports: Shortness of Breath Cardiovascular: Reports: No Symptoms Gastrointestinal: Reports: No Symptoms Genitourinary: Reports: No Symptoms Musculoskeletal: Reports: Muscle Stiffness Skin: Reports: No Symptoms Psychiatric: Reports: No Symptoms Neurological: Reports: No Symptoms Hematologic/Lymphatic: Reports: Anemia Immunologic: Reports: No Symptoms Exam - Exam Exam: See Below - Vital Signs Vital Signs: Last Vital Signs Temp 97.2 F 10/30/19 08:40 Pulse 56 L 10/30/19 11:45 Resp 18 10/30/19 11:45 BP 139/98 H 10/30/19 11:45 Pulse Ox 100 10/30/19 12:58 Weight: 285 lb 12.8 oz - Exam General: Alert, Oriented, Cooperative HEENT: PERRLA Neck: Supple, Trachea Midline Lungs: Clear to Auscultation, Normal Respiratory Effort Cardiovascular: Regular Rate, Regular Rhythm GI/Abdominal Exam: Soft, Non-Tender (Male) Exam: Deferred Rectal (Males) Exam: Deferred Back Exam: Normal Inspection, Full Range of Motion Extremities: Normal Inspection Skin: Warm, Dry, Intact Neurological: Cranial Nerves Intact, Reflexes Equal Bilateral Neuro Extensive - Mental Status: Alert, Oriented x3, Normal Mood/Affect Neuro Extensive - Motor, Sensory, Reflexes: CN II-XII Intact Psychiatric: Alert, Normal Affect, Normal Mood - Patient Data Lab Results Last 24 hrs: Laboratory Results - last 24 hr 10/29/19 10/29/19 10/30/19 Range/Units 16:30 21:00 04:25 Hgb 9.1 L (12.0-15.0) g/dL POC Glucose 114 H 114 H (74-106) MG/DL 10/30/19 10/30/19 10/30/19 Range/Units 05:41 07:30 11:30 Hgb (12.0-15.0) g/dL POC Glucose 63 L 101 103 (74-106) MG/DL Result Diagrams: 10/30/19 04:25 10/27/19 05:30 Sepsis Event Note - Evaluation Sepsis Screening Result: No Definite Risk - Focused Exam Vital Signs: Vital Signs Temp Pulse Pulse Resp BP BP Pulse Ox 10/30/19 12:58 100 10/30/19 11:45 56 L 18 139/98 H 100 10/30/19 10:45 62 16 143/66 H 99 10/30/19 10:15 58 L 18 168/82 H 100 10/30/19 09:45 57 L 18 141/108 H 99 10/30/19 09:34 52 L 164/69 H 10/30/19 09:30 57 L 16 164/69 H 99 10/30/19 09:15 55 L 18 175/82 H 99 10/30/19 09:00 58 L 18 178/79 H 100 10/30/19 08:45 67 16 149/83 H 97 10/30/19 08:40 97.2 F 72 14 150/83 H 97 10/30/19 08:35 55 L 14 120/75 96 10/30/19 08:30 62 18 139/72 97 10/30/19 08:25 97.7 F 64 18 144/81 H 97 10/30/19 07:51 99 10/30/19 07:19 95.3 F L 54 L 20 179/69 H 99 Consult PN Assessment/Plan POD#: 0 Procedures: Procedures AMPUTATION THRU METATARSAL (03/28/17) ASSAY OF CREATININE (11/23/16) ASSAY OF LACTIC ACID (01/28/17) ASSAY OF LIPASE (12/15/16) ASSAY OF MAGNESIUM (02/04/15) ASSAY OF NATRIURETIC PEPTIDE (12/15/16) ASSAY OF TROPONIN QUANT (12/15/16) ASSAY OF VANCOMYCIN (11/23/16) BLOOD CULTURE FOR BACTERIA (01/28/17) BONE IMAGING 3 PHASE (01/28/17) C-REACTIVE PROTEIN (01/28/17) CARDIAC REHAB/MONITOR (03/26/19) CHEST X-RAY 1 VIEW FRONTAL (12/15/16) CHEST X-RAY 2VW FRONTAL&LATL (01/28/17) COLONOSCOPY AND BIOPSY (12/09/16) COLONOSCOPY W/LESION REMOVAL (11/24/15) COMPLETE CBC AUTOMATED (04/29/17) COMPLETE CBC W/AUTO DIFF WBC (10/04/19) COMPREHEN METABOLIC PANEL (10/04/19) CREATINE MB FRACTION (12/15/16) CT LOWER EXTREMITY W/O DYE (01/28/17) CT THORAX W/O DYE (12/15/16) CULTR BACTERIA EXCEPT BLOOD (06/24/14) CULTURE AEROBIC IDENTIFY (10/04/19) CULTURE OTHR SPECIMN AEROBIC (10/04/19) IZABELA MUSC/FASCIA 20 SQ CM/< (03/28/17) DECALCIFY TISSUE (06/24/14) EHRLICHIA ANTIBODY (10/04/19) ELECTROCARDIOGRAM TRACING (12/15/16) EMERGENCY DEPT VISIT (10/04/19) EMERGENCY DEPT VISIT (01/28/17) EMERGENCY DEPT VISIT (09/09/16) EMERGENCY DEPT VISIT (02/04/15) EMERGENCY DEPT VISIT (03/20/14) ENDOVENOUS RF 1ST VEIN (04/22/14) EXTREMITY STUDY (12/15/16) EXTREMITY STUDY (03/29/14) FIBRIN DEGRADATION QUANT (12/15/16) GAIT TRAINING THERAPY (04/09/16) GLUCOSE BLOOD TEST (03/28/17) HYDRATE IV INFUSION ADD-ON (12/15/16) HYDRATION IV INFUSION INIT (01/28/17) INFLUENZA ASSAY W/OPTIC (02/04/15) INSERT NON-TUNNEL CV CATH (03/29/17) LUNG VENTILAT&PERFUS IMAGING (12/15/16) MANUAL THERAPY 1/> REGIONS (04/09/16) MEASURE BLOOD OXYGEN LEVEL (12/15/16) METABOLIC PANEL TOTAL CA (01/28/17) MICROBE SUSCEPTIBLE BUTCH (10/04/19) OFFICE/OUTPATIENT VISIT EST (04/10/17) POLYSOM 6/>YRS CPAP 4/> PARM (02/28/15) PROTHROMBIN TIME (12/15/16) PROTOZOA ANTIBODY NOS (10/04/19) PT EVAL LOW COMPLEX 20 MIN (03/12/16) PT EVALUATION (06/24/14) RBC SED RATE NONAUTOMATED (01/28/17) ROUTINE VENIPUNCTURE (10/04/19) SMEAR GRAM STAIN (10/04/19) THER/PROPH/DIAG INJ IV PUSH (12/15/16) THER/PROPH/DIAG IV INF INIT (04/10/17) THERAPEUTIC EXERCISES (04/19/16) THROMBOPLASTIN TIME PARTIAL (12/15/16) TISSUE EXAM BY PATHOLOGIST (12/09/16) TTE F-UP OR LMTD (10/21/14) TTE W/DOPPLER COMPLETE (01/27/18) TX/PRO/DX INJ NEW DRUG ADDON (03/20/14) TX/PRO/DX INJ SAME DRUG ANALOG DESIGN ENGINEER (12/15/16) TX/PROPH/DG ADDL SEQ IV INF (07/23/14) UPR/L XTREMITY ART 2 LEVELS (12/09/16) URINALYSIS AUTO W/SCOPE (12/15/16) X-RAY EXAM CHEST 1 VIEW (03/28/17) X-RAY EXAM OF FOOT (01/28/17) (1) Anemia SNOMED Code(s): 309007101 Code(s): D64.9 - ANEMIA, UNSPECIFIED Current Visit: Yes Qualifiers: Anemia type: unspecified type Qualified Code(s): D64.9 - Anemia, unspecified Problem List Initiated/Reviewed/Updated: Yes My Orders Last 24 Hours: My Active Orders 10/30/19 07:40 Verify Patient Consent Obtain [RC] ASDIRECTED Plan: Schedule and have consent signed for EGD with possible biopsies. 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 Chen Atwood 10/30/2019
[2019-10-30] MEDS: Aspirin 81 MG Tab.Chew PO SCH (15:00)
[2019-10-30] MEDS ORDERED: Polyethylene Glycol 3350 Powder 238 GM Bot PO ONE (17:00)
[2019-10-30] MEDS: Melatonin 3 MG Tab PO SCH (20:24)
[2019-10-30] MEDS: Gabapentin 300 MG Cap PO SCH (20:24)
[2019-10-30] MEDS: Pravastatin 20 MG Tab PO SCH (20:25)
[2019-10-31] MEDS: Dextrose 5%-Lactated Ringers 1,000 ML IV SCH ×2 (00:53→12:53)
[2019-10-31] MEDS ORDERED: hydrALAZINE 20 MG/ML SDV IVPUSH ONE (02:40)
[2019-10-31] MEDS ORDERED: Midazolam 1 MG/ML 2 ML SDV ONE (07:06)
[2019-10-31] MEDS ORDERED: Propofol 200 MG/20 ML SDV ONE ×2 (07:06→11:04)
[2019-10-31] MEDS ORDERED: fentaNYL 100 MCG/2 ML SDV ONE (07:06)
[2019-10-31] MEDS: Insulin Lispro 100 Unit/ML 3 ML KwikPen SUBCUT SCH ×4 (07:34→21:25)
[2019-10-31] MEDS: Pantoprazole 40 MG Tab.CR PO SCH ×2 (08:40→15:30)
[2019-10-31] MEDS: hydrALAZINE 10 MG Tab PO SCH ×3 (08:40→21:27)
[2019-10-31] MEDS: Metoprolol Succinate 50 MG Tab.ER PO SCH (08:40)
[2019-10-31] MEDS: Citalopram 20 MG Tab PO SCH (08:40)
[2019-10-31] MEDS: Losartan 50 MG Tab PO SCH (08:41)
[2019-10-31] MEDS ORDERED: Lactated Ringers 1,000 ML ONE (10:40)
--- NOTE | 2019-10-31 12:30 | PN ---
DATE OF SERVICE: 10/31/2019 The patient has continued to have some falling hemoglobins with an upper GI endoscopy not showing any likely bleeding source. The patient will be undergoing a colonoscopy today and we will recheck some labs again tomorrow morning as well. Agusto Carter MD /[id number]
--- NOTE | 2019-10-31 14:07 | PCM.PN ---
- General Info Date of Service: 10/31/19 Subjective Update: Mr. Xavier continues to experience some increased shortness of breath over the past few days. Colonoscopy was performed earlier today, results are pending at this time. He otherwise is feeling well and has had no abdominal pain. Appetite and overall strength have improved. Functional Status: Reports: Tolerating Diet, Ambulating, Urinating - Review of Systems General: Reports: Weakness. Denies: Fever, Chills Pulmonary: Reports: Shortness of Breath. Denies: Pleuritic Chest Pain, Cough, Sputum, Hemoptysis, Wheezing Cardiovascular: Reports: Dyspnea on Exertion. Denies: Chest Pain, Palpitations, Orthopnea, PND, Edema, Lightheadedness Gastrointestinal: Reports: No Symptoms Genitourinary: Reports: No Symptoms - Patient Data Vitals - Most Recent: Last Vital Signs Temp 95.9 F L 10/31/19 11:49 Pulse 74 10/31/19 13:40 Resp 18 10/31/19 13:40 BP 174/78 H 10/31/19 13:40 Pulse Ox 95 10/31/19 13:40 Weight - Most Recent: 294 lb 6.4 oz I&O - Last 24 Hours: Intake & Output 10/30/19 10/31/19 10/31/19 22:59 06:59 14:59 Intake Total 3692 484 550 Balance 3692 484 550 Lab Results Last 24 Hours: Laboratory Results - last 24 hr 10/30/19 10/30/19 10/31/19 Range/Units 16:18 20:39 07:23 POC Glucose 195 H 129 H 125 H (74-106) MG/DL 10/31/19 Range/Units 11:58 POC Glucose 126 H (74-106) MG/DL Reick Results Last 24 Hours: Microbiology 10/30/19 08:22 CLOtest - Final Stomach NEGATIVE CLOTEST REFERENCE RANGE: NEGATIVE Med Orders - Current: Current Medications Acetaminophen (Tylenol) 650 mg PO Q4H PRN PRN Reason: Pain (Mild 1-3)/fever Last Admin: 10/26/19 22:07 Dose: 650 mg Documented by: Aspirin (Aspirin) 81 mg PO Q48H [facility] Last Admin: 10/30/19 15:00 Dose: 81 mg Documented by: Citalopram Hydrobromide (Celexa) 40 mg PO DAILY [facility] Last Admin: 10/31/19 08:40 Dose: 40 mg Documented by: Dextrose (Glutose 15) 15 gm PO ONETIME PRN PRN Reason: Hypoglycemia Dextrose/Water (Dextrose 50% In Water) 50 ml IV ONETIME PRN PRN Reason: Hypoglycemia Furosemide (Lasix) 60 mg IVPUSH NOW ONE Stop: 10/31/19 14:16 Gabapentin (Neurontin) 300 mg PO BEDTIME [facility] Last Admin: 10/30/19 20:24 Dose: 300 mg Documented by: Hydralazine HCl (Apresoline) 10 mg PO TID [facility] Last Admin: 10/31/19 13:37 Dose: 10 mg Documented by: Insulin Human Lispro (Humalog) 0 unit SUBCUT QIDACANDBED [facility]; Protocol Last Admin: 10/31/19 12:15 Dose: Not Given Documented by: Losartan Potassium (Cozaar) 50 mg PO DAILY [facility] Last Admin: 10/31/19 08:41 Dose: 50 mg Documented by: Melatonin (Melatonin) 9 mg PO BEDTIME [facility] Last Admin: 10/30/19 20:24 Dose: 9 mg Documented by: Metoprolol Succinate (Toprol Xl) 100 mg PO DAILY [facility] Last Admin: 10/31/19 08:40 Dose: 100 mg Documented by: Ondansetron HCl (Zofran) 4 mg IV Q4H PRN PRN Reason: Nausea/Vomiting Pantoprazole Sodium (Protonix) 40 mg PO BIDAC [facility] Last Admin: 10/31/19 08:40 Dose: 40 mg Documented by: Polyethylene Glycol (Miralax) 17 gm PO DAILY PRN PRN Reason: Constipation Pravastatin Sodium (Pravachol) 10 mg PO BEDTIME [facility] Last Admin: 10/30/19 20:25 Dose: 10 mg Documented by: Sodium Chloride (Saline Flush) 10 ml FLUSH ASDIRECTED PRN PRN Reason: Keep Vein Open Torsemide (Demadex) 20 mg PO DAILY [facility] Discontinued Medications Bisacodyl (Dulcolax) 10 mg PO ONETIME ONE Stop: 10/30/19 12:17 Last Admin: 10/30/19 15:00 Dose: 10 mg Documented by: Bisacodyl (Dulcolax) 10 mg PO ONETIME ONE Stop: 10/30/19 20:01 Last Admin: 10/30/19 20:27 Dose: 10 mg Documented by: Citalopram Hydrobromide (Celexa) 40 mg PO BEDTIME [facility] Last Admin: 10/26/19 21:47 Dose: Not Given Documented by: Enoxaparin Sodium (Lovenox) 30 mg SUBCUT Q24H [facility] Last Admin: 10/29/19 13:52 Dose: 30 mg Documented by: Fentanyl (Sublimaze) Confirm Administered Dose 100 mcg .ROUTE .[facility] ONE Stop: 10/30/19 07:34 Fentanyl (Sublimaze) Confirm Administered Dose 100 mcg .ROUTE .[facility] ONE Stop: 10/31/19 07:07 Glimepiride (Amaryl) 2 mg PO BIDMEALS [facility] Last Admin: 10/28/19 11:53 Dose: Not Given Documented by: Glycopyrrolate (Glycopyrrolate) 0.4 mg IVPUSH ONETIME ONE Stop: 10/30/19 07:40 Last Admin: 10/30/19 07:56 Dose: 0.4 mg Documented by: Hydralazine HCl (Apresoline) 10 mg IVPUSH ONETIME ONE Stop: 10/31/19 02:41 Last Admin: 10/31/19 02:48 Dose: 10 mg Documented by: Sodium Chloride (Normal Saline) 1,000 mls @ 100 mls/hr IV ASDIRECTED [facility] Last Admin: 10/27/19 03:17 Dose: 100 mls/hr Documented by: Dextrose/Lactated Ringer's (Dextrose 5%-Lactated Ringers) 1,000 mls @ 125 mls/hr IV ASDIRECTED [facility] Last Admin: 10/30/19 09:38 Dose: 125 mls/hr Documented by: Dextrose/Lactated Ringer's (Dextrose 5%-Lactated Ringers) 1,000 mls @ 100 mls/hr IV ASDIRECTED [facility] Last Admin: 10/31/19 12:53 Dose: 100 mls/hr Documented by: Lactated Ringer's (Ringers, Lactated) Confirm Administered Dose 1,000 mls @ as directed .ROUTE .[facility] ONE Stop: 10/31/19 10:41 Insulin Human Lispro (Humalog) 0 unit SUBCUT QIDACANDBED [facility]; Protocol Last Admin: 10/28/19 08:08 Dose: Not Given Documented by: Insulin Human NPH (Humulin N) 26 unit SUBCUT BID@0700,1730 [facility] Last Admin: 10/28/19 08:08 Dose: Not Given Documented by: Insulin Human NPH (Humulin N) 18 unit SUBCUT ONETIME ONE Stop: 10/27/19 08:46 Last Admin: 10/27/19 08:42 Dose: 18 unit Documented by: Insulin Human NPH (Humulin N) 18 unit SQ ONETIME ONE Stop: 10/27/19 17:53 Last Admin: 10/27/19 18:10 Dose: 18 unit Documented by: Insulin Human NPH (Humulin N) 12 unit SUBCUT BID@0700,1730 [facility] Last Admin: 10/29/19 08:15 Dose: Not Given Documented by: Insulin Human NPH (Humulin N) 18 unit SUBCUT DAILY [facility] Last Admin: 10/29/19 09:39 Dose: 18 unit Documented by: Losartan Potassium (Cozaar) 25 mg PO DAILY [facility] Last Admin: 10/27/19 08:35 Dose: 25 mg Documented by: Losartan Potassium (Cozaar) 50 mg PO DAILY [facility] Losartan Potassium (Cozaar) 25 mg PO ONETIME ONE Stop: 10/27/19 17:01 Losartan Potassium (Cozaar) 25 mg PO ONETIME ONE Stop: 10/27/19 17:01 Last Admin: 10/27/19 18:08 Dose: 25 mg Documented by: Midazolam HCl (Versed 1 Mg/Ml) Confirm Administered Dose 2 mg .ROUTE .[facility] ONE Stop: 10/30/19 07:34 Midazolam HCl (Versed 1 Mg/Ml) Confirm Administered Dose 2 mg .ROUTE .[facility] ONE Stop: 10/31/19 07:07 Ondansetron HCl (Zofran Odt) 4 mg PO ONETIME ONE Stop: 10/26/19 13:12 Last Admin: 10/26/19 13:47 Dose: 4 mg Documented by: Pantoprazole Sodium (Protonix) 40 mg PO ACBREAKFAST [facility] Last Admin: 10/27/19 08:34 Dose: 40 mg Documented by: Polyethylene Glycol (Miralax) 238 gm PO ONETIME ONE Stop: 10/30/19 17:01 Last Admin: 10/30/19 16:30 Dose: 238 gm Documented by: Propofol (Diprivan 20 Ml) Confirm Administered Dose 200 mg .ROUTE .[facility] ONE Stop: 10/30/19 07:34 Propofol (Diprivan 20 Ml) Confirm Administered Dose 200 mg .ROUTE .[facility] ONE Stop: 10/31/19 07:07 Propofol (Diprivan 20 Ml) Confirm Administered Dose 200 mg .ROUTE .[facility] ONE Stop: 10/31/19 11:05 Sodium Polystyrene Sulfonate (Kayexalate) 30 gm PO ONETIME ONE Stop: 10/26/19 14:01 Last Admin: 10/26/19 16:52 Dose: 30 gm Documented by: - Exam Quality Assessment: DVT Prophylaxis. No: Supplemental Oxygen General: Alert, Oriented, Cooperative, Mild Distress Lungs: Clear to Auscultation, Normal Respiratory Effort, Decreased Breath Sounds Cardiovascular: Regular Rate, Regular Rhythm, No Murmurs GI/Abdominal Exam: Soft, Non-Tender, No Organomegaly, No Distention Extremities: Non-Tender, No Pedal Edema Sepsis Event Note - Evaluation Sepsis Screening Result: No Definite Risk - Focused Exam Vital Signs: Vital Signs Temp Pulse Pulse Resp BP BP BP 10/31/19 13:40 74 18 174/78 H 10/31/19 13:37 174/78 H 10/31/19 13:02 66 17 162/80 H 10/31/19 12:48 66 18 171/73 H 10/31/19 12:39 66 16 157/76 H 10/31/19 12:34 10/31/19 12:00 58 L 18 127/86 10/31/19 11:49 95.9 F L 74 18 174/79 H 10/31/19 11:35 97.2 F 75 18 135/90 10/31/19 11:31 75 18 134/82 10/31/19 11:26 84 18 148/99 H 10/31/19 11:21 84 18 163/100 H 10/31/19 11:15 97.2 F 84 18 159/99 H 10/31/19 08:41 158/47 H 10/31/19 08:40 65 158/47 H 10/31/19 07:41 10/31/19 07:21 10/31/19 07:15 96.3 F L 68 15 158/47 H 10/31/19 03:24 144/71 H 10/31/19 02:35 190/100 H Pulse Ox 10/31/19 13:40 95 10/31/19 13:37 10/31/19 13:02 99 10/31/19 12:48 98 10/31/19 12:39 98 10/31/19 12:34 97 10/31/19 12:00 98 10/31/19 11:49 97 10/31/19 11:35 93 L 10/31/19 11:31 93 L 10/31/19 11:26 92 L 10/31/19 11:21 10/31/19 11:15 10/31/19 08:41 10/31/19 08:40 10/31/19 07:41 94 L 10/31/19 07:21 94 L 10/31/19 07:15 96 10/31/19 03:24 10/31/19 02:35 - Problem List Review Problem List Initiated/Reviewed/Updated: Yes - My Orders Last 24 Hours: My Active Orders 10/31/19 14:00 Furosemide [Lasix] 60 mg IVPUSH NOW ONE 10/31/19 14:01 Convert IV to Saline Lock [OM.PC] Routine 11/01/19 05:11 LACTATE DEHYDROGENASE,LDH [CHEM] AM 11/01/19 09:00 Torsemide [Demadex] 20 mg PO DAILY - Plan Plan:: ASSESSMENT AND PLAN PROGRESSIVE DYSPNEA AND WEAKNESS-has continued to experience some increased shortness of breath, not requiring supplemental oxygen CONGESTIVE HEART FAILURE-recent echo shows improvement left ventricular function although still low at 45 to 50% ejection fraction -Continue beta-fatoumata therapy and ARB -Furosemide 60 mg IV now -Resume oral torsemide in a.m. HYPERTENSION-blood pressure control has improved -Continue current beta-fatoumata therapy - losartan 50 mg daily -Hydralazine 10 mg 3 times daily EPIGASTRIC ABDOMINAL PAIN-essentially resolved, colonoscopy performed, results pending ANEMIA-hemoglobin has dropped further since admission, no evidence of active bleeding. Associated with epigastric abdominal pain. -Recheck hemoglobin in a.m. -LDH in a.m. STATUS POST AORTIC VALVE REPLACEMENT CHRONIC KIDNEY DISEASE STAGE IIIb-creatinine appears to be at recent baseline with a GFR of 37 -Monitor urine output and renal function TYPE 2 DIABETES MELLITUS-continues to experience significant hypoglycemia despite decreased dose of insulin and discontinuation of Amaryl -Continue to hold Amaryl -Hold NPH insulin -4 times daily glucometers -Moderate dose sliding scale Humalog DIABETIC FOOT ULCER LEFT FOOT-status post surgery few weeks ago, appears to be healing -Continue current management HYPERKALEMIA-resolved MAINTENANCE ISSUES -DVT prophylaxis; Lovenox 40 mg subcu daily -GI prophylaxis; Protonix as above -Horan catheter; not indicated -Nutrition; consistent carb diet -Nicotine dependence; not required CODE STATUS-DNR ADMISSION STATUS-patient will be admitted to inpatient status, expect at least a 2 night hospital stay for evaluation and management of problems as outlined abo ve. At the time of this admission I do not reasonably expected evaluation and management of this problem will require more than a 96 hour hospital stay. DISPOSITION-anticipate discharge to home after the hospital stay. PRIMARY CARE PROVIDER-Dr. Jack
[2019-10-31] MEDS ORDERED: Furosemide 20 MG/2 ML VIAL IVPUSH ONE (14:15)
--- NOTE | 2019-10-31 15:32 | OR ---
DATE OF PROCEDURE: 10/31/2019 SURGEON: Agusto Carter MD PREOPERATIVE DIAGNOSIS: Gradually falling hemoglobin. POSTOPERATIVE DIAGNOSES: 1. A single small polyp in the ascending colon. 2. No bleeding site identified in the colon or rectum. OPERATIVE PROCEDURE: Flexible colonoscopy with polypectomy by snare technique. ANESTHESIA: IV sedation. INDICATION FOR PROCEDURE: The patient is admitted with foot infection. He is noted to have a gradually dropping hemoglobin. Upper endoscopy yesterday failed to show obvious bleeding source and the patient to undergo a colonoscopy today. Potential risks including bleeding and perforation were discussed, and the patient wishes to proceed. DETAILS OF PROCEDURE: The patient was taken to the operating room and placed in a left lateral decubitus position. IV sedation was administered after which the initial digital rectal exam was performed and it was unremarkable. Colonoscope was then passed into the rectum with retroflexion revealing uncomplicated hemorrhoidal columns. The scope was then eventually passed to the level of the cecum. The prep was fairly good. There were a few scattered stool and some liquid stool, but the vasculature and surfaces were well seen. To that level, the only abnormality noted was that of a single, roughly 0.5 cm polyp located in the ascending colon. This was excised by means of cautery and snare technique and retrieved for specimen analysis. Good hemostasis at the polypectomy site was seen. The scope was then withdrawn, the above findings reconfirmed, and the procedure concluded. The patient was taken to the recovery room in satisfactory condition. In summary, the patient had a single small polyp, but had no identifiable site of likely bleeding. Agusto Carter MD /[id number]
[2019-10-31] MEDS: Melatonin 3 MG Tab PO SCH (21:27)
[2019-10-31] MEDS: Gabapentin 300 MG Cap PO SCH (21:28)
[2019-10-31] MEDS: Pravastatin 20 MG Tab PO SCH (21:28)
[2019-11-01] MEDS: Pantoprazole 40 MG Tab.CR PO SCH ×2 (07:22→17:27)
[2019-11-01] MEDS: Insulin Lispro 100 Unit/ML 3 ML KwikPen SUBCUT SCH ×4 (08:02→21:53)
[2019-11-01] MEDS: hydrALAZINE 10 MG Tab PO SCH ×3 (09:33→21:56)
[2019-11-01] MEDS: Torsemide 20 MG Tab PO SCH (09:33)
[2019-11-01] MEDS: Losartan 50 MG Tab PO SCH (09:34)
[2019-11-01] MEDS: Metoprolol Succinate 50 MG Tab.ER PO SCH (09:34)
[2019-11-01] MEDS: Citalopram 20 MG Tab PO SCH (09:36)
--- NOTE | 2019-11-01 12:58 | PCM.PN ---
- General Info Date of Service: 11/01/19 Subjective Update: Mr. Xavier has continued to experience some increased shortness of breath, despite diuretic therapy yesterday. Symptoms are not as bad as they had been on admission but not as good as they had been a few days ago. He has developed some peripheral edema. He ambulated about 100 feet this morning on room air, lowest oxygen saturation was 89%. Renal function slightly worse than previous level. Hemoglobin stable over the past few days. Functional Status: Reports: Tolerating Diet, Ambulating, Urinating - Review of Systems General: Reports: No Symptoms Pulmonary: Reports: Shortness of Breath. Denies: Pleuritic Chest Pain, Cough, Sputum, Hemoptysis, Wheezing Cardiovascular: Reports: Dyspnea on Exertion, Edema. Denies: Chest Pain, Palpit ations, Orthopnea, PND, Lightheadedness Gastrointestinal: Reports: No Symptoms Genitourinary: Reports: No Symptoms - Patient Data Vitals - Most Recent: Last Vital Signs Temp 96.4 F L 11/01/19 12:00 Pulse 62 11/01/19 12:00 Resp 18 11/01/19 12:00 BP 171/73 H 11/01/19 12:00 Pulse Ox 97 11/01/19 12:48 Weight - Most Recent: 291 lb 4.8 oz I&O - Last 24 Hours: Intake & Output 10/31/19 11/01/19 11/01/19 22:59 06:59 14:59 Intake Total 1980 Output Total 625 300 380 Balance 1355 -300 -380 Lab Results Last 24 Hours: Laboratory Results - last 24 hr 10/31/19 10/31/19 11/01/19 Range/Units 17:30 20:59 04:00 WBC 6.8 (4.5-11.0) K/uL RBC 3.03 L (4.30-5.90) M/uL Hgb 9.4 L (12.0-15.0) g/dL Hct 30.0 L (40.0-54.0) % MCV 99 H (80-98) fL MCH 31 (27-31) pg MCHC 31 L (32-36) % Plt Count 125 L (150-400) K/uL Neut % (Auto) 68 H (36-66) % Lymph % (Auto) 19 L (24-44) % Carolina % (Auto) 9 H (2-6) % Eos % (Auto) 4 (2-4) % Baso % (Auto) 0 (0-1) % Sodium (140-148) mmol/L Potassium (3.6-5.2) mmol/L Chloride (100-108) mmol/L Carbon Dioxide (21-32) mmol/L Anion Gap (5.0-14.0) mmol/L BUN (7-18) mg/dL Creatinine (0.8-1.3) mg/dL Est Cr Clr Drug Dosing mL/min Estimated GFR (MDRD) (>60) Glucose (74-106) mg/dL POC Glucose 143 H 143 H (74-106) MG/DL Calcium (8.5-10.1) mg/dL Phosphorus (2.5-4.9) mg/dL Magnesium (1.8-2.4) mg/dL Total Bilirubin (0.2-1.0) mg/dL AST (15-37) U/L ALT (12-78) U/L Alkaline Phosphatase (46-116) U/L Lactate Dehydrogenase (85-227) U/L NT-Pro-B Natriuret Pep (5-125) pg/mL Total Protein (6.4-8.2) g/dL Albumin (3.4-5.0) g/dL Globulin (2.3-3.5) g/dL Albumin/Globulin Ratio (1.2-2.2) 11/01/19 11/01/19 11/01/19 Range/Units 04:00 05:11 07:30 WBC (4.5-11.0) K/uL RBC (4.30-5.90) M/uL Hgb (12.0-15.0) g/dL Hct (40.0-54.0) % MCV (80-98) fL MCH (27-31) pg MCHC (32-36) % Plt Count (150-400) K/uL Neut % (Auto) (36-66) % Lymph % (Auto) (24-44) % Carolina % (Auto) (2-6) % Eos % (Auto) (2-4) % Baso % (Auto) (0-1) % Sodium 141 (140-148) mmol/L Potassium 5.6 H (3.6-5.2) mmol/L Chloride 111 H (100-108) mmol/L Carbon Dioxide 24 (21-32) mmol/L Anion Gap 11.6 (5.0-14.0) mmol/L BUN 45 H (7-18) mg/dL Creatinine 2.0 H (0.8-1.3) mg/dL Est Cr Clr Drug Dosing 34.25 mL/min Estimated GFR (MDRD) 33 L (>60) Glucose 110 H (74-106) mg/dL POC Glucose 104 (74-106) MG/DL Calcium 8.6 (8.5-10.1) mg/dL Phosphorus 4.1 (2.5-4.9) mg/dL Magnesium 2.1 (1.8-2.4) mg/dL Total Bilirubin 0.5 (0.2-1.0) mg/dL AST 22 (15-37) U/L ALT 19 D (12-78) U/L Alkaline Phosphatase 113 (46-116) U/L Lactate Dehydrogenase 287 H (85-227) U/L NT-Pro-B Natriuret Pep 8641 H (5-125) pg/mL Total Protein 6.3 L (6.4-8.2) g/dL Albumin 2.6 L (3.4-5.0) g/dL Globulin 3.7 H (2.3-3.5) g/dL Albumin/Globulin Ratio 0.7 L (1.2-2.2) 20/ Range/Units 11:30 WBC (4.5-11.0) K/uL RBC (4.30-5.90) M/uL Hgb (12.0-15.0) g/dL Hct (40.0-54.0) % MCV (80-98) fL MCH (27-31) pg MCHC (32-36) % Plt Count (150-400) K/uL Neut % (Auto) (36-66) % Lymph % (Auto) (24-44) % Carolina % (Auto) (2-6) % Eos % (Auto) (2-4) % Baso % (Auto) (0-1) % Sodium (140-148) mmol/L Potassium (3.6-5.2) mmol/L Chloride (100-108) mmol/L Carbon Dioxide (21-32) mmol/L Anion Gap (5.0-14.0) mmol/L BUN (7-18) mg/dL Creatinine (0.8-1.3) mg/dL Est Cr Clr Drug Dosing mL/min Estimated GFR (MDRD) (>60) Glucose (74-106) mg/dL POC Glucose 141 H (74-106) MG/DL Calcium (8.5-10.1) mg/dL Phosphorus (2.5-4.9) mg/dL Magnesium (1.8-2.4) mg/dL Total Bilirubin (0.2-1.0) mg/dL AST (15-37) U/L ALT (12-78) U/L Alkaline Phosphatase (46-116) U/L Lactate Dehydrogenase (85-227) U/L NT-Pro-B Natriuret Pep (5-125) pg/mL Total Protein (6.4-8.2) g/dL Albumin (3.4-5.0) g/dL Globulin (2.3-3.5) g/dL Albumin/Globulin Ratio (1.2-2.2) Erick Results Last 24 Hours: Microbiology 10/30/19 08:22 CLOtest - Final Stomach NEGATIVE CLOTEST REFERENCE RANGE: NEGATIVE Med Orders - Current: Current Medications Acetaminophen (Tylenol) 650 mg PO Q4H PRN PRN Reason: Pain (Mild 1-3)/fever Last Admin: 10/26/19 22:07 Dose: 650 mg Documented by: Aspirin (Aspirin) 81 mg PO Q48H [facility] Last Admin: 10/30/19 15:00 Dose: 81 mg Documented by: Citalopram Hydrobromide (Celexa) 40 mg PO DAILY [facility] Last Admin: 11/01/19 09:36 Dose: 40 mg Documented by: Dextrose (Glutose 15) 15 gm PO ONETIME PRN PRN Reason: Hypoglycemia Dextrose/Water (Dextrose 50% In Water) 50 ml IV ONETIME PRN PRN Reason: Hypoglycemia Gabapentin (Neurontin) 300 mg PO BEDTIME [facility] Last Admin: 10/31/19 21:28 Dose: 300 mg Documented by: Hydralazine HCl (Apresoline) 10 mg PO TID [facility] Last Admin: 11/01/19 09:33 Dose: 10 mg Documented by: Insulin Human Lispro (Humalog) 0 unit SUBCUT QIDACANDBED [facility]; Protocol Last Admin: 11/01/19 12:06 Dose: Not Given Documented by: Losartan Potassium (Cozaar) 50 mg PO DAILY [facility] Last Admin: 11/01/19 09:34 Dose: 50 mg Documented by: Melatonin (Melatonin) 9 mg PO BEDTIME [facility] Last Admin: 10/31/19 21:27 Dose: 9 mg Documented by: Metoprolol Succinate (Toprol Xl) 100 mg PO DAILY [facility] Last Admin: 11/01/19 09:34 Dose: 100 mg Documented by: Ondansetron HCl (Zofran) 4 mg IV Q4H PRN PRN Reason: Nausea/Vomiting Pantoprazole Sodium (Protonix) 40 mg PO BIDAC [facility] Last Admin: 11/01/19 07:22 Dose: 40 mg Documented by: Polyethylene Glycol (Miralax) 17 gm PO DAILY PRN PRN Reason: Constipation Pravastatin Sodium (Pravachol) 10 mg PO BEDTIME [facility] Last Admin: 10/31/19 21:28 Dose: 10 mg Documented by: Sodium Chloride (Saline Flush) 10 ml FLUSH ASDIRECTED PRN PRN Reason: Keep Vein Open Torsemide (Demadex) 20 mg PO DAILY [facility] Last Admin: 11/01/19 09:33 Dose: 20 mg Documented by: Discontinued Medications Bisacodyl (Dulcolax) 10 mg PO ONETIME ONE Stop: 10/30/19 12:17 Last Admin: 10/30/19 15:00 Dose: 10 mg Documented by: Bisacodyl (Dulcolax) 10 mg PO ONETIME ONE Stop: 10/30/19 20:01 Last Admin: 10/30/19 20:27 Dose: 10 mg Documented by: Citalopram Hydrobromide (Celexa) 40 mg PO BEDTIME [facility] Last Admin: 10/26/19 21:47 Dose: Not Given Documented by: Enoxaparin Sodium (Lovenox) 30 mg SUBCUT Q24H [facility] Last Admin: 10/29/19 13:52 Dose: 30 mg Documented by: Fentanyl (Sublimaze) Confirm Administered Dose 100 mcg .ROUTE .STK-MED ONE Stop: 10/30/19 07:34 Fentanyl (Sublimaze) Confirm Administered Dose 100 mcg .ROUTE .STK-MED ONE Stop: 10/31/19 07:07 Furosemide (Lasix) 60 mg IVPUSH NOW ONE Stop: 10/31/19 14:16 Last Admin: 10/31/19 15:26 Dose: 60 mg Documented by: Glimepiride (Amaryl) 2 mg PO BIDMEALS [facility] Last Admin: 10/28/19 11:53 Dose: Not Given Documented by: Glycopyrrolate (Glycopyrrolate) 0.4 mg IVPUSH ONETIME ONE Stop: 10/30/19 07:40 Last Admin: 10/30/19 07:56 Dose: 0.4 mg Documented by: Hydralazine HCl (Apresoline) 10 mg IVPUSH ONETIME ONE Stop: 10/31/19 02:41 Last Admin: 10/31/19 02:48 Dose: 10 mg Documented by: Sodium Chloride (Normal Saline) 1,000 mls @ 100 mls/hr IV ASDIRECTED [facility] Last Admin: 10/27/19 03:17 Dose: 100 mls/hr Documented by: Dextrose/Lactated Ringer's (Dextrose 5%-Lactated Ringers) 1,000 mls @ 125 mls/hr IV ASDIRECTED [facility] Last Admin: 10/30/19 09:38 Dose: 125 mls/hr Documented by: Dextrose/Lactated Ringer's (Dextrose 5%-Lactated Ringers) 1,000 mls @ 100 mls/hr IV ASDIRECTED [facility] Last Admin: 10/31/19 12:53 Dose: 100 mls/hr Documented by: Lactated Ringer's (Ringers, Lactated) Confirm Administered Dose 1,000 mls @ as directed .ROUTE .STK-MED ONE Stop: 10/31/19 10:41 Insulin Human Lispro (Humalog) 0 unit SUBCUT QIDACANDBED [facility]; Protocol Last Admin: 10/28/19 08:08 Dose: Not Given Documented by: Insulin Human NPH (Humulin N) 26 unit SUBCUT BID@0700,1730 [facility] Last Admin: 10/28/19 08:08 Dose: Not Given Documented by: Insulin Human NPH (Humulin N) 18 unit SUBCUT ONETIME ONE Stop: 10/27/19 08:46 Last Admin: 10/27/19 08:42 Dose: 18 unit Documented by: Insulin Human NPH (Humulin N) 18 unit SQ ONETIME ONE Stop: 10/27/19 17:53 Last Admin: 10/27/19 18:10 Dose: 18 unit Documented by: Insulin Human NPH (Humulin N) 12 unit SUBCUT BID@0700,1730 [facility] Last Admin: 10/29/19 08:15 Dose: Not Given Documented by: Insulin Human NPH (Humulin N) 18 unit SUBCUT DAILY [facility] Last Admin: 10/29/19 09:39 Dose: 18 unit Documented by: Losartan Potassium (Cozaar) 25 mg PO DAILY [facility] Last Admin: 10/27/19 08:35 Dose: 25 mg Documented by: Losartan Potassium (Cozaar) 50 mg PO DAILY [facility] Losartan Potassium (Cozaar) 25 mg PO ONETIME ONE Stop: 10/27/19 17:01 Losartan Potassium (Cozaar) 25 mg PO ONETIME ONE Stop: 10/27/19 17:01 Last Admin: 10/27/19 18:08 Dose: 25 mg Documented by: Midazolam HCl (Versed 1 Mg/Ml) Confirm Administered Dose 2 mg .ROUTE .STK-MED ONE Stop: 10/30/19 07:34 Midazolam HCl (Versed 1 Mg/Ml) Confirm Administered Dose 2 mg .ROUTE .STK-MED ONE Stop: 10/31/19 07:07 Ondansetron HCl (Zofran Odt) 4 mg PO ONETIME ONE Stop: 10/26/19 13:12 Last Admin: 10/26/19 13:47 Dose: 4 mg Documented by: Pantoprazole Sodium (Protonix) 40 mg PO ACBREAKFAST [facility] Last Admin: 10/27/19 08:34 Dose: 40 mg Documented by: Polyethylene Glycol (Miralax) 238 gm PO ONETIME ONE Stop: 10/30/19 17:01 Last Admin: 10/30/19 16:30 Dose: 238 gm Documented by: Propofol (Diprivan 20 Ml) Confirm Administered Dose 200 mg .ROUTE .STK-MED ONE Stop: 10/30/19 07:34 Propofol (Diprivan 20 Ml) Confirm Administered Dose 200 mg .ROUTE .STK-MED ONE Stop: 10/31/19 07:07 Propofol (Diprivan 20 Ml) Confirm Administered Dose 200 mg .ROUTE .STK-MED ONE Stop: 10/31/19 11:05 Sodium Polystyrene Sulfonate (Kayexalate) 30 gm PO ONETIME ONE Stop: 10/26/19 14:01 Last Admin: 10/26/19 16:52 Dose: 30 gm Documented by: - Exam Quality Assessment: DVT Prophylaxis General: Alert, Oriented, Cooperative, No Acute Distress Lungs: Clear to Auscultation, Normal Respiratory Effort, Decreased Breath Sounds Cardiovascular: Regular Rate, Regular Rhythm, No Murmurs GI/Abdominal Exam: Soft, Non-Tender, No Organomegaly, No Distention Extremities: Non-Tender, Pedal Edema Sepsis Event Note - Evaluation Sepsis Screening Result: No Definite Risk - Focused Exam Vital Signs: Vital Signs Temp Pulse Pulse Resp BP BP BP 11/01/19 12:48 11/01/19 12:00 96.4 F L 62 18 171/73 H 11/01/19 09:40 95 23 H 11/01/19 09:34 70 170/68 H 11/01/19 09:33 170/68 H 11/01/19 09:30 60 16 11/01/19 07:52 11/01/19 07:36 95.7 F L 62 18 170/68 H 11/01/19 03:28 97.0 F 63 16 163/83 H 11/01/19 01:26 Pulse Ox 11/01/19 12:48 97 11/01/19 12:00 97 11/01/19 09:40 93 L 11/01/19 09:34 11/01/19 09:33 11/01/19 09:30 97 11/01/19 07:52 97 11/01/19 07:36 98 11/01/19 03:28 99 11/01/19 01:26 98 - Problem List Review Problem List Initiated/Reviewed/Updated: Yes - My Orders Last 24 Hours: My Active Orders 10/31/19 14:01 Convert IV to Saline Lock [OM.PC] Routine 11/01/19 09:00 Torsemide [Demadex] 20 mg PO DAILY 11/01/19 16:30 GLUCOSE POC LAB TO COLLECT JPM [POC] QIDACANDBED 11/01/19 17:00 BASIC METABOLIC PANEL,BMP [CHEM] Stat 11/01/19 21:00 GLUCOSE POC LAB TO COLLECT JPM [POC] QIDACANDBED 11/02/19 05:00 BASIC METABOLIC PANEL,BMP [CHEM] Timed 11/02/19 05:11 HGB [HEMOGLOBIN] [HEME] AM 11/02/19 07:30 GLUCOSE POC LAB TO COLLECT JPM [POC] QIDACANDBED 11/02/19 11:30 GLUCOSE POC LAB TO COLLECT JPM [POC] QIDACANDBED 11/02/19 16:30 GLUCOSE POC LAB TO COLLECT JPM [POC] QIDACANDBED 11/02/19 21:00 GLUCOSE POC LAB TO COLLECT JPM [POC] QIDACANDBED 11/03/19 07:30 GLUCOSE POC LAB TO COLLECT JPM [POC] QIDACANDBED 11/03/19 11:30 GLUCOSE POC LAB TO COLLECT JPM [POC] QIDACANDBED 11/03/19 16:30 GLUCOSE POC LAB TO COLLECT JPM [POC] QIDACANDBED 11/03/19 21:00 GLUCOSE POC LAB TO COLLECT JPM [POC] QIDACANDBED 11/04/19 07:30 GLUCOSE POC LAB TO COLLECT JPM [POC] QIDACANDBED 11/04/19 11:30 GLUCOSE POC LAB TO COLLECT JPM [POC] QIDACANDBED 11/04/19 16:30 GLUCOSE POC LAB TO COLLECT JPM [POC] QIDACANDBED 11/04/19 21:00 GLUCOSE POC LAB TO COLLECT JPM [POC] QIDACANDBED 11/05/19 07:30 GLUCOSE POC LAB TO COLLECT JPM [POC] QIDACANDBED 11/05/19 11:30 GLUCOSE POC LAB TO COLLECT JPM [POC] QIDACANDBED 11/05/19 16:30 GLUCOSE POC LAB TO COLLECT JPM [POC] QIDACANDBED 11/05/19 21:00 GLUCOSE POC LAB TO COLLECT JPM [POC] QIDACANDBED 11/06/19 07:30 GLUCOSE POC LAB TO COLLECT JPM [POC] QIDACANDBED 11/06/19 11:30 GLUCOSE POC LAB TO COLLECT JPM [POC] QIDACANDBED 11/06/19 16:30 GLUCOSE POC LAB TO COLLECT JPM [POC] QIDACANDBED - Plan Plan:: ASSESSMENT AND PLAN PROGRESSIVE DYSPNEA AND WEAKNESS-has continued to experience some increased shortness of breath, not requiring supplemental oxygen. CONGESTIVE HEART FAILURE-recent echo shows improvement left ventricular function although still low at 45 to 50% ejection fraction. Increased shortness of breath as noted above with development of peripheral edema. -Continue beta-fatoumata therapy and ARB -Resume oral torsemide today HYPERTENSION-blood pressure control has improved -Continue current beta-fatoumata therapy - losartan 50 mg daily -Hydralazine 10 mg 3 times daily EPIGASTRIC ABDOMINAL PAIN-EGD was unremarkable, colonoscopy showed only a small polyp, no other obvious source of pain or bleeding ANEMIA-hemoglobin has dropped further since admission, no evidence of active bleeding. Associated with epigastric abdominal pain. -Recheck hemoglobin in a.m. STATUS POST AORTIC VALVE REPLACEMENT CHRONIC KIDNEY DISEASE STAGE IIIb-creatinine slightly elevated from recent baseline -Monitor urine output and renal function TYPE 2 DIABETES MELLITUS-continues to experience significant hypoglycemia despite decreased dose of insulin and discontinuation of Amaryl -Continue to hold Amaryl -Hold NPH insulin -4 times daily glucometers -Moderate dose sliding scale Humalog DIABETIC FOOT ULCER LEFT FOOT-status post surgery few weeks ago, appears to be healing -Continue current management HYPERKALEMIA-recurrent over the last 24 hours -Reassess potassium later this afternoon and in a.m. MAINTENANCE ISSUES -DVT prophylaxis; Lovenox 40 mg subcu daily -GI prophylaxis; Protonix as above -Horan catheter; not indicated -Nutrition; consistent carb diet -Nicotine dependence; not required CODE STATUS-DNR ADMISSION STATUS-patient will be admitted to inpatient status, expect at least a 2 night hospital stay for evaluation and management of problems as outlined above. At the time of this admission I do not reasonably expected evaluation and management of this problem will require more than a 96 hour hospital stay. DISPOSITION-anticipate discharge to home after the hospital stay. PRIMARY CARE PROVIDER-Dr. Jack
[2019-11-01] MEDS: Aspirin 81 MG Tab.Chew PO SCH (13:47)
--- NOTE | 2019-11-01 14:16 | PN ---
DATE OF SERVICE: 11/01/2019 The patient has been clinically stable with no further evidence of any bleeding. The hemoglobin is up to 9.3 today without any transfusion. Given both the upper and lower endoscopies not showing any obvious bleeding sources, we will contact the patient regarding the followup pathology when that becomes available. Agusto Carter MD /[id number]
[2019-11-01] MEDS ORDERED: Sodium Polystyrene Sulfonate 15 GM/60 ML Susp 60 ML Bot PO ONE (17:21)
[2019-11-01] MEDS ORDERED: Albuterol/Ipratropium 3.0-0.5 MG/3 ML Neb Soln NEB PRN (21:50)
[2019-11-01] MEDS: Melatonin 3 MG Tab PO SCH (21:56)
[2019-11-01] MEDS: Pravastatin 20 MG Tab PO SCH (21:57)
[2019-11-01] MEDS: Gabapentin 300 MG Cap PO SCH (21:57)
--- NOTE | 2019-11-02 08:13 | OR ---
DATE OF PROCEDURE: 10/30/2019 SURGEON: Agusto Carter MD PREOPERATIVE DIAGNOSIS: Slowly dropping hemoglobin. POSTOPERATIVE DIAGNOSES: 1. Slowly dropping hemoglobin. 2. Upper gastrointestinal endoscopy showing: a. Minimal antral gastritis (no evident bleeding site). b. Intact lap band position. OPERATIVE PROCEDURE: Esophagogastroduodenoscopy with antral biopsies for CLOtest. ANESTHESIA: IV sedation. INDICATIONS: A 68-year-old male presenting with gradually dropping hemoglobin. To rule out upper GI bleeding source, upper endoscopy to be performed. Potential risks including bleeding and perforation were discussed, and the patient wishes to proceed. DETAILS OF PROCEDURE: The patient was taken to the operating room and placed in a left lateral decubitus position. IV sedation was administered, after which the upper GI endoscope was passed orally through the length of esophagus into the stomach with retroflexion view of the fundus, and thereafter through the pyloric channel into EG junction of the 3rd and 4th portions of the duodenum. Findings included normal hypopharynx, larynx, upper esophageal sphincter, and the esophageal body. At the EG junction, there was no significant inflammation, perhaps a small hiatal hernia present. The patient did have a normal-sized pouch above an otherwise intact lap band position. There was no significant inflammation or narrowing at the lap band location. Within the stomach, there was some small amount of retained bile with some patchy reddened areas in the antrum, but no erosions or ulcers, and the pyloric channel and the duodenum to the junction of the 3rd and 4th portions were unremarkable. Scope was then brought back into the antrum and biopsy obtained for CLOtest for H. pylori. Minimal bleeding from the biopsy sites was seen, and the procedure was then concluded. The patient was taken to the recovery room in satisfactory condition. Agusto Carter MD /[id number]
[2019-11-02] MEDS: Insulin Lispro 100 Unit/ML 3 ML KwikPen SUBCUT SCH ×4 (08:29→21:29)
[2019-11-02] MEDS ORDERED: Aminophylline 500 MG/20 ML SDV IVPUSH PRN (11:00)
[2019-11-02] MEDS: hydrALAZINE 10 MG Tab PO SCH ×3 (11:34→21:28)
[2019-11-02] MEDS: Losartan 50 MG Tab PO SCH (11:34)
[2019-11-02] MEDS: Metoprolol Succinate 50 MG Tab.ER PO SCH (11:35)
[2019-11-02] MEDS: Pantoprazole 40 MG Tab.CR PO SCH ×2 (11:35→17:07)
[2019-11-02] MEDS: Citalopram 20 MG Tab PO SCH (11:35)
[2019-11-02] MEDS: Torsemide 20 MG Tab PO SCH (11:35)
--- NOTE | 2019-11-02 12:57 | CRLNM ---
MYOCARDIAL PERFUSION SCAN, 11/02/2019 CLINICAL HISTORY: 68-year-old male. Shortness of breath on exertion. 5 feet 9 inches, 291 pounds. TECHNIQUE: (Resting SPECT and Stress Gated SPECT with wall motion and ejection fraction) Stress: Pharmacologic - Lexiscan (0.4 mg) (IV) Dose (Stress/Rest): 36.6 mCi / 13.9 mCi Tc-99m Myoview Comparison: None FINDINGS: There is good uptake of activity by the left ventricle. There is moderate left ventricular enlargement. EDV = 250 mL. ESV = 164 mL. There is a medium-sized area of moderate to severely decreased activity involving the mid and apical anterior and anteroseptal allen and apex. This is fixed on the resting images, consistent with infarction. There is also soft tissue attenuation. No other significant fixed or reversible defects are identified. The gated images demonstrate a low left ventricular ejection fraction of 34 percent. There is severe hypokinesis to akinesis in the mid and apical anterior and anteroseptal allen and apex. IMPRESSION: 1)There is no evidence of significant myocardial ischemia. 2)There is a medium-sized infarction involving the mid and apical anterior and anteroseptal allen and apex. 3)Low left ventricular ejection fraction of 34 percent. 4)Moderate left ventricular enlargement. MARKO FLORES M.D. Transcribed: 12:45 p.m. [email or web address] by: Marko Flores MD @ 11/02/2019 12:38:00 PM (Electronically Signed)
--- NOTE | 2019-11-02 14:52 | PCM.PN ---
- General Info Date of Service: 11/02/19 Subjective Update: No acute events overnight. Patient still feels short of breath but not as bad as a few days ago. No significant cough. No fevers. No chest pain. Lower extremity edema is stable but not as good as usual. No nausea. Tolerating regular diet. Blood sugars have been good with insulin changes. 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 Functional Status: Reports: Pain Controlled, Tolerating Diet - Review of Systems General: Denies: Fever Pulmonary: Reports: Shortness of Breath - Patient Data Vitals - Most Recent: Last Vital Signs Temp 35.8 C L 11/02/19 14:43 Pulse 76 11/02/19 14:43 Resp 14 11/02/19 14:43 BP 162/80 H 11/02/19 14:43 Pulse Ox 96 11/02/19 14:43 Weight - Most Recent: 131.496 kg I&O - Last 24 Hours: Intake & Output 11/01/19 11/02/19 11/02/19 22:59 06:59 14:59 Intake Total 772 237 7773 Output Total 400 Balance 558 [id number] Lab Results Last 24 Hours: Laboratory Results - last 24 hr 11/01/19 11/01/19 11/01/19 Range/Units 16:30 17:00 20:54 Hgb (12.0-15.0) g/dL Sodium 140 (140-148) mmol/L Potassium 5.6 H (3.6-5.2) mmol/L Chloride 110 H (100-108) mmol/L Carbon Dioxide 21 (21-32) mmol/L Anion Gap 14.6 H (5.0-14.0) mmol/L BUN 46 H (7-18) mg/dL Creatinine 2.0 H (0.8-1.3) mg/dL Est Cr Clr Drug Dosing 34.25 mL/min Estimated GFR (MDRD) 33 L (>60) Glucose 187 H (74-106) mg/dL POC Glucose 197 H 134 H (74-106) MG/DL Calcium 8.6 (8.5-10.1) mg/dL 11/02/19 11/02/19 11/02/19 Range/Units 05:47 05:47 07:30 Hgb 8.7 L (12.0-15.0) g/dL Sodium 140 (140-148) mmol/L Potassium 5.2 (3.6-5.2) mmol/L Chloride 109 H (100-108) mmol/L Carbon Dioxide 22 (21-32) mmol/L Anion Gap 14.2 H (5.0-14.0) mmol/L BUN 44 H (7-18) mg/dL Creatinine 1.9 H (0.8-1.3) mg/dL Est Cr Clr Drug Dosing 36.06 mL/min Estimated GFR (MDRD) 35 L (>60) Glucose 112 H (74-106) mg/dL POC Glucose 105 (74-106) MG/DL Calcium 8.3 L (8.5-10.1) mg/dL 11/02/19 Range/Units 11:30 Hgb (12.0-15.0) g/dL Sodium (140-148) mmol/L Potassium (3.6-5.2) mmol/L Chloride (100-108) mmol/L Carbon Dioxide (21-32) mmol/L Anion Gap (5.0-14.0) mmol/L BUN (7-18) mg/dL Creatinine (0.8-1.3) mg/dL Est Cr Clr Drug Dosing mL/min Estimated GFR (MDRD) (>60) Glucose (74-106) mg/dL POC Glucose 219 H (74-106) MG/DL Calcium (8.5-10.1) mg/dL Med Orders - Current: Current Medications Acetaminophen (Tylenol) 650 mg PO Q4H PRN PRN Reason: Pain (Mild 1-3)/fever Last Admin: 10/26/19 22:07 Dose: 650 mg Documented by: Albuterol/Ipratropium (Duoneb 3.0-0.5 Mg/3 Ml) 3 ml NEB Q4H PRN PRN Reason: Shortness of Breath Last Admin: 11/01/19 22:03 Dose: 3 ml Documented by: Aspirin (Aspirin) 81 mg PO Q48H [facility] Last Admin: 11/01/19 13:47 Dose: 81 mg Documented by: Citalopram Hydrobromide (Celexa) 40 mg PO DAILY [facility] Last Admin: 11/02/19 11:35 Dose: 40 mg Documented by: Dextrose (Glutose 15) 15 gm PO ONETIME PRN PRN Reason: Hypoglycemia Dextrose/Water (Dextrose 50% In Water) 50 ml IV ONETIME PRN PRN Reason: Hypoglycemia Gabapentin (Neurontin) 300 mg PO BEDTIME [facility] Last Admin: 11/01/19 21:57 Dose: 300 mg Documented by: Hydralazine HCl (Apresoline) 10 mg PO TID [facility] Last Admin: 11/02/19 11:34 Dose: 10 mg Documented by: Insulin Human Lispro (Humalog) 0 unit SUBCUT QIDACANDBED [facility]; Protocol Last Admin: 11/02/19 12:02 Dose: 2 unit Documented by: Losartan Potassium (Cozaar) 50 mg PO DAILY [facility] Last Admin: 11/02/19 11:34 Dose: 50 mg Documented by: Melatonin (Melatonin) 9 mg PO BEDTIME [facility] Last Admin: 11/01/19 21:56 Dose: 9 mg Documented by: Metoprolol Succinate (Toprol Xl) 100 mg PO DAILY [facility] Last Admin: 11/02/19 11:35 Dose: 100 mg Documented by: Ondansetron HCl (Zofran) 4 mg IV Q4H PRN PRN Reason: Nausea/Vomiting Pantoprazole Sodium (Protonix) 40 mg PO BIDAC [facility] Last Admin: 11/02/19 11:35 Dose: 40 mg Documented by: Polyethylene Glycol (Miralax) 17 gm PO DAILY PRN PRN Reason: Constipation Pravastatin Sodium (Pravachol) 10 mg PO BEDTIME [facility] Last Admin: 11/01/19 21:57 Dose: 10 mg Documented by: Sodium Chloride (Saline Flush) 10 ml FLUSH ASDIRECTED PRN PRN Reason: Keep Vein Open Torsemide (Demadex) 40 mg PO ONETIME ONE Stop: 11/02/19 15:01 Torsemide (Demadex) 40 mg PO DAILY [facility] Discontinued Medications Aminophylline (Aminophylline) 125 mg IVPUSH ONETIME PRN PRN Reason: LEXISCAN REVERSAL Stop: 11/02/19 14:00 Bisacodyl (Dulcolax) 10 mg PO ONETIME ONE Stop: 10/30/19 12:17 Last Admin: 10/30/19 15:00 Dose: 10 mg Documented by: Bisacodyl (Dulcolax) 10 mg PO ONETIME ONE Stop: 10/30/19 20:01 Last Admin: 10/30/19 20:27 Dose: 10 mg Documented by: Citalopram Hydrobromide (Celexa) 40 mg PO BEDTIME [facility] Last Admin: 10/26/19 21:47 Dose: Not Given Documented by: Enoxaparin Sodium (Lovenox) 30 mg SUBCUT Q24H [facility] Last Admin: 10/29/19 13:52 Dose: 30 mg Documented by: Fentanyl (Sublimaze) Confirm Administered Dose 100 mcg .ROUTE .STK-MED ONE Stop: 10/30/19 07:34 Fentanyl (Sublimaze) Confirm Administered Dose 100 mcg .ROUTE .STK-MED ONE Stop: 10/31/19 07:07 Furosemide (Lasix) 60 mg IVPUSH NOW ONE Stop: 10/31/19 14:16 Last Admin: 10/31/19 15:26 Dose: 60 mg Documented by: Glimepiride (Amaryl) 2 mg PO BIDMEALS [facility] Last Admin: 10/28/19 11:53 Dose: Not Given Documented by: Glycopyrrolate (Glycopyrrolate) 0.4 mg IVPUSH ONETIME ONE Stop: 10/30/19 07:40 Last Admin: 10/30/19 07:56 Dose: 0.4 mg Documented by: Hydralazine HCl (Apresoline) 10 mg IVPUSH ONETIME ONE Stop: 10/31/19 02:41 Last Admin: 10/31/19 02:48 Dose: 10 mg Documented by: Sodium Chloride (Normal Saline) 1,000 mls @ 100 mls/hr IV ASDIRECTED [facility] Last Admin: 10/27/19 03:17 Dose: 100 mls/hr Documented by: Dextrose/Lactated Ringer's (Dextrose 5%-Lactated Ringers) 1,000 mls @ 125 mls/hr IV ASDIRECTED [facility] Last Admin: 10/30/19 09:38 Dose: 125 mls/hr Documented by: Dextrose/Lactated Ringer's (Dextrose 5%-Lactated Ringers) 1,000 mls @ 100 mls/hr IV ASDIRECTED [facility] Last Admin: 10/31/19 12:53 Dose: 100 mls/hr Documented by: Lactated Ringer's (Ringers, Lactated) Confirm Administered Dose 1,000 mls @ as directed .ROUTE .STK-MED ONE Stop: 10/31/19 10:41 Insulin Human Lispro (Humalog) 0 unit SUBCUT QIDACANDBED [facility]; Protocol Last Admin: 10/28/19 08:08 Dose: Not Given Documented by: Insulin Human NPH (Humulin N) 26 unit SUBCUT BID@0700,1730 [facility] Last Admin: 10/28/19 08:08 Dose: Not Given Documented by: Insulin Human NPH (Humulin N) 18 unit SUBCUT ONETIME ONE Stop: 10/27/19 08:46 Last Admin: 10/27/19 08:42 Dose: 18 unit Documented by: Insulin Human NPH (Humulin N) 18 unit SQ ONETIME ONE Stop: 10/27/19 17:53 Last Admin: 10/27/19 18:10 Dose: 18 unit Documented by: Insulin Human NPH (Humulin N) 12 unit SUBCUT BID@0700,1730 [facility] Last Admin: 10/29/19 08:15 Dose: Not Given Documented by: Insulin Human NPH (Humulin N) 18 unit SUBCUT DAILY [facility] Last Admin: 10/29/19 09:39 Dose: 18 unit Documented by: Losartan Potassium (Cozaar) 25 mg PO DAILY [facility] Last Admin: 10/27/19 08:35 Dose: 25 mg Documented by: Losartan Potassium (Cozaar) 50 mg PO DAILY [facility] Losartan Potassium (Cozaar) 25 mg PO ONETIME ONE Stop: 10/27/19 17:01 Losartan Potassium (Cozaar) 25 mg PO ONETIME ONE Stop: 10/27/19 17:01 Last Admin: 10/27/19 18:08 Dose: 25 mg Documented by: Midazolam HCl (Versed 1 Mg/Ml) Confirm Administered Dose 2 mg .ROUTE .STK-MED ONE Stop: 10/30/19 07:34 Midazolam HCl (Versed 1 Mg/Ml) Confirm Administered Dose 2 mg .ROUTE .STK-MED ONE Stop: 10/31/19 07:07 Ondansetron HCl (Zofran Odt) 4 mg PO ONETIME ONE Stop: 10/26/19 13:12 Last Admin: 10/26/19 13:47 Dose: 4 mg Documented by: Pantoprazole Sodium (Protonix) 40 mg PO ACBREAKFAST [facility] Last Admin: 10/27/19 08:34 Dose: 40 mg Documented by: Polyethylene Glycol (Miralax) 238 gm PO ONETIME ONE Stop: 10/30/19 17:01 Last Admin: 10/30/19 16:30 Dose: 238 gm Documented by: Propofol (Diprivan 20 Ml) Confirm Administered Dose 200 mg .ROUTE .STK-MED ONE Stop: 10/30/19 07:34 Propofol (Diprivan 20 Ml) Confirm Administered Dose 200 mg .ROUTE .STK-MED ONE Stop: 10/31/19 07:07 Propofol (Diprivan 20 Ml) Confirm Administered Dose 200 mg .ROUTE .STK-MED ONE Stop: 10/31/19 11:05 Regadenoson (Lexiscan) 0.4 mg IVPUSH ONETIME ONE Stop: 11/02/19 11:01 Last Admin: 11/02/19 10:07 Dose: 0.4 mg Documented by: Sodium Polystyrene Sulfonate (Kayexalate) 30 gm PO ONETIME ONE Stop: 10/26/19 14:01 Last Admin: 10/26/19 16:52 Dose: 30 gm Documented by: Sodium Polystyrene Sulfonate (Kayexalate) 15 gm PO ONETIME ONE Stop: 11/01/19 17:22 Last Admin: 11/01/19 18:05 Dose: 15 gm Documented by: Torsemide (Demadex) 20 mg PO DAILY [facility] Last Admin: 11/02/19 11:35 Dose: 20 mg Documented by: - Exam Quality Assessment: Supplemental Oxygen General: Alert, Oriented, Cooperative, No Acute Distress Neck: JVD Lungs: Clear to Auscultation, Normal Respiratory Effort Cardiovascular: Regular Rate, Regular Rhythm GI/Abdominal Exam: Soft, No Distention Extremities: Pedal Edema (bilateral from mid-ramirez distally ). No: Increased Warmth Skin: Warm, Dry Psy/Mental Status: Alert, Normal Affect Sepsis Event Note - Evaluation Sepsis Screening Result: No Definite Risk - Focused Exam Vital Signs: Vital Signs Temp Pulse Pulse Resp BP BP Pulse Ox 11/02/19 14:43 35.8 C L 76 14 162/80 H 96 11/02/19 11:35 86 154/72 H 11/02/19 11:34 154/72 H 11/02/19 10:25 86 16 154/72 H 11/02/19 09:50 18 155/86 H 94 L 11/02/19 07:40 98 11/02/19 04:40 184/86 H 11/02/19 04:39 36.1 C 67 18 96 - Problem List Review Problem List Initiated/Reviewed/Updated: Yes - My Orders Last 24 Hours: My Active Orders 11/02/19 14:50 Discontinue Telemetry Monitoring [Cardiac Monitoring Discontinue] [RC] Click to Edit 11/02/19 15:00 Torsemide [Demadex] 40 mg PO ONETIME ONE 11/03/19 05:00 BASIC METABOLIC PANEL,BMP [CHEM] Timed 11/03/19 09:00 Torsemide [Demadex] 40 mg PO DAILY - Plan Plan:: ASSESSMENT AND PLAN - SYSTOLIC CONGESTIVE HEART FAILURE-recent echo shows improvement left ventricular function although still low at 45 to 50% ejection fraction. EF on the stress test today was in the mid 30s and there was some dilation of the left ventricle. I suspect systolic heart failure is most of the reason for his symptoms. -Continue beta-fatoumata therapy and ARB -Increase torsemide dosing to 40 mg twice daily -Daily weights HYPERTENSION-blood pressure control has improved -Continue current beta-fatoumata therapy -losartan 50 mg daily -Hydralazine 10 mg 3 times daily EPIGASTRIC ABDOMINAL PAIN-EGD was unremarkable, colonoscopy showed only a small polyp, no other obvious source of pain or bleeding ANEMIA-hemoglobin stable. No obvious source of blood loss. Could be related to chronic kidney disease. -Recheck hemoglobin in a.m. STATUS POST AORTIC VALVE REPLACEMENT CHRONIC KIDNEY DISEASE STAGE IIIb-creatinine not quite as good his baseline but stable to slightly improved. -Monitor urine output and renal function TYPE 2 DIABETES MELLITUS-blood sugars have been better with recent changes. -hold Amaryl -Hold NPH insulin -4 times daily glucometers -Moderate dose sliding scale Humalog DIABETIC FOOT ULCER LEFT FOOT-status post surgery few weeks ago, appears to be healing -Continue current management HYPERKALEMIA-improved today after a dose of Kayexalate yesterday. -Reassess potassium later this afternoon and in a.m. MAINTENANCE ISSUES -DVT prophylaxis; Lovenox 40 mg subcu daily -GI prophylaxis; Protonix as above -Horan catheter; not indicated -Nutrition; consistent carb diet DISPOSITION-anticipate discharge to home after the hospital stay. Keon Flores MD
[2019-11-02] MEDS ORDERED: Torsemide 20 MG Tab PO ONE (15:00)
--- NOTE | 2019-11-02 19:31 | STRESS ---
DATE OF SERVICE: 11/02/2019 PROPOSED PROCEDURE: Lexiscan stress test. INDICATION FOR STRESS TEST: Dyspnea on exertion. PROCEDURE IN DETAIL: Дмитрий is a 68-year-old male here as an inpatient for a Lexiscan stress test. His baseline EKG shows a ventricular paced rhythm with a heart rate of 67. Baseline blood pressure is 155/86 with pulse of 61. The stress test was administered per the protocol with injection of Lexiscan followed by the Myoview. Review of the continuous EKG monitoring showed no significant changes in the ST segments or T-waves during the stress or recovery portion of the test. His blood pressure remained relatively stable throughout the course of the test. His heart rate did rise to a maximum of 89 at the 2-minute rodrick of recovery. Review of the pharmacy picking technician's notes suggest that he did have some shortness of breath in the early recovery phase as well as a mild headache, but these resolved without need for medication intervention. After the test, his blood pressure was 152/72 and his pulse is 85. IMPRESSION: Negative EKG portion of the stress test. Patient did have mild shortness of breath but no chest pain. The nuclear medicine portion will be interpreted separately. Keon Flores MD /[id number]
[2019-11-02] MEDS: Melatonin 3 MG Tab PO SCH (21:28)
[2019-11-02] MEDS: Pravastatin 20 MG Tab PO SCH (21:29)
[2019-11-02] MEDS: Gabapentin 300 MG Cap PO SCH (21:29)
[2019-11-03] MEDS: Insulin Lispro 100 Unit/ML 3 ML KwikPen SUBCUT SCH ×4 (09:02→21:18)
[2019-11-03] MEDS: Citalopram 20 MG Tab PO SCH (09:03)
[2019-11-03] MEDS: Pantoprazole 40 MG Tab.CR PO SCH ×2 (09:03→16:08)
[2019-11-03] MEDS: Torsemide 20 MG Tab PO SCH (09:03)
[2019-11-03] MEDS: Losartan 50 MG Tab PO SCH (09:05)
[2019-11-03] MEDS: Metoprolol Succinate 50 MG Tab.ER PO SCH (09:09)
[2019-11-03] MEDS: hydrALAZINE 25 MG Tab PO SCH ×3 (09:13→20:18)
[2019-11-03] MEDS: Aspirin 81 MG Tab.Chew PO SCH (13:07)
--- NOTE | 2019-11-03 14:47 | PCM.PN ---
- General Info Date of Service: 11/03/19 Subjective Update: No acute events overnight. Feeling much better today after getting some fluid off with increased diuresis yesterday. Shortness of breath is much better. He was able to walk twice is far today. Lower extremity edema is better but not resolved. No chest pains. Blood sugars have been well controlled. Kidney function stable. Potassium better. Functional Status: Reports: Pain Controlled, Tolerating Diet - Review of Systems Pulmonary: Denies: Shortness of Breath - Patient Data Vitals - Most Recent: Last Vital Signs Temp 35.5 C L 11/03/19 11:00 Pulse 61 11/03/19 11:00 Resp 18 11/03/19 11:00 BP 130/77 11/03/19 13:07 Pulse Ox 97 11/03/19 11:00 Weight - Most Recent: 130 kg I&O - Last 24 Hours: Intake & Output 11/02/19 11/03/19 11/03/19 22:59 06:59 14:59 Intake Total 480 Output Total 3689 [id number] [id number] Balance -1700 -450 -820 Lab Results Last 24 Hours: Laboratory Results - last 24 hr 11/02/19 11/02/19 11/03/19 Range/Units 16:30 21:00 05:35 Sodium 141 (140-148) mmol/L Potassium 5.0 (3.6-5.2) mmol/L Chloride 108 (100-108) mmol/L Carbon Dioxide 23 (21-32) mmol/L Anion Gap 9.8 (5.0-14.0) mmol/L BUN 43 H (7-18) mg/dL Creatinine 1.9 H (0.8-1.3) mg/dL Est Cr Clr Drug Dosing 36.06 mL/min Estimated GFR (MDRD) 35 L (>60) Glucose 120 H (74-106) mg/dL POC Glucose 177 H 151 H (74-106) MG/DL Calcium 8.6 (8.5-10.1) mg/dL 11/03/19 11/03/19 Range/Units 07:50 11:40 Sodium (140-148) mmol/L Potassium (3.6-5.2) mmol/L Chloride (100-108) mmol/L Carbon Dioxide (21-32) mmol/L Anion Gap (5.0-14.0) mmol/L BUN (7-18) mg/dL Creatinine (0.8-1.3) mg/dL Est Cr Clr Drug Dosing mL/min Estimated GFR (MDRD) (>60) Glucose (74-106) mg/dL POC Glucose 118 H 174 H (74-106) MG/DL Calcium (8.5-10.1) mg/dL Med Orders - Current: Current Medications Acetaminophen (Tylenol) 650 mg PO Q4H PRN PRN Reason: Pain (Mild 1-3)/fever Last Admin: 10/26/19 22:07 Dose: 650 mg Documented by: Albuterol/Ipratropium (Duoneb 3.0-0.5 Mg/3 Ml) 3 ml NEB Q4H PRN PRN Reason: Shortness of Breath Last Admin: 11/01/19 22:03 Dose: 3 ml Documented by: Aspirin (Aspirin) 81 mg PO Q48H [facility] Last Admin: 11/03/19 13:07 Dose: 81 mg Documented by: Citalopram Hydrobromide (Celexa) 40 mg PO DAILY [facility] Last Admin: 11/03/19 09:03 Dose: 40 mg Documented by: Dextrose (Glutose 15) 15 gm PO ONETIME PRN PRN Reason: Hypoglycemia Dextrose/Water (Dextrose 50% In Water) 50 ml IV ONETIME PRN PRN Reason: Hypoglycemia Gabapentin (Neurontin) 300 mg PO BEDTIME [facility] Last Admin: 11/02/19 21:29 Dose: 300 mg Documented by: Hydralazine HCl (Apresoline) 25 mg PO TID [facility] Last Admin: 11/03/19 13:07 Dose: 25 mg Documented by: Insulin Human Lispro (Humalog) 0 unit SUBCUT QIDACANDBED [facility]; Protocol Last Admin: 11/03/19 13:04 Dose: 1 unit Documented by: Losartan Potassium (Cozaar) 50 mg PO DAILY [facility] Last Admin: 11/03/19 09:05 Dose: 50 mg Documented by: Melatonin (Melatonin) 9 mg PO BEDTIME [facility] Last Admin: 11/02/19 21:28 Dose: 9 mg Documented by: Metoprolol Succinate (Toprol Xl) 100 mg PO DAILY [facility] Last Admin: 11/03/19 09:09 Dose: 100 mg Documented by: Ondansetron HCl (Zofran) 4 mg IV Q4H PRN PRN Reason: Nausea/Vomiting Pantoprazole Sodium (Protonix) 40 mg PO BIDAC [facility] Last Admin: 11/03/19 09:03 Dose: 40 mg Documented by: Polyethylene Glycol (Miralax) 17 gm PO DAILY PRN PRN Reason: Constipation Pravastatin Sodium (Pravachol) 10 mg PO BEDTIME [facility] Last Admin: 11/02/19 21:29 Dose: 10 mg Documented by: Sodium Chloride (Saline Flush) 10 ml FLUSH ASDIRECTED PRN PRN Reason: Keep Vein Open Torsemide (Demadex) 40 mg PO DAILY [facility] Last Admin: 11/03/19 09:03 Dose: 40 mg Documented by: Torsemide (Demadex) 40 mg PO ONETIME ONE Stop: 11/03/19 14:46 Discontinued Medications Aminophylline (Aminophylline) 125 mg IVPUSH ONETIME PRN PRN Reason: LEXISCAN REVERSAL Stop: 11/02/19 14:00 Bisacodyl (Dulcolax) 10 mg PO ONETIME ONE Stop: 10/30/19 12:17 Last Admin: 10/30/19 15:00 Dose: 10 mg Documented by: Bisacodyl (Dulcolax) 10 mg PO ONETIME ONE Stop: 10/30/19 20:01 Last Admin: 10/30/19 20:27 Dose: 10 mg Documented by: Citalopram Hydrobromide (Celexa) 40 mg PO BEDTIME [facility] Last Admin: 10/26/19 21:47 Dose: Not Given Documented by: Enoxaparin Sodium (Lovenox) 30 mg SUBCUT Q24H [facility] Last Admin: 10/29/19 13:52 Dose: 30 mg Documented by: Fentanyl (Sublimaze) Confirm Administered Dose 100 mcg .ROUTE .STK-MED ONE Stop: 10/30/19 07:34 Fentanyl (Sublimaze) Confirm Administered Dose 100 mcg .ROUTE .STK-MED ONE Stop: 10/31/19 07:07 Furosemide (Lasix) 60 mg IVPUSH NOW ONE Stop: 10/31/19 14:16 Last Admin: 10/31/19 15:26 Dose: 60 mg Documented by: Glimepiride (Amaryl) 2 mg PO BIDMEALS [facility] Last Admin: 10/28/19 11:53 Dose: Not Given Documented by: Glycopyrrolate (Glycopyrrolate) 0.4 mg IVPUSH ONETIME ONE Stop: 10/30/19 07:40 Last Admin: 10/30/19 07:56 Dose: 0.4 mg Documented by: Hydralazine HCl (Apresoline) 10 mg PO TID [facility] Last Admin: 11/02/19 21:28 Dose: 10 mg Documented by: Hydralazine HCl (Apresoline) 10 mg IVPUSH ONETIME ONE Stop: 10/31/19 02:41 Last Admin: 10/31/19 02:48 Dose: 10 mg Documented by: Sodium Chloride (Normal Saline) 1,000 mls @ 100 mls/hr IV ASDIRECTED [facility] Last Admin: 10/27/19 03:17 Dose: 100 mls/hr Documented by: Dextrose/Lactated Ringer's (Dextrose 5%-Lactated Ringers) 1,000 mls @ 125 mls/hr IV ASDIRECTED [facility] Last Admin: 10/30/19 09:38 Dose: 125 mls/hr Documented by: Dextrose/Lactated Ringer's (Dextrose 5%-Lactated Ringers) 1,000 mls @ 100 mls/hr IV ASDIRECTED [facility] Last Admin: 10/31/19 12:53 Dose: 100 mls/hr Documented by: Lactated Ringer's (Ringers, Lactated) Confirm Administered Dose 1,000 mls @ as directed .ROUTE .STK-MED ONE Stop: 10/31/19 10:41 Insulin Human Lispro (Humalog) 0 unit SUBCUT QIDACANDBED [facility]; Protocol Last Admin: 10/28/19 08:08 Dose: Not Given Documented by: Insulin Human NPH (Humulin N) 26 unit SUBCUT BID@0700,1730 [facility] Last Admin: 10/28/19 08:08 Dose: Not Given Documented by: Insulin Human NPH (Humulin N) 18 unit SUBCUT ONETIME ONE Stop: 10/27/19 08:46 Last Admin: 10/27/19 08:42 Dose: 18 unit Documented by: Insulin Human NPH (Humulin N) 18 unit SQ ONETIME ONE Stop: 10/27/19 17:53 Last Admin: 10/27/19 18:10 Dose: 18 unit Documented by: Insulin Human NPH (Humulin N) 12 unit SUBCUT BID@0700,1730 [facility] Last Admin: 10/29/19 08:15 Dose: Not Given Documented by: Insulin Human NPH (Humulin N) 18 unit SUBCUT DAILY [facility] Last Admin: 10/29/19 09:39 Dose: 18 unit Documented by: Losartan Potassium (Cozaar) 25 mg PO DAILY [facility] Last Admin: 10/27/19 08:35 Dose: 25 mg Documented by: Losartan Potassium (Cozaar) 50 mg PO DAILY [facility] Losartan Potassium (Cozaar) 25 mg PO ONETIME ONE Stop: 10/27/19 17:01 Losartan Potassium (Cozaar) 25 mg PO ONETIME ONE Stop: 10/27/19 17:01 Last Admin: 10/27/19 18:08 Dose: 25 mg Documented by: Midazolam HCl (Versed 1 Mg/Ml) Confirm Administered Dose 2 mg .ROUTE .STK-MED ONE Stop: 10/30/19 07:34 Midazolam HCl (Versed 1 Mg/Ml) Confirm Administered Dose 2 mg .ROUTE .STK-MED ONE Stop: 10/31/19 07:07 Ondansetron HCl (Zofran Odt) 4 mg PO ONETIME ONE Stop: 10/26/19 13:12 Last Admin: 10/26/19 13:47 Dose: 4 mg Documented by: Pantoprazole Sodium (Protonix) 40 mg PO ACBREAKFAST [facility] Last Admin: 10/27/19 08:34 Dose: 40 mg Documented by: Polyethylene Glycol (Miralax) 238 gm PO ONETIME ONE Stop: 10/30/19 17:01 Last Admin: 10/30/19 16:30 Dose: 238 gm Documented by: Propofol (Diprivan 20 Ml) Confirm Administered Dose 200 mg .ROUTE .STK-MED ONE Stop: 10/30/19 07:34 Propofol (Diprivan 20 Ml) Confirm Administered Dose 200 mg .ROUTE .STK-MED ONE Stop: 10/31/19 07:07 Propofol (Diprivan 20 Ml) Confirm Administered Dose 200 mg .ROUTE .STK-MED ONE Stop: 10/31/19 11:05 Regadenoson (Lexiscan) 0.4 mg IVPUSH ONETIME ONE Stop: 11/02/19 11:01 Last Admin: 11/02/19 10:07 Dose: 0.4 mg Documented by: Sodium Polystyrene Sulfonate (Kayexalate) 30 gm PO ONETIME ONE Stop: 10/26/19 14:01 Last Admin: 10/26/19 16:52 Dose: 30 gm Documented by: Sodium Polystyrene Sulfonate (Kayexalate) 15 gm PO ONETIME ONE Stop: 11/01/19 17:22 Last Admin: 11/01/19 18:05 Dose: 15 gm Documented by: Torsemide (Demadex) 20 mg PO DAILY [facility] Last Admin: 11/02/19 11:35 Dose: 20 mg Documented by: Torsemide (Demadex) 40 mg PO ONETIME ONE Stop: 11/02/19 15:01 Last Admin: 11/02/19 15:06 Dose: 40 mg Documented by: - Exam Quality Assessment: No: Supplemental Oxygen General: Alert, Oriented, Cooperative, No Acute Distress Lungs: Clear to Auscultation, Normal Respiratory Effort Cardiovascular: Regular Rate, Regular Rhythm GI/Abdominal Exam: Soft, No Distention Extremities: Pedal Edema (mild bilateral ) Psy/Mental Status: Alert, Normal Affect Sepsis Event Note - Evaluation Sepsis Screening Result: No Definite Risk - Focused Exam Vital Signs: Vital Signs Temp Pulse Pulse Resp BP BP BP 11/03/19 13:07 130/77 11/03/19 11:00 35.5 C L 61 18 158/68 H 11/03/19 09:13 185/90 H 11/03/19 09:09 70 185/90 H 11/03/19 09:05 185/90 H 11/03/19 07:00 35.5 C L 64 16 189/87 H 11/03/19 03:05 36.1 C 59 L 18 170/81 H Pulse Ox 11/03/19 13:07 11/03/19 11:00 97 11/03/19 09:13 11/03/19 09:09 11/03/19 09:05 11/03/19 07:00 99 11/03/19 03:05 100 - Problem List Review Problem List Initiated/Reviewed/Updated: Yes - My Orders Last 24 Hours: My Active Orders 11/03/19 09:00 Torsemide [Demadex] 40 mg PO DAILY hydrALAZINE [Apresoline] 25 mg PO TID 11/03/19 14:45 Torsemide [Demadex] 40 mg PO ONETIME ONE 11/04/19 05:00 BASIC METABOLIC PANEL,BMP [CHEM] Timed - Plan Plan:: ASSESSMENT AND PLAN - SYSTOLIC CONGESTIVE HEART FAILURE-feeling better with increased diuresis. Edema is better. No longer requiring supplemental oxygen. Does still have some evidence for volume overload. -Continue beta-fatoumata therapy and ARB -Continue torsemide 40 mg twice daily -Daily weights HYPERTENSION-blood pressure has been moderately elevated. -Continue current beta-fatoumata therapy -losartan 50 mg daily -Increase hydralazine to 25 mg 3 times daily EPIGASTRIC ABDOMINAL PAIN-EGD was unremarkable, colonoscopy showed only a small polyp, no other obvious source of pain or bleeding ANEMIA-hemoglobin stable. No obvious source of blood loss. Could be related to chronic kidney disease. STATUS POST AORTIC VALVE REPLACEMENT CHRONIC KIDNEY DISEASE STAGE IIIb-creatinine stable. -Monitor urine output and renal function TYPE 2 DIABETES MELLITUS-blood sugars have been better with recent changes. Only requiring a few units of insulin each day. -hold Amaryl -Hold NPH insulin -4 times daily glucometers -Moderate dose sliding scale Humalog DIABETIC FOOT ULCER LEFT FOOT-status post surgery few weeks ago, appears to be healing -Continue current management HYPERKALEMIA-improved today after a dose of Kayexalate. -Reassess potassium in the morning MAINTENANCE ISSUES -DVT prophylaxis; Lovenox 40 mg subcu daily -GI prophylaxis; Protonix as above -Horan catheter; not indicated -Nutrition; consistent carb diet DISPOSITION-anticipate discharge to home after the hospital stay, possibly tomorrow if stable overnight. Keon Flores MD
[2019-11-03] MEDS ORDERED: Torsemide 20 MG Tab PO ONE (14:55)
[2019-11-03] MEDS: Pravastatin 20 MG Tab PO SCH (20:18)
[2019-11-03] MEDS: Gabapentin 300 MG Cap PO SCH (20:18)
[2019-11-03] MEDS: Melatonin 3 MG Tab PO SCH (22:21)
[2019-11-04] MEDS: Insulin Lispro 100 Unit/ML 3 ML KwikPen SUBCUT SCH ×2 (08:10→12:28)
[2019-11-04] MEDS: Losartan 50 MG Tab PO SCH (08:13)
[2019-11-04] MEDS: Citalopram 20 MG Tab PO SCH (08:13)
[2019-11-04] MEDS: hydrALAZINE 25 MG Tab PO SCH (08:13)
[2019-11-04] MEDS: Pantoprazole 40 MG Tab.CR PO SCH (08:13)
[2019-11-04] MEDS: Metoprolol Succinate 50 MG Tab.ER PO SCH (08:14)
[2019-11-04] MEDS: Torsemide 20 MG Tab PO SCH (08:14)
[2019-11-04 10:38] VITALS: BP 138/48; PULSE 70
--- NOTE | 2019-11-04 13:00 | PCM.DCSUM1 ---
Discharge Summary - Hospital Course Brief History: 68-year-old male with history of chronic systolic congestive heart failure, stage IIIb kidney disease, coronary artery disease, sleep apnea and insulin-dependent diabetes who presented with weakness and shortness of breath. He was admitted for management of shortness of breath/dyspnea on exertion of unclear etiology but concern for cardiac source. Diagnosis: Stroke: No - Discharge Data Discharge Date: 11/04/19 Discharge Disposition: Home, Self-Care 01 Condition: Good - Referral to Home Health Primary Care Physician: Christian Jack MD - Discharge Diagnosis/Problem(s) (1) Chronic systolic heart failure SNOMED Code(s): 356781419 ICD Code: I50.22 - CHRONIC SYSTOLIC (CONGESTIVE) HEART FAILURE Status: Chronic (2) CKD (chronic kidney disease), stage III SNOMED Code(s): 373458415 ICD Code: N18.3 - CHRONIC KIDNEY DISEASE, STAGE 3 (MODERATE) Status: Chronic (3) Type 2 diabetes mellitus SNOMED Code(s): 14013986 ICD Code: E11.9 - TYPE 2 DIABETES MELLITUS WITHOUT COMPLICATIONS Status: Chronic Qualifiers: Diabetes mellitus joint terminal attack controller insulin use: with fpc use Diabetes mellitus complication status: with other specified complication Qualified Code(s): E11.69 - Type 2 diabetes mellitus with other specified complication; Z79.4 - medical terminologist (current) use of insulin (4) Morbid obesity with BMI of 40.0-44.9, adult SNOMED Code(s): 071626022, 07959420679974 ICD Code: E66.01 - MORBID (SEVERE) OBESITY DUE TO EXCESS CALORIES; Z68.41 - BODY MASS INDEX (BMI) 40.0-44.9, ADULT Status: Chronic (5) CAD (coronary artery disease) SNOMED Code(s): 63995671 ICD Code: I25.10 - ATHSCL HEART DISEASE OF [place] CORONARY ARTERY W/O ANG PCTRS Status: Chronic Qualifiers: Coronary Disease-Associated Artery/Lesion type: [place] artery [place] vs. transplanted heart: [place] heart Associated angina: without angina Qualified Code(s): I25.10 - Atherosclerotic heart disease of [place] coronary artery without angina pectoris (6) BRENDA (obstructive sleep apnea) SNOMED Code(s): 57242805 ICD Code: G47.33 - OBSTRUCTIVE SLEEP APNEA (ADULT) (PEDIATRIC) Status: Chronic (7) Hyperkalemia SNOMED Code(s): 12879802 ICD Code: E87.5 - HYPERKALEMIA Status: Acute - Patient Summary/Data Consults: Consultations 10/26/19 13:44 PT Evaluation and Treatment [CONS] Routine Please Evaluate and Treat. PT Reason for Consult: Weakness This query below is only for informational purposes and is not editable. 10/29/19 14:15 Consult to Physician [CONS] Routine Consulting Provider: Agusto Carter Courtesy Call Completed to Consulting Physician: Yes Reason for Consult: Epigastric abdominal pain, anemia Hospital Course: Itch presented to the emergency room with progressive weakness, dyspnea as well as epigastric abdominal pain. He had a fairly impressive work-up in the [facility] room which did not reveal anything acute. He had a CT scan that did not show any acute findings. X-ray was clear. Laboratory studies were remarkable for mild anemia but kidney function was stable. With the epigastric pain and progression in his anemia there was some concern that he may have gastrointestinal pathology causing the drop in hemoglobin. With his weakness and dyspnea there was concerned that there may be some underlying condition such as a pulmonary embolism causing his trouble. He was admitted to the hospital for further work-up and management. The day after admission he did have a nuclear scan which showed a low probability for pulmonary embolism. Lower extremity Doppler ultrasound was unremarkable. He did initially receive some IV fluids with concern that there may be intravascular volume depletion. Initially he felt a little better following these interventions. Over the next couple of days his dyspnea returned and worsened. He was short of breath with more than minimal activity. He was hypoxic at times especially after activity. He was not having fevers and there is no obvious source for infection. He did have an echocardiogram which actually showed an improvement in his left ventricular function from the previous 1. There were no impressive valvular abnormalities. The cause for his shortness of breath seem to be elusive. Ultimately I think his shortness of breath was caused by a subacute exacerbation of systolic congestive heart failure. Evidence for volume overload based on examination led to an increase in his diuretics which led to a significant improvement in his symptoms over the course of the last few days of his hospital stay. At the time of discharge I think we have him euvolemic. I am going to increase his torsemide from 20 up to 40 mg daily. We had good diuresis using 40 mg twice daily while he was hospitalized. His kidney function has remained stable throughout the diuresis. Towards the end of the hospital stay we also completed a Lexiscan stress test to rule out any occult ischemia. This did show a moderate sized area of the anterior and septal wall from the mid portion of the heart towards the apex that had the appearance of a previous infarct. The patient reports that he was hospitalized about 1 year ago for a heart attack at [facility]. I suspect this is when the damage was done as he has not had any significant symptoms since that time. 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 He has not had any anginal symptoms. His dyspnea is dramatically better. His volume status is appropriate at this time and I believe he is on appropriate medical management for his heart failure. During the hospital stay we had some mild issues with hyperkalemia which responded well to a dose of Kayexalate and the changes in his diuretics. Potassium level has normalized and remained stable. Also during the hospital stay we noticed significant hypoglycemia. His diabetic medications were decreased and ultimately they were all discontinued. Despite these initial changes he remained hypoglycemic leading to the complete discontinuation. His blood sugars have been fairly well controlled without any insulin or medications. He is receiving a couple of units of supplemental insulin here and there but not enough to restart any insulin at this time. I encouraged him to keep track of his blood sugars 2 or 3 times a day and bring these to his follow-up appointment. He may need to go back on a very small amount of his insulin or possibly just his oral medication but at this point I encouraged him to not take any of his diabetic medications. Regarding the anemia and abdominal pain which were initially thought to be interconnected, he had an extensive work-up for occult blood loss including an EGD and a colonoscopy. These were both unremarkable. His hemoglobin drifted down slightly after admission but there is no evidence for bleeding. His hemoglobin has been stable and at an acceptable level so he has not required a blood transfusion. I suspect there may be some contribution from chronic disease/chronic inflammation with his diabetic foot ulcer that recently had surgery and also probably some contribution from his chronic kidney disease. His epigastric pain has resolved. His hemoglobin is stable. He will be following up routinely in the clinic. - Patient Instructions Diet: Heart Healthy Diet Activity: As Tolerated Driving: May Drive Today Showering/Bathing: May Shower Notify Provider of: Fever, Increased Pain Other/Special Instructions: 1. You were in the hospital for evaluation of shortness of breath/dyspnea with exertion. An extensive work-up was performed including CAT scans, ventilation/perfusion scanning, echocardiogram and a stress test. I suspect that your shortness of breath was related to acute on chronic systolic congestive heart failure. Your condition has been improving with diuretic therapy. We did not find any evidence for pulmonary infection or a blood clot in the lungs. I recommend that we increase your torsemide up to 40 mg daily. Please keep track of your weight daily and alert your provider if you have an increase of 2 pounds in a day or several pounds over 2 to 3 days. This could be a sign that you are retaining fluid. 2. During the hospital stay we noted that your blood sugars were quite low. We have stopped all of your diabetes medications at this time. For the time being I would recommend that you not take your insulin or oral diabetes medications. Please check your blood sugars 2-3 times daily and record these. You should bring these numbers to your follow-up appointment with Dr Christian Jack. If your blood sugar does rise consistently above 200 between now and your follow-up you should restart the oral medication. 3. Your blood pressure was running quite high during the course of the hospital stay. We have adjusted one medication and added a new medication with good results. We have increased your losartan to 50 mg daily. We also added hydralazine 25 mg 3 times daily. New prescriptions for these medications have been sent to your pharmacy. 4. As part of your work-up for the shortness of breath we completed a Lexiscan stress test. This raised concern that you have previously had a heart attack involving the anterior and septal wall of your heart from the middle towards the apex. It is unclear exactly when this occurred but my suspicion is that it happened 1 year ago when you were hospitalized for heart attack. I would encourage you to follow-up with your detailer furniture in the near future to review films and see if additional work-up such as an angiogram is necessary. 5. Follow up with Dr Christian Jack as prescribed. A repeat BMP on the day of the visit to recheck your potassium and kidney function would be a good idea. - Discharge Plan *PRESCRIPTION DRUG MONITORING PROGRAM REVIEWED*: Not Applicable *COPY OF PRESCRIPTION DRUG MONITORING REPORT IN PATIENT ARTURO: Not Applicable Prescriptions/Med Rec: hydrALAZINE [Apresoline] 25 mg PO TID #90 tablet Losartan [Cozaar] 50 mg PO DAILY #30 tablet Torsemide 40 mg PO DAILY #60 tablet Home Medications: Home Meds Aspirin [Sarah Chewable Aspirin] 81 mg PO Q48H 03/17/14 [History] Citalopram Hydrobromide [Celexa] 40 mg PO BEDTIME 03/17/14 [History] Cyanocobalamin (Vitamin B12) [Vitamin B12] 100 mcg PO DAILY 03/17/14 [History] Metoprolol Succinate [Toprol XL] 100 mg PO DAILY 03/17/14 [History] Multivitamin [Multi-Vitamin Daily] 1 tab PO DAILY 03/17/14 [History] Nitroglycerin [Nitrostat] 0.4 mg SL ASDIRECTED 03/17/14 [History] Vitamin B Complex [B Complex] 1 tab PO DAILY 03/17/14 [History] Fluticasone Propionate [Flonase] 2 spray NS DAILY 01/28/17 [History] [place]-3/DHA/Epa/Fish Oil [[place]-3 Fish Oil Softgel] 1 tab PO DAILY 01/28/17 [History] Gabapentin [Neurontin] 300 mg PO BEDTIME #30 cap 02/02/17 [Rx] Melatonin 10 mg PO DAILY 03/28/17 [History] Amoxicillin 500 mg PO ASDIRECTED 10/26/19 [History] Omeprazole 20 mg PO DAILY 10/26/19 [History] Pravastatin Sodium 10 mg PO BEDTIME 10/26/19 [History] Losartan [Cozaar] 50 mg PO DAILY #30 tablet 11/04/19 [Rx] Torsemide 40 mg PO DAILY #60 tablet 11/04/19 [Rx] hydrALAZINE [Apresoline] 25 mg PO TID #90 tablet 11/04/19 [Rx] Oxygen Therapy Mode: Room Air Patient Handouts: Hydralazine tablets, Living With Heart Failure, Low-Fiber Eating Plan Referrals: Gena Wilson RN [Registered Nurse] - 11/11/19 2:30 pm (If continuing to have lows please call Gena at [phone]) Christian Jack MD [Primary Care Provider] - 11/13/19 1:30 pm (Arrive 15 m inutes early to register for your appointment.) - Discharge Summary/Plan Comment DC Time >30 min.: Yes (40-heart failure counseling) - Patient Data Vitals - Most Recent: Last Vital Signs Temp 35.7 C L 11/04/19 10:35 Pulse 70 11/04/19 10:35 Resp 16 11/04/19 10:35 BP 138/48 L 11/04/19 10:35 Pulse Ox 95 11/04/19 10:35 Weight - Most Recent: 126.189 kg I&O - Last 24 hours: Intake & Output 11/03/19 11/04/19 11/04/19 22:59 06:59 14:59 Intake Total 400 1005 320 Output Total 1600 1525 450 Balance -1200 -520 -130 Lab Results - Last 24 hrs: Laboratory Results - last 24 hr 11/03/19 11/03/19 11/04/19 Range/Units 16:30 21:00 04:10 Sodium 140 (140-148) mmol/L Potassium 4.5 (3.6-5.2) mmol/L Chloride 105 (100-108) mmol/L Carbon Dioxide 24 (21-32) mmol/L Anion Gap 10.7 (5.0-14.0) mmol/L BUN 41 H (7-18) mg/dL Creatinine 2.1 H (0.8-1.3) mg/dL Est Cr Clr Drug Dosing 32.62 mL/min Estimated GFR (MDRD) 31 L (>60) Glucose 120 H (74-106) mg/dL POC Glucose 140 H 153 H (74-106) MG/DL Calcium 8.6 (8.5-10.1) mg/dL 11/04/19 11/04/19 Range/Units 07:38 11:38 Sodium (140-148) mmol/L Potassium (3.6-5.2) mmol/L Chloride (100-108) mmol/L Carbon Dioxide (21-32) mmol/L Anion Gap (5.0-14.0) mmol/L BUN (7-18) mg/dL Creatinine (0.8-1.3) mg/dL Est Cr Clr Drug Dosing mL/min Estimated GFR (MDRD) (>60) Glucose (74-106) mg/dL POC Glucose 124 H 150 H (74-106) MG/DL Calcium (8.5-10.1) mg/dL Med Orders - Current: Current Medications Acetaminophen (Tylenol) 650 mg PO Q4H PRN PRN Reason: Pain (Mild 1-3)/fever Last Admin: 10/26/19 22:07 Dose: 650 mg Documented by: Albuterol/Ipratropium (Duoneb 3.0-0.5 Mg/3 Ml) 3 ml NEB Q4H PRN PRN Reason: Shortness of Breath Last Admin: 11/01/19 22:03 Dose: 3 ml Documented by: Aspirin (Aspirin) 81 mg PO Q48H [facility] Last Admin: 11/03/19 13:07 Dose: 81 mg Documented by: Citalopram Hydrobromide (Celexa) 40 mg PO DAILY [facility] Last Admin: 11/04/19 08:13 Dose: 40 mg Documented by: Dextrose (Glutose 15) 15 gm PO ONETIME PRN PRN Reason: Hypoglycemia Dextrose/Water (Dextrose 50% In Water) 50 ml IV ONETIME PRN PRN Reason: Hypoglycemia Gabapentin (Neurontin) 300 mg PO BEDTIME [facility] Last Admin: 11/03/19 20:18 Dose: 300 mg Documented by: Hydralazine HCl (Apresoline) 25 mg PO TID [facility] Last Admin: 11/04/19 08:13 Dose: 25 mg Documented by: Insulin Human Lispro (Humalog) 0 unit SUBCUT QIDACANDBED [facility]; Protocol Last Admin: 11/04/19 12:28 Dose: Not Given Documented by: Losartan Potassium (Cozaar) 50 mg PO DAILY [facility] Last Admin: 11/04/19 08:13 Dose: 50 mg Documented by: Melatonin (Melatonin) 9 mg PO BEDTIME [facility] Last Admin: 11/03/19 22:21 Dose: 9 mg Documented by: Metoprolol Succinate (Toprol Xl) 100 mg PO DAILY [facility] Last Admin: 11/04/19 08:14 Dose: 100 mg Documented by: Ondansetron HCl (Zofran) 4 mg IV Q4H PRN PRN Reason: Nausea/Vomiting Pantoprazole Sodium (Protonix) 40 mg PO BIDAC [facility] Last Admin: 11/04/19 08:13 Dose: 40 mg Documented by: Polyethylene Glycol (Miralax) 17 gm PO DAILY PRN PRN Reason: Constipation Pravastatin Sodium (Pravachol) 10 mg PO BEDTIME [facility] Last Admin: 11/03/19 20:18 Dose: 10 mg Documented by: Sodium Chloride (Saline Flush) 10 ml FLUSH ASDIRECTED PRN PRN Reason: Keep Vein Open Torsemide (Demadex) 40 mg PO DAILY [facility] Last Admin: 11/04/19 08:14 Dose: 40 mg Documented by: Discontinued Medications Aminophylline (Aminophylline) 125 mg IVPUSH ONETIME PRN PRN Reason: LEXISCAN REVERSAL Stop: 11/02/19 14:00 Bisacodyl (Dulcolax) 10 mg PO ONETIME ONE Stop: 10/30/19 12:17 Last Admin: 10/30/19 15:00 Dose: 10 mg Documented by: Bisacodyl (Dulcolax) 10 mg PO ONETIME ONE Stop: 10/30/19 20:01 Last Admin: 10/30/19 20:27 Dose: 10 mg Documented by: Citalopram Hydrobromide (Celexa) 40 mg PO BEDTIME [facility] Last Admin: 10/26/19 21:47 Dose: Not Given Documented by: Enoxaparin Sodium (Lovenox) 30 mg SUBCUT Q24H [facility] Last Admin: 10/29/19 13:52 Dose: 30 mg Documented by: Fentanyl (Sublimaze) Confirm Administered Dose 100 mcg .ROUTE .STK-MED ONE Stop: 10/30/19 07:34 Fentanyl (Sublimaze) Confirm Administered Dose 100 mcg .ROUTE .STK-MED ONE Stop: 10/31/19 07:07 Furosemide (Lasix) 60 mg IVPUSH NOW ONE Stop: 10/31/19 14:16 Last Admin: 10/31/19 15:26 Dose: 60 mg Documented by: Glimepiride (Amaryl) 2 mg PO BIDMEALS [facility] Last Admin: 10/28/19 11:53 Dose: Not Given Documented by: Glycopyrrolate (Glycopyrrolate) 0.4 mg IVPUSH ONETIME ONE Stop: 10/30/19 07:40 Last Admin: 10/30/19 07:56 Dose: 0.4 mg Documented by: Hydralazine HCl (Apresoline) 10 mg PO TID [facility] Last Admin: 11/02/19 21:28 Dose: 10 mg Documented by: Hydralazine HCl (Apresoline) 10 mg IVPUSH ONETIME ONE Stop: 10/31/19 02:41 Last Admin: 10/31/19 02:48 Dose: 10 mg Documented by: Sodium Chloride (Normal Saline) 1,000 mls @ 100 mls/hr IV ASDIRECTED [facility] Last Admin: 10/27/19 03:17 Dose: 100 mls/hr Documented by: Dextrose/Lactated Ringer's (Dextrose 5%-Lactated Ringers) 1,000 mls @ 125 mls/hr IV ASDIRECTED [facility] Last Admin: 10/30/19 09:38 Dose: 125 mls/hr Documented by: Dextrose/Lactated Ringer's (Dextrose 5%-Lactated Ringers) 1,000 mls @ 100 mls/hr IV ASDIRECTED [facility] Last Admin: 10/31/19 12:53 Dose: 100 mls/hr Documented by: Lactated Ringer's (Ringers, Lactated) Confirm Administered Dose 1,000 mls @ as directed .ROUTE .STK-MED ONE Stop: 10/31/19 10:41 Insulin Human Lispro (Humalog) 0 unit SUBCUT QIDACANDBED [facility]; Protocol Last Admin: 10/28/19 08:08 Dose: Not Given Documented by: Insulin Human NPH (Humulin N) 26 unit SUBCUT BID@0700,1730 [facility] Last Admin: 10/28/19 08:08 Dose: Not Given Documented by: Insulin Human NPH (Humulin N) 18 unit SUBCUT ONETIME ONE Stop: 10/27/19 08:46 Last Admin: 10/27/19 08:42 Dose: 18 unit Documented by: Insulin Human NPH (Humulin N) 18 unit SQ ONETIME ONE Stop: 10/27/19 17:53 Last Admin: 10/27/19 18:10 Dose: 18 unit Documented by: Insulin Human NPH (Humulin N) 12 unit SUBCUT BID@0700,1730 [facility] Last Admin: 10/29/19 08:15 Dose: Not Given Documented by: Insulin Human NPH (Humulin N) 18 unit SUBCUT DAILY [facility] Last Admin: 10/29/19 09:39 Dose: 18 unit Documented by: Losartan Potassium (Cozaar) 25 mg PO DAILY [facility] Last Admin: 10/27/19 08:35 Dose: 25 mg Documented by: Losartan Potassium (Cozaar) 50 mg PO DAILY [facility] Losartan Potassium (Cozaar) 25 mg PO ONETIME ONE Stop: 10/27/19 17:01 Losartan Potassium (Cozaar) 25 mg PO ONETIME ONE Stop: 10/27/19 17:01 Last Admin: 10/27/19 18:08 Dose: 25 mg Documented by: Midazolam HCl (Versed 1 Mg/Ml) Confirm Administered Dose 2 mg .ROUTE .STK-MED ONE Stop: 10/30/19 07:34 Midazolam HCl (Versed 1 Mg/Ml) Confirm Administered Dose 2 mg .ROUTE .STK-MED ONE Stop: 10/31/19 07:07 Ondansetron HCl (Zofran Odt) 4 mg PO ONETIME ONE Stop: 10/26/19 13:12 Last Admin: 10/26/19 13:47 Dose: 4 mg Documented by: Pantoprazole Sodium (Protonix) 40 mg PO ACBREAKFAST [facility] Last Admin: 10/27/19 08:34 Dose: 40 mg Documented by: Polyethylene Glycol (Miralax) 238 gm PO ONETIME ONE Stop: 10/30/19 17:01 Last Admin: 10/30/19 16:30 Dose: 238 gm Documented by: Propofol (Diprivan 20 Ml) Confirm Administered Dose 200 mg .ROUTE .STK-MED ONE Stop: 10/30/19 07:34 Propofol (Diprivan 20 Ml) Confirm Administered Dose 200 mg .ROUTE .STK-MED ONE Stop: 10/31/19 07:07 Propofol (Diprivan 20 Ml) Confirm Administered Dose 200 mg .ROUTE .STK-MED ONE Stop: 10/31/19 11:05 Regadenoson (Lexiscan) 0.4 mg IVPUSH ONETIME ONE Stop: 11/02/19 11:01 Last Admin: 11/02/19 10:07 Dose: 0.4 mg Documented by: Sodium Polystyrene Sulfonate (Kayexalate) 30 gm PO ONETIME ONE Stop: 10/26/19 14:01 Last Admin: 10/26/19 16:52 Dose: 30 gm Documented by: Sodium Polystyrene Sulfonate (Kayexalate) 15 gm PO ONETIME ONE Stop: 11/01/19 17:22 Last Admin: 11/01/19 18:05 Dose: 15 gm Documented by: Torsemide (Demadex) 20 mg PO DAILY [facility] Last Admin: 11/02/19 11:35 Dose: 20 mg Documented by: Torsemide (Demadex) 40 mg PO ONETIME ONE Stop: 11/02/19 15:01 Last Admin: 11/02/19 15:06 Dose: 40 mg Documented by: Torsemide (Demadex) 40 mg PO ONETIME ONE Stop: 11/03/19 14:56 Last Admin: 11/03/19 16:08 Dose: 40 mg Documented by:
== END 2019-11-04 14:05 | disposition home or self-care (01) | DRG 291 ==
LOC: JP.ED 09:56 → JP.MS 12:04
PROVIDERS: ADMIT Hospitalist; ATTEND Internal Medicine
PROC: 0DB68ZX Excision of Stomach, Via Natural or Artificial Opening Endoscopic, Diagnostic (ICD-10-PCS; principal; 2019-10-30)
PROC: 0DBK8ZZ Excision of Ascending Colon, Via Natural or Artificial Opening Endoscopic (ICD-10-PCS; 2019-10-31)
DX: D64.9 Anemia, unspecified (principal); R06.02 Shortness of breath; I13.0 Hypertensive heart and chronic kidney disease with heart failure and stage 1 through stage 4 chronic kidney disease, or unspecified chronic kidney disease; I50.23 Acute on chronic systolic (congestive) heart failure; Z68.41 Body mass index [BMI] 40.0-44.9, adult; Z66 Do not resuscitate; I50.9 Heart failure, unspecified; J30.9 Allergic rhinitis, unspecified; H54.7 Unspecified visual loss; E78.00 Pure hypercholesterolemia, unspecified; I25.2 Old myocardial infarction; Z95.810 Presence of automatic (implantable) cardiac defibrillator; G47.30 Sleep apnea, unspecified; K21.9 Gastro-esophageal reflux disease without esophagitis; K44.9 Diaphragmatic hernia without obstruction or gangrene; M10.9 Gout, unspecified; E11.40 Type 2 diabetes mellitus with diabetic neuropathy, unspecified; I35.0 Nonrheumatic aortic (valve) stenosis; F41.9 Anxiety disorder, unspecified; E66.9 Obesity, unspecified; Z86.010 Personal history of colon polyps; E53.8 Deficiency of other specified B group vitamins; Z98.84 Bariatric surgery status; N18.3 Chronic kidney disease, stage 3 (moderate); E11.22 Type 2 diabetes mellitus with diabetic chronic kidney disease; I25.10 Atherosclerotic heart disease of native coronary artery without angina pectoris; G47.33 Obstructive sleep apnea (adult) (pediatric); Z79.4 Long term (current) use of insulin; E66.01 Morbid (severe) obesity due to excess calories; E87.5 Hyperkalemia; K63.5 Polyp of colon; K29.70 Gastritis, unspecified, without bleeding; D63.1 Anemia in chronic kidney disease; Z96.659 Presence of unspecified artificial knee joint; E11.649 Type 2 diabetes mellitus with hypoglycemia without coma; E11.621 Type 2 diabetes mellitus with foot ulcer; Z95.1 Presence of aortocoronary bypass graft; Z98.890 Other specified postprocedural states; Z98.1 Arthrodesis status; Z79.82 Long term (current) use of aspirin; Z79.899 Other long term (current) drug therapy; Z88.8 Allergy status to other drugs, medicaments and biological substances; Z20.828 Contact with and (suspected) exposure to other viral communicable diseases
CPT/HCPCS: 36415; 71046; 71046-26; 71250; 71250-26; 78452; 78582; 78582-26; 80048; 80053; 82272; 82962; 83615; 83735; 83880; 84100; 84484; 85018; 85025; 85379; 87081; 93017; 93306; 93970; 93970-26; 94640; 94762; 97110-GP; 97162-GP; 97530-GP; 99285; 99285-25; A9270-GY; A9500; A9539; A9540; J0360; J1650; J1815; J1815-GY; J1940; J2250; J2704; J2785; J3010; J3490; J7030; J7120; J7121; J7620-GY; U0002

== ENCOUNTER → 2021-11-28 | Day surgery (SDC) | payer MEDICARE, BC ==
[~2021-11-28] MED LIST changes: -Bupivacaine 0.5% 50 ML MDV ONE; +Midazolam 1 MG/ML 2 ML SDV ONE; +Propofol 200 MG/20 ML SDV ONE; +fentaNYL 100 MCG/2 ML SDV ONE
== END ==
LOC: JP.SDS 06:00
PROVIDERS: ATTEND Family Medicine
DX: Z12.11 Encounter for screening for malignant neoplasm of colon (principal); D12.2 Benign neoplasm of ascending colon; D12.3 Benign neoplasm of transverse colon; D12.4 Benign neoplasm of descending colon; I25.10 Atherosclerotic heart disease of native coronary artery without angina pectoris; E11.22 Type 2 diabetes mellitus with diabetic chronic kidney disease; I13.0 Hypertensive heart and chronic kidney disease with heart failure and stage 1 through stage 4 chronic kidney disease, or unspecified chronic kidney disease; I50.9 Heart failure, unspecified; N18.30 Chronic kidney disease, stage 3 unspecified; G47.33 Obstructive sleep apnea (adult) (pediatric); Z98.890 Other specified postprocedural states; Z79.02 Long term (current) use of antithrombotics/antiplatelets; Z86.010 Personal history of colon polyps
CPT/HCPCS: 45380; 88305; J2250; J2704; J3010

== ENCOUNTER 2022-02-19 22:15 | Emergency (ER) | payer MEDICARE, BC ==
[2022-02-19 23:08] LABS: ESTIMATED GFR 45 mL/min (>60)
[2022-02-19 23:36] VITALS: BP 179/83
[2022-02-19 23:37] VITALS: PULSE 76
== END 2022-02-19 23:50 | disposition home or self-care (01) ==
LOC: JP.ED 22:15
DX: R07.89 Other chest pain (principal); E11.9 Type 2 diabetes mellitus without complications; E66.9 Obesity, unspecified; Z88.8 Allergy status to other drugs, medicaments and biological substances; Z79.82 Long term (current) use of aspirin; Z79.899 Other long term (current) drug therapy
CPT/HCPCS: 36415; 80048; 84484; 85025; 93005; 93010; 99284; 99285

== ENCOUNTER 2022-03-19 09:03 | Emergency (ER) | payer MEDICARE, BC ==
[2022-03-19 10:56] LABS: ESTIMATED GFR 33 mL/min (>60); TROPONIN I HIGH SENSITIVITY 24.8 pg/mL (<=60.3)
[2022-03-19 11:30] LABS: CORONAVIRUS COVID-19 NAA NEGATIVE (NEGATIVE)
[2022-03-19 11:36] VITALS: BP 124/62; PULSE 81
[2022-03-19] MEDS ORDERED: Acetaminophen 500 MG Tab PO ONE (11:41)
== END 2022-03-19 12:14 | disposition home or self-care (01) ==
LOC: JP.ED 09:03
DX: J10.1 Influenza due to other identified influenza virus with other respiratory manifestations (principal); I11.0 Hypertensive heart disease with heart failure; I50.9 Heart failure, unspecified; I25.10 Atherosclerotic heart disease of native coronary artery without angina pectoris; E78.00 Pure hypercholesterolemia, unspecified; I25.2 Old myocardial infarction; E11.40 Type 2 diabetes mellitus with diabetic neuropathy, unspecified; E66.9 Obesity, unspecified; Z68.38 Body mass index [BMI] 38.0-38.9, adult; Z95.0 Presence of cardiac pacemaker; Z88.1 Allergy status to other antibiotic agents; Z88.8 Allergy status to other drugs, medicaments and biological substances; Z79.899 Other long term (current) drug therapy; Z20.822 Contact with and (suspected) exposure to COVID-19
CPT/HCPCS: 0241U; 36415; 71046; 80053; 84484; 85025; 99282; 99285; A9270

== ENCOUNTER 2022-07-08 09:10 | Emergency (ER) | payer MEDICARE, BC ==
[2022-07-08 09:29] VITALS: BP 133/65; PULSE 65
[2022-07-08] MEDS ORDERED: Sodium Chloride 0.9% 10 ML Syringe FLUSH PRN (09:53)
[2022-07-08] MEDS ORDERED: Ciprofloxacin 500 MG Tab PO ONE (09:56)
[2022-07-08] MEDS ORDERED: cefTRIAXone 2 GM in Sodium Chloride 0.9% 50 ML IV ONE (09:57)
[2022-07-08 10:06] LABS: BASOPHILS PERCENT AUTO 0.3 % (0.1-1.3); EOSINOPHILS ABSOLUTE AUTO 0.09 K/uL (0.00-0.40); EOSINOPHILS PERCENT AUTO 1.2 % (0.0-5.4); HEMATOCRIT 35.5 % (38.4-49.7); HEMOGLOBIN 12.4 g/dL (12.9-16.9); IMMATURE GRAN ABSOLUTE AUTO 0.03 K/uL (0.00-0.23); IMMATURE GRAN PERCENT AUTO 0.4 % (0.0-0.7); LYMPHOCYTES ABSOLUTE AUTO 0.88 K/uL (0.8-3.3); LYMPHOCYTES PERCENT AUTO 11.9 % (11.4-47.7); MEAN CORPUSCULAR HEMOGLOBIN 32.4 pg (31.6-35.5); MEAN CORPUSCULAR HGB CONC 34.9 g/dL (31.6-35.5); MEAN CORPUSCULAR VOLUME 92.7 fL (81.4-99.0); MONOCYTES ABSOLUTE AUTO 0.75 K/uL (0.20-0.90); MONOCYTES PERCENT AUTO 10.2 % (3.3-12.6); NEUTROPHILS ABSOLUTE AUTO 5.61 K/uL (1.0-7.6); PLATELET COUNT,PLT 128 K/uL (130-375); RED BLOOD CELL COUNT 3.83 M/uL (4.14-5.76); WHITE BLOOD CELL COUNT,WBC 7.4 K/uL (3.2-11.0)
[2022-07-08 10:07] LABS: BASOPHILS ABSOLUTE AUTO 0.02 K/uL (0.00-0.10)
[2022-07-08 10:19] LABS: ANION GAP 12.5 mmol/L (5.0-14.0); CREATININE 1.9 mg/dL (0.8-1.3); EST CRCL DRUG DOSING (CG) 34.63 mL/min; POTASSIUM,K 4.5 mmol/L (3.6-5.2)
== END 2022-07-08 11:22 | disposition home or self-care (01) ==
LOC: JP.ED 09:10
DX: L03.116 Cellulitis of left lower limb (principal); I13.0 Hypertensive heart and chronic kidney disease with heart failure and stage 1 through stage 4 chronic kidney disease, or unspecified chronic kidney disease; E11.22 Type 2 diabetes mellitus with diabetic chronic kidney disease; N18.9 Chronic kidney disease, unspecified; I50.9 Heart failure, unspecified; I25.10 Atherosclerotic heart disease of native coronary artery without angina pectoris; E78.00 Pure hypercholesterolemia, unspecified; I25.2 Old myocardial infarction; K21.9 Gastro-esophageal reflux disease without esophagitis; M10.9 Gout, unspecified; E66.9 Obesity, unspecified; Z88.8 Allergy status to other drugs, medicaments and biological substances; Z88.1 Allergy status to other antibiotic agents; Z79.82 Long term (current) use of aspirin; Z79.899 Other long term (current) drug therapy
CPT/HCPCS: 36415; 73620; 80048; 85025; 96365; 99283; A9270; J0696; J3490

== ENCOUNTER 2023-09-29 09:44 | Emergency (ER) | payer MEDICARE, BC ==
[2023-09-29 11:05] VITALS: BP 153/64; PULSE 60
== END 2023-09-29 11:42 | disposition home or self-care (01) ==
LOC: JP.ED 09:44
DX: L03.116 Cellulitis of left lower limb (principal); I11.0 Hypertensive heart disease with heart failure; I50.9 Heart failure, unspecified; I25.2 Old myocardial infarction; I25.10 Atherosclerotic heart disease of native coronary artery without angina pectoris; E78.00 Pure hypercholesterolemia, unspecified; Z95.0 Presence of cardiac pacemaker; K21.9 Gastro-esophageal reflux disease without esophagitis; E11.40 Type 2 diabetes mellitus with diabetic neuropathy, unspecified; Z95.1 Presence of aortocoronary bypass graft; Z88.8 Allergy status to other drugs, medicaments and biological substances; Z79.82 Long term (current) use of aspirin; Z79.899 Other long term (current) drug therapy
CPT/HCPCS: 99283

== ENCOUNTER 2024-01-23 07:04 | Day surgery (SDC) | payer MEDICARE, BC ==
[2024-01-23] MEDS: Sodium Chloride 0.9% 10 ML Syringe FLUSH ONE (07:36)
[2024-01-23 09:10] VITALS: BP 172/77; PULSE 54
== END 2024-01-23 09:16 | disposition home or self-care (01) ==
LOC: JP.SDS 07:04
PROVIDERS: ATTEND Ophthalmology
DX: H25.11 Age-related nuclear cataract, right eye (principal); I13.0 Hypertensive heart and chronic kidney disease with heart failure and stage 1 through stage 4 chronic kidney disease, or unspecified chronic kidney disease; I50.9 Heart failure, unspecified; N18.9 Chronic kidney disease, unspecified; I25.10 Atherosclerotic heart disease of native coronary artery without angina pectoris
CPT/HCPCS: 66984; 82947; V2632

== ENCOUNTER 2024-02-08 13:10 | Emergency (ER) | payer MEDICARE, BC ==
[2024-02-08 13:42] VITALS: BP 131/56; PULSE 63
== END 2024-02-08 14:17 | disposition home or self-care (01) ==
LOC: JP.ED 13:10
DX: U07.1 COVID-19 (principal); I25.10 Atherosclerotic heart disease of native coronary artery without angina pectoris; I25.2 Old myocardial infarction; I11.0 Hypertensive heart disease with heart failure; I50.9 Heart failure, unspecified; E78.00 Pure hypercholesterolemia, unspecified; K21.9 Gastro-esophageal reflux disease without esophagitis; E11.42 Type 2 diabetes mellitus with diabetic polyneuropathy; E66.9 Obesity, unspecified; Z96.659 Presence of unspecified artificial knee joint; Z88.8 Allergy status to other drugs, medicaments and biological substances; Z79.4 Long term (current) use of insulin; Z79.82 Long term (current) use of aspirin; Z79.899 Other long term (current) drug therapy
CPT/HCPCS: 87428-QW; 99283

== ENCOUNTER 2024-03-05 07:15 | Day surgery (SDC) | payer MEDICARE, BC ==
[2024-03-05] MEDS: Sodium Chloride 0.9% 10 ML Syringe FLUSH PRN (08:05)
[2024-03-05 09:18] VITALS: BP 109/57; PULSE 56
== END 2024-03-05 09:05 | disposition home or self-care (01) ==
LOC: JP.SDS 07:15
PROVIDERS: ATTEND Ophthalmology
DX: E11.36 Type 2 diabetes mellitus with diabetic cataract (principal); H25.12 Age-related nuclear cataract, left eye; E78.5 Hyperlipidemia, unspecified; I12.9 Hypertensive chronic kidney disease with stage 1 through stage 4 chronic kidney disease, or unspecified chronic kidney disease; N18.30 Chronic kidney disease, stage 3 unspecified
CPT/HCPCS: V2632

== ENCOUNTER 2024-07-21 22:01 | Emergency (ER) | payer MEDICARE, BC ==
[2024-07-21] MEDS ORDERED: VANCOmycin 1 GM in Sodium Chloride 0.9% 250 ML IV ONE (23:15)
[2024-07-21 23:33] LABS: BASOPHILS ABSOLUTE AUTO 0.03 K/uL (0.00-0.10); BASOPHILS PERCENT AUTO 0.3 % (0.1-1.3); EOSINOPHILS ABSOLUTE AUTO 0.03 K/uL (0.00-0.40); EOSINOPHILS PERCENT AUTO 0.3 % (0.0-5.4); HEMATOCRIT 35.9 % (38.4-49.7); HEMOGLOBIN 12.2 g/dL (12.9-16.9); IMMATURE GRAN ABSOLUTE AUTO 0.04 K/uL (0.00-0.23); IMMATURE GRAN PERCENT AUTO 0.5 % (0.0-0.7); LYMPHOCYTES ABSOLUTE AUTO 0.47 K/uL (0.8-3.3); LYMPHOCYTES PERCENT AUTO 5.4 % (11.4-47.7); MEAN CORPUSCULAR HEMOGLOBIN 33.1 pg (31.6-35.5); MEAN CORPUSCULAR VOLUME 97.3 fL (81.4-99.0); MONOCYTES PERCENT AUTO 9.3 % (3.3-12.6); NEUTROPHILS ABSOLUTE AUTO 7.26 K/uL (1.0-7.6); NEUTROPHILS PERCENT AUTO 84.2 % (40.0-78.1); PLATELET COUNT,PLT 108 K/uL (130-375); RED BLOOD CELL COUNT 3.69 M/uL (4.14-5.76); WHITE BLOOD CELL COUNT,WBC 8.6 K/uL (3.2-11.0)
[2024-07-22 00:01] LABS: A/G RATIO 0.7 (1.2-2.2); ALANINE AMINOTRANSFERASE,ALT 21 U/L (12-78); ALBUMIN 2.8 g/dL (3.4-5.0); ALKALINE PHOSPHATASE 103 U/L (46-116); ASPARTATE AMNIOTRANSFERASE,AST 19 U/L (15-37); BILIRUBIN TOTAL 0.7 mg/dL (0.2-1.0); BLOOD UREA NITROGEN,BUN 33 mg/dL (7-18); CALCIUM 8.9 mg/dL (8.5-10.1); CARBON DIOXIDE,CO2 23 mmol/L (21-32); CHLORIDE,CL 100 mmol/L (100-108); CREATININE 1.9 mg/dL (0.8-1.3); EST CRCL DRUG DOSING (CG) 34.69 mL/min; ESTIMATED GFR 36 mL/min (>60); GLUCOSE RANDOM 191 mg/dL (74-106); PROTEIN TOTAL,TP 6.7 g/dL (6.4-8.2); SODIUM,NA 134 mmol/L (140-148)
[2024-07-22 00:02] LABS: TROPONIN I HIGH SENSITIVITY 25.5 pg/mL (<=60.3)
[2024-07-22] MEDS: Sodium Chloride 0.9% 1,000 ML IV SCH (00:03)
[2024-07-22] MEDS: VANCOmycin 2 GM in Sodium Chloride 0.9% 500 ML IV ONE (00:04)
[2024-07-22] MEDS: Piperacillin/Tazobactam 4.5 GM in Sodium Chloride 0.9% 100 ML IV ONE (02:11)
[2024-07-22 02:37] LABS: APPEARANCE,URINE CLEAR (CLEAR); BILIRUBIN,URINE NEGATIVE (NEGATIVE); COLOR,URINE YELLOW (YELLOW); GLUCOSE,URINE 100 mg/dL (NEGATIVE); KETONES,URINE NEGATIVE (NEGATIVE); LEUKOCYTE ESTERASE,URINE NEGATIVE (NEGATIVE); NITRITE,URINE NEGATIVE (NEGATIVE); OCCULT BLOOD,URINE NEGATIVE (NEGATIVE); PROTEIN,URINE 30 mg/dL (NEGATIVE); UROBILINOGEN,URINE 0.2 EU/dL (0.2-1.0)
[2024-07-22 03:40] LABS: AMORPHOUS SEDIMENT,URINE NOT SEEN; BACTERIA,URINE FEW; EPITHELIAL CELLS,URINE RARE; MUCUS,URINE NOT SEEN; RBC,URINE 0-5 (0-5); WBC,URINE 0-5 (0-5)
[2024-07-22] MEDS ORDERED: Ondansetron 4 MG Tab.DIS PO PRN (05:06)
[2024-07-22] MEDS ORDERED: Melatonin 3 MG Tab PO PRN (05:06)
[2024-07-22] MEDS ORDERED: Ondansetron 4 MG/2 ML SDV IV PRN (05:06)
[2024-07-22] MEDS ORDERED: Magnesium Hydroxide 400 MG/5 ML Susp 30 ML Cup PO PRN (05:06)
[2024-07-22] MEDS ORDERED: Sennosides/Docusate Sodium 50-8.6 MG Tab PO PRN (05:06)
[2024-07-22] MEDS: Enoxaparin 40 MG/0.4 ML Syringe SUBCUT SCH (05:54)
[2024-07-22] MEDS: Piperacillin/Tazobactam 4.5 GM in Sodium Chloride 0.9% 100 ML IV SCH (05:56)
[2024-07-22 05:58] LABS: HEMATOCRIT 37.1 % (38.4-49.7); HEMOGLOBIN 12.6 g/dL (12.9-16.9); MEAN CORPUSCULAR HEMOGLOBIN 33.4 pg (31.6-35.5); MEAN CORPUSCULAR VOLUME 98.4 fL (81.4-99.0); RED BLOOD CELL COUNT 3.77 M/uL (4.14-5.76); WHITE BLOOD CELL COUNT,WBC 9.2 K/uL (3.2-11.0)
[2024-07-22] MEDS: Acetaminophen 325 MG Tab PO PRN (06:01)
[2024-07-22 06:09] LABS: CALCIUM 8.8 mg/dL (8.5-10.1); CREATININE 1.8 mg/dL (0.8-1.3); EST CRCL DRUG DOSING (CG) 36.61 mL/min; POTASSIUM,K 4.2 mmol/L (3.6-5.2)
[2024-07-22 06:12] LABS: ANION GAP 9.2 mmol/L (5.0-14.0)
[2024-07-22] MEDS: Insulin Lispro 100 Unit/ML 3 ML KwikPen SUBCUT SCH (07:32)
[2024-07-22] MEDS ORDERED: Pantoprazole 40 MG Tab.CR PO PRN ×2 (08:20→09:22)
[2024-07-22] MEDS ORDERED: ISOSORBIDE DINITRATE 5 MG PO SCH (09:00)
[2024-07-22] MEDS ORDERED: Losartan 50 MG Tab PO SCH (09:00)
[2024-07-22] MEDS ORDERED: Non-Formulary Medication 1 Each (Citalopram Hydrobromide [Celexa] 40 MG Tablet) PO SCH (09:00)
[2024-07-22] MEDS: GLIMEPIRIDE 2 MG PO SCH (09:44)
[2024-07-22] MEDS: ISOSORBIDE DINITRATE 5 MG PO SCH (09:45)
[2024-07-22] MEDS: ROSUVASTATIN 10 MG PO SCH (09:45)
[2024-07-22] MEDS: Aspirin 81 MG Tab.Chew PO SCH (09:46)
[2024-07-22] MEDS: Metoprolol Succinate 50 MG Tab.ER PO SCH (09:46)
[2024-07-22] MEDS: Vitamin B Complex Tab PO SCH (09:47)
[2024-07-22] MEDS: Cyanocobalamin (Vitamin B12) 1,000 MCG Tab PO SCH (09:47)
[2024-07-22] MEDS: CITALOPRAM 40MG TAB (PTOM) PO SCH (09:48)
[2024-07-22] MEDS: Doxycycline 100 MG Cap PO ONE (10:55)
[2024-07-22 11:25] VITALS: BP 133/57; PULSE 63
[2024-07-22] MEDS ORDERED: Piperacillin/Tazobactam/Dext 4.5 GM in Premix Bag 1 BAG IV SCH (14:00)
[2024-07-22] MEDS ORDERED: Gabapentin 300 MG Cap (PTOM) PO SCH (21:00)
[2024-07-23] MEDS ORDERED: Enoxaparin 40 MG/0.4 ML Syringe SUBCUT SCH (06:00)
== END 2024-07-22 13:45 | disposition home or self-care (01) ==
LOC: JP.ED 22:01 → JP.ICU 07-22 04:19
PROVIDERS: ADMIT Registered Nurse; ATTEND Internal Medicine
DX: R06.02 Shortness of breath (principal); E11.621 Type 2 diabetes mellitus with foot ulcer; L97.419 Non-pressure chronic ulcer of right heel and midfoot with unspecified severity; I25.10 Atherosclerotic heart disease of native coronary artery without angina pectoris; I11.0 Hypertensive heart disease with heart failure; I50.9 Heart failure, unspecified; E78.00 Pure hypercholesterolemia, unspecified; I25.2 Old myocardial infarction; E11.9 Type 2 diabetes mellitus without complications; E66.9 Obesity, unspecified; Z86.16 Personal history of COVID-19; Z95.1 Presence of aortocoronary bypass graft; Z68.36 Body mass index [BMI] 36.0-36.9, adult; Z79.899 Other long term (current) drug therapy; Z88.8 Allergy status to other drugs, medicaments and biological substances; Z91.048 Other nonmedicinal substance allergy status; Z79.82 Long term (current) use of aspirin; Z79.84 Long term (current) use of oral hypoglycemic drugs; Z79.4 Long term (current) use of insulin
CPT/HCPCS: 36415; 71046; 73630; 80048; 80053; 81001; 82947; 83605; 83880; 84484; 85025; 85027; 87040; 93005; 93010; 96365; 96366; 96367; 96372; 99222; 99284; 99285; A9270; G0378; J1650; J2543; J7030; J7040; 99238; J1815

== ENCOUNTER 2024-10-22 18:12 | Emergency (ER) | payer MEDICARE, BC ==
[2024-10-22 19:43] VITALS: BP 154/74; PULSE 61
== END 2024-10-22 21:18 | disposition home or self-care (01) ==
LOC: JP.ED 18:12
DX: E11.621 Type 2 diabetes mellitus with foot ulcer (principal); L97.519 Non-pressure chronic ulcer of other part of right foot with unspecified severity; I25.10 Atherosclerotic heart disease of native coronary artery without angina pectoris; I11.0 Hypertensive heart disease with heart failure; I50.9 Heart failure, unspecified; E78.00 Pure hypercholesterolemia, unspecified; K21.9 Gastro-esophageal reflux disease without esophagitis; I25.2 Old myocardial infarction; Z88.8 Allergy status to other drugs, medicaments and biological substances; Z88.1 Allergy status to other antibiotic agents; Z79.82 Long term (current) use of aspirin; Z79.899 Other long term (current) drug therapy; Z79.4 Long term (current) use of insulin; Z95.0 Presence of cardiac pacemaker; Z95.1 Presence of aortocoronary bypass graft; Z86.16 Personal history of COVID-19
CPT/HCPCS: 99283; 99284